=== PATIENT | male | born 2000 | race Two or more races ===

== ENCOUNTER 2021-07-16 16:44 | Emergency (ER) | payer OTHER, MEDICAID, SELFPAY ==
--- NOTE | ~2021-07-16 | XR_ITS ---
EXAMINATION: XR CHEST CLINICAL INFORMATION: Shortness of breath COMPARISON: None TECHNIQUE: Frontal view of the chest was obtained. FINDINGS: No significant abnormality is noted involving the heart, lungs, mediastinum, bony thorax or soft tissues. XR/XR chest 1V IMPRESSION: Unremarkable examination.
[2021-07-16 16:57] VITALS: BP 124/73; BP 136/82; PULSE 120; PULSE 122; RESP 18; O2SAT 100; O2SAT 98; BMI 26.8
[2021-07-16 17:03] LABS: Glucose, Whole Blood 439 mg/dL (60-115)
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
[2021-07-16] MEDS: 0.9 % Sodium Chloride 1,000 ML 999 ML IV ×3 (17:08→23:30)
[2021-07-16] MEDS: diazePAM 2 MG TABLET PO (17:10)
[2021-07-16 17:37] LABS: MANUAL DIFF FLAG NO
[2021-07-16 17:38] LABS: Basophils Absolute Auto 0.1 X10*3/uL (0.0-0.2); Basophils Percent Auto 0.5 % (0-2); Eosinophils Absolute Auto 0.1 X10*3/uL (0.0-0.4); Eosinophils Percent Auto 0.6 % (0-4); Hematocrit 43.8 % (42.0-52.0); Hemoglobin 14.1 g/dl (14.0-18.0); Imm Gran Abs Auto 0.12 X10*3/uL (0.00-0.03); Imm Gran Pct Auto 0.8 % (0.0-0.4); Lymphocytes Absolute Auto 1.7 X10*3/uL (1.2-4.9); Mean Corpuscular HGB Conc 32.2 g/dl (31.0-36.0); Mean Corpuscular Hemoglobin 26.3 pg (27.0-33.0); Mean Corpuscular Volume 81.6 fL (80.0-98.0); Mean Platelet Volume 11.7 fL (9.4-12.4); Monocytes Absolute Auto 1.2 X10*3/uL (0.1-1.2); Monocytes Percent Auto 7.8 % (2-11); Neutrophils Absolute Auto 11.9 x10*3/uL (2.0-8.3); Neutrophils Percent Auto 79.3 % (45-73); Platelet Count 258 X10*3/uL (160-400); Red Blood Count 5.37 X10*6/uL (4.60-5.80); Red Cell Distribution Width 11.9 % (11.0-16.0)
[2021-07-16 17:39] LABS: Appearance Urine CLEAR; Color Urine YELLOW; Glucose Urine UA >=1000 MG/DL (NEG); Leukocyte Esterase Urine NEG (NEG); Nitrite Urine NEG (NEG); PH 5.5 (5.0-8.0); Urine Blood NEG (NEG); Urine Ketones 15 MG/DL (NEG); Urine Protein NEG (NEG-TRACE)
[2021-07-16] MEDS: Insulin Lispro 100 UNIT/ML 3 ML VIAL SUBCUT (17:43)
[2021-07-16 17:50] LABS: RBC Urine 0 /HPF (0); Squamous Epithelial Cell Urine 1+ /LPF
[2021-07-16 17:51] LABS: Bacteria Urine TRACE /LPF
[2021-07-16 17:59] LABS: Acetone, serum QL Negative (Negative)
[2021-07-16 18:02] LABS: Amphetamine Screen Urine Not Detected (Not Detect); Barbiturates, Urine Not Detected (Not Detect); Benzodiazepines Screen Urine Not Detected (Not Detect); Cannabinoid Screen Urine Not Detected (Not Detect); Cocaine Screen Urine POSITIVE (Not Detect); Fentanyl, urine POSITIVE (Not Detect); Opiate Screen Urine POSITIVE (Not Detect); Phencyclidine Screen Urine Not Detected (Not Detect)
[2021-07-16 18:04] LABS: Alanine Aminotransferase 21 U/L (0-40); Alkaline Phosphatase 111 U/L (39-117); Anion Gap 15 (12-20); Aspartate Amino Transferase 27 U/L (5-37); Bilirubin Total 0.3 mg/dL (0.0-1.0); Blood Urea Nitrogen 15 mg/dL (9-16); Calcium 8.8 mg/dL (8.4-10.2); Carbon Dioxide 29 mmol/L (22-29); Chloride 96 mmol/L (96-108); Creatinine Clr Calc Pharmacy 70.4; Estimated Glomerular Filt Rate > 60; Glucose Random 468 mg/dL (60-115); Potassium 4.2 mmol/L (3.3-5.1); Sodium 136 mmol/L (135-145); Total Protein 6.8 g/dL (6.5-8.0)
[2021-07-16 18:05] LABS: COVID-19 Test Negative (Negative); IDNOW Serial# 16C4AD1C
[2021-07-16 19:00] LABS: Glucose, Whole Blood 286 mg/dL (60-115)
--- NOTE | 2021-07-16 19:00 | PC.NURSE ---
Pt has been resting quietly. No longer complains of leg cramps. Sleeping at times
[2021-07-16 20:13] VITALS: BP 113/56; PULSE 88; RESP 14; O2SAT 98
[2021-07-16 22:31] VITALS: BP 119/74; PULSE 89; TEMP 37.3; O2SAT 99
[2021-07-17 00:58] LABS: Anion Gap 10 (12-20); Blood Urea Nitrogen 10 mg/dL (9-16); Calcium 8.2 mg/dL (8.4-10.2); Carbon Dioxide 27 mmol/L (22-29); Chloride 105 mmol/L (96-108); Creatinine Clr Calc Pharmacy 119.1; Estimated Glomerular Filt Rate > 60; Glucose Random 132 mg/dL (60-115); Potassium 3.7 mmol/L (3.3-5.1); Sodium 138 mmol/L (135-145)
== END 2021-07-17 02:42 | disposition home or self-care (01) ==
PROVIDERS: Physician Assistant; Emergency Provider Emergency Medicine Emergency Medical Services; PCP Family Medicine
DX: F11.19 Opioid abuse with unspecified opioid-induced disorder (principal); F14.10 Cocaine abuse, uncomplicated; R79.89 Other specified abnormal findings of blood chemistry; R25.2 Cramp and spasm; M79.605 Pain in left leg; M79.604 Pain in right leg; E11.9 Type 2 diabetes mellitus without complications; Z20.822 Contact with and (suspected) exposure to COVID-19; Z79.899 Other long term (current) drug therapy; Z91.14 Patient's other noncompliance with medication regimen
CPT/HCPCS: 36415; 71045; 80048; 80053; 80307; 81001; 82009; 82550; 82947; 83735; 85025; 87635; 96360; 96361; 99284

== ENCOUNTER 2022-03-16 05:03 | Emergency (ER) | payer OTHER, MEDICAID, SELFPAY ==
[2022-03-16 05:13] VITALS: BP 130/77; BP 134/89; PULSE 107; PULSE 117; RESP 16; O2SAT 97; O2SAT 99; BMI 25.7
[2022-03-16 05:18] VITALS: BP 137/78; PULSE 107; RESP 22; TEMP 36.8; O2SAT 96
--- NOTE | 2022-03-16 05:38 | PC.NURSE ---
Addendum entered by Denise Yarbrough 03/16/22 05:47: Pt left without being seen by the provider. Original Note: this RN walk in the room and saw the patient removing IV and requesting to leave. Pt's mom wa sat bedside, pt seemed agitated, anxious, and he was pacing. Dr. Torres was notified, and the charge nurse.
[2022-03-16 06:25] LABS: Glucose, Whole Blood 97 mg/dL (60-115)
--- NOTE | 2022-03-16 07:19 | ECG_ITS ---
Test Reason : CHEST PAIN Blood Pressure : / mmHG Vent. Rate : 107 BPM Atrial Rate : 107 BPM P-R Int : 132 ms QRS Dur : 072 ms QT Int : 346 ms P-R-T Axes : 040 -05 003 degrees QTc Int : 461 ms Sinus tachycardia Minimal voltage criteria for LVH, may be normal variant ( R in aVL ) Nonspecific T wave abnormality Abnormal ECG No previous ECGs available Referred By: Adrian Walton Electronically Signed By:CHITRA CASTILLO MD
== END 2022-03-16 05:56 | disposition left against medical advice (07) ==
LOC: HO.ED 05:54
PROVIDERS: Emergency Provider Emergency Medicine
DX: R07.89 Other chest pain (principal); Z79.899 Other long term (current) drug therapy
CPT/HCPCS: 82947; 93005; 99283; 99285

== ENCOUNTER 2022-06-20 01:01 | Emergency (ER) | payer OTHER, MEDICAID, SELFPAY ==
[2022-06-20 01:09] VITALS: BP 160/110; PULSE 125; O2SAT 98
[2022-06-20 01:11] VITALS: BP 141/94; PULSE 117; RESP 20; TEMP 36.3; O2SAT 98; BMI 26.2
--- NOTE | 2022-06-20 03:21 | ED_ITS ---
HPI - Anxiety General Chief Complaint: Anxiety Stated Complaint: PANIC ATTACK Time Seen by Provider: 06/20/22 02:42 History of Present Illness HPI narrative: Patient is a 22-year-old male presented today with having history of using cocaine. Then feeling very anxious. Came to the ED for help. Patient denies any suicidal homicidal ideation. He is diabetic. He takes metformin. Patient is also on methadone for previous heroin use. Denies heroin abuse today. Denies any coughing congestion upper respiratory symptoms. Related Data Allergies Allergy/AdvReac Type Severity Reaction Status Date / Time No Known Allergies Allergy Verified 07/16/21 16:57 [No Known Allergies*] Review of Systems Review of Systems: No chest pain or diaphoresis no fever no chills Yes all other systems are reviewed and are negative [facility] Past Medical History Attestation statement: The following information was validated with the patient. Medical History Diabetes Social History Social History Alcohol intake: current Alcohol intake frequency: a few times a week Patient Tobacco Use Status: Never used Tobacco Substance Use Type: Crack/Cocaine Advance Directives: No Physical Exam Vital Signs: Vital Signs: Last Vital Signs Temp 97.4 F 06/20/22 01:11 Pulse 117 H 06/20/22 01:11 Resp 20 06/20/22 01:11 BP 141/94 H 06/20/22 01:11 Pulse Ox 98 06/20/22 01:11 O2 Del Method 06/20/22 01:11 BMI result Body Mass Index 26.2 Appearance: Alert. Oriented X3. No acute distress. Eyes: Pupils equal, round and reactive to light. ENT: Pharynx normal. Neck: Normal inspection. Neck supple. No lymph nodes noted. No crepitus CVS: Normal heart rate and rhythm. Pulses normal. Normal S1 and S2 Respiratory: No respiratory distress. Breath sounds normal. No Wheezing. No rales Abdomen: Soft and nontender. No rigidity. No distention. good BS x4 Skin: Skin warm and dry. Normal skin color. Normal skin turgor. Extremities: No lower extremity edema. Neurovascular intact to all extremities. No Lacerations. No Rash Neuro: Oriented X 3. No motor deficit. No sensory deficit. Moving all extermities. No slurred speech Medical Decision Making Differential Diagnosis Patient's symptoms likely related to cocaine abuse. Told to stop using cocaine. Told to follow up on an outpatient basis. Will check patient's sugar prior to discharge. He is in stable condition. No distress. Admission/Observation Hypoglycemia, cocaine abuse, anxiety. Patient has no risk factors for pulmonary emboli. No arrhythmias in the past. Chronic Conditions Cocaine abuse Social Determinants Patient?s care significantly limited by Social Determinants of Health including: Alcoholism and drug addiction in family Discharge Plan Discharge Clinical Impression: Acute anxiety Patient Disposition: Home, Self-Care Instructions: Anxiety (ED), Cocaine Abuse (ED) Referrals: Grisel Monroe MD [Primary Care Provider] - (Please go to detox. Please stop using cocaine.) Print Language: Malay
[2022-06-20 03:35] VITALS: BP 120/52; PULSE 77; RESP 18; TEMP 36.5; O2SAT 99
[2022-06-20 03:36] LABS: Glucose, Whole Blood 99 mg/dL (60-115)
== END 2022-06-20 03:43 | disposition home or self-care (01) ==
PROVIDERS: Emergency Provider Emergency Medicine Emergency Medical Services; PCP Family Medicine
DX: F41.9 Anxiety disorder, unspecified (principal); F14.10 Cocaine abuse, uncomplicated; F11.20 Opioid dependence, uncomplicated; E11.9 Type 2 diabetes mellitus without complications; Z79.84 Long term (current) use of oral hypoglycemic drugs
CPT/HCPCS: 82947; 99282; 99283

== ENCOUNTER 2022-12-24 06:57 | Inpatient (IN) | payer OTHER, SELFPAY ==
--- NOTE | ~2022-12-24 | XR_ITS ---
EXAMINATION: PORTABLE CHEST 1 VIEW CLINICAL INFORMATION: right sided chest pain. COMPARISON: 12/24/2022. TECHNIQUE: Portable frontal view of the chest was obtained. FINDINGS: The lungs are hypoexpanded. No focal infiltrate, effusion, edema, or pneumothorax. Cardiac and mediastinal silhouettes are within normal limits for technique. No acute bony abnormality seen. XR/XR chest 1V IMPRESSION: No evidence of acute disease.
--- NOTE | ~2022-12-24 | XR_ITS ---
EXAMINATION: XR CHEST CLINICAL INFORMATION: Elevated white blood cell count COMPARISON: Previous chest x-ray July 2021 TECHNIQUE: Frontal view of the chest was obtained. FINDINGS: No significant abnormality is noted involving the heart, lungs, mediastinum, bony thorax or soft tissues. XR/XR chest 1V IMPRESSION: Unremarkable examination.
[2022-12-24 07:26] VITALS: BP 155/89; BP 160/104; PULSE 127; PULSE 133; RESP 20; TEMP 37.1; O2SAT 98; O2SAT 99; BMI 32.9
--- NOTE | 2022-12-24 07:50 | ED_ITS ---
HPI - Psych General Chief Complaint: Psychiatric Symptoms Stated Complaint: CRISIS,PARANOIA/DELUSIONS Time Seen by Provider: 12/24/22 07:49 Source: patient, EMS, RN notes reviewed and old records reviewed Mode of arrival: EMS History of Present Illness HPI Narrative: 22-year-old male with past medical history of diabetes presenting to the ED via EMS after going to the police station and requesting to come to the hospital due to visual hallucinations of seeing people around him, paranoia, and feeling unsafe. Patient reports he feels scared. States hallucinations were telling him they were going to hurt him. Reports occasional ETOH use, denies other illicit substances. Denies SI/HI, abdominal pain, nausea/vomiting, injury/trauma or fall Related Data Home Medications Medication Instructions Recorded Confirmed cholecalciferol (vitamin D3) 25 25 mcg PO DAILY 12/24/22 12/24/22 mcg (1,000 unit) tablet dulaglutide 0.75 mg/0.5 mL 0.75 mg subcut MO@0900 12/24/22 12/24/22 subcutaneous pen injector (Trulicity) metformin 500 mg tablet,extended 500 mg PO BID 12/24/22 12/24/22 release 24 hr methadone 10 mg/mL oral concentrate 115 mg PO DAILY 12/24/22 Allergies Allergy/AdvReac Type Severity Reaction Status Date / Time No Known Allergies Allergy Verified 12/24/22 07:45 [No Known Allergies*] Review of Systems Review of Systems: Constitutional: No Fever, No Chills, No Fatigue, No Malaise ENT/Mouth: No Ear Pain, No Swallowing Difficulty Eyes: No Eye Pain, No Swelling, No Redness, No Vision Changes Cardiovascular: No Chest Pain, No SOB Respiratory: No Cough, No Dyspnea Gastrointestinal: No Nausea, No Vomiting, No Abdominal pain Musculoskeletal: No joint pain, No Myalgias, No Joint Swelling Skin: No Skin Lesions, No rash Neuro: No Weakness, No Dizziness, No Headache Psych: + Anxiety/Panic, No Depression, No SI/HI, +AH/VH, No Social Issues, +paranoia Yes all other systems are reviewed and are negative Constitutional: Constitutional: Reports as per HPI [facility] Past Medical History Attestation statement: The following information was validated with the patient. Source: old records reviewed Medical History Diabetes Social History Social History Alcohol intake: current Alcohol intake frequency: does not drink Patient Tobacco Use Status: Never used Tobacco Smoked in Last 30 Days: No Substance Use Type: Crack/Cocaine Advance Directives: No Advance Directives Information Provided: Yes Healthcare Proxy: No Guardian: No Physical Exam Vital Signs: Vital Signs: Last Vital Signs Temp 96.3 F L 12/24/22 11:38 Pulse 89 12/24/22 11:38 Resp 18 12/24/22 11:38 BP 112/58 L 12/24/22 11:38 Pulse Ox 98 12/24/22 11:38 O2 Del Method Room Air 12/24/22 11:38 BMI result Body Mass Index 32.9 Const: General: cooperative and no acute distress Orientation/consciousness: patient oriented x3 Limitations: no limitations HEENT: Head: Yes normal to inspection and Yes atraumatic Ears: hearing grossly normal bilaterally General nose exam: Normal external nose present Face and sinus: Yes normal facial exam Throat: Yes posterior oropharynx normal and Yes uvula midline Eyes: General: appearance normal, both eyes and all related structures EOM: EOMs intact bilaterally Neck: Neck: Yes normal visual inspection and Yes no meningeal signs Resp: Effort & Inspection: normal respiratory effort and no respiratory distress Auscultation: clear to auscultation bilaterally, no crackles and no wheezes Cardio: Rate: regular rate Heart sounds: S1 normal heart sound present and S2 normal heart sound present GI: Inspection: Yes normal to inspection Palpation (GI): Soft to palpation, nontender, no guarding and not rigid Skin: Rashes: no rashes Wounds: no wounds Neuro: General: patient oriented x3, tone normal and no meningeal signs Cranial nerves: Yes CN's II-XII intact bilaterally Gait exam (Neuro): Normal gait present Extrem: General: Yes normal to inspection Psych: Affect: Anxious affect present Attitude: Guarded attititude/behavior present and Avoids eye contact (attititude/behavior) Thought content: suicidality, no homicidality, delusions, Hallucination(s) present visual and Phobia(s) present Course Course Course Narrative: -1133--leukocytosis of 18.6 > obtain UA and CXR to rule infection, low suspicion for sepsis. No evidence of infection at this time, likely reactive from stress. Potassium mildly elevated to 5.5 > p.o. lokelma -1258-- XR chest 1V IMPRESSION: Unremarkable examination. -urine tox positive for fentanyl and cocaine -UA with trace leuks, moderate amount of WBC > will give p.o. Ceftin. Low suspicion for severe sepsis. -patient medically cleared for CARE team evaluation. Physician observation initiated at 15:00. -1500--ED care transferred to RANDY Quintana pending CARE eval 1624 - Patient still awaiting CARE evaluation at this time. Medications Administered Discontinued Medications Generic Name Dose Route Start Last Admin Trade Name Freq PRN Reason Stop Dose Admin Sodium Zirconium Cyclosilicate 5 gm 12/24/22 11:35 12/24/22 12:31 Sodium Zirconium Cyclosilicate 5 Gm Powd.Pack PO 12/24/22 11:36 5 gm ONCE ONE Administration Medical Decision Making Medical Decision Making MDM Narrative: 22-year-old male with past medical history of diabetes presenting to the ED via EMS after going to the police station and requesting to come to the hospital due to visual hallucinations of seeing people around him, paranoia, and feeling unsafe. On exam tachycardic, anxious, guarded, paranoid, no evidence of trauma. Denies SI/HI. Concern for paranoid delusions vs psychosis vs substance abuse. Rule out organic causes Plan: EKG, Labs, UA, tox screen, CARE team consult Low suspicion for severe sepsis Please refer to course for remaining clinical decision making, interpretation of labs/imaging results, and discussions with consultants and/or family members. Differential Diagnosis Differential Diagnoses: The differential diagnosis associated with the presentation includes As above Admission/Observation Consideration of admission/observation: Escalation of care including admission/observation considered Consult Healthcare Provider Management of the patient was discussed with: Behavioral Health Provider Lab Data [facility] Lab Attestation statement: I reviewed the patient's lab results. 12/24/22 08:31 12/24/22 08:31 Labs: Lab Results 12/24/22 12/24/22 12/24/22 Range/Units 08:31 08:31 08:31 WBC 18.6 H (4.8-10.8) X10*3/uL RBC 5.39 (4.60-5.80) X10*6/uL Hgb 13.8 L (14.0-18.0) g/dl Hct 41.7 L (42.0-52.0) % MCV 77.4 L (80.0-98.0) fL MCH 25.6 L (27.0-33.0) pg MCHC 33.1 (31.0-36.0) g/dl RDW 12.8 (11.0-16.0) % Plt Count 300 (160-400) X10*3/uL MPV 9.9 (9.4-12.4) fL Immature Gran % (Auto) 0.6 H (0.0-0.4) % Neut % (Auto) 76.9 H (45-73) % Lymph % (Auto) 15.0 L (20-40) % [place] % (Auto) 7.2 (2-11) % Eos % (Auto) 0.0 (0-4) % Baso % (Auto) 0.3 (0-2) % Lymph # (Auto) 2.8 (1.2-4.9) X10*3/uL [place] # (Auto) 1.4 H (0.1-1.2) X10*3/uL Eos # (Auto) 0.0 (0.0-0.4) X10*3/uL Baso # (Auto) 0.1 (0.0-0.2) X10*3/uL Abs Immat Gran (auto) 0.12 H (0.00-0.03) X10*3/uL Absolute Neuts (auto) 14.3 H (2.0-8.3) x10*3/uL Absolute Nucleated RBC 0.000 (0.0-0.012) X10*3/uL Nucleated RBC % (auto) 0.0 (0.0-0.2) /100WBC Sodium 139 (135-145) mmol/L Potassium 5.5 H D (3.3-5.1) mmol/L Chloride 104 (96-108) mmol/L Carbon Dioxide 25 (22-29) mmol/L Anion Gap 16 (12-20) BUN 12 (9-16) mg/dL Creatinine 0.91 (0.5-1.4) mg/dL Estim Creat Clear Calc 115.8 Estimated GFR > 60 Random Glucose 95 (60-115) mg/dL Calcium 10.1 D (8.4-10.2) mg/dL Total Bilirubin 0.2 (0.0-1.0) mg/dL Direct Bilirubin < 0.2 (0.0-0.5) mg/dL AST 32 (5-37) U/L ALT 40 (0-40) U/L Alkaline Phosphatase 111 (39-117) U/L Total Protein 8.5 H (6.5-8.0) g/dL Albumin 4.9 (3.5-5.0) g/dL Urine Color Urine Appearance Urine pH (5.0-9.0) Ur Specific [place] (1.005-1.025) Urine Protein (Neg-Trace) mg/dL Urine Glucose (UA) (Negative) mg/dL Urine Ketones (Negative) mg/dL Urine Blood (Negative) Urine Nitrite (Negative) Ur Leukocyte Esterase (Negative) Urine RBC (0-2) /HPF Urine WBC (0-5) /HPF Ur Squamous Epith Cells (0-2) /HPF Urine Bacteria (None Seen) Hyaline Casts (0-2) /LPF Salicylates < 5.0 L (15-30) mg/dL Urine Opiates Screen (Not Detect) Urine Fentanyl Screen (Not Detect) Acetaminophen < 17 (<30) mcg/mL Ur Barbiturates Screen (Not Detect) Ur Phencyclidine Scrn (Not Detect) Ur Amphetamines Screen (Not Detect) U Benzodiazepines Scrn (Not Detect) Urine Cocaine Screen (Not Detect) U Marijuana (THC) Screen (Not Detect) Ethyl Alcohol < 10 mg/dL COVID-19 ([facility]) (Negative) COVID-19 Clin Com 12/24/22 12/24/22 12/24/22 Range/Units 11:58 11:58 15:56 WBC (4.8-10.8) X10*3/uL RBC (4.60-5.80) X10*6/uL Hgb (14.0-18.0) g/dl Hct (42.0-52.0) % MCV (80.0-98.0) fL MCH (27.0-33.0) pg MCHC (31.0-36.0) g/dl RDW (11.0-16.0) % Plt Count (160-400) X10*3/uL MPV (9.4-12.4) fL Immature Gran % (Auto) (0.0-0.4) % Neut % (Auto) (45-73) % Lymph % (Auto) (20-40) % [place] % (Auto) (2-11) % Eos % (Auto) (0-4) % Baso % (Auto) (0-2) % Lymph # (Auto) (1.2-4.9) X10*3/uL [place] # (Auto) (0.1-1.2) X10*3/uL Eos # (Auto) (0.0-0.4) X10*3/uL Baso # (Auto) (0.0-0.2) X10*3/uL Abs Immat Gran (auto) (0.00-0.03) X10*3/uL Absolute Neuts (auto) (2.0-8.3) x10*3/uL Absolute Nucleated RBC (0.0-0.012) X10*3/uL Nucleated RBC % (auto) (0.0-0.2) /100WBC Sodium (135-145) mmol/L Potassium (3.3-5.1) mmol/L Chloride (96-108) mmol/L Carbon Dioxide (22-29) mmol/L Anion Gap (12-20) BUN (9-16) mg/dL Creatinine (0.5-1.4) mg/dL Estim Creat Clear Calc Estimated GFR Random Glucose (60-115) mg/dL Calcium (8.4-10.2) mg/dL Total Bilirubin (0.0-1.0) mg/dL Direct Bilirubin (0.0-0.5) mg/dL AST (5-37) U/L ALT (0-40) U/L Alkaline Phosphatase (39-117) U/L Total Protein (6.5-8.0) g/dL Albumin (3.5-5.0) g/dL Urine Color Yellow Urine Appearance Clear Urine pH 5.5 (5.0-9.0) Ur Specific [place] 1.015 (1.005-1.025) Urine Protein Negative (Neg-Trace) mg/dL Urine Glucose (UA) Negative (Negative) mg/dL Urine Ketones Negative (Negative) mg/dL Urine Blood Negative (Negative) Urine Nitrite Negative (Negative) Ur Leukocyte Esterase Trace H (Negative) Urine RBC 0-2 (0-2) /HPF Urine WBC 6-10 H (0-5) /HPF Ur Squamous Epith Cells 0-2 (0-2) /HPF Urine Bacteria None Seen (None Seen) Hyaline Casts 0-2 (0-2) /LPF Salicylates (15-30) mg/dL Urine Opiates Screen Not Detected (Not Detect) Urine Fentanyl Screen POSITIVE H (Not Detect) Acetaminophen (<30) mcg/mL Ur Barbiturates Screen Not Detected (Not Detect) Ur Phencyclidine Scrn Not Detected (Not Detect) Ur Amphetamines Screen Not Detected (Not Detect) U Benzodiazepines Scrn Not Detected (Not Detect) Urine Cocaine Screen POSITIVE H (Not Detect) U Marijuana (THC) Screen Not Detected (Not Detect) Ethyl Alcohol mg/dL COVID-19 ([facility]) Negative (Negative) COVID-19 Clin Com See Note Independent Interpretation I performed an independent interpretation of an: EKG (EKG normal sinus rhythm at a rate of 93. ME interval 140. No STEMI. Questionable change in QRS axis when compared to prior) and Plain X-Ray Radiology Impression Discussion of test interpretation with radiology: I have reviewed the radiologist's reading. Radiologist Impression: XR chest 1V IMPRESSION: Unremarkable examination. Independent Historian Clinical information obtained from an independent historian. History obtained from or confirmed by: EMS External Record Review External record reviewed: Inpatient record, Office record, Outpatient record, Prior outpatient labs, Prior outpatient radiology, Primary care record and Outside ED record Tests considered The following testing was considered but not selected: As above Chronic Conditions Patient?s care impacted by: Diabetes Social Determinants Patient?s care significantly limited by Social Determinants of Health including: Inadequate housing, Problems related to primary support group and Other Social Determinant of Health Discharge Plan Discharge Clinical Impression: Paranoid delusion, Acute UTI Patient Disposition: Still a Patient Prescriptions: No Action metformin 500 mg tablet extended release 24 hr 500 mg PO BID cholecalciferol (vitamin D3) 25 mcg (1,000 unit) tablet 25 mcg PO DAILY Trulicity 0.75 mg/0.5 mL pen injector 0.75 mg subcut MO@0900 methadone 10 mg/mL Concentrate 115 mg PO DAILY Interventions: [place]-Suicide Risk Severity Scale Last Done: 12/24/22 07:44
--- NOTE | 2022-12-24 07:52 | ECG_ITS ---
Test Reason : SLOW QT WAVES Blood Pressure : / mmHG Vent. Rate : 093 BPM Atrial Rate : 093 BPM P-R Int : 140 ms QRS Dur : 076 ms QT Int : 366 ms P-R-T Axes : 000 051 062 degrees QTc Int : 455 ms Normal sinus rhythm Nonspecific T wave abnormality Abnormal ECG When compared with ECG of 16-MAR-2022 05:21, Questionable change in QRS axis Referred By: Bridgette Martinez Electronically Signed By:Javier Eaton
--- NOTE | 2022-12-24 08:21 | PC.NURSE ---
pt a+o x3, vss at baseline, denies pain. pt reported that he woke up feeling like someone was watching him so he went to the police station and asked to be brought to the hospital. he denies visual/auditory hallucinations, denies SI/HI. I only feel like someone is watching me and it makes me nervous . pt calm, cooperative, sitting quietly on his bed at this time. will continue to observe.
[2022-12-24 08:40] LABS: MANUAL DIFF FLAG NO
[2022-12-24 08:42] LABS: Basophils Absolute Auto 0.1 X10*3/uL (0.0-0.2); Basophils Percent Auto 0.3 % (0-2); Hematocrit 41.7 % (42.0-52.0); Hemoglobin 13.8 g/dl (14.0-18.0); Imm Gran Abs Auto 0.12 X10*3/uL (0.00-0.03); Imm Gran Pct Auto 0.6 % (0.0-0.4); Lymphocytes Absolute Auto 2.8 X10*3/uL (1.2-4.9); Mean Corpuscular HGB Conc 33.1 g/dl (31.0-36.0); Mean Corpuscular Hemoglobin 25.6 pg (27.0-33.0); Mean Corpuscular Volume 77.4 fL (80.0-98.0); Mean Platelet Volume 9.9 fL (9.4-12.4); Monocytes Absolute Auto 1.4 X10*3/uL (0.1-1.2); Monocytes Percent Auto 7.2 % (2-11); Neutrophils Absolute Auto 14.3 x10*3/uL (2.0-8.3); Neutrophils Percent Auto 76.9 % (45-73); Platelet Count 300 X10*3/uL (160-400); Red Blood Count 5.39 X10*6/uL (4.60-5.80); Red Cell Distribution Width 12.8 % (11.0-16.0); White Blood Count 18.6 X10*3/uL (4.8-10.8)
[2022-12-24 09:21] LABS: Acetaminophen LAB < 17 mcg/mL (<30); Alanine Aminotransferase 40 U/L (0-40); Albumin Level 4.9 g/dL (3.5-5.0); Alkaline Phosphatase 111 U/L (39-117); Anion Gap 16 (12-20); Aspartate Amino Transferase 32 U/L (5-37); Bilirubin Direct < 0.2 mg/dL (0.0-0.5); Bilirubin Total 0.2 mg/dL (0.0-1.0); Blood Urea Nitrogen 12 mg/dL (9-16); Calcium 10.1 mg/dL (8.4-10.2); Carbon Dioxide 25 mmol/L (22-29); Chloride 104 mmol/L (96-108); Creatinine Clr Calc Pharmacy 115.8; Estimated Glomerular Filt Rate > 60; Ethanol < 10 mg/dL; Glucose Random 95 mg/dL (60-115); Potassium 5.5 mmol/L (3.3-5.1); Salicylate < 5.0 mg/dL (15-30); Sodium 139 mmol/L (135-145); Total Protein 8.5 g/dL (6.5-8.0)
--- NOTE | 2022-12-24 10:06 | MHC.EDTECH ---
Pt unable to void at this time. Pt is aware we need a urine specimen as soon as he can. SG
[2022-12-24 11:38] VITALS: BP 112/58; PULSE 89; RESP 18; TEMP 35.7; O2SAT 98
[2022-12-24 12:07] LABS: Appearance Urine Clear; Color Urine Yellow; Glucose Urine UA Negative (Negative); Leukocyte Esterase Urine Trace (Negative); Nitrite Urine Negative (Negative); PH 5.5 (5.0-9.0); Specific Gravity - Urine 1.015 (1.005-1.025); UMIC TRIGGER UACC YES; Urine Blood Negative (Negative); Urine Ketones Negative (Negative); Urine Protein Negative (Neg-Trace)
[2022-12-24 12:09] LABS: Bacteria Urine None Seen (None Seen); Hyaline Casts Urine 0-2 /LPF (0-2); RBC Urine 0-2 /HPF (0-2); Squamous Epithelial Cell Urine 0-2 /HPF (0-2); UACC Culture Trigger YES
[2022-12-24 12:18] LABS: Amphetamine Screen Urine Not Detected (Not Detect); Barbiturates, Urine Not Detected (Not Detect); Benzodiazepines Screen Urine Not Detected (Not Detect); Cannabinoid Screen Urine Not Detected (Not Detect); Cocaine Screen Urine POSITIVE (Not Detect); Fentanyl, urine POSITIVE (Not Detect); Opiate Screen Urine Not Detected (Not Detect); Phencyclidine Screen Urine Not Detected (Not Detect)
[2022-12-24] MEDS: Sodium Zirconium Cyclosilicate 5 GM POWD.PACK PO (12:31)
--- NOTE | 2022-12-24 14:43 | MHC.CARE ---
patient is voluntary for inpatient LOC. Placement pending
--- NOTE | 2022-12-24 15:00 | PC.NURSE ---
pt seen by Care Team, plan is inpatient bed search. pt aware and agrees with plan.
--- NOTE | 2022-12-24 15:37 | PHA.MEDREC ---
Pharmacy Consult ? Medication Reconciliation Pharmacy has completed the medication reconciliation. Spoke to patient to confirm meds. Utilized exercise instruct services. Patient reports taking methadone 115mg daily, but could not name specific place other than that its the [facility] . Patient also reports taking metformin 500mg ER BID, but claim history shows last fill date on 03/16/22.
[2022-12-24 16:18] LABS: COVID-19 Test Negative (Negative); IDNOW Serial# 08D9AD1C
[2022-12-24 17:03] VITALS: BP 113/61; PULSE 80; RESP 18; TEMP 36.4; O2SAT 100
--- NOTE | 2022-12-24 19:59 | PC.NURSE ---
Pt ambulated with a steady gait to bathroom. Returned to room. Resting quietly. Plan of care ongoing.
--- NOTE | 2022-12-24 20:10 | PC.NURSE ---
Pt lying across the bed sideways. Per pt feels better on his back when he lays that way. Pt alert and oriented, calm and cooperative. Plan of care ongoing.
[2022-12-24 22:30] VITALS: BMI 30.5
[2022-12-24 22:35] VITALS: BP 133/75; PULSE 92; RESP 18; TEMP 36.4; O2SAT 98
[2022-12-24] MEDS: cloNIDine HCL 0.1 MG TABLET PO (23:20)
[2022-12-24] MEDS: hydrOXYzine HCL 25 MG TABLET PO (23:20)
[2022-12-24] MEDS: traZODone HCL 50 MG TABLET PO (23:21)
--- NOTE | 2022-12-25 01:40 | PC.ADMIT ---
Cassandra Phillips is a 22yo Togolese speaking male, admitted at 2230 on a CV to M3 unit from [facility] for treatment of SI, paranoia and AVH. He reported to the police that he felt afraid that his auditory hallucination were telling him that people were going to hurt him. He endorses AVH and SI with no plan for the past 3 months but denies homicidal ideation. He states that I always hear voices telling me to kill myself any time I am nervous . Pt said he takes herione, cocaine and drink alcohol, urine tox is positive for cocaine. Admission process was carried out with the help of an sed middle school teacher, Pt is alert and orientated X4, calm and cooperative, mood is flat and affect is anxious. He is non-compliance with diabetes medication and states that he takes Methadone, unconfirmed dosages. Treatment plan and safety tools were initiated.
[2022-12-25 07:41] LABS: MANUAL DIFF FLAG NO
[2022-12-25 07:44] LABS: Basophils Absolute Auto 0.1 X10*3/uL (0.0-0.2); Basophils Percent Auto 0.6 % (0-2); Eosinophils Absolute Auto 0.1 X10*3/uL (0.0-0.4); Eosinophils Percent Auto 0.7 % (0-4); Hematocrit 41.2 % (42.0-52.0); Hemoglobin 13.1 g/dl (14.0-18.0); Imm Gran Abs Auto 0.06 X10*3/uL (0.00-0.03); Imm Gran Pct Auto 0.7 % (0.0-0.4); Lymphocytes Absolute Auto 3.2 X10*3/uL (1.2-4.9); Lymphocytes Percent Auto 37.4 % (20-40); Mean Corpuscular HGB Conc 31.8 g/dl (31.0-36.0); Mean Corpuscular Hemoglobin 25.3 pg (27.0-33.0); Mean Corpuscular Volume 79.5 fL (80.0-98.0); Monocytes Absolute Auto 0.7 X10*3/uL (0.1-1.2); Monocytes Percent Auto 8.7 % (2-11); Neutrophils Absolute Auto 4.4 x10*3/uL (2.0-8.3); Neutrophils Percent Auto 51.9 % (45-73); Platelet Count 265 X10*3/uL (160-400); Red Blood Count 5.18 X10*6/uL (4.60-5.80); White Blood Count 8.5 X10*3/uL (4.8-10.8)
--- NOTE | 2022-12-25 07:53 | PC.NURSE ---
Spoke with Daria XAVIER at [facility], pt last received Methadone 115mg 12/23/22 at 1156.
[2022-12-25 08:00] VITALS: BP 107/62; PULSE 79; TEMP 36.6; O2SAT 100
--- NOTE | 2022-12-25 08:01 | HE.PHANOTE ---
RE: methadone [facility] last dose 12/23/22 for 115mg
[2022-12-25 08:07] LABS: Alanine Aminotransferase 41 U/L (0-40); Albumin Level 4.2 g/dL (3.5-5.0); Alkaline Phosphatase 96 U/L (39-117); Anion Gap 13 (12-20); Aspartate Amino Transferase 61 U/L (5-37); Bilirubin Total 0.3 mg/dL (0.0-1.0); Blood Urea Nitrogen 13 mg/dL (9-16); Calcium 9.6 mg/dL (8.4-10.2); Carbon Dioxide 29 mmol/L (22-29); Chloride 103 mmol/L (96-108); Cholesterol 98 mg/dL; Estimated Glomerular Filt Rate > 60; Glucose Fasting 136 mg/dL (60-99); HDL Cholesterol 50 mg/dL; LDL Cholesterol Calculated 29 mg/dl; Magnesium 2.2 mg/dL (1.6-2.6); Potassium 4.5 mmol/L (3.3-5.1); Sodium 140 mmol/L (135-145); Total Protein 7.3 g/dL (6.5-8.0); Triglycerides 99 mg/dL
[2022-12-25] MEDS: Cholecalciferol (Vitamin D3) 25 MCG TABLET PO (08:22)
[2022-12-25] MEDS: metFORMIN HCl ER 500 MG TAB.ER.24H PO ×2 (08:22→22:09)
[2022-12-25] MEDS: methADONE HCl 20 MG/2 ML ORAL.CONC 115 MG PO (08:22)
[2022-12-25 08:29] LABS: Glucose, Whole Blood 145 mg/dL (60-115)
--- NOTE | 2022-12-25 09:50 | HO.PSYCHPN ---
Subjective Subjective Reason For Visit: Hallucinations Diagnostics Vital Signs (24Hr): Vital Signs - 24 hr 12/24/22 11:38 12/24/22 17:03 12/24/22 22:35 Temperature 96.3 F L 97.5 F 97.6 F Pulse Rate 89 80 92 Respiratory Rate 18 18 18 Blood Pressure 112/58 L 113/61 133/75 Pulse Oximetry 98 100 98 Oxygen Delivery Method Room Air Room Air Room Air 12/25/22 08:00 Temperature 97.9 F Pulse Rate 79 Respiratory Rate Blood Pressure 107/62 Pulse Oximetry 100 Oxygen Delivery Method Room Air BMI result Body Mass Index 30.5 Labs 12/25/22 07:37 12/25/22 07:37 Labs: Laboratory Results - last 48 hr 12/24/22 12/24/22 12/24/22 08:31 08:31 08:31 WBC 18.6 H RBC 5.39 Hgb 13.8 L Hct 41.7 L MCV 77.4 L MCH 25.6 L MCHC 33.1 RDW 12.8 Plt Count 300 MPV 9.9 Immature Gran % (Auto) 0.6 H Neut % (Auto) 76.9 H Lymph % (Auto) 15.0 L [place] % (Auto) 7.2 Eos % (Auto) 0.0 Baso % (Auto) 0.3 Lymph # (Auto) 2.8 [place] # (Auto) 1.4 H Eos # (Auto) 0.0 Baso # (Auto) 0.1 Abs Immat Gran (auto) 0.12 H Absolute Neuts (auto) 14.3 H Absolute Nucleated RBC 0.000 Nucleated RBC % (auto) 0.0 Sodium 139 Potassium 5.5 H D Chloride 104 Carbon Dioxide 25 Anion Gap 16 BUN 12 Creatinine 0.91 Estim Creat Clear Calc 115.8 Estimated GFR > 60 POC Glucose Random Glucose 95 Fasting Glucose Calcium 10.1 D Magnesium Total Bilirubin 0.2 Direct Bilirubin < 0.2 AST 32 ALT 40 Alkaline Phosphatase 111 Total Protein 8.5 H Albumin 4.9 Triglycerides Cholesterol LDL Cholesterol, Calc HDL Cholesterol Urine Color Urine Appearance Urine pH Ur Specific [place] Urine Protein Urine Glucose (UA) Urine Ketones Urine Blood Urine Nitrite Ur Leukocyte Esterase Urine RBC Urine WBC Ur Squamous Epith Cells Urine Bacteria Hyaline Casts Salicylates < 5.0 L Urine Opiates Screen Urine Fentanyl Screen Acetaminophen < 17 Ur Barbiturates Screen Ur Phencyclidine Scrn Ur Amphetamines Screen U Benzodiazepines Scrn Urine Cocaine Screen U Marijuana (THC) Screen Ethyl Alcohol < 10 COVID-19 ([facility]) COVID-19 [employer] Com 12/24/22 12/24/22 12/24/22 11:58 11:58 15:56 WBC RBC Hgb Hct MCV MCH MCHC RDW Plt Count MPV Immature Gran % (Auto) Neut % (Auto) Lymph % (Auto) [place] % (Auto) Eos % (Auto) Baso % (Auto) Lymph # (Auto) [place] # (Auto) Eos # (Auto) Baso # (Auto) Abs Immat Gran (auto) Absolute Neuts (auto) Absolute Nucleated RBC Nucleated RBC % (auto) Sodium Potassium Chloride Carbon Dioxide Anion Gap BUN Creatinine Estim Creat Clear Calc Estimated GFR POC Glucose Random Glucose Fasting Glucose Calcium Magnesium Total Bilirubin Direct Bilirubin AST ALT Alkaline Phosphatase Total Protein Albumin Triglycerides Cholesterol LDL Cholesterol, Calc HDL Cholesterol Urine Color Yellow Urine Appearance Clear Urine pH 5.5 Ur Specific [place] 1.015 Urine Protein Negative Urine Glucose (UA) Negative Urine Ketones Negative Urine Blood Negative Urine Nitrite Negative Ur Leukocyte Esterase Trace H Urine RBC 0-2 Urine WBC 6-10 H Ur Squamous Epith Cells 0-2 Urine Bacteria None Seen Hyaline Casts 0-2 Salicylates Urine Opiates Screen Not Detected Urine Fentanyl Screen POSITIVE H Acetaminophen Ur Barbiturates Screen Not Detected Ur Phencyclidine Scrn Not Detected Ur Amphetamines Screen Not Detected U Benzodiazepines Scrn Not Detected Urine Cocaine Screen POSITIVE H U Marijuana (THC) Screen Not Detected Ethyl Alcohol COVID-19 ([facility]) Negative COVID-19 Clin Com See Note 12/25/22 12/25/22 12/25/22 07:37 07:37 08:21 WBC 8.5 RBC 5.18 Hgb 13.1 L Hct 41.2 L MCV 79.5 L MCH 25.3 L MCHC 31.8 RDW 13.0 Plt Count 265 MPV 10.0 Immature Gran % (Auto) 0.7 H Neut % (Auto) 51.9 Lymph % (Auto) 37.4 [place] % (Auto) 8.7 Eos % (Auto) 0.7 Baso % (Auto) 0.6 Lymph # (Auto) 3.2 [place] # (Auto) 0.7 Eos # (Auto) 0.1 Baso # (Auto) 0.1 Abs Immat Gran (auto) 0.06 H Absolute Neuts (auto) 4.4 Absolute Nucleated RBC 0.000 Nucleated RBC % (auto) 0.0 Sodium 140 Potassium 4.5 Chloride 103 Carbon Dioxide 29 Anion Gap 13 BUN 13 Creatinine 0.86 Estim Creat Clear Calc 118.0 Estimated GFR > 60 POC Glucose 145 H Random Glucose Fasting Glucose 136 H Calcium 9.6 Magnesium 2.2 Total Bilirubin 0.3 Direct Bilirubin AST 61 H ALT 41 H Alkaline Phosphatase 96 Total Protein 7.3 Albumin 4.2 Triglycerides 99 Cholesterol 98 LDL Cholesterol, Calc 29 HDL Cholesterol 50 Urine Color Urine Appearance Urine pH Ur Specific [place] Urine Protein Urine Glucose (UA) Urine Ketones Urine Blood Urine Nitrite Ur Leukocyte Esterase Urine RBC Urine WBC Ur Squamous Epith Cells Urine Bacteria Hyaline Casts Salicylates Urine Opiates Screen Urine Fentanyl Screen Acetaminophen Ur Barbiturates Screen Ur Phencyclidine Scrn Ur Amphetamines Screen U Benzodiazepines Scrn Urine Cocaine Screen U Marijuana (THC) Screen Ethyl Alcohol COVID-19 ([facility]) COVID-19 Clin Com Imaging Radiology Impressions: ITS Impressions Chest X-Ray 12/24/22 12:10 IMPRESSION: Unremarkable examination. Medications Medications Current Medications Acetaminophen (Acetaminophen 325 Mg Tablet) 650 mg PO Q6H PRN PRN Reason: Headache/Pain Mild Scale (1-3) Al Hydroxide/Mg Hydroxide (Magnesium Hydrox/Alum Hydrox 30 Ml Oral.Susp) 30 ml PO Q6H PRN PRN Reason: Heartburn/Nausea Cefuroxime Axetil (Cefuroxime Axetil 250 Mg Tablet) 250 mg PO Q12H [facility] Last Admin: 12/25/22 06:19 Dose: Not Given Clonidine HCl (Clonidine Hcl 0.1 Mg Tablet) 0.1 mg PO TID PRN; Protocol PRN Reason: anxiety/restlessness Last Admin: 12/24/22 23:20 Dose: 0.1 mg Hydroxyzine HCl (Hydroxyzine Hcl 25 Mg Tablet) 25 mg PO Q6H PRN PRN Reason: Anxiety Last Admin: 12/24/22 23:20 Dose: 25 mg Ibuprofen (Ibuprofen 400 Mg Tablet) 400 mg PO Q6H PRN PRN Reason: Pain, Moderate(Pain Scale 4-6) Magnesium Hydroxide (Milk Of Magnesia 30 Ml Oral.Susp) 30 ml PO DAILY PRN PRN Reason: Constipation Metformin HCl (Metformin Hcl Er 500 Mg Tab.Er.24h) 500 mg PO BID [facility] Last Admin: 12/25/22 08:22 Dose: 500 mg Methadone HCl (Methadone Hcl 20 Mg/2 Ml Oral.Conc) 115 mg PO DAILY [facility] Last Admin: 12/25/22 08:22 Dose: 115 mg Nicotine Polacrilex (Nicotine Polacrilex 2 Mg Gum) 2 mg BUCCAL Q2H PRN PRN Reason: Nicotine Cravings Non-Formulary Medication (Dulaglutide [Trulicity]) 0.75 mg SUBCUT MO@0900 [facility] Olanzapine (Olanzapine 5 Mg Tablet) 5 mg PO Q4H PRN PRN Reason: Hallucinations Ondansetron HCl (Ondansetron Odt 4 Mg Tab.Rapdis) 4 mg TRANSLINGU Q6H PRN PRN Reason: Nausea and Vomiting Trazodone HCl (Trazodone Hcl 50 Mg Tablet) 50 mg PO BEDTIME MRX1 PRN PRN Reason: Insomnia Last Admin: 12/24/22 23:21 Dose: 50 mg Vitamin D (Cholecalciferol (Vitamin D3) 25 Mcg Tablet) 25 mcg PO DAILY [facility] Last Admin: 12/25/22 08:22 Dose: 25 mcg Allergies Allergies Allergy/AdvReac Type Severity Reaction Status Date / Time No Known Allergies Allergy Verified 12/24/22 07:45 [No Known Allergies*] Assessment & Plan Time Spent With Patient Time: Total time managing care of this patient today ____ minutes.
--- NOTE | 2022-12-25 10:39 | P.HPPS_ITS ---
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 The patient was referred from the police department to our emergency room on a [address] since he disclosed psychotic symptoms. According to the crisis assessment, the patient walking into the police department complaining that he was not feeling safe that he was all anxious and scared and he has auditory hallucinations commanding to hurt himself. Also he reports sporadic suicidal ideation and feeling scared all the time. He was assessed by crisis and transferred to this facility for psychiatric stabilization. On interview, the patient reported that he started feeling more anxious and scared for the last 3 months. He admitted having auditory hallucinations c ommanding him to hurt himself or hurt others. Also he reported the voices speaks some owned of cells and a comment about his actions. On interview, the patient also admitted sporadic visual hallucinations and he was hyper alert and scared special he has a known at night. He does not have most of the symptoms when he was interacting working. He cannot identified stressor or that precipitated these symptoms. He admitted that he had been using drugs mostly opioids and cocaine and he is on a mental problem. Last use of heroin as per his report was several weeks ago and cocaine as week. He is taking methadone 150 mg a day. At this moment, the patient is able to contract for safety and he was psycho educated into his condition. Past Psychiatric History: No prior psychiatric admissions not follow by outpatient providers. For psychotic break. Medical Evaluation Reviewed: Yes [facility] Medical History Diabetes Family History: Denies Social History: The patient was born and raised in the [facility] and reportedly, he was raised by family, he attended up to the 8th grade. He is mostly Congolese speaking. 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 He is single with no children. Substance History: He admitted use of heroin and cocaine, he is in a methadone program receiving 150 mg every day Trauma History: Denies Diagnostics Vital Signs (24Hr): Vital Signs - 24 hr 12/24/22 11:38 12/24/22 17:03 12/24/22 22:35 Temperature 96.3 F L 97.5 F 97.6 F Pulse Rate 89 80 92 Respiratory Rate 18 18 18 Blood Pressure 112/58 L 113/61 133/75 Pulse Oximetry 98 100 98 Oxygen Delivery Method Room Air Room Air Room Air 12/25/22 08:00 Temperature 97.9 F Pulse Rate 79 Respiratory Rate Blood Pressure 107/62 Pulse Oximetry 100 Oxygen Delivery Method Room Air BMI result Body Mass Index 30.5 Labs 12/25/22 07:37 12/25/22 07:37 Labs: Laboratory Results - last 48 hr 12/24/22 12/24/22 12/24/22 08:31 08:31 08:31 WBC 18.6 H RBC 5.39 Hgb 13.8 L Hct 41.7 L MCV 77.4 L MCH 25.6 L MCHC 33.1 RDW 12.8 Plt Count 300 MPV 9.9 Immature Gran % (Auto) 0.6 H Neut % (Auto) 76.9 H Lymph % (Auto) 15.0 L [place] % (Auto) 7.2 Eos % (Auto) 0.0 Baso % (Auto) 0.3 Lymph # (Auto) 2.8 [place] # (Auto) 1.4 H Eos # (Auto) 0.0 Baso # (Auto) 0.1 Abs Immat Gran (auto) 0.12 H Absolute Neuts (auto) 14.3 H Absolute Nucleated RBC 0.000 Nucleated RBC % (auto) 0.0 Sodium 139 Potassium 5.5 H D Chloride 104 Carbon Dioxide 25 Anion Gap 16 BUN 12 Creatinine 0.91 Estim Creat Clear Calc 115.8 Estimated GFR > 60 POC Glucose Random Glucose 95 Fasting Glucose Calcium 10.1 D Magnesium Total Bilirubin 0.2 Direct Bilirubin < 0.2 AST 32 ALT 40 Alkaline Phosphatase 111 Total Protein 8.5 H Albumin 4.9 Triglycerides Cholesterol LDL Cholesterol, Calc HDL Cholesterol Urine Color Urine Appearance Urine pH Ur Specific [place] Urine Protein Urine Glucose (UA) Urine Ketones Urine Blood Urine Nitrite Ur Leukocyte Esterase Urine RBC Urine WBC Ur Squamous Epith Cells Urine Bacteria Hyaline Casts Salicylates < 5.0 L Urine Opiates Screen Urine Fentanyl Screen Acetaminophen < 17 Ur Barbiturates Screen Ur Phencyclidine Scrn Ur Amphetamines Screen U Benzodiazepines Scrn Urine Cocaine Screen U Marijuana (THC) Screen Ethyl Alcohol < 10 COVID-19 ([facility]) COVID-19 [employer] 12/24/22 12/24/22 12/24/22 11:58 11:58 15:56 WBC RBC Hgb Hct MCV MCH MCHC RDW Plt Count MPV Immature Gran % (Auto) Neut % (Auto) Lymph % (Auto) [place] % (Auto) Eos % (Auto) Baso % (Auto) Lymph # (Auto) [place] # (Auto) Eos # (Auto) Baso # (Auto) Abs Immat Gran (auto) Absolute Neuts (auto) Absolute Nucleated RBC Nucleated RBC % (auto) Sodium Potassium Chloride Carbon Dioxide Anion Gap BUN Creatinine Estim Creat Clear Calc Estimated GFR POC Glucose Random Glucose Fasting Glucose Calcium Magnesium Total Bilirubin Direct Bilirubin AST ALT Alkaline Phosphatase Total Protein Albumin Triglycerides Cholesterol LDL Cholesterol, Calc HDL Cholesterol Urine Color Yellow Urine Appearance Clear Urine pH 5.5 Ur Specific [place] 1.015 Urine Protein Negative Urine Glucose (UA) Negative Urine Ketones Negative Urine Blood Negative Urine Nitrite Negative Ur Leukocyte Esterase Trace H Urine RBC 0-2 Urine WBC 6-10 H Ur Squamous Epith Cells 0-2 Urine Bacteria None Seen Hyaline Casts 0-2 Salicylates Urine Opiates Screen Not Detected Urine Fentanyl Screen POSITIVE H Acetaminophen Ur Barbiturates Screen Not Detected Ur Phencyclidine Scrn Not Detected Ur Amphetamines Screen Not Detected U Benzodiazepines Scrn Not Detected Urine Cocaine Screen POSITIVE H U Marijuana (THC) Screen Not Detected Ethyl Alcohol COVID-19 ([facility]) Negative COVID-19 [employer] See Note 12/25/22 12/25/22 12/25/22 07:37 07:37 08:21 WBC 8.5 RBC 5.18 Hgb 13.1 L Hct 41.2 L MCV 79.5 L MCH 25.3 L MCHC 31.8 RDW 13.0 Plt Count 265 MPV 10.0 Immature Gran % (Auto) 0.7 H Neut % (Auto) 51.9 Lymph % (Auto) 37.4 [place] % (Auto) 8.7 Eos % (Auto) 0.7 Baso % (Auto) 0.6 Lymph # (Auto) 3.2 [place] # (Auto) 0.7 Eos # (Auto) 0.1 Baso # (Auto) 0.1 Abs Immat Gran (auto) 0.06 H Absolute Neuts (auto) 4.4 Absolute Nucleated RBC 0.000 Nucleated RBC % (auto) 0.0 Sodium 140 Potassium 4.5 Chloride 103 Carbon Dioxide 29 Anion Gap 13 BUN 13 Creatinine 0.86 Estim Creat Clear Calc 118.0 Estimated GFR > 60 POC Glucose 145 H Random Glucose Fasting Glucose 136 H Calcium 9.6 Magnesium 2.2 Total Bilirubin 0.3 Direct Bilirubin AST 61 H ALT 41 H Alkaline Phosphatase 96 Total Protein 7.3 Albumin 4.2 Triglycerides 99 Cholesterol 98 LDL Cholesterol, Calc 29 HDL Cholesterol 50 Urine Color Urine Appearance Urine pH Ur Specific [place] Urine Protein Urine Glucose (UA) Urine Ketones Urine Blood Urine Nitrite Ur Leukocyte Esterase Urine RBC Urine WBC Ur Squamous Epith Cells Urine Bacteria Hyaline Casts Salicylates Urine Opiates Screen Urine Fentanyl Screen Acetaminophen Ur Barbiturates Screen Ur Phencyclidine Scrn Ur Amphetamines Screen U Benzodiazepines Scrn Urine Cocaine Screen U Marijuana (THC) Screen Ethyl Alcohol COVID-19 ([facility]) COVID-19 Clin Com Imaging Radiology Impressions: ITS Impressions Chest X-Ray 12/24/22 12:10 IMPRESSION: Unremarkable examination. Meds/Allergies Meds Home Medications Medication Instructions Recorded Confirmed Type cholecalciferol (vitamin D3) 25 25 mcg PO DAILY 12/24/22 12/24/22 History mcg (1,000 unit) tablet dulaglutide 0.75 mg/0.5 mL 0.75 mg subcut MO@0900 12/24/22 12/24/22 History subcutaneous pen injector (Trulicity) metformin 500 mg tablet,extended 500 mg PO BID 12/24/22 12/24/22 History release 24 hr methadone 10 mg/mL oral concentrate 115 mg PO DAILY 12/24/22 12/25/22 History Allergies Allergies Allergy/AdvReac Type Severity Reaction Status Date / Time No Known Allergies Allergy Verified 12/24/22 07:45 [No Known Allergies*] Mental Status Exam Mental Status Exam Patient Appearance: Appropriate (on hospital gowns) Patient Orientation: Person, Place and Situation Level of Consciousness: Awake and Lethargic Patient Behavior: Appropriate, Guarded and Passive Mood Description: Withdrawn Affect Description: Constricted Ability to Follow Directions: Good Speech Pattern: Clear Hallucinations: Auditory and Visual Delusions: Paranoid Ideation Thought Process: Distracted and Slowed Thinking Thought Content: positive for [place] and positive for Circumstantial Judgement: Fair Assessment & Plan Assessment & Plan (1) Psychotic disorder: Status: Acute Code(s): F29 - Unspecified psychosis not due to a substance or known physiological condition Plan The patient is a young adult male with no prior psychiatric history of decides dependence on opioids and cocaine home self-referred to the police department stating that he has auditory and visual hallucinations, and to hurt himself. On admission the patient also admitted the voices talks about themselves and comments about his behavior. Apparently he psychotic symptoms had been worse in the last 3 months without a clear stressor. He does not have family history and he stated that he had been still using drugs. Plan 1. I accepted conditional voluntary. 2. 15 minute checks since the patient was able to contract for safety in the facility. 3. We discussed at length risks, benefits, side-effects and alternatives and since the patient is diabetic he agreed to start Haldol 5 mg p.o. q.h.s. and 2 mg p.o. q.4 hours p.r.n. hallucinations. 4. Regular medical workout. 5. Reassessment with results. Patient educated on: diagnosis, therapeutic strategies and medical condition Reason for continued inpatient stay Substantial Risk for: inability to function, rapid decompensation and med/psych decompensation Statement Statement: I have reviewed the history and physical and performed a pertinent examination on my patient. No changes have occurred unless specified. If the History and Physical was not performed prior to admission, the Hospitalist's service will be consulted for completing the admission physical. Time Spent With Patient Time: Total time managing care of this patient today __45__ minutes.
[2022-12-25 21:45] VITALS: BP 124/64; PULSE 74; RESP 18; TEMP 36.4; O2SAT 99
[2022-12-25 22:05] LABS: Glucose, Whole Blood 134 mg/dL (60-115)
[2022-12-25] MEDS: HaloperidoL 5 MG TABLET PO (22:09)
[2022-12-25] MEDS: traZODone HCL 50 MG TABLET PO (23:25)
[2022-12-26 08:00] VITALS: BP 126/59; PULSE 74; RESP 18; TEMP 36.6; O2SAT 98
[2022-12-26 08:14] LABS: Glucose, Whole Blood 111 mg/dL (60-115)
[2022-12-26] MEDS: methADONE HCl 20 MG/2 ML ORAL.CONC 115 MG PO (09:45)
[2022-12-26] MEDS: Cholecalciferol (Vitamin D3) 25 MCG TABLET PO (09:46)
[2022-12-26] MEDS: metFORMIN HCl ER 500 MG TAB.ER.24H PO ×2 (09:46→22:09)
--- NOTE | 2022-12-26 15:10 | HO.PSYCHPN ---
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 discusses daily heroin use for the past 1.5 years, says he only uses cocaine once monthly (utox POS for fentanyl and cocaine). states AH for past 3 months. denies CAH. states multiple AH and they say, i'm going to kill you. contradictory information offered re MRE of AH. at first he says 2 nights ago, then later says haldol was helpful last night in decreasing the AH. also at one point says he needs help with mood lability, then later denies experiencing mood lability. the only other Sx he requests help with is depression. ageres to continue haldol tonight and wait and watch his mood; MD notes cocaine use and need for detox. Mental Status Exam Mental Status Exam Patient Appearance: Appropriate (on hospital gowns) Patient Orientation: Person, Place and Situation Level of Consciousness: Awake Patient Behavior: Appropriate, Guarded and Passive Mood Description: Withdrawn Affect Description: Constricted Ability to Follow Directions: Good Speech Pattern: Clear Hallucinations: None Delusions: Not Present Thought Process: Distracted and Slowed Thinking Thought Content: positive for [place] and positive for Circumstantial Judgement: Fair Diagnostics Vital Signs (24Hr): Vital Signs - 24 hr 12/25/22 21:45 12/26/22 08:00 Temperature 97.6 F 97.9 F Pulse Rate 74 74 Respiratory Rate 18 18 Blood Pressure 124/64 126/59 L Pulse Oximetry 99 98 Oxygen Delivery Method Room Air Room Air BMI result Body Mass Index 30.5 Labs 12/25/22 07:37 12/25/22 07:37 Labs: Laboratory Results - last 48 hr 12/24/22 12/25/22 12/25/22 15:56 07:37 07:37 WBC 8.5 RBC 5.18 Hgb 13.1 L Hct 41.2 L MCV 79.5 L MCH 25.3 L MCHC 31.8 RDW 13.0 Plt Count 265 MPV 10.0 Immature Gran % (Auto) 0.7 H Neut % (Auto) 51.9 Lymph % (Auto) 37.4 [place] % (Auto) 8.7 Eos % (Auto) 0.7 Baso % (Auto) 0.6 Lymph # (Auto) 3.2 [place] # (Auto) 0.7 Eos # (Auto) 0.1 Baso # (Auto) 0.1 Abs Immat Gran (auto) 0.06 H Absolute Neuts (auto) 4.4 Absolute Nucleated RBC 0.000 Nucleated RBC % (auto) 0.0 Sodium 140 Potassium 4.5 Chloride 103 Carbon Dioxide 29 Anion Gap 13 BUN 13 Creatinine 0.86 Estim Creat Clear Calc 118.0 Estimated GFR > 60 POC Glucose Fasting Glucose 136 H Calcium 9.6 Magnesium 2.2 Total Bilirubin 0.3 AST 61 H ALT 41 H Alkaline Phosphatase 96 Total Protein 7.3 Albumin 4.2 Triglycerides 99 Cholesterol 98 LDL Cholesterol, Calc 29 HDL Cholesterol 50 COVID-19 ([facility]) Negative COVID-19 Clin Com See Note 12/25/22 12/25/22 12/26/22 08:21 21:59 08:09 WBC RBC Hgb Hct MCV MCH MCHC RDW Plt Count MPV Immature Gran % (Auto) Neut % (Auto) Lymph % (Auto) [place] % (Auto) Eos % (Auto) Baso % (Auto) Lymph # (Auto) [place] # (Auto) Eos # (Auto) Baso # (Auto) Abs Immat Gran (auto) Absolute Neuts (auto) Absolute Nucleated RBC Nucleated RBC % (auto) Sodium Potassium Chloride Carbon Dioxide Anion Gap BUN Creatinine Estim Creat Clear Calc Estimated GFR POC Glucose 145 H 134 H 111 Fasting Glucose Calcium Magnesium Total Bilirubin AST ALT Alkaline Phosphatase Total Protein Albumin Triglycerides Cholesterol LDL Cholesterol, Calc HDL Cholesterol COVID-19 ([facility]) COVID-19 Clin Com Imaging Radiology Impressions: ITS Impressions Chest X-Ray 12/24/22 12:10 IMPRESSION: Unremarkable examination. Medications Medications Current Medications Acetaminophen (Acetaminophen 325 Mg Tablet) 650 mg PO Q6H PRN PRN Reason: Headache/Pain Mild Scale (1-3) Al Hydroxide/Mg Hydroxide (Magnesium Hydrox/Alum Hydrox 30 Ml Oral.Susp) 30 ml PO Q6H PRN PRN Reason: Heartburn/Nausea Clonidine HCl (Clonidine Hcl 0.1 Mg Tablet) 0.1 mg PO TID PRN; Protocol PRN Reason: anxiety/restlessness Last Admin: 12/24/22 23:20 Dose: 0.1 mg Haloperidol (Haloperidol 5 Mg Tablet) 5 mg PO BEDTIME VERÓNICA Last Admin: 12/25/22 22:09 Dose: 5 mg Hydroxyzine HCl (Hydroxyzine Hcl 25 Mg Tablet) 25 mg PO Q6H PRN PRN Reason: Anxiety Last Admin: 12/24/22 23:20 Dose: 25 mg Ibuprofen (Ibuprofen 400 Mg Tablet) 400 mg PO Q6H PRN PRN Reason: Pain, Moderate(Pain Scale 4-6) Magnesium Hydroxide (Milk Of Magnesia 30 Ml Oral.Susp) 30 ml PO DAILY PRN PRN Reason: Constipation Metformin HCl (Metformin Hcl Er 500 Mg Tab.Er.24h) 500 mg PO BID [facility] Last Admin: 12/26/22 09:46 Dose: 500 mg Methadone HCl (Methadone Hcl 20 Mg/2 Ml Oral.Conc) 115 mg PO DAILY [facility]1983 Last Admin: 12/26/22 09:45 Dose: 115 mg Nicotine Polacrilex (Nicotine Polacrilex 2 Mg Gum) 2 mg BUCCAL Q2H PRN PRN Reason: Nicotine Cravings Non-Formulary Medication (Dulaglutide [Trulicity]) 0.75 mg SUBCUT MO@0900 [facility] Olanzapine (Olanzapine 5 Mg Tablet) 5 mg PO Q4H PRN PRN Reason: Hallucinations Ondansetron HCl (Ondansetron Odt 4 Mg Tab.Rapdis) 4 mg TRANSLINGU Q6H PRN PRN Reason: Nausea and Vomiting Trazodone HCl (Trazodone Hcl 50 Mg Tablet) 50 mg PO BEDTIME MRX1 PRN PRN Reason: Insomnia Last Admin: 12/25/22 23:25 Dose: 50 mg Vitamin D (Cholecalciferol (Vitamin D3) 25 Mcg Tablet) 25 mcg PO DAILY [facility] Last Admin: 12/26/22 09:46 Dose: 25 mcg Allergies Allergies Allergy/AdvReac Type Severity Reaction Status Date / Time No Known Allergies Allergy Verified 12/24/22 07:45 [No Known Allergies*] Assessment & Plan Assessment & Plan (1) Psychotic disorder: Status: Acute Code(s): F29 - Unspecified psychosis not due to a substance or known physiological condition Plan The patient is a young adult male with no prior psychiatric history of decides dependence on opioids and cocaine home self-referred to the police department stating that he has auditory and visual hallucinations, and to hurt himself. On admission the patient also admitted the voices talks about themselves and comments about his behavior. Apparently he psychotic symptoms had been worse in the last 3 months without a clear stressor. He does not have family history and he stated that he had been still using drugs. Plan 1. I accepted conditional voluntary. 2. 15 minute checks since the patient was able to contract for safety in the facility. 3. We discussed at length risks, benefits, side-effects and alternatives and since the patient is diabetic he agreed to start Haldol 5 mg p.o. q.h.s. and 2 mg p.o. q.4 hours p.r.n. hallucinations. 4. Regular medical workout. 5. Reassessment with results. 12/26: continue current mgmt. denies AVH for past two days, then also says haldol helpful last NOC to reduce AH. c/o depression only. will allow cocaine detox and monitor mood daily. Reason for continued inpatient stay Substantial Risk for: inability to function and rapid decompensation Time Spent With Patient Time: Total time managing care of this patient today __35__ minutes.
[2022-12-26 18:00] VITALS: BP 163/91; PULSE 120; RESP 18; TEMP 37; O2SAT 98
[2022-12-26 18:13] LABS: Glucose, Whole Blood 97 mg/dL (60-115)
--- NOTE | 2022-12-26 18:16 | ECG_ITS ---
Test Reason : CP Blood Pressure : / mmHG Vent. Rate : 098 BPM Atrial Rate : 098 BPM P-R Int : 124 ms QRS Dur : 076 ms QT Int : 382 ms P-R-T Axes : 043 -12 012 degrees QTc Int : 487 ms Normal sinus rhythm Minimal voltage criteria for LVH, may be normal variant ( R in aVL ) Prolonged QT Abnormal ECG When compared with ECG of 24-DEC-2022 08:26, Questionable change in QRS axis Referred By: Hayes Brown Electronically Signed By:CHARANJIT RUBY
[2022-12-26] MEDS: LORazepam 2 MG/ML VIAL IM (18:23)
[2022-12-26] MEDS: diphenhydrAMINE HCL 50 MG/ML VIAL IM (18:23)
--- NOTE | 2022-12-26 18:40 | PM.EVENT ---
Event Note Date of Service: 12/26/22 Event Note: Rapid response called to adult psychiatry M3 for patient who became diaphoretic with severe right-sided flank pain. On arrival to the unit patient noted to haev involuntary movements of the neck and trunk writhing and placed himself on the floor. He was notably diaphoretic and aggitated. He was moved to treatment room where EKG was obtained showing NSR, rate 96, no st/t wave abnormality. Pt was started on 5mg haldol last night. Strongly suspect dystonic reaction to psychaitric medication. Nursing staff contacted Dr. Brown recommending 2mg IV ativan and 50mg IV benadryl which were administered with improvement in dystonic movements, anxiety, and diaphoresis. He is still complaining of right posterior rib cage pain though does not appear as uncomfortable. This is likely secondary to involuntary muscle movements. He is also reporting urinary retention today, but no other urinary complaints. Will also check BMP, CBC, BNP, troponin, urinalysis, and chest x-ray. Recommend in-person evaluation by Psychiatry. Time Spent With Patient Time: Total time managing care of this patient today ____ minutes.
[2022-12-26 19:11] LABS: MANUAL DIFF FLAG NO
[2022-12-26 19:13] LABS: Basophils Absolute Auto 0.1 X10*3/uL (0.0-0.2); Basophils Percent Auto 0.5 % (0-2); Eosinophils Percent Auto 0.3 % (0-4); Hematocrit 40.1 % (42.0-52.0); Hemoglobin 12.7 g/dl (14.0-18.0); Imm Gran Pct Auto 0.9 % (0.0-0.4); Lymphocytes Absolute Auto 2.5 X10*3/uL (1.2-4.9); Lymphocytes Percent Auto 22.6 % (20-40); Mean Corpuscular HGB Conc 31.7 g/dl (31.0-36.0); Mean Corpuscular Hemoglobin 25.6 pg (27.0-33.0); Mean Corpuscular Volume 80.7 fL (80.0-98.0); Mean Platelet Volume 10.4 fL (9.4-12.4); Monocytes Absolute Auto 0.8 X10*3/uL (0.1-1.2); Monocytes Percent Auto 6.9 % (2-11); Neutrophils Absolute Auto 7.7 x10*3/uL (2.0-8.3); Neutrophils Percent Auto 68.8 % (45-73); Platelet Count 250 X10*3/uL (160-400); Red Blood Count 4.97 X10*6/uL (4.60-5.80); Red Cell Distribution Width 12.7 % (11.0-16.0); White Blood Count 11.1 X10*3/uL (4.8-10.8)
[2022-12-26 19:23] VITALS: BP 122/76; PULSE 83; RESP 16; TEMP 36.7; O2SAT 98
[2022-12-26 19:30] LABS: Alanine Aminotransferase 48 U/L (0-40); Albumin Level 4.2 g/dL (3.5-5.0); Alkaline Phosphatase 96 U/L (39-117); Anion Gap 14 (12-20); Aspartate Amino Transferase 53 U/L (5-37); Bilirubin Total 0.2 mg/dL (0.0-1.0); Blood Urea Nitrogen 10 mg/dL (9-16); Calcium 9.6 mg/dL (8.4-10.2); Carbon Dioxide 28 mmol/L (22-29); Chloride 103 mmol/L (96-108); Creatinine Clr Calc Pharmacy 110.3; Estimated Glomerular Filt Rate > 60; Glucose Random 123 mg/dL (60-115); Potassium 4.3 mmol/L (3.3-5.1); Sodium 141 mmol/L (135-145); Total Protein 7.4 g/dL (6.5-8.0)
[2022-12-26 19:35] LABS: B Type Natriuretic Peptide < 10 pg/mL (<100)
[2022-12-26 19:37] LABS: Troponin-I High Sensitivity 2.8 ng/L (<3.5-35.0)
--- NOTE | 2022-12-26 21:02 | PC.NURSE ---
Cassandra came out of room stated My spine is moving, I can't stand straight, patient was moving side ways, chair was grabbed, patient sat down, moving to the side started yelling Help I can't control it, vital signs obtained, Dr. Brown notified, patient appeared diaphoretic, pale, BISCUIT [employer]ER called, Dr. Brown ordered 2mg of Ativan IM and 50mg of Benadryl IM given to patient. EKG, chest x-ray, bladder scan and POC done, U/A pending collection. Upon reassessment patient appeared calm and pleasant, he reported feeling Better, patient is currently on a one to one.
[2022-12-26 22:05] VITALS: BP 117/70; PULSE 76; RESP 16; TEMP 36.6; O2SAT 100
[2022-12-27 03:19] LABS: Appearance Urine Clear; Color Urine Yellow; Glucose Urine UA Negative (Negative); Leukocyte Esterase Urine Small (1+) (Negative); Nitrite Urine Negative (Negative); Specific Gravity - Urine 1.025 (1.005-1.025); UMIC TRIGGER UACC YES; Urine Blood Negative (Negative); Urine Ketones Negative (Negative); Urine Protein Negative (Neg-Trace)
[2022-12-27 03:27] LABS: Bacteria Urine None Seen (None Seen); Hyaline Casts Urine 0-2 /LPF (0-2); RBC Urine 0-2 /HPF (0-2); Squamous Epithelial Cell Urine 0-2 /HPF (0-2); UACC Culture Trigger YES; WBC Urine 21-50 /HPF (0-5)
[2022-12-27 08:37] LABS: Glucose, Whole Blood 118 mg/dL (60-115)
[2022-12-27] MEDS: metFORMIN HCl ER 500 MG TAB.ER.24H PO ×2 (08:54→21:09)
[2022-12-27] MEDS: Cholecalciferol (Vitamin D3) 25 MCG TABLET PO (08:54)
[2022-12-27] MEDS: methADONE HCl 20 MG/2 ML ORAL.CONC 115 MG PO (08:54)
[2022-12-27] MEDS: Benztropine Mesylate 1 MG TABLET PO ×2 (13:14→21:09)
--- NOTE | 2022-12-27 15:52 | P.PNPSI_ITS ---
Subjective Subjective Date of Service: 12/27/22 Reason For Visit: Hallucinations Interim History: calm, cooperative. slight limp which he states started last evening at same time as dystonic rxn. informed he will be Rxed cogentin for now to help completely resolve Sx. denies psychotic Sx or safety concerns. vaguely interested in [facility] but does not appear willing/able to attend groups here. denies anxiety. per staff, lots of napping. taking meds. darren 5 anx 4. dystonic rxn eves. ativan and benadryl IM helpful. feeling better this morning. Mental Status Exam Mental Status Exam Narrative: slight, wearing hospital attire. disheveled, poor hygiene, malodorous. cooperative. no PMA/PMR. poor eye contact. speech decr in amount, nml loudness, flattened tone, nml latency. thoughts linear. affect generally constricted. mood so-so and anxiety calm. denies SI/SIBI/AH. Diagnostics Vital Signs (24Hr): Vital Signs - 24 hr 12/26/22 19:23 12/26/22 18:00 12/26/22 22:05 Temperature 98.0 F 98.6 F 97.8 F Pulse Rate 83 120 H 76 Respiratory Rate 16 18 16 Blood Pressure 122/76 163/91 H 117/70 Pulse Oximetry 98 98 100 Oxygen Delivery Method Room Air Room Air Room Air BMI result Body Mass Index 30.5 Labs 12/26/22 18:54 12/26/22 18:54 Labs: Laboratory Results - last 48 hr 12/25/22 12/26/22 12/26/22 21:59 08:09 18:09 WBC RBC Hgb Hct MCV MCH MCHC RDW Plt Count MPV Immature Gran % (Auto) Neut % (Auto) Lymph % (Auto) [place] % (Auto) Eos % (Auto) Baso % (Auto) Lymph # (Auto) [place] # (Auto) Eos # (Auto) Baso # (Auto) Abs Immat Gran (auto) Absolute Neuts (auto) Absolute Nucleated RBC Nucleated RBC % (auto) Sodium Potassium Chloride Carbon Dioxide Anion Gap BUN Creatinine Estim Creat Clear Calc Estimated GFR POC Glucose 134 H 111 97 Random Glucose Calcium Total Bilirubin AST ALT Alkaline Phosphatase Troponin I High Sens B-Natriuretic Peptide Total Protein Albumin Urine Color Urine Appearance Urine pH Ur Specific [place] Urine Protein Urine Glucose (UA) Urine Ketones Urine Blood Urine Nitrite Ur Leukocyte Esterase Urine RBC Urine WBC Ur Squamous Epith Cells Urine Bacteria Hyaline Casts 12/26/22 12/26/22 12/26/22 18:54 18:54 18:54 WBC 11.1 H RBC 4.97 Hgb 12.7 L Hct 40.1 L MCV 80.7 MCH 25.6 L MCHC 31.7 RDW 12.7 Plt Count 250 MPV 10.4 Immature Gran % (Auto) 0.9 H Neut % (Auto) 68.8 Lymph % (Auto) 22.6 [place] % (Auto) 6.9 Eos % (Auto) 0.3 Baso % (Auto) 0.5 Lymph # (Auto) 2.5 [place] # (Auto) 0.8 Eos # (Auto) 0.0 Baso # (Auto) 0.1 Abs Immat Gran (auto) 0.10 H Absolute Neuts (auto) 7.7 Absolute Nucleated RBC 0.000 Nucleated RBC % (auto) 0.0 Sodium 141 Potassium 4.3 Chloride 103 Carbon Dioxide 28 Anion Gap 14 BUN 10 Creatinine 0.92 Estim Creat Clear Calc 110.3 Estimated GFR > 60 POC Glucose Random Glucose 123 H Calcium 9.6 Total Bilirubin 0.2 AST 53 H ALT 48 H Alkaline Phosphatase 96 Troponin I High Sens 2.8 B-Natriuretic Peptide Total Protein 7.4 Albumin 4.2 Urine Color Urine Appearance Urine pH Ur Specific [place] Urine Protein Urine Glucose (UA) Urine Ketones Urine Blood Urine Nitrite Ur Leukocyte Esterase Urine RBC Urine WBC Ur Squamous Epith Cells Urine Bacteria Hyaline Casts 12/26/22 12/27/22 12/27/22 18:54 02:56 08:32 WBC RBC Hgb Hct MCV MCH MCHC RDW Plt Count MPV Immature Gran % (Auto) Neut % (Auto) Lymph % (Auto) [place] % (Auto) Eos % (Auto) Baso % (Auto) Lymph # (Auto) [place] # (Auto) Eos # (Auto) Baso # (Auto) Abs Immat Gran (auto) Absolute Neuts (auto) Absolute Nucleated RBC Nucleated RBC % (auto) Sodium Potassium Chloride Carbon Dioxide Anion Gap BUN Creatinine Estim Creat Clear Calc Estimated GFR POC Glucose 118 H Random Glucose Calcium Total Bilirubin AST ALT Alkaline Phosphatase Troponin I High Sens B-Natriuretic Peptide < 10 Total Protein Albumin Urine Color Yellow Urine Appearance Clear Urine pH 7.0 Ur Specific [place] 1.025 Urine Protein Negative Urine Glucose (UA) Negative Urine Ketones Negative Urine Blood Negative Urine Nitrite Negative Ur Leukocyte Esterase Small (1+) H Urine RBC 0-2 Urine WBC 21-50 H Ur Squamous Epith Cells 0-2 Urine Bacteria None Seen Hyaline Casts 0-2 Imaging Radiology Impressions: ITS Impressions Chest X-Ray 12/24/22 12:10 IMPRESSION: Unremarkable examination. Chest X-Ray 12/26/22 19:01 IMPRESSION: No evidence of acute disease. Medications Medications Current Medications Acetaminophen (Acetaminophen 325 Mg Tablet) 650 mg PO Q6H PRN PRN Reason: Headache/Pain Mild Scale (1-3) Al Hydroxide/Mg Hydroxide (Magnesium Hydrox/Alum Hydrox 30 Ml Oral.Susp) 30 ml PO Q6H PRN PRN Reason: Heartburn/Nausea Benztropine Mesylate (Benztropine Mesylate 1 Mg Tablet) 1 mg PO BID [facility] Last Admin: 12/27/22 13:14 Dose: 1 mg Clonidine HCl (Clonidine Hcl 0.1 Mg Tablet) 0.1 mg PO TID PRN; Protocol PRN Reason: anxiety/restlessness Last Admin: 12/24/22 23:20 Dose: 0.1 mg Hydroxyzine HCl (Hydroxyzine Hcl 25 Mg Tablet) 25 mg PO Q6H PRN PRN Reason: Anxiety Last Admin: 12/24/22 23:20 Dose: 25 mg Ibuprofen (Ibuprofen 400 Mg Tablet) 400 mg PO Q6H PRN PRN Reason: Pain, Moderate(Pain Scale 4-6) Magnesium Hydroxide (Milk Of Magnesia 30 Ml Oral.Susp) 30 ml PO DAILY PRN PRN Reason: Constipation Metformin HCl (Metformin Hcl Er 500 Mg Tab.Er.24h) 500 mg PO BID [facility] Last Admin: 12/27/22 08:54 Dose: 500 mg Methadone HCl (Methadone Hcl 20 Mg/2 Ml Oral.Conc) 115 mg PO DAILY [facility] Last Admin: 12/27/22 08:54 Dose: 115 mg Nicotine Polacrilex (Nicotine Polacrilex 2 Mg Gum) 2 mg BUCCAL Q2H PRN PRN Reason: Nicotine Cravings Non-Formulary Medication (Dulaglutide [Trulicity]) 0.75 mg SUBCUT MO@0900 [facility] Olanzapine (Olanzapine 5 Mg Tablet) 5 mg PO Q4H PRN PRN Reason: Hallucinations Ondansetron HCl (Ondansetron Odt 4 Mg Tab.Rapdis) 4 mg TRANSLINGU Q6H PRN PRN Reason: Nausea and Vomiting Trazodone HCl (Trazodone Hcl 50 Mg Tablet) 50 mg PO BEDTIME MRX1 PRN PRN Reason: Insomnia Last Admin: 12/25/22 23:25 Dose: 50 mg Vitamin D (Cholecalciferol (Vitamin D3) 25 Mcg Tablet) 25 mcg PO DAILY [facility] Last Admin: 12/27/22 08:54 Dose: 25 mcg Allergies Allergies Allergy/AdvReac Type Severity Reaction Status Date / Time No Known Allergies Allergy Verified 12/24/22 07:45 [No Known Allergies*] Assessment & Plan Assessment & Plan (1) Psychotic disorder: Status: Acute Code(s): F29 - Unspecified psychosis not due to a substance or known physiological condition Plan The patient is a young adult male with no prior psychiatric history of decides dependence on opioids and cocaine home self-referred to the police d epartment stating that he has auditory and visual hallucinations, and to hurt himself. On admission the patient also admitted the voices talks about themselves and comments about his behavior. Apparently he psychotic symptoms had been worse in the last 3 months without a clear stressor. He does not have family history and he stated that he had been still using drugs. Plan 1. I accepted conditional voluntary. 2. 15 minute checks since the patient was able to contract for safety in the [facility]. 3. We discussed at length risks, benefits, side-effects and alternatives and since the patient is diabetic he agreed to start Haldol 5 mg p.o. q.h.s. and 2 mg p.o. q.4 hours p.r.n. hallucinations. 4. Regular medical workout. 5. Reassessment with results. 12/26: continue current mgmt. denies AVH for past two days, then also says haldol helpful last NOC to reduce AH. c/o depression only. will allow cocaine detox and monitor mood daily. 12/27: dystonic rxn last night, halodl DCed. ativan 2 and benwadryl 50 IM helpful. appears to have lingering dystonia today, will give a couple doses of cogentin to resolve completely. denies psychotic or mood/anxiety Sx generally today. thus far presentation supports substance-induced psychosis. Reason for continued inpatient stay Substantial Risk for: inability to function and rapid decompensation Time Spent With Patient Time: Total time managing care of this patient today __35__ minutes.
[2022-12-27 21:10] VITALS: BP 140/77; PULSE 99; RESP 18; TEMP 36.6; O2SAT 99
[2022-12-27] MEDS: Acetaminophen 325 MG TABLET 650 MG PO (21:10)
[2022-12-28 07:57] LABS: Glucose, Whole Blood 83 mg/dL (60-115)
[2022-12-28] MEDS: Cholecalciferol (Vitamin D3) 25 MCG TABLET PO (08:19)
[2022-12-28] MEDS: Benztropine Mesylate 1 MG TABLET PO ×2 (08:19→20:59)
[2022-12-28] MEDS: methADONE HCl 20 MG/2 ML ORAL.CONC 115 MG PO (08:19)
[2022-12-28] MEDS: metFORMIN HCl ER 500 MG TAB.ER.24H PO ×2 (08:19→20:59)
[2022-12-28 12:24] VITALS: BP 126/71; PULSE 86; RESP 20; TEMP 36.7; O2SAT 98
--- NOTE | 2022-12-28 14:48 | P.DS_ITS ---
DS: Providers Provider Date of Service: 12/28/22 Date of admission: 12/24/22 21:40 Primary care physician: [facility] DS: Diagnosis Discharge Diagnosis (1) Psychotic disorder: Status: Acute DS: Medications Discharge Medications Home Medications: Home Medications Medication Instructions Recorded Confirmed cholecalciferol (vitamin D3) 25 25 mcg PO DAILY 12/24/22 12/24/22 mcg (1,000 unit) tablet dulaglutide 0.75 mg/0.5 mL 0.75 mg subcut MO@0900 12/24/22 12/24/22 subcutaneous pen injector (Trulicity) metformin 500 mg tablet,extended 500 mg PO BID 12/24/22 12/24/22 release 24 hr methadone 10 mg/mL oral concentrate 115 mg PO DAILY 12/24/22 12/25/22 Mental Status Exam Mental Status Exam Narrative: slight, wearing hospital attire. disheveled, poor hygiene. cooperative. general PMR. poor eye contact. speech decr in amount, nml loudness, flattened tone, incr latency. thoughts linear. affect generally constricted, some bizarre smiling. mood tired. denies SI/SIBI/AVH. Data Data Completed and Pending Completed studies during hospitalization [Text1]: 12/24/22 12/24/22 12/24/22 08:31 08:31 08:31 WBC 18.6 H RBC 5.39 Hgb 13.8 L Hct 41.7 L MCV 77.4 L MCH 25.6 L MCHC 33.1 RDW 12.8 Plt Count 300 MPV 9.9 Immature Gran % (Auto) 0.6 H Neut % (Auto) 76.9 H Lymph % (Auto) 15.0 L Hughes % (Auto) 7.2 Eos % (Auto) 0.0 Baso % (Auto) 0.3 Lymph # (Auto) 2.8 Hughes # (Auto) 1.4 H Eos # (Auto) 0.0 Baso # (Auto) 0.1 Abs Immat Gran (auto) 0.12 H Absolute Neuts (auto) 14.3 H Absolute Nucleated RBC 0.000 Nucleated RBC % (auto) 0.0 Sodium 139 Potassium 5.5 H D Chloride 104 Carbon Dioxide 25 Anion Gap 16 BUN 12 Creatinine 0.91 Estim Creat Clear Calc 115.8 Estimated GFR > 60 POC Glucose Random Glucose 95 Fasting Glucose Calcium 10.1 D Magnesium Total Bilirubin 0.2 Direct Bilirubin < 0.2 AST 32 ALT 40 Alkaline Phosphatase 111 Troponin I High Sens B-Natriuretic Peptide Total Protein 8.5 H Albumin 4.9 Triglycerides Cholesterol LDL Cholesterol, Calc HDL Cholesterol Urine Color Urine Appearance Urine pH Ur Specific [place] Urine Protein Urine Glucose (UA) Urine Ketones Urine Blood Urine Nitrite Ur Leukocyte Esterase Urine RBC Urine WBC Ur Squamous Epith Cells Urine Bacteria Hyaline Casts Salicylates < 5.0 L Urine Opiates Screen Urine Fentanyl Screen Acetaminophen < 17 Ur Barbiturates Screen Ur Phencyclidine Scrn Ur Amphetamines Screen U Benzodiazepines Scrn Urine Cocaine Screen U Marijuana (THC) Screen Ethyl Alcohol < 10 COVID-19 ([facility]) COVID-19 Clin Com 12/24/22 12/24/22 12/24/22 11:58 11:58 15:56 WBC RBC Hgb Hct MCV MCH MCHC RDW Plt Count MPV Immature Gran % (Auto) Neut % (Auto) Lymph % (Auto) Hughes % (Auto) Eos % (Auto) Baso % (Auto) Lymph # (Auto) Hughes # (Auto) Eos # (Auto) Baso # (Auto) Abs Immat Gran (auto) Absolute Neuts (auto) Absolute Nucleated RBC Nucleated RBC % (auto) Sodium Potassium Chloride Carbon Dioxide Anion Gap BUN Creatinine Estim Creat Clear Calc Estimated GFR POC Glucose Random Glucose Fasting Glucose Calcium Magnesium Total Bilirubin Direct Bilirubin AST ALT Alkaline Phosphatase Troponin I High Sens B-Natriuretic Peptide Total Protein Albumin Triglycerides Cholesterol LDL Cholesterol, Calc HDL Cholesterol Urine Color Yellow Urine Appearance Clear Urine pH 5.5 Ur Specific [place]red[place] 1.015 Urine Protein Negative Urine Glucose (UA) Negative Urine Ketones Negative Urine Blood Negative Urine Nitrite Negative Ur Leukocyte Esterase Trace H Urine RBC 0-2 Urine WBC 6-10 H Ur Squamous Epith Cells 0-2 Urine Bacteria None Seen Hyaline Casts 0-2 Salicylates Urine Opiates Screen Not Detected Urine Fentanyl Screen POSITIVE H Acetaminophen Ur Barbiturates Screen Not Detected Ur Phencyclidine Scrn Not Detected Ur Amphetamines Screen Not Detected U Benzodiazepines Scrn Not Detected Urine Cocaine Screen POSITIVE H U Marijuana (THC) Screen Not Detected Ethyl Alcohol COVID-19 ([facility]) Negative COVID-19 Clin Com See Note 12/25/22 12/25/22 12/25/22 07:37 07:37 08:21 WBC 8.5 RBC 5.18 Hgb 13.1 L Hct 41.2 L MCV 79.5 L MCH 25.3 L MCHC 31.8 RDW 13.0 Plt Count 265 MPV 10.0 Immature Gran % (Auto) 0.7 H Neut % (Auto) 51.9 Lymph % (Auto) 37.4 Hughes % (Auto) 8.7 Eos % (Auto) 0.7 Baso % (Auto) 0.6 Lymph # (Auto) 3.2 Hughes # (Auto) 0.7 Eos # (Auto) 0.1 Baso # (Auto) 0.1 Abs Immat Gran (auto) 0.06 H Absolute Neuts (auto) 4.4 Absolute Nucleated RBC 0.000 Nucleated RBC % (auto) 0.0 Sodium 140 Potassium 4.5 Chloride 103 Carbon Dioxide 29 Anion Gap 13 BUN 13 Creatinine 0.86 Estim Creat Clear Calc 118.0 Estimated GFR > 60 POC Glucose 145 H Random Glucose Fasting Glucose 136 H Calcium 9.6 Magnesium 2.2 Total Bilirubin 0.3 Direct Bilirubin AST 61 H ALT 41 H Alkaline Phosphatase 96 Troponin I High Sens B-Natriuretic Peptide Total Protein 7.3 Albumin 4.2 Triglycerides 99 Cholesterol 98 LDL Cholesterol, Calc 29 HDL Cholesterol 50 Urine Color Urine Appearance Urine pH Ur Specific [place] Urine Protein Urine Glucose (UA) Urine Ketones Urine Blood Urine Nitrite Ur Leukocyte Esterase Urine RBC Urine WBC Ur Squamous Epith Cells Urine Bacteria Hyaline Casts Salicylates Urine Opiates Screen Urine Fentanyl Screen Acetaminophen Ur Barbiturates Screen Ur Phencyclidine Scrn Ur Amphetamines Screen U Benzodiazepines Scrn Urine Cocaine Screen U Marijuana (THC) Screen Ethyl Alcohol COVID-19 ([facility]) COVID-19 Clin Com 12/25/22 12/26/22 12/26/22 21:59 08:09 18:09 WBC RBC Hgb Hct MCV MCH MCHC RDW Plt Count MPV Immature Gran % (Auto) Neut % (Auto) Lymph % (Auto) Hughes % (Auto) Eos % (Auto) Baso % (Auto) Lymph # (Auto) Hughes # (Auto) Eos # (Auto) Baso # (Auto) Abs Immat Gran (auto) Absolute Neuts (auto) Absolute Nucleated RBC Nucleated RBC % (auto) Sodium Potassium Chloride Carbon Dioxide Anion Gap BUN Creatinine Estim Creat Clear Calc Estimated GFR POC Glucose 134 H 111 97 Random Glucose Fasting Glucose Calcium Magnesium Total Bilirubin Direct Bilirubin AST ALT Alkaline Phosphatase Troponin I High Sens B-Natriuretic Peptide Total Protein Albumin Triglycerides Cholesterol LDL Cholesterol, Calc HDL Cholesterol Urine Color Urine Appearance Urine pH Ur Specific [place] Urine Protein Urine Glucose (UA) Urine Ketones Urine Blood Urine Nitrite Ur Leukocyte Esterase Urine RBC Urine WBC Ur Squamous Epith Cells Urine Bacteria Hyaline Casts Salicylates Urine Opiates Screen Urine Fentanyl Screen Acetaminophen Ur Barbiturates Screen Ur Phencyclidine Scrn Ur Amphetamines Screen U Benzodiazepines Scrn Urine Cocaine Screen U Marijuana (THC) Screen Ethyl Alcohol COVID-19 ([facility]) COVID-19 Clin Com 12/26/22 12/26/22 12/26/22 18:54 18:54 18:54 WBC 11.1 H RBC 4.97 Hgb 12.7 L Hct 40.1 L MCV 80.7 MCH 25.6 L MCHC 31.7 RDW 12.7 Plt Count 250 MPV 10.4 Immature Gran % (Auto) 0.9 H Neut % (Auto) 68.8 Lymph % (Auto) 22.6 Hughes % (Auto) 6.9 Eos % (Auto) 0.3 Baso % (Auto) 0.5 Lymph # (Auto) 2.5 Hughes # (Auto) 0.8 Eos # (Auto) 0.0 Baso # (Auto) 0.1 Abs Immat Gran (auto) 0.10 H Absolute Neuts (auto) 7.7 Absolute Nucleated RBC 0.000 Nucleated RBC % (auto) 0.0 Sodium 141 Potassium 4.3 Chloride 103 Carbon Dioxide 28 Anion Gap 14 BUN 10 Creatinine 0.92 Estim Creat Clear Calc 110.3 Estimated GFR > 60 POC Glucose Random Glucose 123 H Fasting Glucose Calcium 9.6 Magnesium Total Bilirubin 0.2 Direct Bilirubin AST 53 H ALT 48 H Alkaline Phosphatase 96 Troponin I High Sens 2.8 B-Natriuretic Peptide Total Protein 7.4 Albumin 4.2 Triglycerides Cholesterol LDL Cholesterol, Calc HDL Cholesterol Urine Color Urine Appearance Urine pH Ur Specific [place] Urine Protein Urine Glucose (UA) Urine Ketones Urine Blood Urine Nitrite Ur Leukocyte Esterase Urine RBC Urine WBC Ur Squamous Epith Cells Urine Bacteria Hyaline Casts Salicylates Urine Opiates Screen Urine Fentanyl Screen Acetaminophen Ur Barbiturates Screen Ur Phencyclidine Scrn Ur Amphetamines Screen U Benzodiazepines Scrn Urine Cocaine Screen U Marijuana (THC) Screen Ethyl Alcohol COVID-19 ([facility]) COVID-19 Clin Com 12/26/22 12/27/22 12/27/22 18:54 02:56 08:32 WBC RBC Hgb Hct MCV MCH MCHC RDW Plt Count MPV Immature Gran % (Auto) Neut % (Auto) Lymph % (Auto) Hughes % (Auto) Eos % (Auto) Baso % (Auto) Lymph # (Auto) Hughes # (Auto) Eos # (Auto) Baso # (Auto) Abs Immat Gran (auto) Absolute Neuts (auto) Absolute Nucleated RBC Nucleated RBC % (auto) Sodium Potassium Chloride Carbon Dioxide Anion Gap BUN Creatinine Estim Creat Clear Calc Estimated GFR POC Glucose 118 H Random Glucose Fasting Glucose Calcium Magnesium Total Bilirubin Direct Bilirubin AST ALT Alkaline Phosphatase Troponin I High Sens B-Natriuretic Peptide < 10 Total Protein Albumin Triglycerides Cholesterol LDL Cholesterol, Calc HDL Cholesterol Urine Color Yellow Urine Appearance Clear Urine pH 7.0 Ur Specific [place] 1.025 Urine Protein Negative Urine Glucose (UA) Negative Urine Ketones Negative Urine Blood Negative Urine Nitrite Negative Ur Leukocyte Esterase Small (1+) H Urine RBC 0-2 Urine WBC 21-50 H Ur Squamous Epith Cells 0-2 Urine Bacteria None Seen Hyaline Casts 0-2 Salicylates Urine Opiates Screen Urine Fentanyl Screen Acetaminophen Ur Barbiturates Screen Ur Phencyclidine Scrn Ur Amphetamines Screen U Benzodiazepines Scrn Urine Cocaine Screen U Marijuana (THC) Screen Ethyl Alcohol COVID-19 ([facility]) COVID-19 Clin Com 12/28/22 07:54 WBC RBC Hgb Hct MCV MCH MCHC RDW Plt Count MPV Immature Gran % (Auto) Neut % (Auto) Lymph % (Auto) Hughes % (Auto) Eos % (Auto) Baso % (Auto) Lymph # (Auto) Hughes # (Auto) Eos # (Auto) Baso # (Auto) Abs Immat Gran (auto) Absolute Neuts (auto) Absolute Nucleated RBC Nucleated RBC % (auto) Sodium Potassium Chloride Carbon Dioxide Anion Gap BUN Creatinine Estim Creat Clear Calc Estimated GFR POC Glucose 83 Random Glucose Fasting Glucose Calcium Magnesium Total Bilirubin Direct Bilirubin AST ALT Alkaline Phosphatase Troponin I High Sens B-Natriuretic Peptide Total Protein Albumin Triglycerides Cholesterol LDL Cholesterol, Calc HDL Cholesterol Urine Color Urine Appearance Urine pH Ur Specific [place] Urine Protein Urine Glucose (UA) Urine Ketones Urine Blood Urine Nitrite Ur Leukocyte Esterase Urine RBC Urine WBC Ur Squamous Epith Cells Urine Bacteria Hyaline Casts Salicylates Urine Opiates Screen Urine Fentanyl Screen Acetaminophen Ur Barbiturates Screen Ur Phencyclidine Scrn Ur Amphetamines Screen U Benzodiazepines Scrn Urine Cocaine Screen U Marijuana (THC) Screen Ethyl Alcohol COVID-19 ([facility]) COVID-19 Clin Com 12/27/22 Unknown Urine clean catch - Clean Catch Midstream Urine Culture - Final No growth. 12/24/22 Unknown Urine clean catch - Urine silveira top Urine Culture - Final No growth. Imaging Diagnostic Imaging Impressions Chest X-Ray 12/24/22 12:10 IMPRESSION: Unremarkable examination. Chest X-Ray 12/26/22 19:01 IMPRESSION: No evidence of acute disease. 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 The patient was referred from the police department to our emergency room on a [address] since he disclosed psychotic symptoms.? According to the crisis assessment, the patient walking into the police department complaining that he was not feeling safe that he was all anxious and scared and he has auditory hallucinations commanding to hurt himself.? Also he reports sporadic suicidal ideation and feeling scared all the time.? He was assessed by crisis and transferred to this facility for psychiatric stabilization.? On interview, the patient reported that he started feeling more anxious and scared for the last 3 months.? He admitted having auditory hallucinations commanding him to hurt himself or hurt others.? Also he reported the voices speaks some owned of cells and a comment about his actions.? On interview, the patient also admitted sporadic visual hallucinations and he was hyper alert and scared special he has a known at night.? He does not have most of the symptoms when he was interacting working.? He cannot identified stressor or that precipitated these symptoms. He admitted that he had been using drugs mostly opioids and cocaine and he is on a mental problem.? Last use of heroin as per his report was several weeks ago and cocaine as week.? He is taking methadone 150 mg a day.? At this moment, the patient is able to contract for safety and he was psycho educated into his condition. Past Psychiatric History: No prior psychiatric admissions not follow by outpatient providers.? For psychotic break. Medical Evaluation Reviewed: Yes PMFSH Medical History? Diabetes Family History: Denies Social History: The patient was born and raised in the [facility] and reportedly, he was raised by family, he attended up to the 8th grade.? He is mostly Trinidadian speaking.? 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 He is single with no children. 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 discusses daily heroin use for the past 1.5 years, says he only uses cocaine once monthly (utox POS for fentanyl and cocaine).? states AH for past 3 months.? denies CAH.? states multiple AH and they say, i'm going to kill you. ? contradictory information offered re MRE of AH.? at first he says 2 nights ago, then later says haldol was helpful last night in decreasing the AH.? also at one point says he needs help with mood lability, then later denies experiencing mood lability.? the only other Sx he requests help with is depression.? ageres to continue haldol tonight and wait and watch his mood; notes cocaine use and need for detox. 12/27: calm, cooperative.? slight limp which he states started last evening at same time as dystonic rxn.? informed he will be Rxed cogentin for now to help completely resolve Sx.? denies psychotic Sx or safety concerns.? vaguely interested in CSS but does not appear willing/able to attend groups here.? denies anxiety.? per staff, lots of napping.? taking meds.? darren 5 anx 4.? dystonic rxn eves.? ativan and benadryl IM helpful.? feeling better this morning. Precis: The patient is a young adult male with no prior psychiatric history of decides dependence on opioids and cocaine home self-referred to the police department stating that he has auditory and visual hallucinations, and to hurt himself.? On admission the patient also admitted the voices talks about themselves and comments about his behavior.? Apparently he psychotic symptoms had been worse in the last 3 months without a clear stressor.? He does not have family history and he stated that he had been still using drugs.? Plan 12/25: We discussed at length risks, benefits, side-effects and alternatives and since the patient is diabetic he agreed to start Haldol 5 mg p.o. q.h.s. and 2 mg p.o. q.4 hours p.r.n. hallucinations. 12/26:? continue current mgmt.? denies AVH for past two days, then also says haldol helpful last NOC to reduce AH.? c/o depression only.? will allow cocaine detox and monitor mood daily. 12/27:? dystonic rxn last night, haldol DCed.? ativan 2 and benadryl 50 IM helpful.? appears to have lingering dystonia today, will give a couple doses of cogentin to resolve completely.? denies psychotic or mood/anxiety Sx generally today.? thus far presentation supports substance-induced psychosis. 12/28: stable, without symptoms or safety concerns. planning for discharge tomorrow. no antipsychotic needed presently. 12/29: stable, no issues, discharged as planned. Time Spent with Patient Time attestation: Total time managing care of this patient today ____ minutes. Time spent: Greater than 30 minutes Discharge Plan Discharge Anticipated Discharge Date/Time: 12/29/22 11:00 Patient Disposition: Home, Self-Care Discharge Diagnosis: Substance Induced Psychotic Disorder Referrals: [facility] [Primary Care Provider] - 1 Week Discharge Medications: Continued metformin 500 mg tablet extended release 24 hr 500 mg PO BID cholecalciferol (vitamin D3) 25 mcg (1,000 unit) tablet 25 mcg PO DAILY Trulicity 0.75 mg/0.5 mL pen injector 0.75 mg subcut MO@0900 methadone 10 mg/mL Concentrate 115 mg PO DAILY Discharge Orders: Discharge Order (Routine); Ordered 12/29/22 Ordered By: Hayes Brown Diet: Diabetic diet Activity on Discharge: As tolerated Stand Alone Forms: Patient Portal Discharge page, Community Support Print Language: Arabic Care Plan Goals: remain safe, sober, and stable in the outpatient treatment setting Health Concerns: Diabetes Mellitus Plan of Treatment: take medications as prescribed, attend appointments as scheduled Assessment: not at imminent risk of harm to self or others Discharge Date/Time: 12/29/22 11:15
[2022-12-28 20:20] VITALS: BP 121/69; PULSE 74; RESP 16; TEMP 36.6; O2SAT 98
[2022-12-29 08:00] VITALS: BP 116/67; PULSE 78; RESP 18; TEMP 36.6; O2SAT 97
[2022-12-29 08:34] LABS: Glucose, Whole Blood 138 mg/dL (60-115)
[2022-12-29] MEDS: Benztropine Mesylate 1 MG TABLET PO (08:51)
[2022-12-29] MEDS: metFORMIN HCl ER 500 MG TAB.ER.24H PO (08:51)
[2022-12-29] MEDS: Cholecalciferol (Vitamin D3) 25 MCG TABLET PO (08:51)
[2022-12-29] MEDS: methADONE HCl 20 MG/2 ML ORAL.CONC 115 MG PO (08:52)
--- NOTE | 2022-12-29 11:17 | PC.NURSE ---
1115 Pt is ready and aware of discharge home to grandmothers. He denies SI/HI/AH/VH at this time. Instructions of medications and to make appt with [facility] reviewed with assist of manager welding. Belongings returned to patient. Last dose letter for Methadone given sealed and taped.
== END 2022-12-29 11:15 | disposition home or self-care (01) | DRG 773 ==
LOC: HO.ED 08:22 → HO.PADLT16 22:28
PROVIDERS: Physician Assistant; Admitting Provider Psychiatry & Neurology Psychiatry; Emergency Provider Emergency Medicine Emergency Medical Services; Visit Provider Psychiatry & Neurology Psychiatry
DX: F19.950 Other psychoactive substance use, unspecified with psychoactive substance-induced psychotic disorder with delusions (principal); F11.20 Opioid dependence, uncomplicated; R45.851 Suicidal ideations; E11.9 Type 2 diabetes mellitus without complications; Z20.822 Contact with and (suspected) exposure to COVID-19; Z79.84 Long term (current) use of oral hypoglycemic drugs; Z79.85 Long-term (current) use of injectable non-insulin antidiabetic drugs; Z79.899 Other long term (current) drug therapy
CPT/HCPCS: 36415; 71045; 80048; 80053; 80061; 80076; 80143; 80179; 80307; 81001; 82947; 83735; 83880; 84484; 85025; 87086; 87635; 93005; 99285; J1200; J2060; S9485

== ENCOUNTER → 2022-12-24 07:52 | Outpatient (BNV) | payer MEDICAID, SELFPAY | PROVIDERS: Admitting Provider Psychiatry & Neurology Psychiatry; Emergency Provider Emergency Medicine Emergency Medical Services; Visit Provider Internal Medicine Cardiovascular Disease | DX: R94.31 Abnormal electrocardiogram [ECG] [EKG] (principal) | CPT/HCPCS: 93010 ==

== ENCOUNTER → 2022-12-24 21:40 | Outpatient (BNV) | payer OTHER, SELFPAY | PROVIDERS: Admitting Provider Psychiatry & Neurology Psychiatry; Emergency Provider Emergency Medicine Emergency Medical Services; Visit Provider Psychiatry & Neurology Psychiatry | DX: F29 Unspecified psychosis not due to a substance or known physiological condition (principal); F19.90 Other psychoactive substance use, unspecified, uncomplicated | CPT/HCPCS: 99231; 99232 ==

== ENCOUNTER 2023-01-11 12:11 | Outpatient (REF) | payer MEDICAID, SELFPAY ==
[2023-01-11 13:35] LABS: MANUAL DIFF FLAG NO
[2023-01-11 13:47] LABS: Basophils Absolute Auto 0.1 X10*3/uL (0.0-0.2); Basophils Percent Auto 0.4 % (0-2); Eosinophils Absolute Auto 0.1 X10*3/uL (0.0-0.4); Eosinophils Percent Auto 0.6 % (0-4); Hematocrit 41.7 % (42.0-52.0); Hemoglobin 13.3 g/dl (14.0-18.0); Imm Gran Abs Auto 0.07 X10*3/uL (0.00-0.03); Imm Gran Pct Auto 0.6 % (0.0-0.4); Lymphocytes Absolute Auto 2.5 X10*3/uL (1.2-4.9); Lymphocytes Percent Auto 22.4 % (20-40); Mean Corpuscular HGB Conc 31.9 g/dl (31.0-36.0); Mean Corpuscular Hemoglobin 25.3 pg (27.0-33.0); Mean Corpuscular Volume 79.4 fL (80.0-98.0); Monocytes Absolute Auto 1.1 X10*3/uL (0.1-1.2); Monocytes Percent Auto 9.9 % (2-11); Neutrophils Absolute Auto 7.4 x10*3/uL (2.0-8.3); Neutrophils Percent Auto 66.1 % (45-73); Platelet Count 276 X10*3/uL (160-400); Red Blood Count 5.25 X10*6/uL (4.60-5.80); Red Cell Distribution Width 12.9 % (11.0-16.0); White Blood Count 11.1 X10*3/uL (4.8-10.8)
[2023-01-11 14:28] LABS: Cholesterol 121 mg/dL (<200); HDL Cholesterol 47 mg/dL (>40); LDL Cholesterol Calculated 42 mg/dL (<100); Triglycerides 161 mg/dL (<150)
[2023-01-11 14:41] LABS: Alanine Aminotransferase 57 U/L (0-40); Albumin Level 4.3 g/dL (3.5-5.0); Alkaline Phosphatase 105 U/L (39-117); Anion Gap 16 (12-20); Aspartate Amino Transferase 27 U/L (5-37); Bilirubin Total 0.4 mg/dL (0.0-1.0); Blood Urea Nitrogen 11 mg/dL (9-16); Calcium 9.4 mg/dL (8.4-10.2); Carbon Dioxide 27 mmol/L (22-29); Chloride 102 mmol/L (96-108); Estimated Glomerular Filt Rate > 60; Glucose Random 113 mg/dL (60-115); Potassium 3.9 mmol/L (3.3-5.1); Sodium 141 mmol/L (135-145); Total Protein 7.7 g/dL (6.5-8.0)
[2023-01-11 14:59] LABS: TSH reflex Free T4 2.84 uIU/mL (0.32-4.0)
[2023-01-11 20:48] LABS: Reflex LDLD? No
[2023-01-12 08:06] LABS: ~HepC Num1 0.09 S/CO (0.00-0.79); ~Hepatitis C Antibody Nonreactive (Nonreactive)
[2023-01-12 08:08] LABS: HBS Num1 > 1000.00 mIU/mL (0-7.99); HBc Num1 0.23 S/CO (0.00-0.79); HIV AB/AG Nonreactive (Nonreactive); HIV Num 1 0.07 S/CO (0.00-0.99); Hepatitis B Core Antibody Nonreactive (Nonreactive); Hepatitis B Surface Antigen Negative (Negative); ~Hepatitis B Surface Antibody REACTIVE (Nonreactive)
[2023-01-13 08:26] LABS: Syphilis Screen Nonreactive (Nonreactive)
== END 2023-01-11 12:12 | disposition home or self-care (01) ==
LOC: HO.HHCL 12:11
PROVIDERS: Visit Provider Family Medicine
DX: D72.89 Other specified disorders of white blood cells (principal); E11.65 Type 2 diabetes mellitus with hyperglycemia; Z11.3 Encounter for screening for infections with a predominantly sexual mode of transmission
CPT/HCPCS: 36415; 80053; 80061; 84443; 85025; 86704; 86706; 86780; 86803; 87340; 87389

== ENCOUNTER 2023-01-12 12:16 | Outpatient (REF) | payer OTHER, SELFPAY ==
[2023-01-12 14:19] LABS: Creatinine Urine 191.11 mg/dL; Microalbumin Urine < 5.0 mg/L
[2023-01-12 15:13] LABS: CT PCR NOT DETECTED (Not Detect.); NG PCR NOT DETECTED (Not Detect.)
== END 2023-01-12 12:17 | disposition home or self-care (01) ==
LOC: HO.HHCLNP 12:16
PROVIDERS: Visit Provider Family Medicine
DX: Z11.3 Encounter for screening for infections with a predominantly sexual mode of transmission (principal); E11.65 Type 2 diabetes mellitus with hyperglycemia
CPT/HCPCS: 0353U; 82043; 82570

== ENCOUNTER 2023-06-23 18:18 | Emergency (ER) | payer MEDICAID, SELFPAY ==
[2023-06-23 18:18] VITALS: BP 133/95; PULSE 71; RESP 20; TEMP 37.1; O2SAT 98; BMI 29.0
--- NOTE | 2023-06-23 18:20 | ED.GENADULT ---
HPI - General Adult General Chief complaint: Nausea/Vomiting/Diarrhea Stated complaint: vomiting Time Seen by Provider: 06/23/23 19:27 Source: patient and family Mode of arrival: ambulatory History of Present Illness HPI narrative: 23-year-old male who presents after having had dinner with his mother and a non alcoholic cocktail and then thereafter developed several episodes of nausea and vomiting and endorsed to nursing that he snorted marijuana . Related Data Previous Rx's Medication Instructions Recorded metformin 500 mg tablet 500 mg PO BIDWMEAL 30 days #60 tabs 06/24/23 ondansetron 4 mg disintegrating 8 mg (2 x 4 mg) PO Q8H PRN nausea 06/24/23 tablet and vomiting 5 days #10 tabs Allergies Allergy/AdvReac Type Severity Reaction Status Date / Time No Known Allergies Allergy Verified 06/23/23 18:20 Review of Systems Review of Systems: Pertinent positives and negatives as stated in HPI [facility] Past Medical History Source: nursing notes reviewed Social History Social History Smoked in Last 30 Days: No Use of substances other than those prescribed or required for medical reasons: No Substance Use Type: Marijuana Substance Use Frequency: Chronic Longstanding Advance Directives: No Advance Directives Information Provided: No Physical Exam ED Vital Signs: Vital Signs - 24 hr 06/23/23 18:18 06/23/23 23:31 Temperature 98.7 F 98.6 F Pulse Rate 71 77 Respiratory Rate 20 14 Blood Pressure 133/95 H 123/62 Pulse Oximetry 98 94 Oxygen Delivery Method Room Air Room Air BMI result Body Mass Index 29.0 VITAL SIGNS: Reviewed. GENERAL: Well developed, well nourished, in no acute distress. HEAD: Normocephalic/atraumatic EYES: PERRLA, EOMI EARS: Ext canals without abnormality, TMs non-bulging and non-erythematous NOSE: Nares patent bilateral OROPHARYNX: no oral lesions noted, posterior pharynx clear and non-erythematous without noted tonsillar enlargement/erythema/exudates NECK: Supple, no adenopathy LUNGS: Normal breath sounds. No adventitious sounds or accessory muscle use. SpO2<94> CARDIOVASCULAR: Regular rate and rhythm without noted murmurs ABDOMEN: Soft, non-tender, non-distended with bowel sounds. MUSCULOSKELETAL: No tenderness, deformities, or effusions noted on gross inspection. EXTREMITIES: No cyanosis, clubbing or edema. SKIN: Inspection of the skin reveals no rashes NEUROLOGIC: Alert and oriented x 4. Strength and sensation to light touch were grossly intact x 4. Course Course Course Narrative: This is an RME: Additional HPI, ROS, PE not included below will be deferred to primary provider. Patient is a 23-year-old male who presents emergency department for evaluation. Reports at 14:00 was eating a sandwich from a restaurant [place] [facility] [place] well as non alcoholic [place]. Soon thereafter he developed diffuse abdominal pain, nausea, multiple episodes of yellow emesis, chills. Reports calling EMS but they never came, thus he waited for family to bring him to the emergency department. Reports history of diabetes, apparently had Trulicity and metformin discontinued 2 months ago as blood sugars were improving. ABD without TTP, no rigidity, no guarding. Medications Administered Discontinued Medications Generic Name Dose Route Start Last Admin Trade Name Freq PRN Reason Stop Dose Admin Ondansetron HCl 4 mg 06/23/23 22:50 06/23/23 22:53 Ondansetron Hcl 4 Mg/2 Ml Vial IVPUSH 06/23/23 22:51 4 mg ONCE ONE Administration Medical Decision Making Medical Decision Making MDM Narrative: 23-year-old male with history and clinical presentation, DDX: Food poisoning, gastroenteritis, patient reports a remote history diabetes but states that his primary care doctor took him off of the diabetic medication 3 months ago. Patient provided IV fluids and Zofran. I reviewed all investigations and hematologic indices which demonstrate a non infectious leukocytosis this felt to be reactive in nature secondary to patient's nausea and vomiting. Chemistry indices negative for MOHAN or electrolyte derangements. Liver enzymes likely consistent with UDS. Beta hydroxybutyrate 0.65 and there is no evidence of significant metabolic acidosis. Repeat glucose shows improvement and patient will be discharged on metformin instructed to follow-up with his primary care doctor. Patient states that he is feeling better and tolerating oral intake. Differential Diagnosis Differential Diagnoses: The differential diagnosis associated with the presentation includes Please see the discussion above Admission/Observation Consideration of admission/observation: Escalation of care including admission/observation considered Please see the discussion above Lab Data [facility] Lab Attestation statement: I reviewed the patient's lab results. Please see the discussion above 06/23/23 19:15 06/23/23 19:15 Labs: Lab Results 06/23/23 06/23/23 06/23/23 Range/Units 18:30 19:15 20:06 WBC 13.9 H (4.8-10.8) X10*3/uL RBC 6.02 H (4.60-5.80) X10*6/uL Hgb 14.8 (14.0-18.0) g/dl Hct 45.8 (42.0-52.0) % MCV 76.1 L (80.0-98.0) fL MCH 24.6 L (27.0-33.0) pg MCHC 32.3 (31.0-36.0) g/dl RDW 12.4 (11.0-16.0) % Plt Count 289 (160-400) X10*3/uL MPV 11.8 (9.4-12.4) fL Immature Gran % (Auto) 0.7 H (0.0-0.4) % Neut % (Auto) 81.6 H (45-73) % Lymph % (Auto) 12.4 L (20-40) % [place] % (Auto) 4.8 (2-11) % Eos % (Auto) 0.0 (0-4) % Baso % (Auto) 0.5 (0-2) % Lymph # (Auto) 1.7 (1.2-4.9) X10*3/uL [place] # (Auto) 0.7 (0.1-1.2) X10*3/uL Eos # (Auto) 0.0 (0.0-0.4) X10*3/uL Baso # (Auto) 0.1 (0.0-0.2) X10*3/uL Abs Immat Gran (auto) 0.10 H (0.00-0.03) X10*3/uL Absolute Neuts (auto) 11.3 H (2.0-8.3) x10*3/uL Absolute Nucleated RBC 0.000 (0.0-0.012) X10*3/uL Nucleated RBC % (auto) 0.0 (0.0-0.2) /100WBC Sodium 138 (135-145) mmol/L Potassium 4.7 (3.3-5.1) mmol/L Chloride 99 (96-108) mmol/L Carbon Dioxide 29 (22-29) mmol/L Anion Gap 15 (12-20) BUN 8 L (9-16) mg/dL Creatinine 0.84 (0.5-1.4) mg/dL Estim Creat Clear Calc 134.8 Estimated GFR > 60 POC Glucose 344 H (60-115) mg/dL Random Glucose 344 H (60-115) mg/dL Calcium 9.8 (8.4-10.2) mg/dL Total Bilirubin 0.2 (0.0-1.0) mg/dL AST 23 (5-37) U/L ALT 41 H (0-40) U/L Alkaline Phosphatase 196 H (39-117) U/L Total Protein 8.8 H (6.5-8.0) g/dL Albumin 4.5 (3.5-5.0) g/dL Lipase 14 (8-78) U/L Beta-Hydroxybutyrate 0.65 H (0.02-0.27) mmol/L Urine Color Yellow Urine Appearance Clear Urine pH 7.0 (5.0-9.0) Ur Specific [place] >= 1.030 H (1.005-1.025) Urine Protein Negative (Neg-Trace) mg/dL Urine Glucose (UA) >=1000 H (Negative) mg/dL Urine Ketones 40 (Negative) mg/dL Urine Blood Negative (Negative) Urine Nitrite Negative (Negative) Ur Leukocyte Esterase Negative (Negative) Urine RBC 0-2 (0-2) /HPF Urine WBC 0-5 (0-5) /HPF Ur Squamous Epith Cells 0-2 (0-2) /HPF Urine Bacteria None Seen (None Seen) Hyaline Casts 0-2 (0-2) /LPF Urine Opiates Screen Not Detected (Not Detect) Urine Fentanyl Screen POSITIVE H (Not Detect) Ur Barbiturates Screen Not Detected (Not Detect) Ur Phencyclidine Scrn Not Detected (Not Detect) Ur Amphetamines Screen Not Detected (Not Detect) U Benzodiazepines Scrn Not Detected (Not Detect) Urine Cocaine Screen POSITIVE H (Not Detect) U Marijuana (THC) Screen Not Detected (Not Detect) COVID-19 ([facility]) (Negative) COVID-19 Clin Com Influenza Type A ([facility]) (Negative) Influenza Type B ([facility]) (Negative) Influenza A & B Note 06/23/23 06/23/23 Range/Units 20:44 21:28 WBC (4.8-10.8) X10*3/uL RBC (4.60-5.80) X10*6/uL Hgb (14.0-18.0) g/dl Hct (42.0-52.0) % MCV (80.0-98.0) fL MCH (27.0-33.0) pg MCHC (31.0-36.0) g/dl RDW (11.0-16.0) % Plt Count (160-400) X10*3/uL MPV (9.4-12.4) fL Immature Gran % (Auto) (0.0-0.4) % Neut % (Auto) (45-73) % Lymph % (Auto) (20-40) % [place] % (Auto) (2-11) % Eos % (Auto) (0-4) % Baso % (Auto) (0-2) % Lymph # (Auto) (1.2-4.9) X10*3/uL [place] # (Auto) (0.1-1.2) X10*3/uL Eos # (Auto) (0.0-0.4) X10*3/uL Baso # (Auto) (0.0-0.2) X10*3/uL Abs Immat Gran (auto) (0.00-0.03) X10*3/uL Absolute Neuts (auto) (2.0-8.3) x10*3/uL Absolute Nucleated RBC (0.0-0.012) X10*3/uL Nucleated RBC % (auto) (0.0-0.2) /100WBC Sodium (135-145) mmol/L Potassium (3.3-5.1) mmol/L Chloride (96-108) mmol/L Carbon Dioxide (22-29) mmol/L Anion Gap (12-20) BUN (9-16) mg/dL Creatinine (0.5-1.4) mg/dL Estim Creat Clear Calc Estimated GFR POC Glucose 267 H (60-115) mg/dL Random Glucose (60-115) mg/dL Calcium (8.4-10.2) mg/dL Total Bilirubin (0.0-1.0) mg/dL AST (5-37) U/L ALT (0-40) U/L Alkaline Phosphatase (39-117) U/L Total Protein (6.5-8.0) g/dL Albumin (3.5-5.0) g/dL Lipase (8-78) U/L Beta-Hydroxybutyrate (0.02-0.27) mmol/L Urine Color Urine Appearance Urine pH (5.0-9.0) Ur Specific [place] (1.005-1.025) Urine Protein (Neg-Trace) mg/dL Urine Glucose (UA) (Negative) mg/dL Urine Ketones (Negative) mg/dL Urine Blood (Negative) Urine Nitrite (Negative) Ur Leukocyte Esterase (Negative) Urine RBC (0-2) /HPF Urine WBC (0-5) /HPF Ur Squamous Epith Cells (0-2) /HPF Urine Bacteria (None Seen) Hyaline Casts (0-2) /LPF Urine Opiates Screen (Not Detect) Urine Fentanyl Screen (Not Detect) Ur Barbiturates Screen (Not Detect) Ur Phencyclidine Scrn (Not Detect) Ur Amphetamines Screen (Not Detect) U Benzodiazepines Scrn (Not Detect) Urine Cocaine Screen (Not Detect) U Marijuana (THC) Screen (Not Detect) COVID-19 ([facility]) Negative (Negative) COVID-19 Clin Com See Note Influenza Type A ([facility]) Negative (Negative) Influenza Type B ([facility]) Negative (Negative) Influenza A & B Note See Note Critical Care Time Critical Care Time Critical Care Time: Yes Total Critical Care Time: 30 Attestation: I personally attest to this time spent taking care of the patient. Discharge Plan Discharge Clinical Impression: Gastroenteritis Patient Disposition: Home, Self-Care Instructions: Gastroenteritis (ED) Additional Instructions: 1. Contin?e bebiendo vernon agua. Le he enviado qing receta para un medicamento para controlar las n?useas a noel farmacia. 2. Ivan un seguimiento con noel m?dico de atenci?n primaria llamando al consultorio el lunes. 3. Estoy enviando qing receta de metformina a noel farmacia, finesse niveles de glucosa contin?an altos. Regrese a la ele de emergencias si los s?ntomas empeoran. 1. Continue to drink plenty of water, I have sent a prescription for nausea control medication to your pharmacy. 2. Please follow-up with your primary care doctor by calling the office on Monday. 3. I am sending a prescription for metformin to your pharmacy, your glucose levels continue to run high. Return to the ER for any worsening symptoms. Prescriptions: New metformin 500 mg tablet 500 mg PO BIDWMEAL 30 Days Qty: 60 0RF ondansetron 4 mg tablet,disintegrating 8 mg PO Q8H PRN (Reason: nausea and vomiting) 5 Days Qty: 10 0RF Referrals: [facility] [Primary Care Provider] - Print Language: Greek
[2023-06-23 18:35] LABS: Glucose, Whole Blood 344 mg/dL (60-115)
[2023-06-23 19:26] LABS: MANUAL DIFF FLAG NO
[2023-06-23 19:27] LABS: Basophils Absolute Auto 0.1 X10*3/uL (0.0-0.2); Basophils Percent Auto 0.5 % (0-2); Hematocrit 45.8 % (42.0-52.0); Hemoglobin 14.8 g/dl (14.0-18.0); Imm Gran Pct Auto 0.7 % (0.0-0.4); Lymphocytes Absolute Auto 1.7 X10*3/uL (1.2-4.9); Lymphocytes Percent Auto 12.4 % (20-40); Mean Corpuscular HGB Conc 32.3 g/dl (31.0-36.0); Mean Corpuscular Hemoglobin 24.6 pg (27.0-33.0); Mean Corpuscular Volume 76.1 fL (80.0-98.0); Mean Platelet Volume 11.8 fL (9.4-12.4); Monocytes Absolute Auto 0.7 X10*3/uL (0.1-1.2); Monocytes Percent Auto 4.8 % (2-11); Neutrophils Absolute Auto 11.3 x10*3/uL (2.0-8.3); Neutrophils Percent Auto 81.6 % (45-73); Platelet Count 289 X10*3/uL (160-400); Red Blood Count 6.02 X10*6/uL (4.60-5.80); Red Cell Distribution Width 12.4 % (11.0-16.0); White Blood Count 13.9 X10*3/uL (4.8-10.8)
[2023-06-23 19:40] LABS: Alanine Aminotransferase 41 U/L (0-40); Albumin Level 4.5 g/dL (3.5-5.0); Alkaline Phosphatase 196 U/L (39-117); Anion Gap 15 (12-20); Aspartate Amino Transferase 23 U/L (5-37); Bilirubin Total 0.2 mg/dL (0.0-1.0); Blood Urea Nitrogen 8 mg/dL (9-16); Calcium 9.8 mg/dL (8.4-10.2); Carbon Dioxide 29 mmol/L (22-29); Chloride 99 mmol/L (96-108); Creatinine Clr Calc Pharmacy 134.8; Estimated Glomerular Filt Rate > 60; Glucose Random 344 mg/dL (60-115); Lipase 14 U/L (8-78); Potassium 4.7 mmol/L (3.3-5.1); Sodium 138 mmol/L (135-145); Total Protein 8.8 g/dL (6.5-8.0)
[2023-06-23 20:12] LABS: Beta-Hydroxybutyrate 0.65 mmol/L (0.02-0.27)
[2023-06-23 20:19] LABS: Appearance Urine Clear; Color Urine Yellow; Glucose Urine UA >=1000 mg/dL (Negative); Leukocyte Esterase Urine Negative (Negative); Nitrite Urine Negative (Negative); Specific Gravity - Urine >= 1.030 (1.005-1.025); UMIC TRIGGER UACC YES; Urine Blood Negative (Negative); Urine Ketones 40 mg/dL (Negative); Urine Protein Negative (Neg-Trace)
[2023-06-23 20:21] LABS: Bacteria Urine None Seen (None Seen); Hyaline Casts Urine 0-2 /LPF (0-2); RBC Urine 0-2 /HPF (0-2); Squamous Epithelial Cell Urine 0-2 /HPF (0-2); WBC Urine 0-5 /HPF (0-5)
[2023-06-23 21:06] LABS: Amphetamine Screen Urine Not Detected (Not Detect); Barbiturates, Urine Not Detected (Not Detect); Benzodiazepines Screen Urine Not Detected (Not Detect); Cannabinoid Screen Urine Not Detected (Not Detect); Cocaine Screen Urine POSITIVE (Not Detect); Fentanyl, urine POSITIVE (Not Detect); Opiate Screen Urine Not Detected (Not Detect); Phencyclidine Screen Urine Not Detected (Not Detect)
[2023-06-23 21:16] LABS: COVID-19 Test Negative (Negative); IDNOW Serial# 08D9AD1C; IDNOW Serial# 152EDE1D; Influenza A Negative (Negative); Influenza B2 Negative (Negative)
[2023-06-23 21:33] LABS: Glucose, Whole Blood 267 mg/dL (60-115)
[2023-06-23] MEDS: ondansetron HCL 4 MG/2 ML VIAL IVPUSH (22:53)
[2023-06-23 23:31] VITALS: BP 123/62; PULSE 77; RESP 14; TEMP 37; O2SAT 94
--- NOTE | 2023-06-24 00:26 | PC.NURSE ---
Pt PO challenged and able to hold down liquid. Pt reports only saliva came up. Plan of care ongoing.
[2023-06-24 06:48] LABS: Estimated Average Glucose 349 mg/dL; Hemoglobin A1c % 13.8 % (<6.0)
== END 2023-06-24 01:36 | disposition home or self-care (01) ==
PROVIDERS: Nurse Practitioner Family; Emergency Provider Student in an Organized Health Care Education/Training Program
DX: K52.9 Noninfective gastroenteritis and colitis, unspecified (principal); R11.2 Nausea with vomiting, unspecified; Z11.52 Encounter for screening for COVID-19; E11.9 Type 2 diabetes mellitus without complications
CPT/HCPCS: 36415; 80053; 80307; 81001; 82010; 82947; 83036; 83690; 85025; 87502; 87635; 96374; 99284; J2405

== ENCOUNTER 2023-08-16 03:20 | Emergency (ER) | payer OTHER, SELFPAY ==
[2023-08-16] VITALS (7 sets, daily range): BP systolic 98–115; BP diastolic 53–68; PULSE 75–105; RESP 9–18; TEMP 36.7–37; O2SAT 96–98; BMI 26.6
--- NOTE | 2023-08-16 | ECG_ITS ---
Test Reason : QTC Blood Pressure : / mmHG Vent. Rate : 065 BPM Atrial Rate : 065 BPM P-R Int : 138 ms QRS Dur : 092 ms QT Int : 464 ms P-R-T Axes : 044 -06 -46 degrees QTc Int : 482 ms Normal sinus rhythm T wave abnormality, consider inferior ischemia Prolonged QT Abnormal ECG When compared with ECG of 26-DEC-2022 18:16, Vent. rate has decreased BY 33 BPM T wave inversion now evident in Inferior leads Referred By: Gricel Enriquez Electronically Signed By:DALTON TATE MD
[2023-08-16 04:33] LABS: Basophils Absolute Auto 0.1 X10*3/uL (0.0-0.2); Basophils Percent Auto 0.7 % (0-2); Eosinophils Percent Auto 0.3 % (0-4); Imm Gran Pct Auto 1.3 % (0.0-0.4); Lymphocytes Absolute Auto 1.8 X10*3/uL (1.2-4.9); Lymphocytes Percent Auto 11.9 % (20-40); MANUAL DIFF FLAG NO; Mean Corpuscular HGB Conc 32.6 g/dl (31.0-36.0); Mean Corpuscular Volume 76.6 fL (80.0-98.0); Mean Platelet Volume 10.9 fL (9.4-12.4); Monocytes Absolute Auto 0.7 X10*3/uL (0.1-1.2); Monocytes Percent Auto 4.5 % (2-11); Neutrophils Absolute Auto 12.4 x10*3/uL (2.0-8.3); Neutrophils Percent Auto 81.3 % (45-73); Platelet Count 342 X10*3/uL (160-400); Red Blood Count 5.61 X10*6/uL (4.60-5.80); Red Cell Distribution Width 13.1 % (11.0-16.0); White Blood Count 15.3 X10*3/uL (4.8-10.8)
[2023-08-16 04:34] LABS: Appearance Urine Clear; Color Urine Yellow; Glucose Urine UA >=1000 mg/dL (Negative); Leukocyte Esterase Urine Negative (Negative); Nitrite Urine Negative (Negative); PH 5.5 (5.0-9.0); Specific Gravity - Urine >= 1.030 (1.005-1.025); UMIC TRIGGER UACC YES; Urine Blood Negative (Negative); Urine Ketones 15 mg/dL (Negative); Urine Protein Negative (Neg-Trace)
[2023-08-16 04:36] LABS: Bacteria Urine None Seen (None Seen); Hyaline Casts Urine 0-2 /LPF (0-2); RBC Urine 0-2 /HPF (0-2); Squamous Epithelial Cell Urine 0-2 /HPF (0-2); WBC Urine 0-5 /HPF (0-5)
[2023-08-16 04:41] LABS: Amphetamine Screen Urine Not Detected (Not Detect); Barbiturates, Urine Not Detected (Not Detect); Benzodiazepines Screen Urine Not Detected (Not Detect); Cannabinoid Screen Urine Not Detected (Not Detect); Cocaine Screen Urine POSITIVE (Not Detect); Fentanyl, urine POSITIVE (Not Detect); Opiate Screen Urine POSITIVE (Not Detect); Phencyclidine Screen Urine Not Detected (Not Detect)
--- NOTE | 2023-08-16 04:52 | PC.NURSE ---
PT biba from PD. EMS reports that PT went to PD to file police reporting regarding people he lives with being suspicious. In addition, en route to PD station pt believes he was being followed by someone. PT denies drug use today. 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 Pt reports to t/w that when he wanted to leave the house his grandmother and aunt were restraining him to prevent him from leaving, but eventually he was able to leave. When he left he felt that he was being followed. He went to the PD and sat for an hour and he believes he saw two people observing him during that time so he told an officer. He states the officer did not believe him and therefore he became upset that they looked at him like he was crazy . PD called for ems for crisis. Pt endorsing AH Denies SI/HI. When changing over and attempting to securing belonging with security, pt grabbed something from his pocket and ran quickly towards bathroom while shoving and ingesting an unknown matter in his mouth. Pt denied putting anything in his mouth several of times, though visualized by security and engineering technical specialist. Pt later reported to t/w that was a piece of paper with important numbers. Pt changed in to green gown, oriented to unit, Labs drawn, urine obtained, vitals signs stable with the exception of hr- 105bpm. Pt resting quietly in room at this time. notified charge nurse of ingestion of unknown matter. Plan is for pt to be monitored in main ED. Awaiting room number
[2023-08-16 04:55] LABS: Alanine Aminotransferase 44 U/L (0-40); Albumin Level 4.3 g/dL (3.5-5.0); Alkaline Phosphatase 158 U/L (39-117); Anion Gap 16 (12-20); Aspartate Amino Transferase 26 U/L (5-37); Bilirubin Total 0.4 mg/dL (0.0-1.0); Blood Urea Nitrogen 13 mg/dL (9-16); Calcium 9.4 mg/dL (8.4-10.2); Carbon Dioxide 26 mmol/L (22-29); Chloride 98 mmol/L (96-108); Estimated Glomerular Filt Rate > 60; Ethanol < 10 mg/dL; Glucose Random 608 mg/dL (60-115); Potassium 4.4 mmol/L (3.3-5.1); Sodium 136 mmol/L (135-145); Total Protein 8.2 g/dL (6.5-8.0)
[2023-08-16 05:06] LABS: Glucose, Whole Blood 510 mg/dL (60-115)
--- NOTE | 2023-08-16 05:16 | PC.NURSE ---
PT moved to main ED17 to for critical POC and ingestion of unknown matter.
--- NOTE | 2023-08-16 05:17 | ED_ITS ---
HPI - General Adult General Chief complaint: Behavioral Concerns Stated complaint: CRISIS Time Seen by Provider: 08/16/23 05:07 Source: patient and EMS Mode of arrival: EMS Limitations: other History of Present Illness HPI narrative: Patient comes to emergency room by ambulance. According to EMS, the patient reported that he was trying to leave his grandmother's house to buy something to eat, patient states that he saw 2 people sending outside of the house in pitting him from exiting the house. Eventually, patient states he was able to leave the house and noted that people were following him. Patient called the police. Patient was brought to the emergency room by EMS. When patient arrived to the emergency room, security reported that when he was getting changed over, the patient ate something that was on a paper. According to the patient, he ingested a piece of paper with ?important numbers? patient denies SI or HI On arrival, it was noted that patient's glucose is above 600. Patient states that has been out of his medications for several months because he was doing so well without metformin or Trulicity that his PCP discontinue it. Patient states that a few months later patient noted that his glucose was up, his PCP restarted metformin 500 mg b.i.d.. Patient states that this medication gives him GI upset and has not been taking it at all. Related Data Home Medications Medication Instructions Recorded Confirmed cholecalciferol (vitamin D3) 25 25 mcg PO DAILY 12/24/22 08/16/23 mcg (1,000 unit) tablet dulaglutide 0.75 mg/0.5 mL 0.75 mg subcut MO@0900 12/24/22 08/16/23 subcutaneous pen injector (Trulicity) methadone 10 mg/mL oral concentrate 80 mg PO DAILY 12/24/22 08/16/23 albuterol sulfate 90 mcg/actuation 2 puff inhalation Q6H PRN wheezing 08/16/23 08/16/23 aerosol inhaler (Ventolin HFA) metformin 500 mg tablet 500 mg PO BID 08/16/23 08/16/23 ondansetron HCl 4 mg tablet 4 mg PO Q4-6H PRN nausea/vomiting 08/16/23 08/16/23 Allergies Allergy/AdvReac Type Severity Reaction Status Date / Time haloperidol [From Haldol] AdvReac Mild dystonia Verified 12/27/22 15:52 Review of Systems 2 Review of Systems: Constitutional : No Weight loss, No Fever, No Chills, No Night Sweats, No Fatigue, No Malaise ENT/Mouth : No Hearing loss, No Ear Pain, No Nasal Congestion, No Sinus Pain, No Hoarseness, No sore throat, No Rhinorrhea, No Swallowing Difficulty Eyes: No Eye Pain, No Swelling, No Redness, No Foreign Body, No Discharge, No Vision Changes Cardiovascular : No Chest Pain, No SOB, No Dyspnea on Exertion, No Orthopnea, No Edema, No Palpitations Respiratory : No Cough, No Sputum, No Wheezing, No Smoke Exposure, No Dyspnea Gastrointestinal : No Nausea, No Vomiting, No Diarrhea, No Constipation, No abdominal Pain, No Hematochezia, No Melena Genitourinary : no irregular bleeding, No Dysuria, No Urinary Frequency, No Hematuria, No Urinary Incontinence, No Urgency, No Flank Pain, No Urinary Flow Changes, No Hesitancy Musculoskeletal : No joint pain, No Myalgias, No Joint Swelling Skin : No Skin Lesions, No rash Neuro : No Weakness, No Numbness, No Paresthesias, No Loss of Consciousness, No Dizziness, No Headache Psych : No Anxiety/Panic, No Depression, No SI/HI/, patient reporting that people are following him Heme/Lymph: No Bruising, No Bleeding,No Lymphadenopathy Endocrine : No Polyuria, No Polydipsia, No Temperature Intolerance [facility] Past Medical History Medical History (Updated 08/16/23 @ 14:27 by Adrian Walton MD) Paranoia Diabetes Social History Social History Household Members: Family Housing: Apartment Do you presently have visiting nurse or other home services: No Alcohol intake: current Alcohol intake frequency: does not drink Patient Tobacco Use Status: Never used Tobacco Smoked in Last 30 Days: No e-Cigarette/Vaping Use: Never Used Second Hand Smoke Exposure: No Use of substances other than those prescribed or required for medical reasons: Yes Substance Use Type: Heroin Advance Directives: No Advance Directives Information Provided: No service: No Sexual orientation: Don't Know Physical Exam ED Vital Signs: Vital Signs - 24 hr 08/16/23 03:46 08/16/23 04:13 08/16/23 04:16 Temperature 98.6 F 98.6 F Pulse Rate 105 H 105 H Pulse Rate [Automated] 105 H Respiratory Rate 17 17 Blood Pressure 112/68 112/68 Pulse Oximetry 96 96 Oxygen Delivery Method Room Air Room Air 08/16/23 05:32 08/16/23 05:59 08/16/23 14:21 Temperature 98.3 F 98.1 F Pulse Rate 75 77 77 Pulse Rate [Automated] Respiratory Rate 9 L 14 18 Blood Pressure 115/65 98/53 L 115/65 Pulse Oximetry 97 97 98 Oxygen Delivery Method Room Air Room Air Room Air BMI result Body Mass Index 26.6 Const Other: Appearance: Alert. Oriented X3. No acute distress. Eyes: Pupils equal, round and reactive to light. ENT: Pharynx normal. Neck: Normal inspection. Neck supple. No lymph nodes noted. No crepitus CVS: Normal heart rate and rhythm. Pulses normal. Normal S1 and S2 Respiratory: No respiratory distress. Breath sounds normal. No Wheezing. No rales Abdomen: Soft and nontender. No rigidity. No distention. Skin: Skin warm and dry. Normal skin color. Normal skin turgor. Extremities: No lower extremity edema. No Lacerations. No Rash Neuro: Oriented X 3. No motor deficit. No sensory deficit. Moving all extremities. No slurred speech. CN 2 through 12 grossly intact Psych: calm, cooperative, normal affect Course Reevaluation(s) Reevaluation #1: seen by crisis and cleared by psych, not a harm to self Time: 14:26 Medications Administered Generic Name Dose Route Start Last Admin Trade Name Gabino PRN Reason Stop Dose Admin Metformin HCl 500 mg 08/16/23 09:00 08/16/23 10:10 Metformin Hcl 500 Mg Tablet PO 500 mg BID VERÓNICA Administration Methadone HCl 80 mg 08/16/23 09:00 08/16/23 13:55 Methadone Hcl 20 Mg/2 Ml Oral.Conc PO 80 mg DAILY VERÓNICA Administration Vitamin D 25 mcg 08/16/23 09:00 08/16/23 10:10 Cholecalciferol (Vitamin D3) 25 Mcg Tablet PO 25 mcg DAILY VERÓNICA Administration Discontinued Medications Generic Name Dose Route Start Last Admin Trade Name Freq PRN Reason Stop Dose Admin Albuterol Sulfate 2 puff 08/16/23 07:42 08/16/23 07:50 Albuterol Sulfate 90 Mcg 8 Gm Inhaler INHALE 08/16/23 07:43 2 puff ONCE ONE Administration Sodium Chloride 2,000 mls @ 999 mls/hr 08/16/23 05:09 08/16/23 07:41 Ns IVCONT 08/16/23 07:09 Infused .Q2H1M ONE Infusion Insulin Human Lispro 10 unit 08/16/23 13:20 08/16/23 13:54 Insulin Lispro 100 Unit/Ml 3 Ml Vial SUBCUT 08/16/23 13:21 10 unit ONCE ONE Administration Insulin Human Regular 10 unit 08/16/23 05:09 08/16/23 05:26 Insulin Regular, Human 100 Unit/Ml 3 Ml Vial IVPUSH 08/16/23 05:10 10 unit ONCE ONE Administration Metformin HCl 1,000 mg 08/16/23 07:42 08/16/23 07:50 Metformin Hcl 1,000 Mg Tablet PO 08/16/23 07:43 1,000 mg ONCE ONE Administration Medical Decision Making Medical Decision Making MDM Narrative: -my interpretation of labs: White blood cell count 15.3, patient has history of chronic leukocytosis. Rest of hematology at baseline. Sodium, anion gap, within normal limits. Creatinine a bit bumped 1.41, glucose 508, LFTs slightly elevated -patient is receiving IV fluids 2 L, 10 units of IV insulin. -once medically cleared, patient can be seen by the care team. -patient is not SI or HI, section 12 is not indicated Differential Diagnosis Differential Diagnoses: The differential diagnosis associated with the presentation includes (Diabetic ketoacidosis, hyperglycemia, medication noncompliance) Admission/Observation Consideration of admission/observation: Escalation of care including admission/observation considered (Patient waiting to become medically cleared to be seen by the care team and determine disposition) Lab Data 08/16/23 04:24 08/16/23 04:24 Labs: Lab Results 08/16/23 08/16/23 08/16/23 Range/Units 04: 05:02 06:15 WBC 15.3 H (4.8-10.8) X10*3/uL RBC 5.61 (4.60-5.80) X10*6/uL Hgb 14.0 (14.0-18.0) g/dl Hct 43.0 (42.0-52.0) % MCV 76.6 L (80.0-98.0) fL MCH 25.0 L (27.0-33.0) pg MCHC 32.6 (31.0-36.0) g/dl RDW 13.1 (11.0-16.0) % Plt Count 342 (160-400) X10*3/uL MPV 10.9 (9.4-12.4) fL Immature Gran % (Auto) 1.3 H (0.0-0.4) % Neut % (Auto) 81.3 H (45-73) % Lymph % (Auto) 11.9 L (20-40) % Andrew % (Auto) 4.5 (2-11) % Eos % (Auto) 0.3 (0-4) % Baso % (Auto) 0.7 (0-2) % Lymph # (Auto) 1.8 (1.2-4.9) X10*3/uL Andrew # (Auto) 0.7 (0.1-1.2) X10*3/uL Eos # (Auto) 0.0 (0.0-0.4) X10*3/uL Baso # (Auto) 0.1 (0.0-0.2) X10*3/uL Abs Immat Gran (auto) 0.20 H (0.00-0.03) X10*3/uL Absolute Neuts (auto) 12.4 H (2.0-8.3) x10*3/uL Absolute Nucleated RBC 0.000 (0.0-0.012) X10*3/uL Nucleated RBC % (auto) 0.0 (0.0-0.2) /100WBC Sodium 136 (135-145) mmol/L Potassium 4.4 (3.3-5.1) mmol/L Chloride 98 (96-108) mmol/L Carbon Dioxide 26 (22-29) mmol/L Anion Gap 16 (12-20) BUN 13 (9-16) mg/dL Creatinine 1.41 H (0.5-1.4) mg/dL Estim Creat Clear Calc 67.0 Estimated GFR > 60 POC Glucose 510 H* 430 H* (60-115) mg/dL Random Glucose 608 H* (60-115) mg/dL Calcium 9.4 (8.4-10.2) mg/dL Total Bilirubin 0.4 (0.0-1.0) mg/dL AST 26 (5-37) U/L ALT 44 H (0-40) U/L Alkaline Phosphatase 158 H (39-117) U/L Total Protein 8.2 H (6.5-8.0) g/dL Albumin 4.3 (3.5-5.0) g/dL Beta-Hydroxybutyrate 0.63 H (0.02-0.27) mmol/L Urine Color Yellow Urine Appearance Clear Urine pH 5.5 (5.0-9.0) Ur Specific [place] >= 1.030 H (1.005-1.025) Urine Protein Negative (Neg-Trace) mg/dL Urine Glucose (UA) >=1000 H (Negative) mg/dL Urine Ketones 15 (Negative) mg/dL Urine Blood Negative (Negative) Urine Nitrite Negative (Negative) Ur Leukocyte Esterase Negative (Negative) Urine RBC 0-2 (0-2) /HPF Urine WBC 0-5 (0-5) /HPF Ur Squamous Epith Cells 0-2 (0-2) /HPF Urine Bacteria None Seen (None Seen) Hyaline Casts 0-2 (0-2) /LPF Urine Opiates Screen POSITIVE H (Not Detect) Urine Fentanyl Screen POSITIVE H (Not Detect) Ur Barbiturates Screen Not Detected (Not Detect) Ur Phencyclidine Scrn Not Detected (Not Detect) Ur Amphetamines Screen Not Detected (Not Detect) U Benzodiazepines Scrn Not Detected (Not Detect) Urine Cocaine Screen POSITIVE H (Not Detect) U Marijuana (THC) Screen Not Detected (Not Detect) Ethyl Alcohol < 10 mg/dL 08/16/23 08/16/23 Range/Units 07:24 13:06 WBC (4.8-10.8) X10*3/uL RBC (4.60-5.80) X10*6/uL Hgb (14.0-18.0) g/dl Hct (42.0-52.0) % MCV (80.0-98.0) fL MCH (27.0-33.0) pg MCHC (31.0-36.0) g/dl RDW (11.0-16.0) % Plt Count (160-400) X10*3/uL MPV (9.4-12.4) fL Immature Gran % (Auto) (0.0-0.4) % Neut % (Auto) (45-73) % Lymph % (Auto) (20-40) % Andrew % (Auto) (2-11) % Eos % (Auto) (0-4) % Baso % (Auto) (0-2) % Lymph # (Auto) (1.2-4.9) X10*3/uL Andrew # (Auto) (0.1-1.2) X10*3/uL Eos # (Auto) (0.0-0.4) X10*3/uL Baso # (Auto) (0.0-0.2) X10*3/uL Abs Immat Gran (auto) (0.00-0.03) X10*3/uL Absolute Neuts (auto) (2.0-8.3) x10*3/uL Absolute Nucleated RBC (0.0-0.012) X10*3/uL Nucleated RBC % (auto) (0.0-0.2) /100WBC Sodium (135-145) mmol/L Potassium (3.3-5.1) mmol/L Chloride (96-108) mmol/L Carbon Dioxide (22-29) mmol/L Anion Gap (12-20) BUN (9-16) mg/dL Creatinine (0.5-1.4) mg/dL Estim Creat Clear Calc Estimated GFR POC Glucose 265 H 358 H* (60-115) mg/dL Random Glucose (60-115) mg/dL Calcium (8.4-10.2) mg/dL Total Bilirubin (0.0-1.0) mg/dL AST (5-37) U/L ALT (0-40) U/L Alkaline Phosphatase (39-117) U/L Total Protein (6.5-8.0) g/dL Albumin (3.5-5.0) g/dL Beta-Hydroxybutyrate (0.02-0.27) mmol/L Urine Color Urine Appearance Urine pH (5.0-9.0) Ur Specific [place] (1.005-1.025) Urine Protein (Neg-Trace) mg/dL Urine Glucose (UA) (Negative) mg/dL Urine Ketones (Negative) mg/dL Urine Blood (Negative) Urine Nitrite (Negative) Ur Leukocyte Esterase (Negative) Urine RBC (0-2) /HPF Urine WBC (0-5) /HPF Ur Squamous Epith Cells (0-2) /HPF Urine Bacteria (None Seen) Hyaline Casts (0-2) /LPF Urine Opiates Screen (Not Detect) Urine Fentanyl Screen (Not Detect) Ur Barbiturates Screen (Not Detect) Ur Phencyclidine Scrn (Not Detect) Ur Amphetamines Screen (Not Detect) U Benzodiazepines Scrn (Not Detect) Urine Cocaine Screen (Not Detect) U Marijuana (THC) Screen (Not Detect) Ethyl Alcohol mg/dL Discharge Plan Discharge Clinical Impression: Paranoia, Bipolar disorder Patient Disposition: Home, Self-Care Prescriptions: No Action cholecalciferol (vitamin D3) 25 mcg (1,000 unit) tablet 25 mcg PO DAILY Trulicity 0.75 mg/0.5 mL pen injector 0.75 mg subcut MO@0900 methadone 10 mg/mL Concentrate 80 mg PO DAILY Rx Instructions: Dose verified by Tonia XAVIER from [facility]. metformin 500 mg tablet 500 mg PO BID ondansetron HCl 4 mg tablet 4 mg PO Q4-6H PRN (Reason: nausea/vomiting) albuterol sulfate [Ventolin HFA] 90 mcg/actuation HFA aerosol inhaler 2 puff INHALATION Q6H PRN (Reason: wheezing) Referrals: Physician,Unknown J [Primary Care Provider] - 3 days
[2023-08-16] MEDS: 0.9 % Sodium Chloride 2,000 ML 999 ML IVCONT (05:19)
[2023-08-16] MEDS: Insulin Regular, Human 100 UNIT/ML 3 ML VIAL 10 UNIT IVPUSH (05:26)
[2023-08-16 05:34] LABS: Beta-Hydroxybutyrate 0.63 mmol/L (0.02-0.27)
[2023-08-16 06:19] LABS: Glucose, Whole Blood 430 mg/dL (60-115)
[2023-08-16 07:28] LABS: Glucose, Whole Blood 265 mg/dL (60-115)
[2023-08-16] MEDS: metFORMIN HCl 1,000 MG TABLET 1000 MG PO (07:50)
[2023-08-16] MEDS: Albuterol Sulfate 90 MCG 8 GM INHALER 2 PUFF INHALE (07:50)
--- NOTE | 2023-08-16 08:29 | HE.PHANOTE ---
METHADONE Verification DUC Randall at [facility] confirmed on 08/16/23 patient is on 80mg. Last dose given 08/15/23 at 0945.
[2023-08-16] MEDS: metFORMIN HCl 500 MG TABLET PO (10:10)
[2023-08-16] MEDS: Cholecalciferol (Vitamin D3) 25 MCG TABLET PO (10:10)
--- NOTE | 2023-08-16 11:29 | PC.NURSE ---
pt slept much of the morning and was falling asleep sitting up. methadone held for now. pt does not report withdrawal symptoms
--- NOTE | 2023-08-16 12:45 | P.CNPS_ITS ---
History of Present Illness Date of Service: 08/16/2023 Chief Complaint: CRISIS Discussed with referring provider: Yes Sources of Information: patient interviewed, chart reviewed and crisis/core team assessment reviewed HPI Narrative: Mr. Booker is a 23 year-old with hx of psychosis, cocaine and opioid use. He self presented to [facility] ED reporting increase paranoid delusions thinking people were following him. He denies SI/HI. His utox was positive for cocaine, opioids. Pt was assessed by care team yesterday. Today, pt reports he feels calmer and would like to leave. Psych consult requested to assess safety and dispo. Pt reports that he was feeling worried about his safety and that he thought people were following him. He does have some insight that cocaine worsens these delusions. He reports fair sleep. He denies visual or auditory hallucinations. He adamantly denies suicidal ideation or homicidal ideation. He reports he has come voluntarily to the hospital because interventions here in the hospital have helped with delusions on the past. He reports he wants to go back home. In terms of medical medications- he had elevated BS and was restarted on metformin. He reports he will continue taking medical medications and will follow up with his PCP. Past Psychiatric History: Inpt: M3 12/2023 REPLACED BY [facility] Medical History (Updated 08/16/23 @ 16:26 by Gricel Enriquez) Paranoia Diabetes Family History: Denies Social History: The patient was born and raised in the [facility] and reportedly, he was raised by family, he attended up to the 8th grade. He is mostly [place]ian speaking. 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 He is single with no children. Trauma History: Denies Diagnostics Vital Signs (24Hr): Vital Signs - 24 hr 08/16/23 03:46 08/16/23 04:13 08/16/23 04:16 Temperature 98.6 F 98.6 F Pulse Rate 105 H 105 H Pulse Rate [Automated] 105 H Respiratory Rate 17 17 Blood Pressure 112/68 112/68 Pulse Oximetry 96 96 Oxygen Delivery Method Room Air Room Air 08/16/23 05:32 08/16/23 05:59 Temperature 98.3 F Pulse Rate 75 77 Pulse Rate [Automated] Respiratory Rate 9 L 14 Blood Pressure 115/65 98/53 L Pulse Oximetry 97 97 Oxygen Delivery Method Room Air Room Air BMI result Body Mass Index 26.6 Labs 08/16/23 04:24 08/16/23 04:24 Labs: Laboratory Results - last 48 hr 08/16/23 08/16/23 08/16/23 04:24 05:02 06:15 WBC 15.3 H RBC 5.61 Hgb 14.0 Hct 43.0 MCV 76.6 L MCH 25.0 L MCHC 32.6 RDW 13.1 Plt Count 342 MPV 10.9 Immature Gran % (Auto) 1.3 H Neut % (Auto) 81.3 H Lymph % (Auto) 11.9 L [place] % (Auto) 4.5 Eos % (Auto) 0.3 Baso % (Auto) 0.7 Lymph # (Auto) 1.8 [place] # (Auto) 0.7 Eos # (Auto) 0.0 Baso # (Auto) 0.1 Abs Immat Gran (auto) 0.20 H Absolute Neuts (auto) 12.4 H Absolute Nucleated RBC 0.000 Nucleated RBC % (auto) 0.0 Sodium 136 Potassium 4.4 Chloride 98 Carbon Dioxide 26 Anion Gap 16 BUN 13 Creatinine 1.41 H Estim Creat Clear Calc 67.0 Estimated GFR > 60 POC Glucose 510 H* 430 H* Random Glucose 608 H* Calcium 9.4 Total Bilirubin 0.4 AST 26 ALT 44 H Alkaline Phosphatase 158 H Total Protein 8.2 H Albumin 4.3 Beta-Hydroxybutyrate 0.63 H Urine Color Yellow Urine Appearance Clear Urine pH 5.5 Ur Specific [place] >= 1.030 H Urine Protein Negative Urine Glucose (UA) >=1000 H Urine Ketones 15 Urine Blood Negative Urine Nitrite Negative Ur Leukocyte Esterase Negative Urine RBC 0-2 Urine WBC 0-5 Ur Squamous Epith Cells 0-2 Urine Bacteria None Seen Hyaline Casts 0-2 Urine Opiates Screen POSITIVE H Urine Fentanyl Screen POSITIVE H Ur Barbiturates Screen Not Detected Ur Phencyclidine Scrn Not Detected Ur Amphetamines Screen Not Detected U Benzodiazepines Scrn Not Detected Urine Cocaine Screen POSITIVE H U Marijuana (THC) Screen Not Detected Ethyl Alcohol < 10 08/16/23 07:24 WBC RBC Hgb Hct MCV MCH MCHC RDW Plt Count MPV Immature Gran % (Auto) Neut % (Auto) Lymph % (Auto) [place] % (Auto) Eos % (Auto) Baso % (Auto) Lymph # (Auto) [place] # (Auto) Eos # (Auto) Baso # (Auto) Abs Immat Gran (auto) Absolute Neuts (auto) Absolute Nucleated RBC Nucleated RBC % (auto) Sodium Potassium Chloride Carbon Dioxide Anion Gap BUN Creatinine Estim Creat Clear Calc Estimated GFR POC Glucose 265 H Random Glucose Calcium Total Bilirubin AST ALT Alkaline Phosphatase Total Protein Albumin Beta-Hydroxybutyrate Urine Color Urine Appearance Urine pH Ur Specific [place] Urine Protein Urine Glucose (UA) Urine Ketones Urine Blood Urine Nitrite Ur Leukocyte Esterase Urine RBC Urine WBC Ur Squamous Epith Cells Urine Bacteria Hyaline Casts Urine Opiates Screen Urine Fentanyl Screen Ur Barbiturates Screen Ur Phencyclidine Scrn Ur Amphetamines Screen U Benzodiazepines Scrn Urine Cocaine Screen U Marijuana (THC) Screen Ethyl Alcohol Mental Status Exam Mental Status Exam Narrative: Appearance: wearing hospital gown, fair hygiene, in NAD Behavior: calmer, cooperative Psychomotor: no agitation or retardation noted Speech: clear, normal rate/rhythm/volume, spontaneous TP: linear TC: no overt delusional content- some residual paranoia but some awareness that it may not be the case Mood: better, calmer Affect: congruent SI: denies HI: denies VH/AH: denies Delusions: less paranoid delusions Insight/judgment: fair x 2. memory/cog: alert, oriented x 3. grossly intact to conversational testing. Medications Medications Current Medications Albuterol Sulfate (Albuterol Sulfate 90 Mcg 8 Gm Inhaler) 2 puff INHALE Q6H PRN PRN Reason: wheezing Metformin HCl (Metformin Hcl 500 Mg Tablet) 500 mg PO BID [facility] Last Admin: 08/16/23 10:10 Dose: 500 mg Methadone HCl (Methadone Hcl 20 Mg/2 Ml Oral.Conc) 80 mg PO DAILY [facility] Non-Formulary Medication (Dulaglutide [Trulicity]) 0.75 mg SUBCUT MO@0900 [facility] Ondansetron HCl (Ondansetron Odt 4 Mg Tab.Rapdis) 4 mg TRANSLINGU Q4H PRN PRN Reason: nausea/vomiting Vitamin D (Cholecalciferol (Vitamin D3) 25 Mcg Tablet) 25 mcg PO DAILY [facility] Last Admin: 08/16/23 10:10 Dose: 25 mcg Allergies Allergies Allergy/AdvReac Type Severity Reaction Status Date / Time haloperidol [From Haldol] AdvReac Mild dystonia Verified 12/27/22 15:52 Assessment & Plan Assessment & Plan (1) Psychotic disorder: Status: Acute Code(s): F29 - Unspecified psychosis not due to a substance or known physiological condition (2) Cocaine use disorder: Status: Acute Code(s): F14.10 - Cocaine abuse, uncomplicated Plan Mr. Booker is a 23 year-old male who self presented reporting paranoid ideations. He has been here in the past with similar presentation. His utox was positive for cocaine and opioids. He had last admission on back in 12/2022 when he was started on haldol. However, he had dystonic reaction and this medication was stopped and he appeared to be better, therefore, he was discharged with no antipsychotic. He appears calmer today. He reports less paranoid delusions and No SI/HI. No signs of aggression towards self or others. His thought process seems linear and coherent for the most part. He was offered voluntary admission to psych unit but he declines. AT this moment, given that severity of symptoms are less than yesterday when he first presented , no imminent safety concerns in terms of SI/HI or gravely disable to need inpt level of care for stabilization and safety. PLAN 1. d/c back to community and follow up with PCP. Give narcan at times of discharge. Total time managing care of this patient today ____ minutes.
[2023-08-16 13:10] LABS: Glucose, Whole Blood 358 mg/dL (60-115)
[2023-08-16] MEDS: Insulin Lispro 100 UNIT/ML 3 ML VIAL 10 UNIT SUBCUT (13:54)
[2023-08-16] MEDS: methADONE HCl 20 MG/2 ML ORAL.CONC 80 MG PO (13:55)
== END 2023-08-16 15:06 | disposition home or self-care (01) ==
PROVIDERS: Emergency Provider Emergency Medicine
DX: F22 Delusional disorders (principal); F31.9 Bipolar disorder, unspecified; E11.65 Type 2 diabetes mellitus with hyperglycemia; Z91.148 Patient's other noncompliance with medication regimen for other reason
CPT/HCPCS: 36415; 80053; 80307; 81001; 82010; 82947; 85025; 93005; 96361; 96374; 99285; S9485

== ENCOUNTER → 2023-08-16 04:13 | Outpatient (BNV) | payer OTHER, SELFPAY | PROVIDERS: Emergency Provider Emergency Medicine; Visit Provider Social Worker | DX: F29 Unspecified psychosis not due to a substance or known physiological condition (principal); F14.10 Cocaine abuse, uncomplicated | CPT/HCPCS: 99285 ==

== ENCOUNTER → 2023-08-16 12:30 | Outpatient (BNV) | payer MEDICAID, SELFPAY | PROVIDERS: Emergency Provider Emergency Medicine; Visit Provider Internal Medicine Cardiovascular Disease | DX: R94.31 Abnormal electrocardiogram [ECG] [EKG] (principal) | CPT/HCPCS: 93010 ==

== ENCOUNTER 2023-10-14 04:00 | Emergency (ER) | payer MEDICAID, SELFPAY ==
--- NOTE | 2023-10-14 | ECG_ITS ---
Test Reason : COCAINE Blood Pressure : / mmHG Vent. Rate : 112 BPM Atrial Rate : 112 BPM P-R Int : 122 ms QRS Dur : 070 ms QT Int : 312 ms P-R-T Axes : 070 014 033 degrees QTc Int : 425 ms Sinus tachycardia Otherwise normal ECG When compared with ECG of 16-AUG-2023 12:30, Vent. rate has increased BY 47 BPM T wave inversion no longer evident in Inferior leads Referred By: Generic ED Physician Electronically Signed By:MIKE STARKEY
--- NOTE | ~2023-10-14 | XR_ITS ---
EXAMINATION: XR WRIST, LEFT CLINICAL INFORMATION: Acute pain, injury COMPARISON: None available. TECHNIQUE: PA, lateral, and oblique views of the left wrist. FINDINGS: Osseous alignment is anatomic. No acute fracture is seen. No significant focal soft tissue abnormality identified. XR/XR wrist LT min 3V IMPRESSION: No acute findings identified.
[2023-10-14 04:11] VITALS: BP 153/87; PULSE 143; RESP 18; TEMP 36.8; O2SAT 99; BMI 25.1
[2023-10-14] MEDS: 0.9 % Sodium Chloride 1,000 ML 999 ML IV ×3 (04:31→05:56)
[2023-10-14 04:35] LABS: MANUAL DIFF FLAG NO
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
[2023-10-14 04:37] LABS: Basophils Absolute Auto 0.1 X10*3/uL (0.0-0.2); Basophils Percent Auto 0.3 % (0-2); Hematocrit 44.3 % (42.0-52.0); Hemoglobin 14.1 g/dl (14.0-18.0); Imm Gran Abs Auto 0.16 X10*3/uL (0.00-0.03); Imm Gran Pct Auto 0.9 % (0.0-0.4); Lymphocytes Absolute Auto 1.3 X10*3/uL (1.2-4.9); Lymphocytes Percent Auto 7.3 % (20-40); Mean Corpuscular HGB Conc 31.8 g/dl (31.0-36.0); Mean Corpuscular Hemoglobin 24.6 pg (27.0-33.0); Mean Corpuscular Volume 77.3 fL (80.0-98.0); Mean Platelet Volume 11.3 fL (9.4-12.4); Monocytes Absolute Auto 0.6 X10*3/uL (0.1-1.2); Monocytes Percent Auto 3.4 % (2-11); Neutrophils Absolute Auto 15.2 x10*3/uL (2.0-8.3); Neutrophils Percent Auto 88.1 % (45-73); Platelet Count 291 X10*3/uL (160-400); Red Blood Count 5.73 X10*6/uL (4.60-5.80); Red Cell Distribution Width 13.3 % (11.0-16.0); White Blood Count 17.3 X10*3/uL (4.8-10.8)
[2023-10-14 04:45] VITALS: PULSE 117; RESP 18
[2023-10-14 04:56] LABS: Alanine Aminotransferase 33 U/L (0-40); Albumin Level 4.8 g/dL (3.5-5.0); Alkaline Phosphatase 146 U/L (39-117); Anion Gap 24 (12-20); Aspartate Amino Transferase 23 U/L (5-37); Bilirubin Total 0.2 mg/dL (0.0-1.0); Blood Urea Nitrogen 12 mg/dL (9-16); Carbon Dioxide 18 mmol/L (22-29); Chloride 101 mmol/L (96-108); Creatinine Clr Calc Pharmacy 83.6; Estimated Glomerular Filt Rate > 60; Glucose Random 467 mg/dL (60-115); Potassium 4.6 mmol/L (3.3-5.1); Sodium 138 mmol/L (135-145); Total Protein 8.3 g/dL (6.5-8.0)
[2023-10-14] MEDS: Insulin Regular, Human 100 UNIT/ML 10 ML VIAL IVPUSH ×2 (05:17→05:44)
[2023-10-14 05:24] LABS: Beta-Hydroxybutyrate 1.03 mmol/L (0.02-0.27)
[2023-10-14] MEDS: Acetaminophen 325 MG TABLET 975 MG PO (05:28)
[2023-10-14 05:30] LABS: VBG Base Excess -2.3 mmol/L; VBG HCO3 22 mmol/L (22-26); VBG pCO2 37 mmHg; VBG pH 7.38 (7.32-7.43); VBG pO2 40 mmHg
[2023-10-14 05:31] LABS: Venous Blood Gas Refer to POC result
[2023-10-14 06:02] VITALS: BP 114/67; PULSE 95; RESP 17; TEMP 37; O2SAT 100
[2023-10-14 06:02] LABS: Glucose, Whole Blood 457 mg/dL (60-115)
[2023-10-14 06:45] LABS: Glucose, Whole Blood 228 mg/dL (60-115)
--- NOTE | 2023-10-14 06:46 | ED.EXTPRO ---
HPI - Extremity Problem General Chief complaint: Extremity Injury, Upper Stated complaint: left wrist/hand broken? Time Seen by Provider: 10/14/23 04:56 History of Present Illness HPI Narrative: Patient is a 23-year-old male with a history of diabetes. Baseline patient is on metformin and Trulicity. Patient has used cocaine and heroin last night. Subsequently fell hit his left wrist. Patient then came to the ED. denies any abdominal pain. Positive generalized malaise. No fever no chills. No coughing or congestion or upper respiratory symptoms. No chest pain. No diarrhea. Patient has been noncompliant with his medication have not taken his metformin or Trulicity in the last 3 weeks. Patient denies any fever chills. Related Data Home Medications ?Medication ?Instructions ?Recorded ?Confirmed cholecalciferol (vitamin D3) 25 25 mcg PO DAILY 12/24/22 08/16/23 mcg (1,000 unit) tablet dulaglutide 0.75 mg/0.5 mL 0.75 mg subcut MO@0900 12/24/22 08/16/23 subcutaneous pen injector (Trulicity) methadone 10 mg/mL oral concentrate 80 mg PO DAILY 12/24/22 08/16/23 albuterol sulfate 90 mcg/actuation 2 puff inhalation Q6H PRN wheezing 08/16/23 08/16/23 aerosol inhaler (Ventolin HFA) metformin 500 mg tablet 500 mg PO BID 08/16/23 08/16/23 ondansetron HCl 4 mg tablet 4 mg PO Q4-6H PRN nausea/vomiting 08/16/23 08/16/23 Allergies Allergy/AdvReac Type Severity Reaction Status Date / Time haloperidol [From Haldol] AdvReac Mild dystonia Verified 10/14/23 04:21 Review of Systems Review of Systems: No fever no chills positive pain to the wrist Yes all other systems are reviewed and are negative PMFSH Past Medical History Attestation statement: The following information was validated with the patient. Medical History Paranoia Diabetes Social History Social History Household Members: Family Housing: Apartment Do you presently have visiting nurse or other home services: No Alcohol intake: current Alcohol intake frequency: does not drink Patient Tobacco Use Status: Never used Tobacco Smoked in Last 30 Days: No e-Cigarette/Vaping Use: Never Used Second Hand Smoke Exposure: No Use of substances other than those prescribed or required for medical reasons: Yes Substance Use Type: Crack/Cocaine and Heroin Substance Use Frequency: Chronic Longstanding Last Used Substance: Just Prior to Admission Advance Directives: No Advance Directives Information Provided: Yes service: No Sexual orientation: Don't Know Physical Exam Vital Signs: Vital Signs: Last Vital Signs Temp 98.6 F 10/14/23 06:02 Pulse 95 10/14/23 06:02 Resp 17 10/14/23 06:02 BP 114/67 10/14/23 06:02 Pulse Ox 100 10/14/23 06:02 O2 Del Method Room Air 10/14/23 06:02 BMI result Body Mass Index 25.1 Appearance: Alert. Oriented X3. No acute distress. Eyes: Pupils equal, round and reactive to light. ENT: Pharynx normal. Neck: Normal inspection. Neck supple. No lymph nodes noted. No crepitus CVS: Normal heart rate and rhythm. Pulses normal. Normal S1 and S2 Respiratory: No respiratory distress. Breath sounds normal. No Wheezing. No rales Abdomen: Soft and nontender. No rigidity. No distention. good BS x4 Skin: Skin warm and dry. Normal skin color. Normal skin turgor. Extremities: No lower extremity edema. Neurovascular intact to all extremities. No Lacerations. No Rash. There is good range of motion at the left wrist. There is minimal pain on palpation of the anatomical snuffbox on the left. Distally neurovascularly intact. Neuro: Oriented X 3. No motor deficit. No sensory deficit. Moving all extermities. No slurred speech Medications Administered Discontinued Medications Generic Name Dose Route Start Last Admin Trade Name Freq PRN Reason Stop Dose Admin Acetaminophen 975 mg 10/14/23 05:25 10/14/23 05:28 Acetaminophen 325 Mg Tablet PO 10/14/23 05:26 975 mg ONCE ONE Administration Sodium Chloride 1,000 mls @ 999 mls/hr 10/14/23 04:30 10/14/23 05:36 Ns IV 10/14/23 05:30 Infused .Q1H1M VERÓNICA Infusion Sodium Chloride 1,000 mls @ 999 mls/hr 10/14/23 05:00 10/14/23 06:19 Ns IV 10/14/23 06:00 Infused .Q1H1M VERÓNICA Infusion Sodium Chloride 1,000 mls @ 999 mls/hr 10/14/23 05:45 10/14/23 05:56 Ns IV 10/14/23 06:45 999 mls/hr .Q1H1M VERÓNICA Administration Insulin Human Regular 5 unit 10/14/23 04:58 10/14/23 05:17 Insulin Regular, Human 100 Unit/Ml 10 Ml Vial IVPUSH 10/14/23 04:59 5 unit ONCE ONE Administration Insulin Human Regular 5 unit 10/14/23 05:36 10/14/23 05:44 Insulin Regular, Human 100 Unit/Ml 10 Ml Vial IVPUSH 10/14/23 05:37 5 unit ONCE ONE Administration Medical Decision Making Medical Decision Making [facility] Narrative: My interpretation of patient's x-ray of the wrist showed no acute fracture. Nevertheless given patient has pain to the anatomical snuffbox area. A cock-up splint was placed. Patient will require follow-up with orthopedics for repeat x-ray. Patient is had a heart rate of 120 at triage. My interpretation of patient's EKG showed a sinus rhythm heart rate is proximally 110 MD QRS QTC normal there has no acute ST segment elevation. Patient's electrolytes were checked. It turns out his sugar is approximately 500 with an anion gap of 24. Patient given a bolus of insulin. IV fluid for hydration. Sugar is back down to 228 on the last check. Will recheck patient's electrolytes. Will continue to monitor sugar carefully. Currently in no distress. Patient's case being signed out at the change of shift. Electrolytes to be repeated again. Differential Diagnosis Differential Diagnoses: The differential diagnosis associated with the presentation includes Diabetic ketoacidosis, hyperglycemia, cocaine heroin abuse, wrist fracture Admission/Observation Consideration of admission/observation: Escalation of care including admission/observation considered Lab Data [facility] Lab Attestation statement: I reviewed the patient's lab results. 10/14/23 04:30 10/14/23 04:30 Labs: Lab Results 10/14/23 10/14/23 10/14/23 Range/Units 04:30 05:22 05:59 WBC 17.3 H (4.8-10.8) X10*3/uL RBC 5.73 (4.60-5.80) X10*6/uL Hgb 14.1 (14.0-18.0) g/dl Hct 44.3 (42.0-52.0) % MCV 77.3 L (80.0-98.0) fL MCH 24.6 L (27.0-33.0) pg MCHC 31.8 (31.0-36.0) g/dl RDW 13.3 (11.0-16.0) % Plt Count 291 (160-400) X10*3/uL MPV 11.3 (9.4-12.4) fL Immature Gran % (Auto) 0.9 H (0.0-0.4) % Neut % (Auto) 88.1 H (45-73) % Lymph % (Auto) 7.3 L (20-40) % [place] % (Auto) 3.4 (2-11) % Eos % (Auto) 0.0 (0-4) % Baso % (Auto) 0.3 (0-2) % Lymph # (Auto) 1.3 (1.2-4.9) X10*3/uL [place] # (Auto) 0.6 (0.1-1.2) X10*3/uL Eos # (Auto) 0.0 (0.0-0.4) X10*3/uL Baso # (Auto) 0.1 (0.0-0.2) X10*3/uL Abs Immat Gran (auto) 0.16 H (0.00-0.03) X10*3/uL Absolute Neuts (auto) 15.2 H (2.0-8.3) x10*3/uL Absolute Nucleated RBC 0.000 (0.0-0.012) X10*3/uL Nucleated RBC % (auto) 0.0 (0.0-0.2) /100WBC VBG pH 7.38 (7.32-7.43) VBG pCO2 37 mmHg VBG pO2 40 mmHg VBG HCO3 22 (22-26) mmol/L VBG O2 Saturation 68.0 % VBG Base Excess -2.3 mmol/L Sodium 138 (135-145) mmol/L Potassium 4.6 (3.3-5.1) mmol/L Chloride 101 (96-108) mmol/L Carbon Dioxide 18 L (22-29) mmol/L Anion Gap 24 H (12-20) BUN 12 (9-16) mg/dL Creatinine 1.13 (0.5-1.4) mg/dL Estim Creat Clear Calc 83.6 Estimated GFR > 60 POC Glucose 457 H* (60-115) mg/dL Random Glucose 467 H* (60-115) mg/dL Calcium 10.0 D (8.4-10.2) mg/dL Total Bilirubin 0.2 (0.0-1.0) mg/dL AST 23 (5-37) U/L ALT 33 (0-40) U/L Alkaline Phosphatase 146 H (39-117) U/L Total Protein 8.3 H (6.5-8.0) g/dL Albumin 4.8 (3.5-5.0) g/dL Beta-Hydroxybutyrate 1.03 H (0.02-0.27) mmol/L 10/14/23 Range/Units 06:41 WBC (4.8-10.8) X10*3/uL RBC (4.60-5.80) X10*6/uL Hgb (14.0-18.0) g/dl Hct (42.0-52.0) % MCV (80.0-98.0) fL MCH (27.0-33.0) pg MCHC (31.0-36.0) g/dl RDW (11.0-16.0) % Plt Count (160-400) X10*3/uL MPV (9.4-12.4) fL Immature Gran % (Auto) (0.0-0.4) % Neut % (Auto) (45-73) % Lymph % (Auto) (20-40) % [place] % (Auto) (2-11) % Eos % (Auto) (0-4) % Baso % (Auto) (0-2) % Lymph # (Auto) (1.2-4.9) X10*3/uL [place] # (Auto) (0.1-1.2) X10*3/uL Eos # (Auto) (0.0-0.4) X10*3/uL Baso # (Auto) (0.0-0.2) X10*3/uL Abs Immat Gran (auto) (0.00-0.03) X10*3/uL Absolute Neuts (auto) (2.0-8.3) x10*3/uL Absolute Nucleated RBC (0.0-0.012) X10*3/uL Nucleated RBC % (auto) (0.0-0.2) /100WBC VBG pH (7.32-7.43) VBG pCO2 mmHg VBG pO2 mmHg VBG HCO3 (22-26) mmol/L VBG O2 Saturation % VBG Base Excess mmol/L Sodium (135-145) mmol/L Potassium (3.3-5.1) mmol/L Chloride (96-108) mmol/L Carbon Dioxide (22-29) mmol/L Anion Gap (12-20) BUN (9-16) mg/dL Creatinine (0.5-1.4) mg/dL Estim Creat Clear Calc Estimated GFR POC Glucose 228 H (60-115) mg/dL Random Glucose (60-115) mg/dL Calcium (8.4-10.2) mg/dL Total Bilirubin (0.0-1.0) mg/dL AST (5-37) U/L ALT (0-40) U/L Alkaline Phosphatase (39-117) U/L Total Protein (6.5-8.0) g/dL Albumin (3.5-5.0) g/dL Beta-Hydroxybutyrate (0.02-0.27) mmol/L Critical Care Time Critical Care Time Critical Care Time: Yes Total Critical Care Time: 40 Attestation: I have personally provided 40 minutes of critical care time exclusive of time spent on separately billable procedures. ?Time includes review of lab data, radiology results, discussion with consultants, and monitoring for potential decompensation. ?Interventions were performed as documented above Discharge Plan Discharge Clinical Impression: Sprain and strain of wrist Patient Disposition: Still a Patient Instructions: Wrist Injury (ED) Additional Instructions: Even though the x-ray of your wrist was negative. A small fracture can still exists. Please follow-up with orthopedics. Please use the splint provided. Please take of medication for diabetes. Your sugar was extremely high today. Prescriptions: No Action cholecalciferol (vitamin D3) 25 mcg (1,000 unit) tablet 25 mcg PO DAILY Trulicity 0.75 mg/0.5 mL pen injector 0.75 mg subcut MO@0900 methadone 10 mg/mL Concentrate 80 mg PO DAILY Rx Instructions: Dose verified by Tonia XAVIER from [facility]. metformin 500 mg tablet 500 mg PO BID ondansetron HCl 4 mg tablet 4 mg PO Q4-6H PRN (Reason: nausea/vomiting) albuterol sulfate [Ventolin HFA] 90 mcg/actuation HFA aerosol inhaler 2 puff INHALATION Q6H PRN (Reason: wheezing) Referrals: John Duggan MD [Physician] - 10/18/23 [place],[facility] [place] [Primary Care Provider] - Print Language: Tanzanian
[2023-10-14 07:52] LABS: Glucose, Whole Blood 206 mg/dL (60-115)
[2023-10-14 08:06] LABS: VBG Base Excess -0.5 mmol/L; VBG HCO3 25 mmol/L (22-26); VBG pCO2 45 mmHg; VBG pH 7.35 (7.32-7.43); VBG pO2 42 mmHg
[2023-10-14 08:07] LABS: Venous Blood Gas Refer to POC result
[2023-10-14 08:48] LABS: Anion Gap 15 (12-20); Beta-Hydroxybutyrate 0.27 mmol/L (0.02-0.27); Blood Urea Nitrogen 9 mg/dL (9-16); Calcium 8.6 mg/dL (8.4-10.2); Carbon Dioxide 23 mmol/L (22-29); Chloride 109 mmol/L (96-108); Creatinine Clr Calc Pharmacy 121.2; Estimated Glomerular Filt Rate > 60; Glucose Random 215 mg/dL (60-115); Potassium 3.9 mmol/L (3.3-5.1); Sodium 143 mmol/L (135-145)
[2023-10-14 09:26] VITALS: BP 128/82; PULSE 96; RESP 20; TEMP 37.1; O2SAT 99
--- NOTE | 2023-10-14 11:20 | PC.NURSE ---
splint changed to correct one, from a right splint on left arm to a left splint on left arm
== END 2023-10-14 09:27 | disposition home or self-care (01) ==
PROVIDERS: Emergency Provider Emergency Medicine Emergency Medical Services
DX: S63.502A Unspecified sprain of left wrist, initial encounter (principal); S66.912A Strain of unspecified muscle, fascia and tendon at wrist and hand level, left hand, initial encounter; Y35.893A Legal intervention involving other specified means, suspect injured, initial encounter; E11.65 Type 2 diabetes mellitus with hyperglycemia; R53.81 Other malaise; R00.0 Tachycardia, unspecified; Z91.148 Patient's other noncompliance with medication regimen for other reason; F14.10 Cocaine abuse, uncomplicated; F22 Delusional disorders; F29 Unspecified psychosis not due to a substance or known physiological condition; Z79.84 Long term (current) use of oral hypoglycemic drugs; Z79.85 Long-term (current) use of injectable non-insulin antidiabetic drugs; Y93.9 Activity, unspecified; Y92.9 Unspecified place or not applicable; Y99.9 Unspecified external cause status
CPT/HCPCS: 36415; 73110; 80048; 80053; 82010; 82803; 82947; 85025; 93005; 99285

== ENCOUNTER → 2023-10-14 04:35 | Outpatient (BNV) | payer MEDICAID, SELFPAY | PROVIDERS: Emergency Provider Emergency Medicine Emergency Medical Services; Visit Provider Internal Medicine | DX: R00.0 Tachycardia, unspecified (principal) | CPT/HCPCS: 93010 ==

== ENCOUNTER 2024-01-05 17:11 | Observation (INO) | payer MEDICAID, SELFPAY ==
--- NOTE | ~2024-01-05 | XR_ITS ---
EXAMINATION: XR CHEST CLINICAL INFORMATION: Diffuse wheezes, shortness of breath COMPARISON: 12/26/2022 TECHNIQUE: 2 views of the chest were obtained. FINDINGS: No significant abnormality is noted involving the heart, lungs, mediastinum, bony thorax or soft tissues. XR/XR chest 2V IMPRESSION: No acute cardiopulmonary process. Electronically signed by: Freddy De Los Santos MD 01/05/2024 08:35 PM EDT RP
[2024-01-05 17:29] VITALS: BP 146/81; PULSE 114; RESP 22; TEMP 37.1; O2SAT 92; BMI 24.3
--- NOTE | 2024-01-05 17:32 | ED_ITS ---
HPI - General Adult General Chief complaint: Dyspnea Stated complaint: Astma, diff breathing Time Seen by Provider: 01/05/24 18:45 Source: patient and family Mode of arrival: ambulatory Limitations: no limitations History of Present Illness ED Provider: Dr. Arline Thompson HPI narrative: patient comes to the emergency room complaining of an asthma exacerbation for 3-4 days, using his inhaler without any relief. Patient denies any known sick contacts. Patient complaining of feeling his chest being tight with breathing but no chest pain. Related Data Home Medications ?Medication ?Instructions ?Recorded ?Confirmed cholecalciferol (vitamin D3) 25 25 mcg PO DAILY 12/24/22 08/16/23 mcg (1,000 unit) tablet dulaglutide 0.75 mg/0.5 mL 0.75 mg subcut MO@0900 12/24/22 08/16/23 subcutaneous pen injector (Trulicity) methadone 10 mg/mL oral concentrate 80 mg PO DAILY 12/24/22 08/16/23 albuterol sulfate 90 mcg/actuation 2 puff inhalation Q6H PRN wheezing 08/16/23 08/16/23 aerosol inhaler (Ventolin HFA) metformin 500 mg tablet 500 mg PO BID 08/16/23 08/16/23 ondansetron HCl 4 mg tablet 4 mg PO Q4-6H PRN nausea/vomiting 08/16/23 08/16/23 Previous Rx's ?Medication ?Instructions ?Recorded albuterol sulfate 2.5 mg/3 mL 2.5 mg (3 mL) inhalation Q4-6H PRN 01/05/24 (0.083 %) solution for nebulization shortness of breath or wheezing #90 mL albuterol sulfate 90 mcg/actuation 2 puff inhalation Q6H PRN 01/05/24 aerosol inhaler shortness of breath or wheezing #8.5 grams empagliflozin 10 mg tablet 10 mg PO QAM #30 tabs 01/05/24 (Jardiance) insulin glargine 100 unit/mL (3 10 unit (0.1 mL) subcut QPM #15 mL 01/05/24 mL) subcutaneous pen (Lantus Solostar U-100 Insulin) insulin lispro 100 unit/mL 1 sliding scale dose subcut 01/05/24 subcutaneous pen (Humalog KwikPen USEASDIRECTD #15 mL (U-100) Insulin) nebulizers #1 ea 01/05/24 Allergies Allergy/AdvReac Type Severity Reaction Status Date / Time haloperidol [From Haldol] AdvReac Mild dystonia Verified 01/05/24 17:39 Review of Systems 2 Review of Systems: Constitutional : No Weight loss, No Fever, No Chills, No Night Sweats, No Fatigue, No Malaise ENT/Mouth : No Hearing loss, No Ear Pain, No Nasal Congestion, No Sinus Pain, No Hoarseness, No sore throat, No Rhinorrhea, No Swallowing Difficulty Eyes: No Eye Pain, No Swelling, No Redness, No Foreign Body, No Discharge, No Vision Changes Cardiovascular : No Chest Pain, No SOB, No Dyspnea on Exertion, No Orthopnea, No Edema, No Palpitations Respiratory : Denies cough, no runny nose, complaining of wheezing and chest tightness with no pain Gastrointestinal : No Nausea, No Vomiting, No Diarrhea, No Constipation, No abdominal Pain, No Hematochezia, No Melena Genitourinary : no irregular bleeding, No Dysuria, No Urinary Frequency, No Hematuria, No Urinary Incontinence, No Urgency, No Flank Pain, No Urinary Flow Changes, No Hesitancy Musculoskeletal : No joint pain, No Myalgias, No Joint Swelling Skin : No Skin Lesions, No rash Neuro : No Weakness, No Numbness, No Paresthesias, No Loss of Consciousness, No Dizziness, No Headache Psych : No Anxiety/Panic, No Depression, No SI/HI/AH/VH, No Social Issues, Heme/Lymph: No Bruising, No Bleeding,No Lymphadenopathy Endocrine : No Polyuria, No Polydipsia, No Temperature Intolerance [facility] Past Medical History Medical History Cocaine use disorder Asthma Paranoia Diabetes Social History Social History Household Members: Family Housing: Apartment Do you presently have visiting nurse or other home services: No Alcohol intake: current Alcohol intake frequency: does not drink Patient Tobacco Use Status: Never used Tobacco Smoked in Last 30 Days: No e-Cigarette/Vaping Use: Never Used Second Hand Smoke Exposure: No Use of substances other than those prescribed or required for medical reasons: Yes Substance Use Type: Heroin Substance Use Frequency: Chronic Longstanding Substance Use Frequency Other:: 4 Last Used Substance: Days (ago) Advance Directives: No Advance Directives Information Provided: No Do you have a plan to hurt others: No Plan Nutrition Risks: Diabetes new onset/Uncontrolled service: No Sexual orientation: Don't Know Physical Exam ED Vital Signs: Vital Signs - 24 hr 01/05/24 17:29 01/05/24 18:02 01/05/24 22:00 Temperature 98.8 F 98.8 F Pulse Rate 114 H 114 H 120 H Respiratory Rate 22 H 22 H 16 Blood Pressure 146/81 H 105/70 Pulse Oximetry 92 95 Oxygen Delivery Method Room Air Room Air 01/05/24 23:58 Temperature Pulse Rate 99 Respiratory Rate 13 Blood Pressure 105/70 Pulse Oximetry 97 Oxygen Delivery Method Room Air BMI result Body Mass Index 24.3 Const Other: Appearance: Alert. Oriented X3. No acute distress. well-appearing Eyes: Pupils equal, round and reactive to light. ENT: Pharynx normal. Neck: Normal inspection. Neck supple. No lymph nodes noted. No crepitus CVS: Normal heart rate and rhythm. Pulses normal. Normal S1 and S2 Respiratory: No respiratory distress. bilateral wheezing, oxygen saturation 95% on room air Abdomen: Soft and nontender. No rigidity. No distention. Skin: Skin warm and dry. Normal skin color. Normal skin turgor. Extremities: No lower extremity edema. No Lacerations. No Rash Neuro: Oriented X 3. No motor deficit. No sensory deficit. Moving all extremities. No slurred speech. CN 2 through 12 grossly intact Psych: calm, cooperative, normal affect Course Course Course Narrative: This is a Rapid Medical Examination (RME) performed by Kendy Gale PA-C in triage. Full HPI, ROS, assessment and treatment plan per primary provider in the Main ED. 23 yo male hx of asthma here for eval of chest tightness/ SOB x4d. +myalgias, fevers. using inhaler at home without relief. No known sick contacts. PE: pt slightly tripoding. audible wheezes, No increased effort of breathing. On auscultation, there are diffuse inspiratory and expiratory rhonchi and wheezes. Plan: labs, ekg, cxr, viral serology, ed bronch protocol Medications Administered Discontinued Medications Generic Name Dose Route Start Last Admin Trade Name Freq PRN Reason Stop Dose Admin Albuterol Sulfate 8 puff 01/05/24 17:47 01/05/24 18:02 Albuterol Sulfate 90 Mcg 8 Gm Inhaler INHALE 01/05/24 17:48 8 puff ONCE ONE Administration Magnesium Sulfate 2 gm in 50 mls @ 25 mls/hr 01/05/24 18:56 01/05/24 22:13 Magnesium Sulfate/H2o IV 01/05/24 20:55 Infused ONCE ONE Infusion Sodium Chloride 1,000 mls @ 999 mls/hr 01/05/24 20:02 01/05/24 22:13 Ns IVCONT 01/05/24 21:02 Infused .Q1H1M ONE Infusion Sodium Chloride 1,000 mls @ 999 mls/hr 01/05/24 22:16 01/06/24 00:00 Ns IVCONT 01/05/24 23:16 Infused .Q1H1M ONE Infusion Sodium Chloride 1,000 mls @ 999 mls/hr 01/06/24 02:46 01/06/24 04:04 Ns IV 01/06/24 03:46 Infused .Q1H1M ONE Infusion Insulin Glargine 10 unit 01/05/24 22:55 01/05/24 23:03 Insulin Glargine,Hum.Rec.Anlog 100 Unit/Ml 10 Ml Vial SUBCUT 01/05/24 22:56 10 unit ONCE ONE Administration Insulin Human Lispro 8 unit 01/05/24 22:58 01/05/24 23:03 Insulin Lispro 100 Unit/Ml 3 Ml Vial SUBCUT 01/05/24 22:59 8 unit ONCE ONE Administration Insulin Human Lispro 10 unit 01/06/24 01:55 01/06/24 02:12 Insulin Lispro 100 Unit/Ml 3 Ml Vial SUBCUT 01/06/24 01:56 10 unit ONCE ONE Administration Insulin Human Lispro 10 unit 01/06/24 02:46 01/06/24 03:03 Insulin Lispro 100 Unit/Ml 3 Ml Vial SUBCUT 01/06/24 02:47 10 unit ONCE ONE Administration Insulin Human Regular 10 unit 01/05/24 20:02 01/05/24 20:07 Insulin Regular, Human 100 Unit/Ml 10 Ml Vial IVPUSH 01/05/24 20:03 10 unit ONCE ONE Administration Insulin Human Regular 10 unit 01/06/24 00:17 01/06/24 00:24 Insulin Regular, Human 100 Unit/Ml 10 Ml Vial IVPUSH 01/06/24 00:18 10 unit ONCE ONE Administration Methylprednisolone Sodium Succinate 125 mg 01/05/24 18:37 01/05/24 18:51 Methylprednisolone Sod Succ 125 Mg/2 Ml Vial IVPUSH 01/05/24 18:38 125 mg ONCE ONE Administration Medical Decision Making Medical Decision Making [facility] Narrative: my interpretation of labs: Patient has chronic leukocytosis, 14.2, at baseline. Patient's chemistry within normal limits except the glucose which is 373. - Patient being treated with IV fluids, regular insulin 10 units. - Patient receiving albuterol, magnesium and Solu-Medrol. - Patient's glucose 326, slow improvement of glucose secondary to steroid use, patient receiving an additional L of normal saline and 5 more units of insulin. - Vitals remained stable, oxygen saturation 95% on room air - sign-out given to my colleague Dr. Vo Patient is noncompliant not taking his Trulicity and metformin because of GI upset for almost last 2 months. Will start patient on Jardiance 10 mg daily and Lantus 10 units every night advised to see his PCP next 2 weeks which she has scheduled advised to check blood sugar before meals every day and take insulin according to sliding scale if blood sugars elevated Patient has continued to have hyperglycemia during stay in the ER received multiple doses of insulin also patient received prednisone for asthma still wheezing will admit patient for noncompliance with diabetic hyperglycemia and asthma Differential Diagnosis Differential Diagnoses: The differential diagnosis associated with the presentation includes Admission/Observation Consideration of admission/observation: Escalation of care including admission/observation considered ( given the patient's initial presentation, observation was considered) Consult Healthcare Provider Management of the patient was discussed with: Hospitalist Lab Data [facility] Lab Attestation statement: I reviewed the patient's lab results. 01/06/24 04:24 01/06/24 04:24 Labs: Lab Results 01/05/24 01/05/24 01/05/24 Range/Units 18:36 19:05 22:10 WBC 14.2 H (4.8-10.8) X10*3/uL RBC 5.49 (4.60-5.80) X10*6/uL Hgb 13.8 L (14.0-18.0) g/dl Hct 43.4 (42.0-52.0) % MCV 79.1 L (80.0-98.0) fL MCH 25.1 L (27.0-33.0) pg MCHC 31.8 (31.0-36.0) g/dl RDW 13.0 (11.0-16.0) % Plt Count 281 (160-400) X10*3/uL MPV 11.2 (9.4-12.4) fL Immature Gran % (Auto) 0.6 H (0.0-0.4) % Neut % (Auto) 66.2 (45-73) % Lymph % (Auto) 15.7 L (20-40) % [place] % (Auto) 9.1 (2-11) % Eos % (Auto) 7.7 H (0-4) % Baso % (Auto) 0.7 (0-2) % Lymph # (Auto) 2.2 (1.2-4.9) X10*3/uL [place] # (Auto) 1.3 H (0.1-1.2) X10*3/uL Eos # (Auto) 1.1 H (0.0-0.4) X10*3/uL Baso # (Auto) 0.1 (0.0-0.2) X10*3/uL Abs Immat Gran (auto) 0.08 H (0.00-0.03) X10*3/uL Absolute Neuts (auto) 9.4 H (2.0-8.3) x10*3/uL Absolute Nucleated RBC 0.000 (0.0-0.012) X10*3/uL Nucleated RBC % (auto) 0.0 (0.0-0.2) /100WBC Sodium 140 (135-145) mmol/L Potassium 4.1 (3.3-5.1) mmol/L Chloride 102 (96-108) mmol/L Carbon Dioxide 26 (22-29) mmol/L Anion Gap 16 (12-20) BUN 4 L (9-16) mg/dL Creatinine 0.99 (0.5-1.4) mg/dL Estim Creat Clear Calc 95.5 Estimated GFR > 60 POC Glucose 393 H* 326 H (60-115) mg/dL Random Glucose 373 H* (60-115) mg/dL Calcium 9.5 D (8.4-10.2) mg/dL Magnesium 1.8 (1.6-2.6) mg/dL Total Bilirubin 0.4 (0.0-1.0) mg/dL AST 17 (5-37) U/L ALT 25 (0-40) U/L Alkaline Phosphatase 136 H (39-117) U/L Troponin I High Sens < 2.7 (<3.5-35.0) ng/L Total Protein 7.8 (6.5-8.0) g/dL Albumin 4.4 (3.5-5.0) g/dL Influenza Type A (PCR) NEGATIVE (Negative) Influenza Type B (PCR) NEGATIVE (Negative) RSV RNA Qual (PCR) NEGATIVE (Negative) SARS-CoV-2 RNA (RT-PCR) NEGATIVE (Negative) 01/06/24 01/06/24 01/06/24 Range/Units 00:12 01:43 02:42 WBC (4.8-10.8) X10*3/uL RBC (4.60-5.80) X10*6/uL Hgb (14.0-18.0) g/dl Hct (42.0-52.0) % MCV (80.0-98.0) fL MCH (27.0-33.0) pg MCHC (31.0-36.0) g/dl RDW (11.0-16.0) % Plt Count (160-400) X10*3/uL MPV (9.4-12.4) fL Immature Gran % (Auto) (0.0-0.4) % Neut % (Auto) (45-73) % Lymph % (Auto) (20-40) % [place] % (Auto) (2-11) % Eos % (Auto) (0-4) % Baso % (Auto) (0-2) % Lymph # (Auto) (1.2-4.9) X10*3/uL [place] # (Auto) (0.1-1.2) X10*3/uL Eos # (Auto) (0.0-0.4) X10*3/uL Baso # (Auto) (0.0-0.2) X10*3/uL Abs Immat Gran (auto) (0.00-0.03) X10*3/uL Absolute Neuts (auto) (2.0-8.3) x10*3/uL Absolute Nucleated RBC (0.0-0.012) X10*3/uL Nucleated RBC % (auto) (0.0-0.2) /100WBC Sodium (135-145) mmol/L Potassium (3.3-5.1) mmol/L Chloride (96-108) mmol/L Carbon Dioxide (22-29) mmol/L Anion Gap (12-20) BUN (9-16) mg/dL Creatinine (0.5-1.4) mg/dL Estim Creat Clear Calc Estimated GFR POC Glucose 493 H* 366 H* 390 H* (60-115) mg/dL Random Glucose (60-115) mg/dL Calcium (8.4-10.2) mg/dL Magnesium (1.6-2.6) mg/dL Total Bilirubin (0.0-1.0) mg/dL AST (5-37) U/L ALT (0-40) U/L Alkaline Phosphatase (39-117) U/L Troponin I High Sens (<3.5-35.0) ng/L Total Protein (6.5-8.0) g/dL Albumin (3.5-5.0) g/dL Influenza Type A (PCR) (Negative) Influenza Type B (PCR) (Negative) RSV RNA Qual (PCR) (Negative) SARS-CoV-2 RNA (RT-PCR) (Negative) Critical Care Time Critical Care Time Critical Care Time: Yes Total Critical Care Time: 60 Attestation: I have personally provided critical care time. Time includes review of lab data, radiology results, discussion with consultants, and monitoring for potential decompensation. Intervention performed as documented. Discharge Plan Discharge Clinical Impression: Asthma with exacerbation, Hyperglycemia Patient Disposition: Admitted As Inpatient
--- NOTE | 2024-01-05 17:37 | ECG_ITS ---
Test Reason : dyspena Blood Pressure : / mmHG Vent. Rate : 137 BPM Atrial Rate : 137 BPM P-R Int : 114 ms QRS Dur : 072 ms QT Int : 286 ms P-R-T Axes : 069 004 -65 degrees QTc Int : 431 ms Sinus tachycardia Cannot rule out Anterior infarct , age undetermined T wave abnormality, consider inferolateral ischemia Abnormal ECG When compared with ECG of 14-OCT-2023 04:35, T wave inversion now evident in Inferior leads T wave inversion now evident in Lateral leads Referred By: Valeria Gale Electronically Signed By:CHARANJIT RUBY
[2024-01-05 18:02] VITALS: PULSE 114; RESP 22; O2SAT 98
[2024-01-05] MEDS: Albuterol Sulfate 90 MCG 8 GM INHALER 8 PUFF INHALE (18:02)
--- NOTE | 2024-01-05 18:40 | MHC.EDTECH ---
Patient ekg taken and was read by Provider ,blood drawn and rsv/covid swab collected all sent to lab .
[2024-01-05 18:43] LABS: Basophils Absolute Auto 0.1 X10*3/uL (0.0-0.2); Basophils Percent Auto 0.7 % (0-2); Eosinophils Absolute Auto 1.1 X10*3/uL (0.0-0.4); Eosinophils Percent Auto 7.7 % (0-4); Hematocrit 43.4 % (42.0-52.0); Hemoglobin 13.8 g/dl (14.0-18.0); Imm Gran Abs Auto 0.08 X10*3/uL (0.00-0.03); Imm Gran Pct Auto 0.6 % (0.0-0.4); Lymphocytes Absolute Auto 2.2 X10*3/uL (1.2-4.9); Lymphocytes Percent Auto 15.7 % (20-40); MANUAL DIFF FLAG NO; Mean Corpuscular HGB Conc 31.8 g/dl (31.0-36.0); Mean Corpuscular Hemoglobin 25.1 pg (27.0-33.0); Mean Corpuscular Volume 79.1 fL (80.0-98.0); Mean Platelet Volume 11.2 fL (9.4-12.4); Monocytes Absolute Auto 1.3 X10*3/uL (0.1-1.2); Monocytes Percent Auto 9.1 % (2-11); Neutrophils Absolute Auto 9.4 x10*3/uL (2.0-8.3); Neutrophils Percent Auto 66.2 % (45-73); Platelet Count 281 X10*3/uL (160-400); Red Blood Count 5.49 X10*6/uL (4.60-5.80); White Blood Count 14.2 X10*3/uL (4.8-10.8)
[2024-01-05] MEDS: methylPREDNISolone Sod Succ 125 MG/2 ML VIAL IVPUSH (18:51)
[2024-01-05 19:02] LABS: Alanine Aminotransferase 25 U/L (0-40); Albumin Level 4.4 g/dL (3.5-5.0); Alkaline Phosphatase 136 U/L (39-117); Anion Gap 16 (12-20); Aspartate Amino Transferase 17 U/L (5-37); Bilirubin Total 0.4 mg/dL (0.0-1.0); Blood Urea Nitrogen 4 mg/dL (9-16); Calcium 9.5 mg/dL (8.4-10.2); Carbon Dioxide 26 mmol/L (22-29); Chloride 102 mmol/L (96-108); Creatinine Clr Calc Pharmacy 95.5; Estimated Glomerular Filt Rate > 60; Glucose Random 373 mg/dL (60-115); Magnesium 1.8 mg/dL (1.6-2.6); Potassium 4.1 mmol/L (3.3-5.1); Sodium 140 mmol/L (135-145); Total Protein 7.8 g/dL (6.5-8.0)
[2024-01-05 19:07] LABS: Troponin-I High Sensitivity < 2.7 ng/L (<3.5-35.0)
[2024-01-05 19:09] LABS: Glucose, Whole Blood 393 mg/dL (60-115)
[2024-01-05] MEDS: Magnesium Sulfate/H2O 2 GM/50 ML PIGGYBACK IV (19:19)
[2024-01-05 19:22] LABS: Influenza A PCR NEGATIVE (Negative); Influenza B PCR NEGATIVE (Negative); Resp Syncy Virus RNA Qual PCR NEGATIVE (Negative); SARS COV2 PCR INHOUSE NEGATIVE (Negative)
[2024-01-05] MEDS: Insulin Regular, Human 100 UNIT/ML 10 ML VIAL 10 UNIT IVPUSH (20:07)
[2024-01-05] MEDS: 0.9 % Sodium Chloride 1,000 ML 999 ML IVCONT ×2 (20:08→22:59)
[2024-01-05 22:00] VITALS: BP 105/70; PULSE 120; RESP 16; TEMP 37.1; O2SAT 95
[2024-01-05 22:18] LABS: Glucose, Whole Blood 326 mg/dL (60-115)
[2024-01-05] MEDS: Insulin Glargine,Hum.rec.anlog 100 UNIT/ML 10 ML VIAL 10 UNIT SUBCUT (23:03)
[2024-01-05] MEDS: Insulin Lispro 100 UNIT/ML 3 ML VIAL 8 UNIT SUBCUT (23:03)
[2024-01-05 23:58] VITALS: BP 105/70; PULSE 99; RESP 13; O2SAT 97
[2024-01-06] VITALS (7 sets, daily range): BP systolic 100–120; BP diastolic 53–66; PULSE 82–111; RESP 12–18; TEMP 36.6–36.8; O2SAT 94–98
--- NOTE | 2024-01-06 | ECG_ITS ---
Test Reason : ABNORMAL EKG Blood Pressure : / mmHG Vent. Rate : 114 BPM Atrial Rate : 114 BPM P-R Int : 122 ms QRS Dur : 082 ms QT Int : 340 ms P-R-T Axes : 067 011 -74 degrees QTc Int : 468 ms Sinus tachycardia T wave abnormality, consider inferior ischemia T wave abnormality, consider anterolateral ischemia Abnormal ECG When compared with ECG of 05-JAN-2024 18:22, No significant change was found Referred By: Gibran Garsia Electronically Signed By:CHARANJIT RUBY
[2024-01-06 00:19] LABS: Glucose, Whole Blood 493 mg/dL (60-115)
[2024-01-06] MEDS: Insulin Regular, Human 100 UNIT/ML 10 ML VIAL 10 UNIT IVPUSH (00:24)
[2024-01-06 01:48] LABS: Glucose, Whole Blood 366 mg/dL (60-115)
[2024-01-06] MEDS: Insulin Lispro 100 UNIT/ML 3 ML VIAL 10 UNIT SUBCUT ×2 (02:12→03:03)
[2024-01-06 02:47] LABS: Glucose, Whole Blood 390 mg/dL (60-115)
[2024-01-06] MEDS: 0.9 % Sodium Chloride 1,000 ML 999 ML IV (03:03)
--- NOTE | 2024-01-06 03:04 | P.HPHOSP_ITS ---
History of Present Illness Date of Service: 01/06/24 Chief Complaint: Dyspnea This is a 23-year-old male with pertinent history of mood disorder, [id number] diabetes mellitus, asthma not on home oxygen, opioid use disorder on methadone who presents to the emergency department for evaluation of dyspnea. Patient states his symptoms started 3 days prior to presentation. He has been having dyspnea which is worse with exertion. Also has been having nonproductive cough and wheezing. Patient tried his home inhaler without any relief. No sick contacts. No fever but admits chills. No palpitations, chest discomfort, abdominal pain, changes in urinary or bowel habits. Patient states he does not take metformin Trulicity for diabetes due to side effects. In the emergency department, patient with continued wheezing despite multiple DuoNeb treatments. Was given IV magnesium and IV Solu-Medrol in the ER. Review of Systems 2 Constitutional: Constitutional: Reports fatigue Cardiovascular: Cardiovascular: Reports dyspnea on exertion Respiratory: Respiratory: Reports cough, Reports dyspnea on exertion and Reports wheezing Gastrointestinal: Gastrointestinal: Reports no additional gastrointestinal complaints Genitourinary: Genitourinary: Reports no additional male genitourinary complaints Endocrine: Endocrine: Reports fatigue Allergic/Immunologic: Allergic/Immunologic: Reports wheezing [facility] Medical History Cocaine use disorder Asthma Paranoia Diabetes Pertinent family history: No family history of early CAD Social History Household Members: Family Housing: Apartment Do you presently have visiting nurse or other home services: No Alcohol intake: current Alcohol intake frequency: does not drink Patient Tobacco Use Status: Never used Tobacco Smoked in Last 30 Days: No e-Cigarette/Vaping Use: Never Used Second Hand Smoke Exposure: No Use of substances other than those prescribed or required for medical reasons: Yes Substance Use Type: Heroin Substance Use Frequency: Chronic Longstanding Substance Use Frequency Other:: 4 Last Used Substance: Days (ago) Advance Directives: No Advance Directives Information Provided: No Do you have a plan to hurt others: No Plan service: No Sexual orientation: Don't Know Meds Allergies Allergy/AdvReac Type Severity Reaction Status Date / Time haloperidol [From Haldol] AdvReac Mild dystonia Verified 01/05/24 17:39 Active Medications: Current Medications Sodium Chloride (Ns) 1,000 mls @ 999 mls/hr IV .Q1H1M ONE Stop: 01/06/24 03:46 Last Admin: 01/06/24 03:03 Dose: 999 mls/hr Home Medications ?Medication ?Instructions ?Recorded ?Confirmed ?Last Taken ?Type cholecalciferol (vitamin D3) 25 25 mcg PO DAILY 12/24/22 08/16/23 12/22/22 History mcg (1,000 unit) tablet dulaglutide 0.75 mg/0.5 mL 0.75 mg subcut MO@0900 12/24/22 08/16/23 12/19/22 History subcutaneous pen injector (Trulicity) methadone 10 mg/mL oral concentrate 80 mg PO DAILY 12/24/22 08/16/23 08/15/23 09:45 History albuterol sulfate 90 mcg/actuation 2 puff inhalation Q6H PRN wheezing 08/16/23 08/16/23 Unknown History aerosol inhaler (Ventolin HFA) metformin 500 mg tablet 500 mg PO BID 08/16/23 08/16/23 Unknown History ondansetron HCl 4 mg tablet 4 mg PO Q4-6H PRN nausea/vomiting 08/16/23 08/16/23 Unknown History Physical Exam 2 Vital Signs and Narrative: Vital Signs: Last Vital Signs Temp 98.8 F 01/05/24 22:00 Pulse 99 01/05/24 23:58 Resp 13 01/05/24 23:58 BP 105/70 01/05/24 23:58 Pulse Ox 97 01/05/24 23:58 O2 Del Method Room Air 01/05/24 23:58 BMI result Body Mass Index 24.3 Middle-aged male lying in bed in no distress Neck supple, no JVD Regular rate and rhythm, S1-S2 heard Bilateral wheezing appreciated Abdomen soft nontender, no guarding, no rigidity Patient is awake, alert and oriented to self, place, time and person ; no focal motor deficit Psych: Normal mood No pedal edema Results Labs 01/05/24 18:36 01/05/24 18:36 Labs: Laboratory Results - last 24 hr 01/05/24 01/05/24 01/05/24 18:36 19:05 22:10 MCV 79.1 L MCH 25.1 L MCHC 31.8 RDW 13.0 Plt Count 281 MPV 11.2 Immature Gran % (Auto) 0.6 H Neut % (Auto) 66.2 Lymph % (Auto) 15.7 L [place] % (Auto) 9.1 Eos % (Auto) 7.7 H Baso % (Auto) 0.7 Lymph # (Auto) 2.2 [place] # (Auto) 1.3 H Eos # (Auto) 1.1 H Baso # (Auto) 0.1 Abs Immat Gran (auto) 0.08 H Absolute Neuts (auto) 9.4 H Absolute Nucleated RBC 0.000 Nucleated RBC % (auto) 0.0 Anion Gap 16 Estim Creat Clear Calc 95.5 Estimated GFR > 60 POC Glucose 393 H* 326 H Random Glucose 373 H* Calcium 9.5 D Magnesium 1.8 Total Bilirubin 0.4 AST 17 ALT 25 Alkaline Phosphatase 136 H Troponin I High Sens < 2.7 Total Protein 7.8 Albumin 4.4 Influenza Type A (PCR) NEGATIVE Influenza Type B (PCR) NEGATIVE RSV RNA Qual (PCR) NEGATIVE SARS-CoV-2 RNA (RT-PCR) NEGATIVE 01/06/24 01/06/24 01/06/24 00:12 01:43 02:42 MCV MCH MCHC RDW Plt Count MPV Immature Gran % (Auto) Neut % (Auto) Lymph % (Auto) [place] % (Auto) Eos % (Auto) Baso % (Auto) Lymph # (Auto) [place] # (Auto) Eos # (Auto) Baso # (Auto) Abs Immat Gran (auto) Absolute Neuts (auto) Absolute Nucleated RBC Nucleated RBC % (auto) Anion Gap Estim Creat Clear Calc Estimated GFR POC Glucose 493 H* 366 H* 390 H* Random Glucose Calcium Magnesium Total Bilirubin AST ALT Alkaline Phosphatase Troponin I High Sens Total Protein Albumin Influenza Type A (PCR) Influenza Type B (PCR) RSV RNA Qual (PCR) SARS-CoV-2 RNA (RT-PCR) Imaging Radiologist's Impressions: Impressions Chest X-Ray 01/05/24 17:35 IMPRESSION: No acute cardiopulmonary process. Electronically signed by: Freddy De Los Santos MD 01/05/2024 08:35 PM EDT Assessment and Plan (1) Asthma with exacerbation: Status: Acute Plan This is a 23-year-old male with pertinent history of mood disorder, [id number]-aigylnqsz diabetes mellitus, asthma not on home oxygen, opioid use disorder on methadone who presents to the emergency department for evaluation of dyspnea. #. Acute exacerbation of asthma: Will admit patient with scheduled and p.r.n. DuoNebs. Initiating systemic steroids. Continue home inhaler #. Jvm-yqmddyl-aqgexmkbu diabetes mellitus with hyperglycemia: Noncompliant with p.o. home antihyperglycemics. Initiating basal plus insulin regimen. Obtaining A1c #. Reactive leukocytosis. No sepsis #. Opioid use disorder: On methadone Med rec pending DVT prophylaxis: Lovenox Full code Quality Stroke Does the patient have a stroke diagnosis?: No VTE Prior VTE?: No VTE Risk Level:: Medical - moderate - high VTE Device Contraindication: Treatment Not Indicated VTE Drug Contraindication: N/A - Med Ordered
[2024-01-06 05:11] LABS: MANUAL DIFF FLAG NO
[2024-01-06 05:18] LABS: Basophils Absolute Auto 0.1 X10*3/uL (0.0-0.2); Basophils Percent Auto 0.5 % (0-2); Eosinophils Percent Auto 0.1 % (0-4); Hematocrit 38.8 % (42.0-52.0); Hemoglobin 12.4 g/dl (14.0-18.0); Imm Gran Abs Auto 0.06 X10*3/uL (0.00-0.03); Imm Gran Pct Auto 0.6 % (0.0-0.4); Lymphocytes Absolute Auto 0.9 X10*3/uL (1.2-4.9); Lymphocytes Percent Auto 9.4 % (20-40); Mean Corpuscular Hemoglobin 25.1 pg (27.0-33.0); Mean Corpuscular Volume 78.4 fL (80.0-98.0); Mean Platelet Volume 11.7 fL (9.4-12.4); Monocytes Absolute Auto 0.1 X10*3/uL (0.1-1.2); Monocytes Percent Auto 1.2 % (2-11); Neutrophils Absolute Auto 8.4 x10*3/uL (2.0-8.3); Neutrophils Percent Auto 88.2 % (45-73); Platelet Count 279 X10*3/uL (160-400); Red Blood Count 4.95 X10*6/uL (4.60-5.80); Red Cell Distribution Width 13.1 % (11.0-16.0); White Blood Count 9.6 X10*3/uL (4.8-10.8)
[2024-01-06 05:39] LABS: Anion Gap 14 (12-20); Blood Urea Nitrogen 5 mg/dL (9-16); Carbon Dioxide 21 mmol/L (22-29); Chloride 108 mmol/L (96-108); Creatinine Clr Calc Pharmacy 121.2; Estimated Glomerular Filt Rate > 60; Glucose Random 294 mg/dL (60-115); Potassium 4.1 mmol/L (3.3-5.1); Sodium 139 mmol/L (135-145)
--- NOTE | 2024-01-06 07:00 | CA_ITS ---
Transthoracic Echocardiogram Patient (Last, First, Middle): Cassandra Bradley M Gender: Male Date of : 2000 Age: 23 Procedure Date: 01/06/2024 Procedure Type: Transthoracic Echocardiogram Location: ER Height: 162.56 cm Weight: 63.96 kg BSA: 1.69 m2 Heart Rate: 94 bpm BP: 120 / 66 mmHg Interactive Project Manager: EDWARD Referring MD: Gibran Garsia MD Symptoms: Chest pain Study Quality: Adequate ECG Rhythm: Sinus Conclusions: - Normal study. Findings Left Ventricle Normal left ventricular cavity size. There is normal left ventricular wall thickness. The left ventricular systolic function is hyperdynamic. The visually estimated ejection fraction is >70%. There is no evidence of regional wall motion abnormalities. Diastolic function is normal for age. Right Ventricle Normal right ventricular cavity size and systolic function. Atria Both atria are normal in size. Aortic Valve Normal aortic valve structure and function. There is no aortic valve stenosis. There is no aortic valve regurgitation. Mitral Valve Normal mitral valve structure and function. There is no mitral valve regurgitation. There is no mitral valve stenosis. Pulmonic Valve The pulmonic valve is normal. There is no pulmonic valve regurgitation. Tricuspid Valve Normal tricuspid valve structure and function. There is trace tricuspid valve regurgitation. Normal right atrial pressure. There is no evidence of pulmonary hypertension. Great Vessels All visible segments of the aorta are normal in size. The visualized portions of the pulmonary artery and branches are normal. Venous The inferior vena cava is normal in size and collapses greater than 50% with inspiration. Pericardium/Pleural There is no evidence of pericardial effusion. Prior Study Comparison No prior study available for comparison. Measurements 2D Linear Measurements IVSd: 1.04 0.6-0.9/0.6-1.0 cm LVIDd: 4.21 3.9-5.3/4.2-5.9 cm LVIDd Index: 2.49 2.4-3.2/2.2-3.1 cm/m2 LVIDs: 2.08 2.0-3.6 cm LVPWd: 0.88 0.7-1.1 cm LA Diam: 3.00 2.7-3.8/3.0-4.0 cm LAIDs Index: 1.78 1.5-2.3 cm/m2 LV Mass: 161.84 67-162/88-224 g LV Mass Index: 95.76 43-95/49-115 g/m2 LVOT Diam: 2.00 3.0+(-)1.3 cm 2D Systolic Function EF 4C: 76.50 >55% EF 2C: 71.90 >55% EF BiP: 73.70 >55% Mitral Valve MV Pk E: 0.98 MV PK A: 0.66 MV Decel Time: 128.00 E/A: 1.50 E'Lateral: 14.30 E'Medial: 11.90 E/E' Med: 8.20 E/E' Lat: 6.80 PHT: 38.00 MVA PHT: 5.79 Decel [place]: 7.64 Aortic Valve AoV Pk Dajuan: 1.86 AoV Mn Dajuan: 1.13 AoV VTI: 0.32 AoV Pk Grad: 14.00 Aov Mn Grad: 6.00 ROLY Cont.VTI: 2.39 LVOT LVOT Pk Dajuan: 1.35 LVOT Mn Dajuan: 0.92 LVOT VTI: 0.24 LVOT Pk Grad: 7.00 LVOT Mn Grad: 4.00 LVOT Diam: 2.00 LVOT Area: 3.14 Diastolic Function MV Pk E: 0.98 MV Pk A: 0.66 E/A: 1.50 E'Medial: 11.90 E/E' Med: 8.20 E' Laterial: 14.30 E/E' Lat: 6.80 Right Ventricle TAPSE (mm): 27.70 TVS' Dajuan: 11.20 Tricuspid Valve TR Pk Dajuan: 1.95 TR Pk Grad: 15.00 RA Press: 3.00 RVSP: 18.00 Great Vessels Aorta Sinus of Valsalva: 3.00 2.0-3.5 cm Ao Asc: 2.70 2.1-3.4 cm Pulmonary Valve PV Pk Dajuan: 1.09 Peak PV Grad: 5.00 Updated in Other Vendor System with Status of Final Javier Eaton MD electronically signed on 01/06/2024 5:19:04 PM with status of Final
[2024-01-06 07:19] LABS: Glucose, Whole Blood 249 mg/dL (60-115)
[2024-01-06] MEDS: Insulin Lispro 100 UNIT/ML 3 ML VIAL SUBCUT ×4 (07:29→21:02)
[2024-01-06] MEDS: Albuterol/Iprat 2.5/0.5MG 3 ML AMPUL.NEB INHALE ×4 (07:37→19:27)
[2024-01-06 07:47] LABS: Estimated Average Glucose 341 mg/dL; Hemoglobin A1c % 13.5 % (<6.0)
--- NOTE | 2024-01-06 09:12 | PHA.MEDREC ---
Pharmacy Consult ? Medication Reconciliation Pharmacy has completed the medication reconciliation. Utilized [employer]atial [employer] services. Per patient, only takes albuterol inhaler, zofran PRN, and loratadine PRN at home with methadone 80 mg daily at clinic.
[2024-01-06] MEDS: predniSONE 20 MG TABLET 40 MG PO (09:18)
[2024-01-06] MEDS: Insulin Glargine,Hum.rec.anlog 100 UNIT/ML 10 ML VIAL 12 UNIT SUBCUT (09:19)
[2024-01-06] MEDS: Enoxaparin Sodium 40 MG/0.4 ML SYRINGE SUBCUT (09:20)
[2024-01-06] MEDS: 0.9 % Sodium Chloride Flush 3 ML SYRINGE IVFLUSH ×2 (09:21→18:13)
[2024-01-06 09:37] LABS: Troponin-I High Sensitivity < 2.7 ng/L (<3.5-35.0)
[2024-01-06] MEDS: Aspirin Enteric Coated 81 MG TABLET.DR 162 MG PO (09:39)
[2024-01-06 09:48] LABS: Cholesterol 92 mg/dL (<200); HDL Cholesterol 50 mg/dL (>40); LDL Cholesterol Calculated 35 mg/dL (<100); Triglycerides 37 mg/dL (<150)
--- NOTE | 2024-01-06 11:51 | P.CONCA_ITS ---
History of Present Illness History of Present Illness Date of Service: 01/06/24 Requesting physician: Gibran Garsia Chief complaint: asthma, ECG changes Narrative: [age] year gentleman who we have been asked to see for ECG changes. He is here because of asthma exacerbation. He said he was not feeling well for 4 days with some fevers and chills. Still wheezing on examination. Saying that he is feeling much better now. Denying any other symptoms currently. ECG is showing precordial T-wave inversions. He has no chest discomfort currently. He is saying his breathing is improved. He snorts heroin he said he was using cocaine many months ago but did not use it recently. [facility] Past Medical History Medical History Cocaine use disorder Asthma Paranoia Diabetes Social History Social History Household Members: Family Housing: Apartment Do you presently have visiting nurse or other home services: No Alcohol intake: current Alcohol intake frequency: does not drink Patient Tobacco Use Status: Never used Tobacco Smoked in Last 30 Days: No e-Cigarette/Vaping Use: Never Used Second Hand Smoke Exposure: No Use of substances other than those prescribed or required for medical reasons: Yes Substance Use Type: Heroin Substance Use Frequency: Chronic Longstanding Substance Use Frequency Other:: 4 Last Used Substance: Days (ago) Advance Directives: No Advance Directives Information Provided: No Do you have a plan to hurt others: No Plan Nutrition Risks: Diabetes new onset/Uncontrolled service: No Sexual orientation: Don't Know Meds Allergies Allergy/AdvReac Type Severity Reaction Status Date / Time haloperidol [From Haldol] AdvReac Mild dystonia Verified 01/05/24 17:39 Active Medications: Current Medications Acetaminophen (Acetaminophen 325 Mg Tablet) 650 mg PO Q6H PRN PRN Reason: Pain, Mild (Pain Scale 1-3), fever or headache Albuterol/Ipratropium (Albuterol/Iprat 2.5/0.5mg 3 Ml Ampul.Neb) 3 ml INHALE RQ4H WHILE AWAKE VERÓNICA Last Admin: 01/06/24 11:25 Dose: 3 ml Albuterol/Ipratropium (Albuterol/Iprat 2.5/0.5mg 3 Ml Ampul.Neb) 3 ml INHALE Q4H PRN PRN Reason: Wheezing Calcium Carbonate (Calcium Carbonate 750 Mg Tab.Chew) 750 mg PO Q4H PRN PRN Reason: Heartburn Enoxaparin Sodium (Enoxaparin Sodium 40 Mg/0.4 Ml Syringe) 40 mg SUBCUT Q24H [facility] Last Admin: 01/06/24 09:20 Dose: 40 mg Glucose (Glucose Gel 15 Gm Gel..Gram.) 15 gm PO Q15M PRN; Protocol PRN Reason: per Hypoglycemia Standing Ord. Dextrose (D10) 250 mls @ 750 mls/hr IV Q15M PRN; Protocol PRN Reason: per Hypoglycemia Standing Ord. Insulin Glargine (Insulin Glargine,Hum.Rec.Anlog 100 Unit/Ml 10 Ml Vial) 12 unit SUBCUT DAILY [facility] Last Admin: 01/06/24 09:19 Dose: 12 unit Insulin Human Lispro (Insulin Lispro 100 Unit/Ml 3 Ml Vial) 0 unit SUBCUT QIDACHS [facility]; Protocol Last Admin: 01/06/24 07:29 Dose: 4 unit Magnesium Hydroxide (Milk Of Magnesia 30 Ml Oral.Susp) 30 ml PO DAILY PRN PRN Reason: Constipation Melatonin (Melatonin 3 Mg Tablet) 6 mg PO BEDTIME PRN PRN Reason: Insomnia Ondansetron HCl (Ondansetron Hcl 4 Mg/2 Ml Vial) 4 mg IVPUSH Q8H PRN PRN Reason: Nausea and Vomiting Prednisone (Prednisone 20 Mg Tablet) 40 mg PO DAILY [facility] Last Admin: 01/06/24 09:18 Dose: 40 mg Sodium Chloride (0.9 % Sodium Chloride Flush 3 Ml Syringe) 3 ml IVFLUSH QSHIFT [facility] Last Admin: 01/06/24 09:21 Dose: 3 ml Home Medications ?Medication ?Instructions ?Recorded ?Confirmed ?Last Taken ?Type methadone 10 mg/mL oral concentrate 80 mg PO DAILY 12/24/22 08/16/23 08/15/23 09:45 History ondansetron HCl 4 mg tablet 4 mg PO Q6H PRN nausea/vomiting 08/16/23 01/06/24 Unknown History loratadine 10 mg tablet 10 mg PO DAILY PRN Allergic 01/06/24 01/06/24 Unknown History Symptoms Physical Exam 2 Vital Signs: Vital Signs: Last Vital Signs Temp 98.2 F 01/06/24 09:50 Pulse 82 01/06/24 11:25 Resp 15 01/06/24 11:25 BP 120/66 01/06/24 09:50 Pulse Ox 98 01/06/24 09:50 O2 Del Method Room Air 01/06/24 09:50 BMI result Body Mass Index 24.3 GENERAL APPEARANCE: in no acute distress, pleasant. NECK: no carotid bruit, no jugular venous distention. SKIN: no suspicious lesions, warm and dry. HEART: no murmurs, regular rate and rhythm. LUNGS: Bilateral expiratory wheezes. ABDOMEN: soft, nontender. EXTREMITIES: no edema. PERIPHERAL PULSES: equal. NEUROLOGIC: No gross deficits, AAO X 3 Objective Labs and Meds 01/06/24 04:24 01/06/24 04:24 Lab results: Laboratory Results - last 24 hr 01/05/24 01/05/24 01/05/24 18:36 19:05 22:10 WBC 14.2 H RBC 5.49 Hgb 13.8 L Hct 43.4 MCV 79.1 L MCH 25.1 L MCHC 31.8 RDW 13.0 Plt Count 281 MPV 11.2 Immature Gran % (Auto) 0.6 H Neut % (Auto) 66.2 Lymph % (Auto) 15.7 L [place] % (Auto) 9.1 Eos % (Auto) 7.7 H Baso % (Auto) 0.7 Lymph # (Auto) 2.2 [place] # (Auto) 1.3 H Eos # (Auto) 1.1 H Baso # (Auto) 0.1 Abs Immat Gran (auto) 0.08 H Absolute Neuts (auto) 9.4 H Absolute Nucleated RBC 0.000 Nucleated RBC % (auto) 0.0 Sodium 140 Potassium 4.1 Chloride 102 Carbon Dioxide 26 Anion Gap 16 BUN 4 L Creatinine 0.99 Estim Creat Clear Calc 95.5 Estimated GFR > 60 POC Glucose 393 H* 326 H Random Glucose 373 H* Estimat Average Glucose Hemoglobin A1c % Calcium 9.5 D Magnesium 1.8 Total Bilirubin 0.4 AST 17 ALT 25 Alkaline Phosphatase 136 H Troponin I High Sens < 2.7 Total Protein 7.8 Albumin 4.4 Triglycerides Cholesterol LDL Cholesterol, Calc HDL Cholesterol Influenza Type A (PCR) NEGATIVE Influenza Type B (PCR) NEGATIVE RSV RNA Qual (PCR) NEGATIVE SARS-CoV-2 RNA (RT-PCR) NEGATIVE 01/06/24 01/06/24 01/06/24 00:12 01:43 02:42 WBC RBC Hgb Hct MCV MCH MCHC RDW Plt Count MPV Immature Gran % (Auto) Neut % (Auto) Lymph % (Auto) [place] % (Auto) Eos % (Auto) Baso % (Auto) Lymph # (Auto) [place] # (Auto) Eos # (Auto) Baso # (Auto) Abs Immat Gran (auto) Absolute Neuts (auto) Absolute Nucleated RBC Nucleated RBC % (auto) Sodium Potassium Chloride Carbon Dioxide Anion Gap BUN Creatinine Estim Creat Clear Calc Estimated GFR POC Glucose 493 H* 366 H* 390 H* Random Glucose Estimat Average Glucose Hemoglobin A1c % Calcium Magnesium Total Bilirubin AST ALT Alkaline Phosphatase Troponin I High Sens Total Protein Albumin Triglycerides Cholesterol LDL Cholesterol, Calc HDL Cholesterol Influenza Type A (PCR) Influenza Type B (PCR) RSV RNA Qual (PCR) SARS-CoV-2 RNA (RT-PCR) 01/06/24 01/06/24 01/06/24 04:24 07:14 08:37 WBC 9.6 RBC 4.95 Hgb 12.4 L Hct 38.8 L MCV 78.4 L MCH 25.1 L MCHC 32.0 RDW 13.1 Plt Count 279 MPV 11.7 Immature Gran % (Auto) 0.6 H Neut % (Auto) 88.2 H Lymph % (Auto) 9.4 L [place] % (Auto) 1.2 L Eos % (Auto) 0.1 Baso % (Auto) 0.5 Lymph # (Auto) 0.9 L [place] # (Auto) 0.1 Eos # (Auto) 0.0 Baso # (Auto) 0.1 Abs Immat Gran (auto) 0.06 H Absolute Neuts (auto) 8.4 H Absolute Nucleated RBC 0.000 Nucleated RBC % (auto) 0.0 Sodium 139 Potassium 4.1 Chloride 108 Carbon Dioxide 21 L Anion Gap 14 BUN 5 L Creatinine 0.78 Estim Creat Clear Calc 121.2 Estimated GFR > 60 POC Glucose 249 H Random Glucose 294 H Estimat Average Glucose 341 Hemoglobin A1c % 13.5 H Calcium 9.0 Magnesium Total Bilirubin AST ALT Alkaline Phosphatase Troponin I High Sens < 2.7 Total Protein Albumin Triglycerides 37 Cholesterol 92 LDL Cholesterol, Calc 35 HDL Cholesterol 50 Influenza Type A (PCR) Influenza Type B (PCR) RSV RNA Qual (PCR) SARS-CoV-2 RNA (RT-PCR) Imaging Radiologist's impression: Impressions Chest X-Ray 01/05/24 17:35 IMPRESSION: No acute cardiopulmonary process. Electronically signed by: Freddy De Los Santos MD 01/05/2024 08:35 PM EDT RP Assessment and Plan (1) Asthma with exacerbation: Status: Acute (2) Acute electrocardiogram changes: Status: Acute Plan [age] year gentleman presenting with asthma exacerbation. He has been using heroin. Previous history of cocaine use. No recent use that he is endorsing. Drug screen. ECG has T-wave changes from V4 to V6. He has no active symptoms. Recommend echo to assess wall motion. No biomarker rise currently. No indication for heparin. He is comfortable and is denying any symptoms. Thank you for allowing me to participate in the care of your patient. Please feel free to contact me if you have any questions. Procedures Date of Service Date of Service: 01/06/24
[2024-01-06 12:18] LABS: Glucose, Whole Blood 291 mg/dL (60-115)
--- NOTE | 2024-01-06 13:21 | PC.NURSE ---
Reached out to [facility] clinic on [facility] to verify pt Methadone dose. Left a message, waiting for call back.
[2024-01-06 13:29] LABS: Amphetamine Screen Urine Not Detected (Not Detect); Barbiturates, Urine Not Detected (Not Detect); Benzodiazepines Screen Urine Not Detected (Not Detect); Buprenorphine Scr Not Detected (Not Detect); Cannabinoid Screen Urine Not Detected (Not Detect); Cocaine Screen Urine POSITIVE (Not Detect); Fentanyl, urine POSITIVE (Not Detect); Methadone Screen, Urine Not Detected (Not Detect); Opiate Screen Urine POSITIVE (Not Detect); Oxycodone Screen Urine Not Detected (Not Detect); Phencyclidine Screen Urine Not Detected (Not Detect)
--- NOTE | 2024-01-06 14:29 | PM.EVENT ---
Event Note Date of Service: 01/06/24 Event Note: This patient is seen and examined admitted for asthma excerebation(mild intermittent),heroine use Lab imaging ekg reviewed : trops neg ,has ekg change ,says has intially chest pain which improved. h/h stable Hba1c 13.4 Physical exam and assessment and plan coordinated in h&Pnote, Agree with the plan in addition: chest pain/ekg chnages ,hx of dm uncontrolled, heroine use trops neg added asa ,avoid bb due to caocaine positive ldl 35 ,hdl 50 added asa ,moniter on tele cardiology eval dm with hyperglycemia : hb a1c 13.5 on lantus/sliding scale coverage cocaine use : addiction consult. dvt prophylax: lovenox. Time Spent With Patient Time: Total time managing care of this patient today ____ minutes.
--- NOTE | 2024-01-06 15:30 | PM.EVENT ---
Event Note Date of Service: 01/06/24 Event Note: Addiction consult placed for patient with OUD Patient reported to ED RN that he has not had methadone in approx 2 weeks Reported last heroin use 4 days ago. RN reports no withdrawal sx reported or observed Plan: -methadone 10mg q3H PRN withdrawal -COWS q6 -will evaluate in AM to determine ongoing plan Time Spent With Patient Time: Total time managing care of this patient today ____ minutes.
--- NOTE | 2024-01-06 18:00 | PC.NURSE ---
Tech obtained pt POC, result 448. This RN reached out to MD Garsia about POCC <350, no new orders at this time.
[2024-01-06 18:02] LABS: Glucose, Whole Blood 448 mg/dL (60-115)
[2024-01-06] MEDS: Insulin Glargine,Hum.rec.anlog 100 UNIT/ML 10 ML VIAL SUBCUT (18:22)
[2024-01-06 20:38] LABS: Glucose, Whole Blood 364 mg/dL (60-115)
[2024-01-06 21:30] LABS: Glucose, Whole Blood 322 mg/dL (60-115)
[2024-01-07] MEDS: 0.9 % Sodium Chloride Flush 3 ML SYRINGE IVFLUSH (01:36)
[2024-01-07 07:12] VITALS: PULSE 98; RESP 16; O2SAT 97
[2024-01-07] MEDS: Albuterol/Iprat 2.5/0.5MG 3 ML AMPUL.NEB INHALE (07:12)
[2024-01-07 07:14] VITALS: BP 106/69; PULSE 76; RESP 18; TEMP 36.1; O2SAT 98
[2024-01-07 07:22] LABS: Glucose, Whole Blood 142 mg/dL (60-115)
--- NOTE | 2024-01-07 10:00 | P.DS_ITS ---
DS: Providers Provider Date of Service: 01/07/24 Date of admission: 01/06/24 03:02 Date of discharge: 01/07/24 Primary care physician: [facility] Admitting clinician: Tiffanie Herzog Attending physician on admission: Tiffanie Herzog Consults: 01/06/24 09:28 Consult to Cardiology Routine Consulting Provider: [facility] Reason for consultation: Chest pain, ekg lateral t wave inversions Has provider been notified: No 01/06/24 09:34 Addiction Medicine Routine Consulting Provider: Addiction Covering Reason for consultation: Heroine use DS: Diagnosis Discharge Diagnosis (1) Asthma with exacerbation: Status: Acute (2) Acute electrocardiogram changes: Status: Acute DS: Summary Hospital Course Hospital Course: HPI: 23-year-old male with pertinent history of mood disorder, rja-ebwkmqr-ieyemtcja diabetes mellitus, asthma not on home oxygen, opioid use disorder on methadone who presents to the emergency department for evaluation of dyspnea. Patient states his symptoms started 3 days prior to presentation. He has been having dyspnea which is worse with exertion. Also has been having nonproductive cough and wheezing. Patient tried his home inhaler without any relief. No sick contacts. No fever but admits chills. No palpitations, chest discomfort, abdominal pain, changes in urinary or bowel habits. Patient states he does not take metformin Trulicity for diabetes due to side effects. In the emergency department, patient with continued wheezing despite multiple DuoNeb treatments. Was given IV magnesium and IV Solu-Medrol in the ER. Hospital course: 23 y/o f with pertinent history of mood disorder, ufw-lyfkvrm-slmunrghv diabetes mellitus, asthma not on home oxygen, opioid use disorder on methadone who presents to the emergency department for evaluation of dyspnea-found to have Acute exacerbation asthma ( mild intermittent of asthma): started scheduled and p.r.n. DuoNebs. Initiating systemic steroids. Continue home inhaler. Wan-ovfqiyp-twncxeajj diabetes mellitus with hyperglycemia: Noncompliant with p.o. home antihyperglycemics. Initiated basal plus insulin regimen. hyperglycemia improving. hba1c 13.5 -adjusted sm regimen ( please see plan). Reactive leukocytosis-resolved, No sepsis. abnormal ekg ( t wave chnages from v4-v6)-cardiac enzymes and echo seems fine ,seen by cardiology: no intervention currently, in addition strongly advised for avoid heroine or cocaine use . follow up pcp ,consider outpatient cardiology follow up if new symptoms . plan: Drink plenty of fluids Continue to use nebulizing treatment every 4-6 hours for asthma Start taking Lantus insulin 12 units subQ every night Jardiance 10 mg daily Follow with diabetic specialist Check blood sugar before meals and take Humalog according to sliding scale as provided. Time Attestation Total time managing care of this patient today: 40 mintues. Discharge Coordination Time (in mins): 40 min Quality: Safe Use of Opioids Does Pt have an Active Cancer Diagnosis on the Problem List?: No Quality: Stroke Does the patient have a stroke diagnosis?: No Physical Exam Vital Signs: Vital Signs: Last Vital Signs Temp 97.0 F 01/07/24 07:14 Pulse 76 01/07/24 07:14 Resp 18 01/07/24 07:14 BP 106/69 01/07/24 07:14 Pulse Ox 98 01/07/24 07:14 O2 Del Method Room Air 01/07/24 07:14 BMI result Body Mass Index 24.3 Appearance: Alert.? Oriented X3.? . cvs: rrr, [id number] , no murmur res: clear to auscultation ,no rhonchii or wheezing abd: no rebound or guarding ,nt, bs present. ext pulses present , no cyanosis. neuro: axo3 , nonfocal. DS: Data Data Completed and Pending Labs on day of discharge: Laboratory Results - last 24 hr 01/06/24 01/06/24 01/06/24 12:04 12:10 17:58 POC Glucose 291 H 448 H* Urine Opiates Screen POSITIVE H Ur Buprenorphine Scrn Not Detected Ur Oxycodone Screen Not Detected Urine Methadone Screen Not Detected Urine Fentanyl Screen POSITIVE H Ur Barbiturates Screen Not Detected Ur Phencyclidine Scrn Not Detected Ur Amphetamines Screen Not Detected U Benzodiazepines Scrn Not Detected Urine Cocaine Screen POSITIVE H U Marijuana (THC) Screen Not Detected 01/06/24 01/06/24 01/07/24 20:33 21:26 07:16 POC Glucose 364 H* 322 H 142 H Urine Opiates Screen Ur Buprenorphine Scrn Ur Oxycodone Screen Urine Methadone Screen Urine Fentanyl Screen Ur Barbiturates Screen Ur Phencyclidine Scrn Ur Amphetamines Screen U Benzodiazepines Scrn Urine Cocaine Screen U Marijuana (THC) Screen Imaging Chest x-ray: Radiologist's impression: ITS Impressions Chest X-Ray 01/05/24 17:35 IMPRESSION: No acute cardiopulmonary process. Electronically signed by: Freddy De Los Santos MD 01/05/2024 08:35 PM EDT RP Discharge Plan Discharge Anticipated Discharge Date/Time: 01/07/24 09:47 Patient Disposition: Home, Self-Care Discharge Diagnosis: asthma excerebation , dm Referrals: [place] [Primary Care Provider] - 1 Week Discharge Medications: New Jardiance 10 mg tablet 10 mg PO QAM Qty: 30 2RF (DME) nebulizers Misc See Rx Instructions .Route Qty: 1 0RF Rx Instructions: As directed albuterol sulfate 2.5 mg /3 mL (0.083 %) solution for nebulization 2.5 mg inhalation Q4-6H PRN (Reason: shortness of breath or wheezing) Qty: 90 0RF albuterol sulfate 90 mcg/actuation HFA aerosol inhaler 2 puff inhalation Q6H PRN (Reason: shortness of breath or wheezing) Qty: 8.5 0RF insulin lispro [Humalog KwikPen Insulin] 100 unit/mL insulin pen 1 sliding scale dose subcut USEASDIRECTD Qty: 15 0RF Rx Instructions: BG <111 0 units, 111-150 - 0 units, 151-200 2 units, 201-250 4 units, 251-300 6 units, 301-350 8 units, >350 10 units prednisone 20 mg Tablet 20 mg PO DAILY Qty: 3 0RF insulin glargine [Lantus U-100 Insulin] 100 unit/mL Solution 12 unit subcut DAILY Qty: 15 0RF Continued methadone 10 mg/mL Concentrate 80 mg PO DAILY Rx Instructions: Dose verified by Tonia XAVIER from [facility]. ondansetron HCl 4 mg tablet 4 mg PO Q6H PRN (Reason: nausea/vomiting) loratadine 10 mg tablet 10 mg PO DAILY PRN (Reason: Allergic Symptoms) Discharge Orders: Discharge Order (Routine); Ordered 01/07/24 Ordered By: Gibran Garsia Diet: Advance to usual diet Activity on Discharge: As tolerated Stand Alone Forms: Patient Portal Discharge page Print Language: Belarusian Activity Restrictions/Additional Instructions: Drink plenty of fluids Continue to use nebulizing treatment every 4-6 hours for asthma Start taking Lantus insulin 12 units subQ every night Jardiance 10 mg daily Follow with diabetic specialist Check blood sugar before meals and take Humalog according to sliding scale as provided BG <111 0 units, 111-150 - 0 units, 151-200 2 units, 201-250 4 units, 251-300 6 units, 301-350 8 units, >350 10 units Care Plan Goals: continue dm meds as above. abnormal ekg -cardiac enzymes and echo seems fine ,seen by cardiology: no intervention currently, in addition strongly advised for avoid heroine or cocaine use . follow up pcp ,consider outpatient cardiology follow up if new symptoms . Health Concerns: as above. Plan of Treatment: as above. Assessment: as above. Patient Instructions: Asthma (ED), Diabetic Hyperglycemia (ED)
[2024-01-07] MEDS: Insulin Glargine,Hum.rec.anlog 100 UNIT/ML 10 ML VIAL 12 UNIT SUBCUT (10:26)
[2024-01-07] MEDS: predniSONE 20 MG TABLET PO (10:27)
--- NOTE | 2024-01-07 15:03 | MHC.CM.PN ---
PT FULLY INDEPENDENT, DC HOME TODAY WITH NO SERVICES PT ARRANGED HIS OWN TRANSPORT NO CM INTERVENTION REQUIRED
== END 2024-01-07 10:45 | disposition home or self-care (01) ==
LOC: HO.ED 01-06 02:46 → HO.EDOVER 01-06 03:09 → HO.IMC 01-07 05:32
PROVIDERS: Emergency Medicine; Physician Assistant Medical; Admitting Provider Student in an Organized Health Care Education/Training Program; Emergency Provider Internal Medicine; Visit Provider Internal Medicine
DX: J45.21 Mild intermittent asthma with (acute) exacerbation (principal); E11.65 Type 2 diabetes mellitus with hyperglycemia; R94.31 Abnormal electrocardiogram [ECG] [EKG]; R07.89 Other chest pain; R06.02 Shortness of breath; F14.90 Cocaine use, unspecified, uncomplicated; M79.10 Myalgia, unspecified site; R00.0 Tachycardia, unspecified; F11.90 Opioid use, unspecified, uncomplicated; D72.829 Elevated white blood cell count, unspecified; F39 Unspecified mood [affective] disorder; Z79.899 Other long term (current) drug therapy; Z03.818 Encounter for observation for suspected exposure to other biological agents ruled out
CPT/HCPCS: 0241U; 36415; 71046; 80048; 80053; 80061; 80307; 82947; 83036; 83735; 84484; 85025; 93005; 93306; 94640; 94664; 96361; 96365; 96366; 96375; 99222; 99285; J1650; J2919; J3475; Q9957

== ENCOUNTER → 2024-01-06 03:02 | Outpatient (BNV) | payer MEDICAID, SELFPAY | PROVIDERS: Admitting Provider Student in an Organized Health Care Education/Training Program; Emergency Provider Internal Medicine; Visit Provider Internal Medicine Cardiovascular Disease | DX: J45.901 Unspecified asthma with (acute) exacerbation (principal); R94.31 Abnormal electrocardiogram [ECG] [EKG]; R07.9 Chest pain, unspecified | CPT/HCPCS: 93306; 99223 ==

== ENCOUNTER → 2024-01-06 03:02 | Outpatient (BNV) | payer MEDICAID, SELFPAY | PROVIDERS: Admitting Provider Student in an Organized Health Care Education/Training Program; Emergency Provider Internal Medicine; Visit Provider Student in an Organized Health Care Education/Training Program | DX: J45.901 Unspecified asthma with (acute) exacerbation (principal) | CPT/HCPCS: 99222; 99239; 99499 ==

== ENCOUNTER 2024-01-18 17:15 | Inpatient (IN) | payer MEDICAID, SELFPAY ==
--- NOTE | ~2024-01-18 | XR_ITS ---
EXAMINATION: XR CHEST CLINICAL INFORMATION: Wheezing COMPARISON: None available. TECHNIQUE: 2 views of the chest were obtained. FINDINGS: No significant abnormality is noted involving the heart, lungs, mediastinum, bony thorax or soft tissues. XR/XR chest 2V IMPRESSION: Unremarkable examination. Electronically signed by: Horace Voss MD 01/18/2024 06:08 PM EDT RP
--- NOTE | ~2024-01-18 | XR_ITS ---
EXAMINATION: XR CHEST CLINICAL INFORMATION: Shortness of breath COMPARISON: 01/18/2024 TECHNIQUE: Frontal view of the chest was obtained. FINDINGS: The lungs are clear with no focal consolidation. No evidence of pneumothorax, pulmonary edema, or pleural effusions. The cardiomediastinal silhouette is unremarkable. No acute osseous findings. XR/XR chest 1V IMPRESSION: No acute cardiopulmonary findings. Electronically signed by: Kraig Roca MD 01/19/2024 04:02 AM EDT
[2024-01-18 17:45] VITALS: BP 164/89; PULSE 110; RESP 18; TEMP 36.6; O2SAT 93; BMI 28.8
--- NOTE | 2024-01-18 17:46 | ED_ITS ---
HPI - Asthma General Chief Complaint: Asthma Stated Complaint: asthma,sob Time Seen by Provider: 01/18/24 22:42 Source: patient Mode of arrival: ambulatory Limitations: no limitations History of Present Illness ED Provider: Dr. Arline Thompson HPI Narrative: Patient comes to the emergency room complaining of an asthma exacerbation. Patient states that he has been using his mom's nebulization machine because his insurance has not approved his yet. Patient complaining of wheezing for several days. Patient denies fever chills, no known exposure to sick people Related Data Home Medications ?Medication ?Instructions ?Recorded ?Confirmed methadone 10 mg/mL oral concentrate 80 mg PO DAILY 12/24/22 08/16/23 ondansetron HCl 4 mg tablet 4 mg PO Q6H PRN nausea/vomiting 08/16/23 01/06/24 loratadine 10 mg tablet 10 mg PO DAILY PRN Allergic 01/06/24 01/06/24 Symptoms Previous Rx's ?Medication ?Instructions ?Recorded albuterol sulfate 2.5 mg/3 mL 2.5 mg (3 mL) inhalation Q4-6H PRN 01/05/24 (0.083 %) solution for nebulization shortness of breath or wheezing #90 mL albuterol sulfate 90 mcg/actuation 2 puff inhalation Q6H PRN 01/05/24 aerosol inhaler shortness of breath or wheezing #8.5 grams empagliflozin 10 mg tablet 10 mg PO QAM #30 tabs 01/05/24 (Jardiance) insulin lispro 100 unit/mL 1 sliding scale dose subcut 01/05/24 subcutaneous pen (Humalog KwikPen USEASDIRECTD #15 mL (U-100) Insulin) nebulizers #1 ea 01/05/24 insulin glargine 100 unit/mL 12 unit (0.12 mL) subcut DAILY #15 01/07/24 subcutaneous solution (Lantus mL U-100 Insulin) prednisone 20 mg tablet 20 mg PO DAILY #3 tabs 01/07/24 Allergies Allergy/AdvReac Type Severity Reaction Status Date / Time haloperidol [From Haldol] AdvReac Mild dystonia Verified 01/18/24 17:47 Review of Systems 2 Review of Systems: Constitutional : No Weight loss, No Fever, No Chills, No Night Sweats, No Fatigue, No Malaise ENT/Mouth : No Hearing loss, No Ear Pain, No Nasal Congestion, No Sinus Pain, No Hoarseness, No sore throat, No Rhinorrhea, No Swallowing Difficulty Eyes: No Eye Pain, No Swelling, No Redness, No Foreign Body, No Discharge, No Vision Changes Cardiovascular : No Chest Pain, No SOB, No Dyspnea on Exertion, No Orthopnea, No Edema, No Palpitations Respiratory : No Cough, No Sputum, bilateral wheezing, No Smoke Exposure, No Dyspnea Gastrointestinal : No Nausea, No Vomiting, No Diarrhea, No Constipation, No abdominal Pain, No Hematochezia, No Melena Genitourinary : no irregular bleeding, No Dysuria, No Urinary Frequency, No Hematuria, No Urinary Incontinence, No Urgency, No Flank Pain, No Urinary Flow Changes, No Hesitancy Musculoskeletal : No joint pain, No Myalgias, No Joint Swelling Skin : No Skin Lesions, No rash Neuro : No Weakness, No Numbness, No Paresthesias, No Loss of Consciousness, No Dizziness, No Headache Psych : No Anxiety/Panic, No Depression, No SI/HI/AH/VH, No Social Issues, Heme/Lymph: No Bruising, No Bleeding,No Lymphadenopathy Endocrine : No Polyuria, No Polydipsia, No Temperature Intolerance PMFSH Past Medical History Medical History Cocaine use disorder Asthma Paranoia Diabetes Social History Social History Household Members: Family Housing: Apartment Do you presently have visiting nurse or other home services: No Alcohol intake: current Alcohol intake frequency: does not drink Patient Tobacco Use Status: Never used Tobacco e-Cigarette/Vaping Use: Never Used Second Hand Smoke Exposure: No Substance Use Type: Heroin Advance Directives: No Advance Directives Information Provided: No Do you have a plan to hurt others: No Plan service: No Sexual orientation: Don't Know Physical Exam 2 Vital Signs: Vital Signs: Last Vital Signs Temp 98.4 F 01/18/24 22:23 Pulse 104 H 01/19/24 01:46 Resp 18 01/19/24 01:46 BP 112/77 01/19/24 01:46 Pulse Ox 93 01/19/24 01:46 O2 Del Method Room Air 01/19/24 01:46 BMI result Body Mass Index 28.8 Const: Other: Appearance: Alert. Oriented X3. No acute distress. Eyes: Pupils equal, round and reactive to light. ENT: Pharynx normal. Neck: Normal inspection. Neck supple. No lymph nodes noted. No crepitus CVS: Normal heart rate and rhythm. Pulses normal. Normal S1 and S2 Respiratory: No respiratory distress. Bilateral wheezing Abdomen: Soft and nontender. No rigidity. No distention. Skin: Skin warm and dry. Normal skin color. Normal skin turgor. Extremities: No lower extremity edema. No Lacerations. No Rash Neuro: Oriented X 3. No motor deficit. No sensory deficit. Moving all extremities. No slurred speech. CN 2 through 12 grossly intact Psych: calm, cooperative, normal affect Course Course Course Narrative: This is a Rapid Medical Examination (RME) performed by Mery Richey PA-C in triage. Full HPI, ROS, assessment and treatment plan per primary provider in the Main ED. 23 yo female with history of DM recently started on insulin, asthma with recent admission on 01/05 presents to the ER for evaluation of sob, wheezing and worsening asthma for the last 2 days. he was discharged on 01/06 with nebulizer solution but no machine. he was discharged to be started on insulin but no needles. he took the prednisone he was prescribed. HR 110-120s in triage, SpO2 94%. diffusely wheezy and rhonchorous in triage. speaking in complete sentences. Plan: cxr, covid, ed bronch protocol, POC Medications Administered Discontinued Medications Generic Name Dose Route Start Last Admin Trade Name Freq PRN Reason Stop Dose Admin Albuterol Sulfate 2.5 mg 01/18/24 20:17 01/18/24 20:19 Albuterol Sulfate (0.083%) 2.5 Mg/3 Ml Vial.Neb INHALE 01/18/24 20:18 2.5 mg ONCE ONE Administration Albuterol Sulfate 5 mg 01/18/24 23:01 01/18/24 23:14 Albuterol Sulfate (0.083%) 2.5 Mg/3 Ml Vial.Neb INHALE 01/18/24 23:02 5 mg ONCE ONE Administration Albuterol/Ipratropium 3 ml 01/18/24 20:17 01/18/24 20:18 Albuterol/Iprat 2.5/0.5mg 3 Ml Ampul.Neb INHALE 01/18/24 20:18 3 ml ONCE ONE Administration Albuterol/Ipratropium 3 ml 01/18/24 23:01 01/18/24 23:14 Albuterol/Iprat 2.5/0.5mg 3 Ml Ampul.Neb INHALE 01/18/24 23:02 3 ml ONCE ONE Administration Magnesium Sulfate 2 gm in 50 mls @ 25 mls/hr 01/18/24 22:51 01/19/24 01:30 Magnesium Sulfate/H2o IV 01/19/24 00:50 Infused ONCE ONE Infusion Methylprednisolone Sodium Succinate 125 mg 01/18/24 22:51 01/18/24 23:20 Methylprednisolone Sod Succ 125 Mg/2 Ml Vial IVPUSH 01/18/24 22:52 125 mg ONCE ONE Administration Medical Decision Making Medical Decision Making [facility] Narrative: My interpretation of chest x-ray, no obvious abnormality -my interpretation of labs: At baseline hematology, chemistry shows a glucose of 350. Patient receiving IV fluids and 10 units of insulin, anion gap closed. Serology negative for COVID -after multiple nebulization treatments, patient continues being wheezy -patient will be admitted to the hospital, I discussed the patient with Dr. Henning Differential Diagnosis Differential Diagnoses: The differential diagnosis associated with the presentation includes (Asthma exacerbation, hyperglycemia, COVID, viral URI) Admission/Observation Consideration of admission/observation: Escalation of care including admission/observation considered Consult Healthcare Provider Management of the patient was discussed with: Hospitalist Lab Data [facility] Lab Attestation statement: I reviewed the patient's lab results. 01/19/24 02:07 01/19/24 02:07 Labs: Lab Results 01/18/24 01/19/24 Range/Units 18:18 02:07 WBC 14.1 H (4.8-10.8) X10*3/uL RBC 5.50 (4.60-5.80) X10*6/uL Hgb 13.9 L (14.0-18.0) g/dl Hct 43.6 (42.0-52.0) % MCV 79.3 L (80.0-98.0) fL MCH 25.3 L (27.0-33.0) pg MCHC 31.9 (31.0-36.0) g/dl RDW 13.2 (11.0-16.0) % Plt Count 247 (160-400) X10*3/uL MPV 10.9 (9.4-12.4) fL Immature Gran % (Auto) 0.6 H (0.0-0.4) % Neut % (Auto) 86.7 H (45-73) % Lymph % (Auto) 7.4 L (20-40) % Toombs % (Auto) 2.0 (2-11) % Eos % (Auto) 2.6 (0-4) % Baso % (Auto) 0.7 (0-2) % Lymph # (Auto) 1.0 L (1.2-4.9) X10*3/uL [place]ombs # (Auto) 0.3 (0.1-1.2) X10*3/uL Eos # (Auto) 0.4 (0.0-0.4) X10*3/uL Baso # (Auto) 0.1 (0.0-0.2) X10*3/uL Abs Immat Gran (auto) 0.08 H (0.00-0.03) X10*3/uL Absolute Neuts (auto) 12.3 H (2.0-8.3) x10*3/uL Absolute Nucleated RBC 0.000 (0.0-0.012) X10*3/uL Nucleated RBC % (auto) 0.0 (0.0-0.2) /100WBC Sodium 140 (135-145) mmol/L Potassium 4.1 (3.3-5.1) mmol/L Chloride 105 (96-108) mmol/L Carbon Dioxide 25 (22-29) mmol/L Anion Gap 14 (12-20) BUN 6 L (9-16) mg/dL Creatinine 0.89 (0.5-1.4) mg/dL Estim Creat Clear Calc 118.4 Estimated GFR > 60 Random Glucose 350 H* (60-115) mg/dL Calcium 9.4 (8.4-10.2) mg/dL COVID-19 ([facility]) Negative (Negative) COVID-19 Clin Com See Note Critical Care Time Critical Care Time Critical Care Time: Yes Total Critical Care Time: 60 Attestation: I have personally provided critical care time. Time includes review of lab data, radiology results, discussion with consultants, and monitoring for potential decompensation. Intervention performed as documented. Discharge Plan Discharge Clinical Impression: Asthma exacerbation, Hyperglycemia Patient Disposition: Admitted As Inpatient Prescriptions: No Action methadone 10 mg/mL Concentrate 80 mg PO DAILY Rx Instructions: Dose verified by Tonia XAVIER from [facility]. ondansetron HCl 4 mg tablet 4 mg PO Q6H PRN (Reason: nausea/vomiting) Jardiance 10 mg tablet 10 mg PO QAM Qty: 30 2RF (DME) nebulizers Misc See Rx Instructions .Route Qty: 1 0RF Rx Instructions: As directed albuterol sulfate 2.5 mg /3 mL (0.083 %) solution for nebulization 2.5 mg inhalation Q4-6H PRN (Reason: shortness of breath or wheezing) Qty: 90 0RF albuterol sulfate 90 mcg/actuation HFA aerosol inhaler 2 puff inhalation Q6H PRN (Reason: shortness of breath or wheezing) Qty: 8.5 0RF insulin lispro [Humalog KwikPen Insulin] 100 unit/mL insulin pen 1 sliding scale dose subcut USEASDIRECTD Qty: 15 0RF Rx Instructions: BG <111 0 units, 111-150 - 0 units, 151-200 2 units, 201-250 4 units, 251-300 6 units, 301-350 8 units, >350 10 units loratadine 10 mg tablet 10 mg PO DAILY PRN (Reason: Allergic Symptoms) prednisone 20 mg Tablet 20 mg PO DAILY Qty: 3 0RF insulin glargine [Lantus U-100 Insulin] 100 unit/mL Solution 12 unit subcut DAILY Qty: 15 0RF Print Language: Czech
[2024-01-18 18:41] LABS: COVID-19 Test Negative (Negative); IDNOW Serial# 58CA691E
[2024-01-18] MEDS: Albuterol/Iprat 2.5/0.5MG 3 ML AMPUL.NEB INHALE ×2 (20:18→23:14)
[2024-01-18 20:19] VITALS: PULSE 89; RESP 20; O2SAT 96
[2024-01-18] MEDS: Albuterol Sulfate (0.083%) 2.5 MG/3 ML VIAL.NEB INHALE (20:19)
[2024-01-18 22:23] VITALS: BP 127/68; PULSE 99; RESP 16; TEMP 36.9; O2SAT 93
--- NOTE | 2024-01-18 23:00 | PC.NURSE ---
Pt A&Ox3, Pt reports increase SOB, wheezing since Monday, Pt reports he is unable to get his tx machine or needles for insulin since being D/C from here about a week ago. Pt was recently admitted here for same. SpO2 93% on RA, RR 20, lung sounds wheezy thought. Respiratory gave breathing tx. Pt reports dyspnea with exertion and productive cough. Mother at bedside.
[2024-01-18] MEDS: Albuterol Sulfate (0.083%) 2.5 MG/3 ML VIAL.NEB 5 MG INHALE (23:14)
[2024-01-18] MEDS: methylPREDNISolone Sod Succ 125 MG/2 ML VIAL IVPUSH (23:20)
[2024-01-18] MEDS: Magnesium Sulfate/H2O 2 GM/50 ML PIGGYBACK IV (23:21)
[2024-01-19] VITALS (11 sets, daily range): BP systolic 112–146; BP diastolic 56–83; PULSE 88–114; RESP 14–20; TEMP 36.7–37.4; O2SAT 92–998
[2024-01-19 02:12] LABS: Basophils Absolute Auto 0.1 X10*3/uL (0.0-0.2); Basophils Percent Auto 0.7 % (0-2); Eosinophils Absolute Auto 0.4 X10*3/uL (0.0-0.4); Eosinophils Percent Auto 2.6 % (0-4); Hematocrit 43.6 % (42.0-52.0); Hemoglobin 13.9 g/dl (14.0-18.0); Imm Gran Abs Auto 0.08 X10*3/uL (0.00-0.03); Imm Gran Pct Auto 0.6 % (0.0-0.4); Lymphocytes Percent Auto 7.4 % (20-40); MANUAL DIFF FLAG NO; Mean Corpuscular HGB Conc 31.9 g/dl (31.0-36.0); Mean Corpuscular Hemoglobin 25.3 pg (27.0-33.0); Mean Corpuscular Volume 79.3 fL (80.0-98.0); Mean Platelet Volume 10.9 fL (9.4-12.4); Monocytes Absolute Auto 0.3 X10*3/uL (0.1-1.2); Neutrophils Absolute Auto 12.3 x10*3/uL (2.0-8.3); Neutrophils Percent Auto 86.7 % (45-73); Platelet Count 247 X10*3/uL (160-400); Red Cell Distribution Width 13.2 % (11.0-16.0); White Blood Count 14.1 X10*3/uL (4.8-10.8)
[2024-01-19 02:32] LABS: Anion Gap 14 (12-20); Blood Urea Nitrogen 6 mg/dL (9-16); Calcium 9.4 mg/dL (8.4-10.2); Carbon Dioxide 25 mmol/L (22-29); Chloride 105 mmol/L (96-108); Creatinine Clr Calc Pharmacy 118.4; Estimated Glomerular Filt Rate > 60; Glucose Random 350 mg/dL (60-115); Potassium 4.1 mmol/L (3.3-5.1); Sodium 140 mmol/L (135-145)
--- NOTE | 2024-01-19 02:45 | PC.NURSE ---
Pt ambulated to the BR with steady gait. Pt in room eating snacks from vending machine that mother at bedside brought in.
[2024-01-19 02:48] LABS: Beta-Hydroxybutyrate 0.08 mmol/L (0.02-0.27)
[2024-01-19] MEDS: 0.9 % Sodium Chloride 1,000 ML 999 ML IVCONT (02:55)
[2024-01-19] MEDS: Insulin Regular, Human 100 UNIT/ML 10 ML VIAL 10 UNIT IVPUSH (02:55)
--- NOTE | 2024-01-19 03:03 | PM.IMHP ---
History of Present Illness Date of Service: 01/19/24 Chief Complaint: sob 23M PMH DM2, moderate persistent asthma, polysubstance dependence, psychotic disorder with paranoia, poor compliance presented with sob. patient recently admitted 01/06/24-01/07/24 for asthma, discharged feeling better on prednisone and albuterol nebules and inhaler. patient was using his mothers nebulizer. started to have worsening sob 2 days prior to presentation, wheezy, worse on exertion, so came to ED. in ED given nebs and steroids, but persistently wheezy. also noted to have hyperglycemia of 350 and keturia without Anion gap or ketones in blood. Review of Systems Review of Systems: Yes all other systems are reviewed and are negative [facility] Medical History Cocaine use disorder Asthma Paranoia Diabetes Social History Household Members: Family Housing: Apartment Do you presently have visiting nurse or other home services: No Alcohol intake: current Alcohol intake frequency: does not drink Patient Tobacco Use Status: Never used Tobacco e-Cigarette/Vaping Use: Never Used Second Hand Smoke Exposure: No Substance Use Type: Heroin Advance Directives: No Advance Directives Information Provided: No Do you have a plan to hurt others: No Plan service: No Sexual orientation: Don't Know Meds Allergies Allergy/AdvReac Type Severity Reaction Status Date / Time haloperidol [From Haldol] AdvReac Mild dystonia Verified 01/18/24 17:47 Active Medications: Current Medications Albuterol/Ipratropium (Albuterol/Iprat 2.5/0.5mg 3 Ml Ampul.Neb) 3 ml INHALE RQ4H WHILE AWAKE COUNT INCLUDES THE [facility] Glucose (Glucose Gel 15 Gm Gel..Gram.) 15 gm PO Q15M PRN; Protocol PRN Reason: per Hypoglycemia Standing Ord. Sodium Chloride (Ns) 1,000 mls @ 999 mls/hr IVCONT .Q1H1M ONE Stop: 01/19/24 03:31 Last Admin: 01/19/24 02:55 Dose: 999 mls/hr Insulin Glargine (Insulin Glargine,Hum.Rec.Anlog 100 Unit/Ml 10 Ml Vial) 15 unit SUBCUT BID COUNT INCLUDES THE [facility] Methylprednisolone Sodium Succinate (Methylprednisolone Sod Succ 40 Mg/Ml Vial) 40 mg IVPUSH Q12H COUNT INCLUDES THE [facility] Home Medications ?Medication ?Instructions ?Recorded ?Confirmed ?Last Taken ?Type methadone 10 mg/mL oral concentrate 80 mg PO DAILY 12/24/22 08/16/23 08/15/23 09:45 History ondansetron HCl 4 mg tablet 4 mg PO Q6H PRN nausea/vomiting 08/16/23 01/06/24 Unknown History loratadine 10 mg tablet 10 mg PO DAILY PRN Allergic 01/06/24 01/06/24 Unknown History Symptoms Physical Exam Vital Signs and Narrative: Vital Signs: Last Vital Signs Temp 98.4 F 01/18/24 22:23 Pulse 104 H 01/19/24 01:46 Resp 18 01/19/24 01:46 BP 112/77 01/19/24 01:46 Pulse Ox 93 01/19/24 01:46 O2 Del Method Room Air 01/19/24 01:46 BMI result Body Mass Index 28.8 General: AO X 3, no acute distress Resp: wheezing bilateral, no accessory muscles used CVS: S1,S2,RRR GI: soft, non tender, non distended Neuro: motor grossly intact, alert Psych: appropriate affect, appropriate insight but poor understanding of condition/treatment Results Labs 01/19/24 02:07 01/19/24 02:07 Labs: Laboratory Results - last 24 hr 01/18/24 01/19/24 18:18 02:07 MCV 79.3 L MCH 25.3 L MCHC 31.9 RDW 13.2 Plt Count 247 MPV 10.9 Immature Gran % (Auto) 0.6 H Neut % (Auto) 86.7 H Lymph % (Auto) 7.4 L Starr % (Auto) 2.0 Eos % (Auto) 2.6 Baso % (Auto) 0.7 Lymph # (Auto) 1.0 L Starr # (Auto) 0.3 Eos # (Auto) 0.4 Baso # (Auto) 0.1 Abs Immat Gran (auto) 0.08 H Absolute Neuts (auto) 12.3 H Absolute Nucleated RBC 0.000 Nucleated RBC % (auto) 0.0 Anion Gap 14 Estim Creat Clear Calc 118.4 Estimated GFR > 60 Random Glucose 350 H* Calcium 9.4 Beta-Hydroxybutyrate 0.08 COVID-19 ([facility]) Negative COVID-19 Clin Com See Note Imaging Radiologist's Impressions: Impressions Chest X-Ray 01/18/24 18:04 IMPRESSION: Unremarkable examination. Electronically signed by: Horace Voss MD 01/18/2024 06:08 PM EDT RP Assessment and Plan (1) Asthma exacerbation: Status: Acute Plan 3M PMH DM2, moderate persistent asthma, polysubstance dependence, psychotic disorder with paranoia, poor compliance presented with sob moderate persistent asthma with acute decompensation steroids, nebs DM2 with hyperglycemia due to poor compliance basal bolus insulin with correction polysubstance dependence methadone 10mg q3prn until dose confirmed addiction team eval history of psychotic disorder does not appear acutely psychotic, not on meds low risk dvt - early ambulation full code patient with significant astham symptoms and difficult to control sugars, especially given iv steroids, will likely require atleast 2 midngihts to improved both shortness of breaht and control sugars. Quality Stroke Does the patient have a stroke diagnosis?: No VTE Prior VTE?: No VTE Risk Level:: Medical - low VTE Device Contraindication: Treatment Not Indicated VTE Drug Contraindication: Treatment Not Indicated
[2024-01-19] MEDS: Insulin Glargine,Hum.rec.anlog 100 UNIT/ML 10 ML VIAL 15 UNIT SUBCUT ×2 (03:47→21:21)
[2024-01-19 04:49] LABS: Glucose, Whole Blood 450 mg/dL (60-115)
[2024-01-19] MEDS: Insulin Regular, Human 100 UNIT/ML 10 ML VIAL 15 UNIT IVPUSH (05:53)
--- NOTE | 2024-01-19 05:58 | PC.NURSE ---
Pt repeat POC 450, provider Juvencio made aware, new order given per MAR.
[2024-01-19 07:52] LABS: Glucose, Whole Blood 426 mg/dL (60-115)
[2024-01-19] MEDS: Albuterol/Iprat 2.5/0.5MG 3 ML AMPUL.NEB INHALE ×4 (08:03→20:16)
[2024-01-19] MEDS: Insulin Lispro 100 UNIT/ML 3 ML VIAL SUBCUT ×8 (08:37→21:22)
[2024-01-19] MEDS: 0.9 % Sodium Chloride Flush 3 ML SYRINGE IVFLUSH ×3 (08:38→21:22)
[2024-01-19 10:17] LABS: Glucose, Whole Blood 467 mg/dL (60-115)
[2024-01-19] MEDS: Empagliflozin 10 MG TABLET PO (10:40)
--- NOTE | 2024-01-19 11:01 | PC.NURSE ---
spoke with pt using interpreter and translator. pt has no complaints this morning. lungs wheezing on expiration throughout. 18G LAC patent. pt RR even, unlabored, NAD
--- NOTE | 2024-01-19 11:32 | PHA.MEDREC ---
Pharmacy Consult ? Medication Reconciliation Pharmacy has completed the medication reconciliation. Spoke with patient with help of exerciser. Patient states he is not taking his Lantus Solostar insulin; he states he got prescribed that when he got discharged 01/05 but states no one showed him how or when to use that. He confirmed he is taking Humalog 100 unit/mL and he is injecting it 10 units before meals TID and he last took that yesterday. He also states he has not taken Methadone 80mg in about a month due to him running out and not having the initiative to get it refilled. He states he took his medications yesterday.
--- NOTE | 2024-01-19 12:27 | MHC.EDTECH ---
This pct attempted obtain a poc and patient refused. RN Aware
--- NOTE | 2024-01-19 12:38 | PC.NURSE ---
patient is refusing to have his POC done at this time. wood fence installer explained the proper way to obtain a POC and he wanted it done a different way which was incorrect. Dr Garsia was informed and he said to wait 1 hour and retry
[2024-01-19 14:16] LABS: Glucose, Whole Blood 372 mg/dL (60-115)
--- NOTE | 2024-01-19 14:48 | HO.ADDICTCON ---
History of Present Illness Date of Service: 01/19/2024 Chief Complaint: asthma Reason for Consult: OUD Sources of Information: patient interviewed and chart reviewed HPI Narrative: Patient is a 23 year old Estonian speaking male medically admitted with asthma exacerbation. Consult requested as patient has known (recent) history of opioid use disorder. Patient seen in room 20 of main ED. Awake, alert, pleasant and engaged in interview. Reporting he uses btwn 1-2 bundles of heroin/fentanyl IN daily. Last use yesterday prior to presenting to ED. Reports he has been using for over a year. No history of IVDU. Occasional cocaine use. No alcohol use--although he reports he used to drink heavily, but stopped once he began using opiates. Currently not engaged in treatment for OUD. Previously engaged in treatment via [facility] [address]. He reports his dose changed several times due missing several days of dosing, ultimately felt stable on 80mg of methadone. Unclear when he last received dose. 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 In terms of withdrawal sx, he reports chills and body aches. He appears overall comfortable, no diaphoresis, restlessness noted. Past Psychiatric History: Inpt: M3 12/2023 Review of Systems Constitutional: Reports as per HPI Diagnostics Vital Signs (24Hr): Vital Signs - 24 hr 01/18/24 17:45 01/18/24 20:19 01/18/24 22:23 Temperature 98 F 98.4 F Pulse Rate 110 H 89 99 Respiratory Rate 18 20 16 Blood Pressure 164/89 H 127/68 Pulse Oximetry 93 93 Oxygen Delivery Method Room Air Room Air 01/19/24 01:46 01/19/24 04:01 01/19/24 07:46 Temperature 98.2 F 99.4 F Pulse Rate 104 H 113 H 106 H Respiratory Rate 18 20 14 Blood Pressure 112/77 133/82 118/63 Pulse Oximetry 93 92 92 Oxygen Delivery Method Room Air Room Air Room Air 01/19/24 08:03 01/19/24 08:36 01/19/24 11:42 Temperature Pulse Rate 106 H 103 H 103 H Respiratory Rate 14 20 20 Blood Pressure 118/56 L Pulse Oximetry 92 Oxygen Delivery Method Room Air BMI result Body Mass Index 28.8 Labs 01/19/24 02:07 01/19/24 02:07 Labs: Laboratory Results - last 48 hr 01/18/24 01/19/24 01/19/24 18:18 02:07 04:45 WBC 14.1 H RBC 5.50 Hgb 13.9 L Hct 43.6 MCV 79.3 L MCH 25.3 L MCHC 31.9 RDW 13.2 Plt Count 247 MPV 10.9 Immature Gran % (Auto) 0.6 H Neut % (Auto) 86.7 H Lymph % (Auto) 7.4 L Letcher % (Auto) 2.0 Eos % (Auto) 2.6 Baso % (Auto) 0.7 Lymph # (Auto) 1.0 L Letcher # (Auto) 0.3 Eos # (Auto) 0.4 Baso # (Auto) 0.1 Abs Immat Gran (auto) 0.08 H Absolute Neuts (auto) 12.3 H Absolute Nucleated RBC 0.000 Nucleated RBC % (auto) 0.0 Sodium 140 Potassium 4.1 Chloride 105 Carbon Dioxide 25 Anion Gap 14 BUN 6 L Creatinine 0.89 Estim Creat Clear Calc 118.4 Estimated GFR > 60 POC Glucose 450 H* Random Glucose 350 H* Calcium 9.4 Beta-Hydroxybutyrate 0.08 COVID-19 ([facility]) Negative COVID-19 Clin Com See Note 01/19/24 01/19/24 01/19/24 07:45 10:13 14:11 WBC RBC Hgb Hct MCV MCH MCHC RDW Plt Count MPV Immature Gran % (Auto) Neut % (Auto) Lymph % (Auto) Letcher % (Auto) Eos % (Auto) Baso % (Auto) Lymph # (Auto) Letcher # (Auto) Eos # (Auto) Baso # (Auto) Abs Immat Gran (auto) Absolute Neuts (auto) Absolute Nucleated RBC Nucleated RBC % (auto) Sodium Potassium Chloride Carbon Dioxide Anion Gap BUN Creatinine Estim Creat Clear Calc Estimated GFR POC Glucose 426 H* 467 H* 372 H* Random Glucose Calcium Beta-Hydroxybutyrate COVID-19 ([facility]) COVID-19 Clin Com Imaging Radiology Impressions: ITS Impressions Chest X-Ray 01/18/24 18:04 IMPRESSION: Unremarkable examination. Electronically signed by: Horace Voss MD 01/18/2024 06:08 PM EDT Chest X-Ray 01/19/24 02:00 IMPRESSION: No acute cardiopulmonary findings. Electronically signed by: Kraig Roca MD 01/19/2024 04:02 AM EDT Mental Status Exam Mental Status Exam Patient Appearance: Appropriate Level of Consciousness: Awake and Appropriate Mood Description: Anxious Affect Description: Blunted Medications Medications Current Medications Acetaminophen (Acetaminophen 325 Mg Tablet) 650 mg PO Q6H PRN PRN Reason: Pain, Mild (Pain Scale 1-3), fever or headache Albuterol/Ipratropium (Albuterol/Iprat 2.5/0.5mg 3 Ml Ampul.Neb) 3 ml INHALE RQ4H WHILE AWAKE [facility] Last Admin: 01/19/24 11:42 Dose: 3 ml Calcium Carbonate (Calcium Carbonate 750 Mg Tab.Chew) 750 mg PO Q4H PRN PRN Reason: Heartburn Empagliflozin (Empagliflozin 10 Mg Tablet) 10 mg PO DAILY [facility] Last Admin: 01/19/24 10:40 Dose: 10 mg Glucose (Glucose Gel 15 Gm Gel..Gram.) 15 gm PO Q15M PRN; Protocol PRN Reason: per Hypoglycemia Standing Ord. Dextrose (D10) 250 mls @ 750 mls/hr IV Q15M PRN; Protocol PRN Reason: per Hypoglycemia Standing Ord. Insulin Glargine (Insulin Glargine,Hum.Rec.Anlog 100 Unit/Ml 10 Ml Vial) 15 unit SUBCUT BID [facility] Last Admin: 01/19/24 03:47 Dose: 15 unit Insulin Human Lispro (Insulin Lispro 100 Unit/Ml 3 Ml Vial) 0 unit SUBCUT QIDACHS [facility]; Protocol Last Admin: 01/19/24 08:37 Dose: 10 unit Insulin Human Lispro (Insulin Lispro 100 Unit/Ml 3 Ml Vial) 5 unit SUBCUT TID@[id number],[id number],1645 [facility] Last Admin: 01/19/24 12:30 Dose: 5 unit Magnesium Hydroxide (Milk Of Magnesia 30 Ml Oral.Susp) 30 ml PO DAILY PRN PRN Reason: Constipation Melatonin (Melatonin 3 Mg Tablet) 6 mg PO BEDTIME PRN PRN Reason: Insomnia Methadone HCl (Methadone Hcl 20 Mg/2 Ml Oral.Conc) 30 mg PO ONCE ONE Stop: 01/19/24 14:43 Methylprednisolone Sodium Succinate (Methylprednisolone Sod Succ 40 Mg/Ml Vial) 40 mg IVPUSH Q12H VERÓNICA Sodium Chloride (0.9 % Sodium Chloride Flush 3 Ml Syringe) 3 ml IVFLUSH QSHIFT VERÓNICA Last Admin: 01/19/24 08:38 Dose: 3 ml Allergies Allergies Allergy/AdvReac Type Severity Reaction Status Date / Time haloperidol [From Haldol] AdvReac Mild dystonia Verified 01/18/24 17:47 Assessment & Plan Assessment & Plan (1) Opioid use disorder: Status: Acute Code(s): F11.90 - Opioid use, unspecified, uncomplicated Assessment and Plan: methadone 30mg X1 methadone 40mg in AM clonidine 0.1mg BID PRN patient to follow up with [facility] [address] OTP Total time managing care of this patient today __35__ minutes. PMFSH Past Medical History Medical History Cocaine use disorder Asthma Paranoia Diabetes Social History Social History Household Members: Family Housing: Apartment Do you presently have visiting nurse or other home services: No Alcohol intake: never Patient Tobacco Use Status: Never used Tobacco Smoked in Last 30 Days: No e-Cigarette/Vaping Use: Never Used Second Hand Smoke Exposure: No Use of substances other than those prescribed or required for medical reasons: No Substance Use Type: Heroin Advance Directives: No Advance Directives Information Provided: No Do you have a plan to hurt others: No Plan Nutrition Risks: No Nutritional Risk service: No Sexual orientation: Don't Know
[2024-01-19] MEDS: methADONE HCl 20 MG/2 ML ORAL.CONC 30 MG PO (16:08)
--- NOTE | 2024-01-19 16:25 | MHC.EDTECH ---
Patient refused to have vitals taken rn Yolette aware .
[2024-01-19 17:26] LABS: Glucose, Whole Blood 310 mg/dL (60-115)
--- NOTE | 2024-01-19 17:37 | PC.NURSE ---
Pt brought to overflow 5 from Main ED. Assumed care of pt at this time. A&Ox3 skin pwd respirations even unlabored. Ambulatory to bathroom steady gait- ambulatory sat 94% RA. Tolerating ambulation without difficulty. POC 310, scheduled insulin and sliding scale coverage administered. VSS. Provided with dinner tray 100% consumed. Awaiting bed assignment for admission, aware of plan of care.
--- NOTE | 2024-01-19 18:17 | PM.EVENT ---
Event Note Date of Service: 01/19/24 Event Note: Patient seen and examined by hospitalist service this morning, seen and examined again Patient shortness of breath somewhat improving but still has significant wheezing Physical exam unchanged from H&P Plan as per H andp. Continue nebs, steroids, monitor fingersticks because of diabetes with hyperglycemia-fingersticks are adjusted Time Spent With Patient Time: Total time managing care of this patient today ____ minutes.
--- NOTE | 2024-01-19 19:03 | PC.NURSE ---
Report received from Chyna CAMPBELL, assume care of pt at this time
[2024-01-19 19:59] LABS: Glucose, Whole Blood 217 mg/dL (60-115)
[2024-01-19] MEDS: methylPREDNISolone Sod Succ 40 MG/ML VIAL IVPUSH (21:22)
[2024-01-19 23:08] LABS: Amphetamine Screen Urine Not Detected (Not Detect); Barbiturates, Urine Not Detected (Not Detect); Benzodiazepines Screen Urine Not Detected (Not Detect); Buprenorphine Scr Not Detected (Not Detect); Cannabinoid Screen Urine Not Detected (Not Detect); Cocaine Screen Urine Not Detected (Not Detect); Fentanyl, urine POSITIVE (Not Detect); Methadone Screen, Urine Positive (Not Detect); Opiate Screen Urine POSITIVE (Not Detect); Oxycodone Screen Urine Not Detected (Not Detect); Phencyclidine Screen Urine Not Detected (Not Detect)
[2024-01-20 03:42] VITALS: BP 140/72; PULSE 96; RESP 14; TEMP 36.4; O2SAT 96
[2024-01-20 04:27] VITALS: PULSE 107; RESP 14; O2SAT 92
[2024-01-20] MEDS: Albuterol/Iprat 2.5/0.5MG 3 ML AMPUL.NEB INHALE ×2 (04:27→07:28)
[2024-01-20 06:51] LABS: Anion Gap 16 (12-20); Blood Urea Nitrogen 15 mg/dL (9-16); Calcium 9.7 mg/dL (8.4-10.2); Carbon Dioxide 27 mmol/L (22-29); Chloride 99 mmol/L (96-108); Creatinine Clr Calc Pharmacy 108.6; Estimated Glomerular Filt Rate > 60; Potassium 4.3 mmol/L (3.3-5.1); Sodium 138 mmol/L (135-145)
[2024-01-20 06:53] LABS: Hematocrit 43.2 % (42.0-52.0); Hemoglobin 13.5 g/dl (14.0-18.0); Mean Corpuscular HGB Conc 31.3 g/dl (31.0-36.0); Mean Corpuscular Volume 79.9 fL (80.0-98.0); Mean Platelet Volume 12.3 fL (9.4-12.4); Platelet Count 264 X10*3/uL (160-400); Red Blood Count 5.41 X10*6/uL (4.60-5.80); Red Cell Distribution Width 13.3 % (11.0-16.0); White Blood Count 18.1 X10*3/uL (4.8-10.8)
[2024-01-20 07:12] VITALS: BP 141/84; PULSE 90; RESP 16; TEMP 36.3; O2SAT 96
[2024-01-20 07:13] LABS: Glucose Fasting 445 mg/dL (60-99)
[2024-01-20 07:21] LABS: Glucose, Whole Blood 342 mg/dL (60-115)
[2024-01-20 07:29] VITALS: PULSE 79; RESP 18; O2SAT 98
[2024-01-20] MEDS: predniSONE 20 MG TABLET PO (07:49)
[2024-01-20] MEDS: Empagliflozin 10 MG TABLET PO (07:49)
[2024-01-20] MEDS: Insulin Lispro 100 UNIT/ML 3 ML VIAL SUBCUT ×2 (07:51→07:52)
[2024-01-20] MEDS: methADONE HCl 20 MG/2 ML ORAL.CONC 40 MG PO (07:52)
[2024-01-20] MEDS: Insulin Glargine,Hum.rec.anlog 100 UNIT/ML 10 ML VIAL 15 UNIT SUBCUT (07:52)
[2024-01-20] MEDS: 0.9 % Sodium Chloride Flush 3 ML SYRINGE IVFLUSH (07:52)
--- NOTE | 2024-01-20 10:19 | PM.DS ---
DS: Providers Provider Date of Service: 01/20/24 Date of admission: 01/19/24 03:10 Date of discharge: 01/20/24 Primary care physician: Grisel Monroe MD Admitting clinician: Jameson Henning Attending physician on admission: Jameson Henning Consults: 01/19/24 02:59 Addiction Medicine Routine Consulting Provider: Addiction Covering Reason for consultation: polysubstance Attending physician on discharge: Gibran Garsia Discharging clinician: Gibran Garsia DS: Diagnosis Discharge Diagnosis (1) Opioid use disorder: Status: Acute DS: Summary Hospital Course Hospital Course: 23M PMH DM2, moderate persistent asthma, polysubstance dependence, psychotic disorder with paranoia, poor compliance presented with sob. patient recently admitted 01/06/24-01/07/24 for asthma, discharged feeling better on prednisone and albuterol nebules and inhaler. patient was using his mothers nebulizer. started to have worsening sob 2 days prior to presentation, wheezy, worse on exertion, so came to ED. in ED given nebs and steroids, but persistently wheezy. also noted to have hyperglycemia of 350 and keturia without Anion gap or ketones in blood. Hospital course: Patient was admitted for moderate persistent asthma exacerbation started IV steroids, nebs-subsequently patient's shortness of breath seems to be improved significantly, will be going home with p.o. steroids low dose since has significant hyperglycemia with high dose steroids. dm with hyperglycemia -continue current home insulin regimen ,moniter fs ,if needed might need to adjust insulin dosing outpatient. Substance use: Patient was strongly advised to abstain from substance use. Addiction Team started the patient on methadone , follow up with addiction outpatient. Above was discussed with the patient detail length he understand in agreement with the above plan, time spent 40 minute. Time Attestation Total time managing care of this patient today: 40 mintues. Discharge Coordination Time (in mins): 40 min Quality: Safe Use of Opioids Does Pt have an Active Cancer Diagnosis on the Problem List?: No Quality: Stroke Does the patient have a stroke diagnosis?: No Physical Exam Vital Signs: Vital Signs: Last Vital Signs Temp 97.4 F 01/20/24 07:12 Pulse 79 01/20/24 07:29 Resp 18 01/20/24 07:29 BP 141/84 H 01/20/24 07:12 Pulse Ox 96 01/20/24 07:12 O2 Del Method Room Air 01/20/24 03:42 BMI result Body Mass Index 28.8 Appearance: Alert.? Oriented X3.? cvs: rrr, [id number] , no murmur res: clear to auscultation ,no rhonchii or wheezing abd: no rebound or guarding ,nt, bs present. ext pulses present , no cyanosis . neuro: axo3 , nonfocal. Renal DS: Data Data Completed and Pending Labs on day of discharge: Laboratory Results - last 24 hr 01/19/24 01/19/24 01/19/24 14:11 17:22 19:56 WBC RBC Hgb Hct MCV MCH MCHC RDW Plt Count MPV Absolute Nucleated RBC Nucleated RBC % (auto) Sodium Potassium Chloride Carbon Dioxide Anion Gap BUN Creatinine Estim Creat Clear Calc Estimated GFR POC Glucose 372 H* 310 H 217 H Fasting Glucose Calcium Magnesium Urine Opiates Screen Ur Buprenorphine Scrn Ur Oxycodone Screen Urine Methadone Screen Urine Fentanyl Screen Ur Barbiturates Screen Ur Phencyclidine Scrn Ur Amphetamines Screen U Benzodiazepines Scrn Urine Cocaine Screen U Marijuana (THC) Screen 01/19/24 01/20/24 01/20/24 22:38 05:42 07:15 WBC 18.1 H RBC 5.41 Hgb 13.5 L Hct 43.2 MCV 79.9 L MCH 25.0 L MCHC 31.3 RDW 13.3 Plt Count 264 MPV 12.3 Absolute Nucleated RBC 0.000 Nucleated RBC % (auto) 0.0 Sodium 138 Potassium 4.3 Chloride 99 Carbon Dioxide 27 Anion Gap 16 BUN 15 Creatinine 0.97 Estim Creat Clear Calc 108.6 Estimated GFR > 60 POC Glucose 342 H Fasting Glucose 445 H* Calcium 9.7 Magnesium 2.0 Urine Opiates Screen POSITIVE H Ur Buprenorphine Scrn Not Detected Ur Oxycodone Screen Not Detected Urine Methadone Screen Positive H Urine Fentanyl Screen POSITIVE H Ur Barbiturates Screen Not Detected Ur Phencyclidine Scrn Not Detected Ur Amphetamines Screen Not Detected U Benzodiazepines Scrn Not Detected Urine Cocaine Screen Not Detected U Marijuana (THC) Screen Not Detected Imaging Chest x-ray: Radiologist's impression: ITS Impressions Chest X-Ray 01/18/24 18:04 IMPRESSION: Unremarkable examination. Electronically signed by: Horace Voss MD 01/18/2024 06:08 PM EDT RP Chest X-Ray 01/19/24 02:00 IMPRESSION: No acute cardiopulmonary findings. Electronically signed by: Kraig Roca MD 01/19/2024 04:02 AM EDT RP Discharge Plan Discharge Anticipated Discharge Date/Time: 01/20/24 10:12 Patient Disposition: Home, Self-Care Discharge Diagnosis: Asthma exacerbation Referrals: Grisel Monroe MD [Primary Care Provider] - 1 Week Discharge Medications: New methadone [Methadose] 10 mg/mL Concentrate 40 mg PO DAILY Qty: 1 0RF Rx Instructions: Partial Fill upon patient request. prednisone 20 mg tablet 20 mg PO DAILY Qty: 4 0RF Continued ondansetron HCl 4 mg tablet 4 mg PO Q6H PRN (Reason: nausea/vomiting) insulin lispro [Humalog KwikPen Insulin] 100 unit/mL insulin pen 10 unit subcut TIDAC Rx Instructions: BG <111 0 units, 111-150 - 0 units, 151-200 2 units, 201-250 4 units, 251-300 6 units, 301-350 8 units, >350 10 units Jardiance 10 mg tablet 10 mg PO QAM Qty: 30 2RF (DME) nebulizers Misc See Rx Instructions .Route Qty: 1 0RF Rx Instructions: As directed albuterol sulfate 2.5 mg /3 mL (0.083 %) solution for nebulization 2.5 mg inhalation Q4-6H PRN (Reason: shortness of breath or wheezing) Qty: 90 0RF albuterol sulfate 90 mcg/actuation HFA aerosol inhaler 2 puff inhalation Q6H PRN (Reason: shortness of breath or wheezing) Qty: 8.5 0RF loratadine 10 mg tablet 10 mg PO DAILY PRN (Reason: Allergic Symptoms) Discharge Orders: Discharge Order (Routine); Ordered 01/20/24 Ordered By: Gibran Garsia Diet: Advance to usual diet Activity on Discharge: As tolerated Stand Alone Forms: Patient Portal Discharge page Print Language: Uzbek Care Plan Goals: Patient was admitted for moderate persistent asthma exacerbation started IV steroids, nebs-subsequently patient's shortness of breath seems to be improved significantly, will be going home with p.o. steroids low dose since has significant hyperglycemia with high dose steroids. dm with hyperglycemia -continue current home insulin regimen ,moniter fs ,if needed might need to adjust insulin dosing outpatient. Substance use: Patient was strongly advised to abstain from substance use. Addiction Team started the patient on methadone , follow up with addiction outpatient. Above was discussed with the patient detail length he understand in agreement with the above plan, time spent 40 minute. Health Concerns: As above. Plan of Treatment: As above. Assessment: As above. Discharge Date/Time: 01/20/24 11:02
--- NOTE | 2024-01-20 15:21 | MHC.CM.PN ---
PT DISCHARGED HOME WITH NO SERVICES PRIOR TO BEING SEEN BY CM PER EMR, PT IS INDEPENDENT WITH CARE PT ARRANGED HIS OWN TRANSPORTATION
== END 2024-01-20 11:02 | disposition home or self-care (01) | DRG 141 ==
LOC: HO.ED 01-19 02:37 → HO.EDOVER 01-19 03:13 → HO.S3 01-19 19:04
PROVIDERS: Nurse Practitioner Psychiatric/Mental Health; Physician Assistant; Admitting Provider Internal Medicine; Emergency Provider Emergency Medicine; PCP Family Medicine; Visit Provider Internal Medicine
DX: J45.41 Moderate persistent asthma with (acute) exacerbation (principal); E11.65 Type 2 diabetes mellitus with hyperglycemia; F19.20 Other psychoactive substance dependence, uncomplicated; F11.20 Opioid dependence, uncomplicated; Z20.822 Contact with and (suspected) exposure to COVID-19; Z79.4 Long term (current) use of insulin; Z79.899 Other long term (current) drug therapy
CPT/HCPCS: 36415; 71045; 71046; 80048; 80307; 82010; 82947; 83735; 85025; 85027; 87635; 94640; 99221; 99285; J2919; J3475

== ENCOUNTER → 2024-01-18 20:53 | Outpatient (BNV) | payer MEDICAID, SELFPAY | PROVIDERS: Emergency Provider Emergency Medicine; PCP Family Medicine; Visit Provider Internal Medicine | DX: E11.65 Type 2 diabetes mellitus with hyperglycemia (principal); J45.41 Moderate persistent asthma with (acute) exacerbation; Z91.199 Patient's noncompliance with other medical treatment and regimen due to unspecified reason | CPT/HCPCS: 99223; 99239 ==

== ENCOUNTER → 2024-01-19 03:10 | Outpatient (BNV) | payer MEDICAID, SELFPAY | PROVIDERS: Admitting Provider Internal Medicine; Emergency Provider Emergency Medicine; PCP Family Medicine; Visit Provider Nurse Practitioner Psychiatric/Mental Health | DX: F11.90 Opioid use, unspecified, uncomplicated (principal) | CPT/HCPCS: 99221 ==

== ENCOUNTER 2024-01-30 14:08 | Emergency (ER) | payer MEDICAID, SELFPAY ==
[2024-01-30 14:15] VITALS: BP 121/70; PULSE 94; O2SAT 99
[2024-01-30 14:26] VITALS: BP 140/96; PULSE 100; RESP 16; TEMP 36.9; O2SAT 98; BMI 24.0
--- NOTE | 2024-01-30 14:53 | ED.GENADULT ---
HPI - General Adult General Chief complaint: General Medical Stated complaint: TIRED/PULLED OFF ROAD,PD TOLD TO GET ER EVAL Time Seen by Provider: 01/30/24 14:43 Source: patient, EMS, RN notes reviewed and old records reviewed Mode of arrival: EMS Limitations: no limitations History of Present Illness ED Provider: Mery Richey PA-C HPI narrative: 23-year-old male with a history of opioid use disorder actively using heroin, asthma, diabetes on insulin who presents to the ER for evaluation after he was found sleeping in his car today. Patient reports he worked all night, was very tired when he was driving so he pulled over to take a nap. He states he fell asleep with the car running because he did not feel safe to drive. He pulled off the side of the road to do so. He states the police pulled behind him, and woke him up. They told him to come to the ER for evaluation. On arrival he has no complaints, he is awake, alert, oriented and does not want to be here. He admits to heroin use yesterday. He denies any alcohol or drug use today. MD complaint: Medical evaluation/clearance Associated symptoms: denies other symptoms Treatments prior to arrival: none Related Data Home Medications ?Medication ?Instructions ?Recorded ?Confirmed ondansetron HCl 4 mg tablet 4 mg PO Q6H PRN nausea/vomiting 08/16/23 01/19/24 loratadine 10 mg tablet 10 mg PO DAILY PRN Allergic 01/06/24 01/19/24 Symptoms insulin lispro 100 unit/mL 10 unit subcut TIDAC 01/19/24 01/19/24 subcutaneous pen (Humalog KwikPen (U-100) Insulin) Previous Rx's ?Medication ?Instructions ?Recorded metformin 500 mg tablet 500 mg PO BIDWMEAL 30 days #60 tabs 06/24/23 ondansetron 4 mg disintegrating 8 mg (2 x 4 mg) PO Q8H PRN nausea 06/24/23 tablet and vomiting 5 days #10 tabs albuterol sulfate 2.5 mg/3 mL 2.5 mg (3 mL) inhalation Q4-6H PRN 01/05/24 (0.083 %) solution for nebulization shortness of breath or wheezing #90 mL albuterol sulfate 90 mcg/actuation 2 puff inhalation Q6H PRN 01/05/24 aerosol inhaler shortness of breath or wheezing #8.5 grams empagliflozin 10 mg tablet 10 mg PO QAM #30 tabs 01/05/24 (Jardiance) nebulizers #1 ea 01/05/24 methadone 10 mg/mL oral 40 mg (4 mL) PO DAILY #1 mL 01/20/24 concentrate (Methadose) prednisone 20 mg tablet 20 mg PO DAILY #4 tabs 01/20/24 Allergies Allergy/AdvReac Type Severity Reaction Status Date / Time haloperidol [From Haldol] AdvReac Mild dystonia Verified 01/30/24 14:30 Review of Systems Review of Systems: Yes all other systems are reviewed and are negative [facility] Past Medical History Medical History Cocaine use disorder Asthma Paranoia Diabetes Social History Social History (System 01/30/24 @ 14:30 by Georgina Brown) Household Members: Friend(s) Housing: Apartment Do you presently have visiting nurse or other home services: No Alcohol intake: never Patient Tobacco Use Status: Never used Tobacco e-Cigarette/Vaping Use: Never Used Second Hand Smoke Exposure: No Substance Use Type: Heroin Advance Directives: No Advance Directives Information Provided: Yes service: No Sexual orientation: Don't Know Physical Exam ED Vital Signs: Vital Signs - 24 hr 01/30/24 14:26 01/30/24 15:03 Temperature 98.5 F 98.5 F Pulse Rate 100 100 Respiratory Rate 16 16 Blood Pressure 140/96 H 140/96 H Pulse Oximetry 98 98 Oxygen Delivery Method Room Air Room Air BMI result Body Mass Index 24.0 Appearance: Alert. Oriented X3. No acute distress. Head: normocephalic, atraumatic. Eyes: Pupils equal, round and reactive to light. Pupils are not pinpoint ENT: Pharynx normal. No tonsillar swelling or exudate. Neck: Normal inspection. Neck supple. CVS: Normal heart rate and rhythm. Pulses normal. Respiratory: No respiratory distress. Breath sounds with end-expiratory wheeze in the upper lobes bilaterally, speaking in complete sentences. Abdomen: Soft and nontender. +BS x4 Skin: Skin warm and dry. Normal skin color. Normal skin turgor. No rashes. Extremities: No lower extremity edema. No joint swelling. Neuro/psych: Oriented X 3. No motor deficit. No sensory deficit. CN II-XII intact. Normal speech and cognition. Steady gait. Medical Decision Making Medical Decision Making MDM Narrative: 23-year-old male, well known to the ER with history of opioid use disorder, diabetes on insulin, asthma who presents to the ER for evaluation after he was found sleeping in his car on the side of the road today. He admits to pulling over as he was feeling tired from working all night and did not feel like driving. He took a nap and was woken up by police. On arrival to the ER he is awake, alert, oriented. He is speaking complete sentences, does not appear to be under the influence of drugs or alcohol. He does not want to stay in the ER. He is not under arrest. He is stable for discharge. Will give information for comprehensive care clinic as patient states he wants to get started back on methadone. Declines need for detox. Stable for discharge home Differential Diagnosis Differential Diagnoses: The differential diagnosis associated with the presentation includes Opioid use disorder, acute intoxication, nap Independent Historian Clinical information obtained from an independent historian. 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 Prescription Management I considered prescription management with: Other (Methadone) Chronic Conditions Patient?s care impacted by: Other (Opioid use disorder) Social Determinants Patient?s care significantly limited by Social Determinants of Health including: Alcoholism and drug addiction in family Critical Care Time Critical Care Time Critical Care Time: No Discharge Plan Discharge Clinical Impression: Opioid use disorder Patient Disposition: Home, Self-Care Instructions: Opioid Use Disorder (ED) Additional Instructions: DO NOT USE DRUGS, THEY CAN KILL YOU Prescriptions: No Action metformin 500 mg tablet 500 mg PO BIDWMEAL 30 Days Qty: 60 0RF ondansetron 4 mg tablet,disintegrating 8 mg PO Q8H PRN (Reason: nausea and vomiting) 5 Days Qty: 10 0RF ondansetron HCl 4 mg tablet 4 mg PO Q6H PRN (Reason: nausea/vomiting) insulin lispro [Humalog KwikPen Insulin] 100 unit/mL insulin pen 10 unit subcut TIDAC Rx Instructions: BG <111 0 units, 111-150 - 0 units, 151-200 2 units, 201-250 4 units, 251-300 6 units, 301-350 8 units, >350 10 units methadone [Methadose] 10 mg/mL Concentrate 40 mg PO DAILY Qty: 1 0RF Rx Instructions: Partial Fill upon patient request. prednisone 20 mg tablet 20 mg PO DAILY Qty: 4 0RF Jardiance 10 mg tablet 10 mg PO QAM Qty: 30 2RF (DME) nebulizers Misc See Rx Instructions .Route Qty: 1 0RF Rx Instructions: As directed albuterol sulfate 2.5 mg /3 mL (0.083 %) solution for nebulization 2.5 mg inhalation Q4-6H PRN (Reason: shortness of breath or wheezing) Qty: 90 0RF albuterol sulfate 90 mcg/actuation HFA aerosol inhaler 2 puff inhalation Q6H PRN (Reason: shortness of breath or wheezing) Qty: 8.5 0RF loratadine 10 mg tablet 10 mg PO DAILY PRN (Reason: Allergic Symptoms) Referrals: [facility] [Provider Group] (opioid use disorder) Interventions: ED Discharge Assessment Last Done: 01/30/24 15:03 Discharge Date/Time: 01/30/24 15:10 Print Language: Setswana
[2024-01-30 15:03] VITALS: BP 140/96; PULSE 100; RESP 16; TEMP 36.9; O2SAT 98
== END 2024-01-30 15:10 | disposition home or self-care (01) ==
PROVIDERS: Emergency Provider Emergency Medicine; PCP Family Medicine
DX: F11.10 Opioid abuse, uncomplicated (principal); E11.9 Type 2 diabetes mellitus without complications; Z79.4 Long term (current) use of insulin; Z79.899 Other long term (current) drug therapy
CPT/HCPCS: 99282; 99283

== ENCOUNTER 2024-08-18 19:16 | Emergency (ER) | payer SELFPAY ==
--- NOTE | ~2024-08-18 | XR_ITS ---
CLINICAL HISTORY: cough 2 view chest x-ray Comparison: 01/19/2024 Findings: Lungs are clear without acute infiltrates. No pneumothorax. Heart size normal. No acute bony abnormalities. Impression: No acute processes This document has been electronically signed by: Kraig Bravo MD on 08/18/2024 20:18:31
[2024-08-18 19:36] VITALS: BP 126/71; PULSE 96; RESP 16; TEMP 36.2; O2SAT 98; BMI 23.6
--- NOTE | 2024-08-18 19:43 | ED_ITS ---
HPI - General Adult General Chief complaint: Upper Respiratory Symptoms Stated complaint: fatigue / sob / has asthma Time Seen by Provider: 08/18/24 20:17 Source: patient Limitations: language barrier History of Present Illness ED Provider: Lucy Hand PA-C HPI narrative: 24-year-old male with a history of asthma, opiate use disorder, polysubstance abuse, psychotic disorder, diabetes who presents with cough and cold symptoms x1 month. Associated dry cough that is repetitive with the wheezing. Patient states he had an inhaler, however he had an appointment with the his primary care, he missed the appointment, he never made another appointment. Denies sick contacts with same symptoms, no fevers. Related Data Home Medications ?Medication ?Instructions ?Recorded ?Confirmed ondansetron HCl 4 mg tablet 4 mg PO Q6H PRN nausea/vomiting 08/16/23 01/19/24 loratadine 10 mg tablet 10 mg PO DAILY PRN Allergic 01/06/24 01/19/24 Symptoms insulin lispro 100 unit/mL 10 unit subcut TIDAC 01/19/24 01/19/24 subcutaneous pen (Humalog KwikPen (U-100) Insulin) Previous Rx's ?Medication ?Instructions ?Recorded metformin 500 mg tablet 500 mg PO BIDWMEAL 30 days #60 tabs 06/24/23 ondansetron 4 mg disintegrating 8 mg (2 x 4 mg) PO Q8H PRN nausea 06/24/23 tablet and vomiting 5 days #10 tabs albuterol sulfate 2.5 mg/3 mL 2.5 mg (3 mL) inhalation Q4-6H PRN 01/05/24 (0.083 %) solution for nebulization shortness of breath or wheezing #90 mL albuterol sulfate 90 mcg/actuation 2 puff inhalation Q6H PRN 01/05/24 aerosol inhaler shortness of breath or wheezing #8.5 grams empagliflozin 10 mg tablet 10 mg PO QAM #30 tabs 01/05/24 (Jardiance) nebulizers #1 ea 01/05/24 methadone 10 mg/mL oral 40 mg (4 mL) PO DAILY #1 mL 01/20/24 concentrate (Methadose) prednisone 20 mg tablet 20 mg PO DAILY #4 tabs 01/20/24 albuterol sulfate 2.5 mg/3 mL 2.5 mg (3 mL) inhalation Q4-6H PRN 08/18/24 (0.083 %) solution for nebulization shortness of breath or wheezing #75 mL albuterol sulfate 90 mcg/actuation 2 puff inhalation Q4-6H PRN 08/18/24 aerosol inhaler shortness of breath or wheezing #8.5 grams prednisone 20 mg tablet 40 mg (2 x 20 mg) PO DAILY #8 tabs 08/18/24 Allergies Allergy/AdvReac Type Severity Reaction Status Date / Time haloperidol [From Haldol] AdvReac Mild dystonia Verified 08/18/24 19:41 Review of Systems 2 Review of Systems: Yes all other systems are reviewed and are negative Constitutional: Constitutional: Denies fatigue and Denies fever(s) Cardiovascular: Cardiovascular: Denies chest pain and Denies dyspnea Respiratory: Respiratory: Reports cough, Denies dyspnea and Reports wheezing Gastrointestinal: Gastrointestinal: Denies diarrhea, Denies nausea and Denies vomiting Endocrine: Endocrine: Denies fatigue Allergic/Immunologic: Allergic/Immunologic: Reports wheezing PMFSH Past Medical History Attestation statement: The following information was validated with the patient. Medical History Cocaine use disorder Asthma Paranoia Diabetes Social History Social History (System 01/30/24 @ 14:30 by Georgina Brown) Household Members: Friend(s) Housing: Apartment Do you presently have visiting nurse or other home services: No Alcohol intake: never Patient Tobacco Use Status: Never used Tobacco e-Cigarette/Vaping Use: Never Used Second Hand Smoke Exposure: No Substance Use Type: Heroin and Marijuana service: No Sexual orientation: Don't Know Physical Exam ED Vital Signs: Vital Signs - 24 hr 08/18/24 19:36 08/18/24 20:14 08/18/24 22:10 Temperature 97.2 F 99.1 F 98.5 F Pulse Rate 96 62 96 Respiratory Rate 16 16 16 Blood Pressure 126/71 111/86 110/65 Pulse Oximetry 98 98 94 Oxygen Delivery Method Room Air Room Air Room Air BMI result Body Mass Index 23.6 Const Other: Alert Orientation/consciousness: patient oriented x3 Resp Other: Nonlabored respirations, speaking in full sentences, active bronchospasm cough, and occasional faint expiratory wheeze posterior chowdhury Cardio Other: Normal peripheral perfusion Skin Other: Warm dry no rash Neuro General: patient oriented x3, no focal motor deficits and CN's II-XI intact bilaterally Psych Other: Somewhat hostile Course Course Course Narrative: RME performed by Lilian Husain PA-C. Patient is a 24 year old assigned male at presenting to the emergency department with a cough, fatigue, and feeling generally unwell. Detailed physical exam and review of systems are deferred to the milk receiver tank truck. Labs, imaging, and swabs ordered. Patient placed back in the waiting room pending room availability and results. Medications Administered Discontinued Medications Generic Name Dose Route Start Last Admin Trade Name Gabino PRN Reason Stop Dose Admin Albuterol Sulfate 4 puff 08/18/24 21:46 08/18/24 22:11 Albuterol Sulfate 90 Mcg 8 Gm Inhaler INHALE 08/18/24 21:47 4 puff ONCE ONE Administration Prednisone 40 mg 08/18/24 21:47 08/18/24 22:11 Prednisone 20 Mg Tablet PO 08/18/24 21:48 40 mg ONCE ONE Administration Medical Decision Making Medical Decision Making [facility] Narrative: 24-year-old male with a history of asthma, opiate use disorder, polysubstance abuse, psychotic disorder, diabetes who presents with cough and cold symptoms x1 month. Associated dry cough that is repetitive with the wheezing. Patient states he had an inhaler, however he had an appointment with the his primary care, he missed the appointment, he never made another appointment. Denies sick contacts with same symptoms, no fevers. Problem: Asthma, psychiatric illness, polysubstance abuse History: Per patient I have considered the following differential diagnoses: Viral syndrome, asthma exacerbation, bronchitis, pneumonia Plan: Screening labs including a viral panel and chest x-ray were ordered from triage everything is unremarkable. We will treat the patient for a mild asthma exacerbation I have independently reviewed the following tests: Labs: No leukocytosis, not anemic, no electrolyte abnormality viral panel negative Chest x-ray:Findings: Lungs are clear without acute infiltrates. No pneumothorax. Heart size normal. No acute bony abnormalities. Impression: No acute processes Lab Data 08/18/24 19:58 08/18/24 19:58 Labs: Lab Results 08/18/24 Range/Units 19:58 WBC 9.6 (4.8-10.8) X10*3/uL RBC 5.51 (4.60-5.80) X10*6/uL Hgb 13.9 L (14.0-18.0) g/dl Hct 41.8 L (42.0-52.0) % MCV 75.9 L (80.0-98.0) fL MCH 25.2 L (27.0-33.0) pg MCHC 33.3 (31.0-36.0) g/dl RDW 13.3 (11.0-16.0) % Plt Count 272 (160-400) X10*3/uL MPV 10.9 (9.4-12.4) fL Immature Gran % (Auto) 0.2 (0.0-0.4) % Neut % (Auto) 53.9 (45-73) % Lymph % (Auto) 25.7 (20-40) % [place] % (Auto) 8.6 (2-11) % Eos % (Auto) 10.8 H (0-4) % Baso % (Auto) 0.8 (0-2) % Lymph # (Auto) 2.5 (1.2-4.9) X10*3/uL [place] # (Auto) 0.8 (0.1-1.2) X10*3/uL Eos # (Auto) 1.0 H (0.0-0.4) X10*3/uL Baso # (Auto) 0.1 (0.0-0.2) X10*3/uL Abs Immat Gran (auto) 0.02 (0.00-0.03) X10*3/uL Absolute Neuts (auto) 5.2 (2.0-8.3) x10*3/uL Absolute Nucleated RBC 0.000 (0.0-0.012) X10*3/uL Nucleated RBC % (auto) 0.0 (0.0-0.2) /100WBC Sodium 144 (135-145) mmol/L Potassium 3.7 (3.3-5.1) mmol/L Chloride 110 H (96-108) mmol/L Carbon Dioxide 26 (22-29) mmol/L Anion Gap 12 (12-20) BUN 8 L (9-16) mg/dL Creatinine 0.81 (0.5-1.4) mg/dL Estim Creat Clear Calc 115.7 Estimated GFR > 60 Random Glucose 89 (60-115) mg/dL Calcium 8.9 D (8.4-10.2) mg/dL Magnesium 2.1 (1.6-2.6) mg/dL Total Bilirubin 0.2 (0.0-1.0) mg/dL AST 29 (5-37) U/L ALT 29 (0-40) U/L Alkaline Phosphatase 97 (39-117) U/L Total Protein 7.4 (6.5-8.0) g/dL Albumin 4.5 (3.5-5.0) g/dL Influenza Type A (PCR) NEGATIVE (Negative) Influenza Type B (PCR) NEGATIVE (Negative) RSV RNA Qual (PCR) NEGATIVE (Negative) SARS-CoV-2 RNA (RT-PCR) NEGATIVE (Negative) Discharge Plan Discharge Clinical Impression: Asthma exacerbation Patient Disposition: Home, Self-Care Instructions: Asthma (ED) Additional Instructions: All of your screening labs including a viral panel were normal. You were tested for influenza RSV and COVID. The chest x-ray is clear. You are being treated for an asthma exacerbation. See home care instructions. Use your home nebulier as needed or your inhaler as needed, take the steroid as directed. You do not require more steroid until tomorrow morning. Follow up with primary care as needed. Prescriptions: New prednisone 20 mg tablet 40 mg PO DAILY Qty: 8 0RF albuterol sulfate 90 mcg/actuation HFA aerosol inhaler 2 puff inhalation Q4-6H PRN (Reason: shortness of breath or wheezing) Qty: 8.5 0RF albuterol sulfate 2.5 mg /3 mL (0.083 %) solution for nebulization 2.5 mg inhalation Q4-6H PRN (Reason: shortness of breath or wheezing) Qty: 75 0RF No Action metformin 500 mg tablet 500 mg PO BIDWMEAL 30 Days Qty: 60 0RF ondansetron 4 mg tablet,disintegrating 8 mg PO Q8H PRN (Reason: nausea and vomiting) 5 Days Qty: 10 0RF ondansetron HCl 4 mg tablet 4 mg PO Q6H PRN (Reason: nausea/vomiting) insulin lispro [Humalog KwikPen Insulin] 100 unit/mL insulin pen 10 unit subcut TIDAC Rx Instructions: BG <111 0 units, 111-150 - 0 units, 151-200 2 units, 201-250 4 units, 251-300 6 units, 301-350 8 units, >350 10 units methadone [Methadose] 10 mg/mL Concentrate 40 mg PO DAILY Qty: 1 0RF Rx Instructions: Partial Fill upon patient request. prednisone 20 mg tablet 20 mg PO DAILY Qty: 4 0RF Jardiance 10 mg tablet 10 mg PO QAM Qty: 30 2RF (DME) nebulizers Misc See Rx Instructions .Route Qty: 1 0RF Rx Instructions: As directed albuterol sulfate 2.5 mg /3 mL (0.083 %) solution for nebulization 2.5 mg inhalation Q4-6H PRN (Reason: shortness of breath or wheezing) Qty: 90 0RF albuterol sulfate 90 mcg/actuation HFA aerosol inhaler 2 puff inhalation Q6H PRN (Reason: shortness of breath or wheezing) Qty: 8.5 0RF loratadine 10 mg tablet 10 mg PO DAILY PRN (Reason: Allergic Symptoms) Stand Alone Forms: Work/School Release Print Language: Haitian
[2024-08-18 20:03] LABS: MANUAL DIFF FLAG NO
[2024-08-18 20:05] LABS: Basophils Absolute Auto 0.1 X10*3/uL (0.0-0.2); Basophils Percent Auto 0.8 % (0-2); Eosinophils Percent Auto 10.8 % (0-4); Hematocrit 41.8 % (42.0-52.0); Hemoglobin 13.9 g/dl (14.0-18.0); Imm Gran Abs Auto 0.02 X10*3/uL (0.00-0.03); Imm Gran Pct Auto 0.2 % (0.0-0.4); Lymphocytes Absolute Auto 2.5 X10*3/uL (1.2-4.9); Lymphocytes Percent Auto 25.7 % (20-40); Mean Corpuscular HGB Conc 33.3 g/dl (31.0-36.0); Mean Corpuscular Hemoglobin 25.2 pg (27.0-33.0); Mean Corpuscular Volume 75.9 fL (80.0-98.0); Mean Platelet Volume 10.9 fL (9.4-12.4); Monocytes Absolute Auto 0.8 X10*3/uL (0.1-1.2); Monocytes Percent Auto 8.6 % (2-11); Neutrophils Absolute Auto 5.2 x10*3/uL (2.0-8.3); Neutrophils Percent Auto 53.9 % (45-73); Platelet Count 272 X10*3/uL (160-400); Red Blood Count 5.51 X10*6/uL (4.60-5.80); Red Cell Distribution Width 13.3 % (11.0-16.0); White Blood Count 9.6 X10*3/uL (4.8-10.8)
--- OUTSIDE RECORDS SUMMARY | 2024-08-18 20:10 | XMS_ITS | Clinical Summary ---
Author Organization [employer] Address [address] [place] [address] Care Team Providers Care Electronic Gaming Device Supervisor Name Role Phone Grisel Monroe MD Primary Care Provider [phone] Allergies No known active allergies Medications * This document contains information received from the source organization and may not represent a complete record from that organization. cholecalcifero l (Vitamin D-3) 25 MCG tablet Take 25 mcg by mouth in the morning. 3 Active naloxone (Narcan) 4 mg/0.1 mL nasal spray FOR SUSPECTED OPIOID OVERDOSE. SPRAY 0.1mL IN ONE NOSTRIL. REPEAT IN ALTERNATE NOSTRIL 2-3 MINUTES IF NEEDED. SEEK MEDICAL ATTENTION IMMEDIATELY EVEN IF PATIENT RESPONDS. 3 Active loratadine (Claritin) 10 MG tablet Take 1 tablet (10 mg) by mouth in the morning. 30 tablet 11 3 Active albuterol 108 (90 Base) MCG/ACT inhaler Inhale 2 puffs every 6 (six) hours if needed for wheezing. 18 g 11 3 Active fluticasone (Flonase) 50 MCG/ACT nasal spray INSTILL 1-2 SPRAYS IN EACH NOSTRIL ONCE DAILY IN THE MORNING 48 g 3 Active Alcohol Swabs (Alcohol Prep) 70 % pads USE DIRECTED 200 each 3 4 Active TRUEplus Lancets [facility] BLOOD SUGAR FOUR TIMES DAILY 100 each 11 4 Active Mometasone Furoate (Asmanex HFA) 100 MCG/ACT aerosol 1 puff twice daily 13 g 11 4 Active Continuous Glucose Quality Intern (FreeStyle Art 2 [place]) device Scan sensor every 8 hours 1 each 4 Active Continuous Glucose Sensor (FreeStyle Art 2 Sensor) [facility] [place] 1 sensor every 14 days 2 each 11 4 Active glucose blood (FreeStyle Precision Rayo Test) test strip Use to test blood sugar 3 times daily 100 each 12 4 025 Active Lantus SoloStar 100 UNIT/ML pen INJECT 10 UNITS SUBCUTANEOUSLY EVERY EVENING 4 Active insulin lispro (HumaLOG) 100 UNIT/ML injection PLEASE SEE ATTACHED FOR DETAILED DIRECTIONS 4 Active albuterol (2.5 MG/3ML) 0.083% nebulizer solution INHALE 1 AMPULE USING A NEBULIZER EVERY 4 HOURS NEEDED FOR WHEEZING OR SHORTNESS OF BREATH, DO NOT EXCEED FOUR TIMES DAILY 90 mL 1 5 Active Active Problems Problem Noted Date Diagnosed Date Episode of recurrent major depressive disorder 0 01/19/2023 Assessment & Plan (02/06/2023 3:51 PM EDT): Patient with symptoms of anhedonia, hopelessness, sleep disturbance, fatigued, poor appetite, feelings of guilt, difficulty concentrating, restlessness, urge to use opioids resulting in a failure to fulfill daily responsibilities, social and occupational activities reduced due to opioid use and unsuccessful efforts to cut down. Symptoms occur nearly everyday and have been present since 2020 and indicate a severe impact on social and occupational functioning. Symptoms presented in the context of relocation from [facility] to [place], language barrier and lack of social supports. Patient will benefit from receiving follow-up BE's, a referral for Painter Rough with [facility] and continuity of Methadone Program with [facility]. Provided mindfulness exercises during today's session. Patient has limited medical insurance, unable to set up OP individual therapy services outside [facility]. At this time Cassandra Mcneal meets criteria for Visit Diagnoses: Problem List Items Addressed This Visit Other Opioid use disorder, severe, on maintenance therapy (CMS/HCC) Episode of recurrent major depressive disorder (CMS/HCC) Patient ready to address current needs Yes Strengths include motivation to work on personal goals and go back to school PLAN: 1. Follow up with [facility] [place]: Not recommended for follow-up 2. Patient goal is to gradually stop using drugs and learn Indian as a second language 3. Behavioral Recommendations a. Continue Methadone program with [facility] b. Referral for Painter Rough with [facility] c. Incorporate mindfulness exercises into daily routine Allergic rhinitis 01/10/2023 Assessment & Plan (01/10/2023 10:30 AM EDT): -Will start Loratadine and Flonase Asthma 01/10/2023 Assessment & Plan (02/28/2024 3:33 PM EDT): - step up therapy - asthma exacerbation, due to or complicated with bronchitis, drug use - 2 hospitalizations in December and January. No history of intubation - start prednisone tapering schedule. Reviewed its effect on BP and BG. - start ICS, fluticasone - continue albuterol HFA and neb prn. Patient has a faster and better response to nebulizer treatment. Assessment & Plan (01/10/2023 10:30 AM EDT): -Start Albuterol, prn Opioid dependence 01/09/2023 Assessment & Plan (02/28/2024 3:30 PM EDT): >>ASSESSMENT AND PLAN FOR OPIOID USE DISORDER, SEVERE, ON MAINTENANCE THERAPY ([facility]) WRITTEN ON 01/20/2023 12:48 PM BY FLORENCIA ZAMARRIPA Patient with symptoms of anhedonia, hopelessness, sleep disturbance, fatigued, poor appetite, feelings of guilt, difficulty concentrating, restlessness, urge to use opioids resulting in a failure to fulfill daily responsibilities, social and occupational activities reduced due to opioid use and unsuccessful efforts to cut down. Symptoms occur nearly everyday and have been present since 2020 and indicate a severe impact on social and occupational functioning. Symptoms presented in the context of relocation from [facility] to [place], language barrier and lack of social supports. Patient will benefit from receiving follow-up BE's, a referral for Painter Rough with [facility] and continuity of Methadone Program with [facility]. Provided mindfulness exercises during today's session. Patient has limited medical insurance, unable to set up OP individual therapy services outside [facility]. At this time Cassandra Mcneal meets criteria for Visit Diagnoses: Problem List Items Addressed This Visit Other Cocaine use Opioid use disorder, severe, on maintenance therapy (CMS/HCC) Episode of recurrent major depressive disorder (CMS/HCC) Patient ready to address current needs Yes Strengths include motivation to work on personal goals and go back to school PLAN: Follow up with [facility] [place]: Recommended for follow-up: Follow-up BE scheduled in two weeks Patient goal is to learn Indian as a second language and stop using drugs. Behavioral Recommendations Continuity of Methadone Program with [facility] Referral for Painter Rough with [facility] Incorporate mindfulness exercises into daily routine Assessment & Plan (01/11/2023 4:49 AM EDT): -Continue with [facility] Methadone Program, currently at 115 mg daily -Discussed about harm reduction (fentanyl test strips, not use alone, not to share equipments, use sterile equipments) -Has narcan at home; advised to carry it with him Cocaine use 01/09/2023 Assessment & Plan (01/11/2023 4:47 AM EDT): -Pt is not ready to quit using cocaine. -Recommended to test his drug supply with Fentanyl test strips. Psychotic disorder 01/09/2023 Assessment & Plan (01/11/2023 4:49 AM EDT): Improved. -requested referral to [facility] for Counselor. Diabetes mellitus, type 2 06/15/2022 Assessment & Plan (02/28/2024 4:47 PM EDT): -A1C 12.3 % on 02/27/24 -Continue working on lifestyle modifications -Increase basal insulin to 12 units daily -Continue bolus insulin 10 units with meals -Restart GLP1RA -last lipid profile: Dec 2022 -last microalbumin test: Dec 2022, no microalbuminuria -last comprehensive foot exam: Dec 2022 -last diabetic eye exam: Referred to [facility] Eye care, but patient did not keep appt -Will update labs -Will check feet at next visit -Refer to hydrometallurgical engineer Assessment & Plan (05/01/2023 6:03 AM EST): -A1c 6.5% on 01/11/23 w/o medication, improved from 10% in 2020. -Will not restart meds at this time -Continue working on lifestyle modifications -Will update labs -Will check feet at next visit -Refer to hydrometallurgical engineer -Recommended dental care Assessment & Plan (01/11/2023 4:45 AM EDT): -A1c 6.5% today w/o medication, improved from 10% in 2020. -Will not restart meds at this time -Continue working on lifestyle modifications -Will update labs -Will check feet at next visit -Refer to hydrometallurgical engineer -Recommended dental care Overweight 01/02/2018 Encounters Date Type Department Care Team Description 07/08/2024 Telephone [facility] [address] [place] [phone] Grisel Monroe MD No Show 07/06/2024 Refill [facility] [address] [place] [phone] Grisel Monroe MD 07/03/[address] [address] Grisel Monroe MD Chart Prep 06/04/[address] [phone] Grisel Monroe MD Nurse Triage 05/22/[address] [address] Laurence Botello MA june recall from Last 3 Months Immunizations Name Administration Dates Next Due Hep B, adult 01/10/2023,02/05/2019 Influenza injectable quadriv alent IIV4 with preservative 01/29/2019,02/07/2018 Pneumococcal Conjugate PCV 20 01/10/2023 Pneumococcal Polysaccharide PPSV23 02/05/2019 Tdap 02/07/2018 Social History Tobacco Use Types Packs/Day Years Used Date Smoking Tobacco: Never Smokeless Tobacco: Never Tobacco Cessation:Counseling Given: Not Answered Alcohol Use Standard Drinks/Week Comments Yes 0 (1 standard drink = 0.6 oz pur e alcohol) Depression Answer Date Recorded Patient Health Questionnaire-9 Score 15 01/20/2023 Housing Stability Answer Date Recorded What is your housing situation today? I have galina box 08/07/[address] you li ve. Do you have problems with any of the following? None of the above 08/07/2023 Food Insecurity Answer Date Recorded Within the past 12 months, y ou worried that your food would run out before you got money to buy more: Never True 08/07/2023 Within the past 12 months,th e food you bought just didn't last and you didn't have enough money to get more: Never True Transportation Answer Date Recorded In the past 12 months, has l ack of transportation kept you from medical appts, meetings, work or from getting things needed for daily living? No 08/07/2023 Utilities Answer Date Recorded In the past 12 months, has t he electric, gas, oil or water company threatened to shut off services in your home? No 08/07/2023 Depression Answer Date Recorded Patient Health Questionnaire-2 Score 4 01/20/2023 Sex and Gender Information Value Date Recorded Sex Assigned at Male 03/14/2022 10:34 AM EDT Legal Sex Male 10:34 AM EDT Gender Identity Male 03/14/2022 10:34 AM EDT Sexual Orientation Choose not to disclose 2021 10:34 AM EDT Last Filed Vital Signs Vital Sign Reading Time Taken Comments Blood Pressure 118/68 05/16/2024 11:03 AM EST Pulse 92 05/16/2024 11:03 AM EST Temperature 37.4 ??C (99.3 ??F) 02/27/2024 11:46 AM E DT Respiratory Rate 18 02/27/2024 11:46 AM EDT Oxygen Saturation 95% 02/27/2024 11:46 AM EDT Inhaled Oxygen Concentration - - Weight 66.2 kg (146 lb) 02/27/2024 11:46 AM EDT Height 162.6 cm (5' 4 ) 02/27/2024 11:46 AM EDT Body Mass Index 25.06 02/27/2024 11:46 AM EDT Plan of Treatment Upcoming Encounters Date Type Department Care Team (Late st Contact Info) Description 08/20/2024 3:30 PM EDT Medication Management [facility] [address] [place] [address] Moises Anderson, PharmD [address] [place], [place] [phone] 09/24/2024 3:00 PM EDT Office Visit [facility] [address] [place] [address] Shilpa Roman, OD [address] [place] [address] Health Maintenance Due Date Last Done Comments Dental Oral Exam 1998 Dental Prophylaxis 1998 Dental X-Ray: Bitewings 1998 Dental X-Ray: Full Mouth 1998 Diabetes: Foot Exam 02/15/2008 Eye Exam 02/15/2008 Alcohol/Substance Use Screening 2010 Family Planning (PISQ) 2013 HPV Vaccines (1 - Male 3-dose series) 2013 Depression Monitoring (PHQ-9) 07/21/2023 01/20/2023, 01/20/2023 Lipid Panel 01/12/2024 01/11/2023, 05/22/2020 Diabetes: Urine Protein Screening 01/13/2024 01/12/2023, 05/22/2020 COVID-19 Vaccine ( season) 2024 08/11/2020, 07/14/2020 Influenza Vaccine (#1) 2024 01/29/2019, 2017 Depression Screening 01/21/2024 01/20/2023, 01/21/20 23 Diabetes: Hemoglobin A1C 05/29/202402/26/ 024, 06/23/2023, 01/10/2023, Additional history exists SDOH Screening 08/06/2024 08/07/2023 Tobacco Screening 03/02/2025 03/02/2024 DTaP/Tdap/Td Vaccines (2 - Td or Tdap) 02/08/2028 02/07/2018 Zoster Vaccines (1 of 2) 02/15/2048 RSV Patients and Patients Aged 60 years or older (1 - 1-dose 75+ series) 2073 Hepatitis B Vaccines Discontinued 01/10/2023, 02/06/20 19 Pneumococcal Vaccine: Pediatrics (0 to 5 Years) and At-Risk Patients (6 to 49) Years) Completed 01/10/2023, 02/05/2019 HIV Screening Completed 01/11/2023 Hepatitis C Screening Completed 01/11/2023 HIB Vaccines Aged Out No longer eligi ble based on patient's age to complete this topic Hepatitis A Vaccines Aged Out No long er eligible based on patient's age to complete this topic IPV Vaccines Aged Out No longer eligi ble based on patient's age to complete this topic Meningococcal Vaccine Aged Out No paola eulalio eligible based on patient's age to complete this topic RSV under 20 months Aged Out No longe r eligible based on patient's age to complete this topic Rotavirus Vaccines Aged Out No longer eligible based on patient's age to complete this topic Procedures Procedure Name Priority Date/Time Associated Diagnosis Comments POCT GLYCOSYLATED HEMOGLOBIN (HGB A1C) Routine 02/27/2024 11:52 AM EDT Type 2 diabetes mellitus with hyperglycemia, without long-term current use of insulin (CMS/HCC) ALBUMIN, RANDOM URINE W/CREATININE Routine 01/12/2023 11:29 AM EDT Type 2 diabetes mellitus with hyperglycemia, without long-term current use of insulin (CMS/HCC) HEPATITIS C ANTIBODY REFLEX Routine 01/11/2023 12:15 PM EDT HIV ANTIBODY/ANTIGEN ([place] [facility]) Routine 01/11/2023 12:15 PM EDT LIPID PANEL WITH REFLEX TO DIRECT LDL Routine 01/11/2023 12:15 PM EDT Type 2 diabetes mellitus with hyperglycemia, without long-term current use of insulin ([facility]/HCC) from Last 3 Months or Most Recently Relevant to Health Maintenance Results * (ABNORMAL) POCT glycosylated hemoglobin (Hgb A1c) (02/27/2024 11:52 AM EDT) Hemoglobin A1C 12.3(A) 4.0 - 6.0 % QC Media Lot # [id number] Lot# Expiration Date ,[id number] Blood Capillary blood specimen / Unknown 02/27/2024 11:52 AM EDT us Grisel Monroe MD POINT OF CARE TEST ENTER/EDIT OR DERABLES Final Result * Albumin, Random Urine W/Creatinine (01/12/2023 11:29 AM EDT) Creatinine, Urine 191.11 mg/dL [facility] Microalbumin Urine <5.0 mg/L [facility] Microalbum Creatinine Ratio Ur TNP <30 ug/mg cr [facility] Comment:Unable to calculate albumin/creatinine ratio due to lowmicroalbumin or creatinine result. Urine 01/12/2023 11:2 9 AM EDT 01/12/2023 1:14 PM EDT Grisel Monroe MD LAB URINE ORDERABLES Final Resul t Performing Organization Address [facility] de Phone Number [facility] [address] [place] [phone] * Hepatitis C Antibody Reflex (01/11/2023 12:15 PM EDT) Hepatitis C Antibody Nonreactive Nonreactive [facility] Comment:Antibodies to HCV no t detected; does not exclude early acuteHCV infection. 01/11/2023 12:1 5 PM EDT 01/11/2023 1:31 PM EDT Grisel Monroe MD LAB BLOOD ORDERABLES Final Resul t Performing Organization Address [facility] de Phone Number [facility] [address] [place] [phone] * HIV Ab/Ag ([place] [facility]) (01/11/2023 12:15 PM EDT) HIV AB/AG Nonreactive Nonreactive [facility] Comment:HIV-1 p24 Ag and/or HIV-1/HIV-2 Ab not detected.A test result that is nonreactive does not exclude thepossibility of exposure to or infection with HIV-1 and/orHIV-2. Nonreactive results in this assay for individualswith prior exposure to HIV-1 and/or HIV-2 may be due toantigen and antibody levels that are below the limit ofdetection of this assay.The [employer] HIV Ag/Ab Combo assay result andsupplemental assay results should be interpreted inconjunction with the patient's clinical presentation,history and other laboratory results. If the results areinconsistent with clinical evidence, additional testing issuggested to confirm the result. 01/11/2023 12:1 5 PM EDT 01/11/2023 1:31 PM EDT us Grisel Monroe MD LAB BLOOD ORDERABLES Final Resul t [facility] [address] [place] [phone] * (ABNORMAL) Lipid Panel with Reflex to Direct LDL (01/11/2023 12:15 PM EDT) Triglycerides 161(H) <150 mg/dL [facility] Comment:Desirable Triglyceri de: less than 150 mg/dLBorderline High Triglyceride 150-199 mg/dLHigh Triglyceride: 200-499 mg/dLVery High Triglyceride: greater than or equal to 5OO mg/dL Cholesterol 121 <200 mg/dL [facility] Comment:Desirable Cholestero l: less than 200 mg/dLBorderline High Cholesterol: 200-239 mg/dLHigh Cholesterol: greater than 239 mg/dL LDL Cholesterol Calculated 42 <100 mg/dL [facility] Comment:Desirable LDL: less than 100 mg/dLNear Optimal/Above Optimal LDL: 110- 129 mg/dLBorderline High LDL: 130-159 mg/dLHigh LDL: 160-189 mg/dLVery High LDL: greater than or equal to 190 mg/dL HDL Cholesterol 47 >40 mg/dL [facility] Comment:Desirable HDL: great er than 40 mg/dL Note: This HDL assay may give artificially low results in patients with liver disease. Blood 01/11/2023 12:1 5 PM EDT 01/11/2023 1:31 PM EDT us Grisel Monroe MD LAB BLOOD ORDERABLES Final Resul t [facility] [address] [place] [phone] from Last 3 Months or Most Recently Relevant to Health Maintenance Insurance HSN PARTIAL * Guarantor: Cassandra Bradley Account Type Relation to Patient Date of Phone Billing Address Dental Self [address] [place] [address] [facility] AD[facility] Care Teams Electronic Gaming Device Supervisor Relationship Specialty Start Date End Date Grisel Monroe MD [address] [place] [phone] PCP - General Family Medicine 01/02/18
--- OUTSIDE RECORDS SUMMARY | 2024-08-18 20:10 | XMS_ITS | Encounter Summary ---
Author Organization [facility] Address [address] [place] [address] Care Team Providers Care Office Bookkeeper Name Role Phone Grisel Monroe MD Primary Care Provider [phone] Reason for Visit * Reason Comments Med Refill Encounter Details Date Type Department Care Team (Late Contact Info) Description 05/24/2022 Refill [facility] [address] [place], [place] [phone] Grisel Monroe MD [address] [place] [address] Type 2 diabetes mellitus with hyperglycemia, unspecified whether jail insulin use ([facility]) (Primary Dx) Social History Tobacco Use Types Packs/Day Years Used Date Smoking Tobacco: Never Assessed Sex and Gender Information Value Date Recorded Sex Assigned at Male 03/14/2022 10:34 AM EDT Legal Sex Male 10:34 AM EDT Gender Identity Male 03/14/2022 10:34 AM EDT Sexual Orientation Choose not to disclose 2021 10:34 AM EDT documented as of this encounter Plan of Treatment Upcoming Encounters Date Type Department Care Team (Late Contact Info) Description 08/20/2024 3:30 PM EDT Medication Management [facility] [address] [place] [address] Moises Anderson, PharmD [address] [place] [address] 09/24/2024 3:00 PM EDT Office Visit [facility] [address] [place], [place] [phone] Shilpa Roman, OD [address] [place], [place] [phone] documented as of this encounter Visit Diagnoses Diagnosis Type 2 diabetes mellitus with hyperglycemia, unspecified whether jail insulin use ([facility])- Primary documented in this encounter Care Teams Office Bookkeeper Relationship Specialty Start Date End Date Grisel Monroe MD [address] [place] [address] PCP - General Family Medicine 01/02/18 documented as of this encounter
--- OUTSIDE RECORDS SUMMARY | 2024-08-18 20:11 | XMS_ITS | Encounter Summary ---
Author Organization [employer] [facility] Address [address] [place] [address] Care Team Providers Care Forms Designer Name Role Phone Grisel Monroe MD Primary Care Provider [phone] Encounter Details Date Type Department Care Team (Late st Contact Info) Description 05/24/2022 Orders Only [facility] MEDICINE [address] [place] [address] Deya Huffman LPN Social History Tobacco Use Types Packs/Day Years [...] Description 08/20/2024 3:30 PM EDT Medication Management [facility] [address] [place] [address] Moises Anderson, PharmD [address] [place] [address] 09/24/2024 3:00 PM EDT Office Visit [facility] OPTOMETRY [address] [place] [address] Shilpa Roman, OD [address] [place] [address] documented as of this encounter Procedures Procedure Name Priority Date/Time Associated Diagnosis Comments HEPATITIS C ANTIBODY REFLEX Routine 01/11/2023 12:15 PM EDT HIV ANTIBODY/ANTIGEN ([place] [facility]) Routine 01/11/2023 12:15 PM EDT HEPATITIS B SURFACE ANTIGEN, EIA Routine 01/11/2023 12:15 PM EDT HEPATITIS B SURFACE ANTIBODY, QUALITATIVE Routine 01/11/2023 12:15 PM EDT COVID-19 ID NOW ([facility]) Routine 12/24/2022 3:56 PM EDT URINALYSIS, COMPLETE, WITH REFLEX TO CULTURE Routine 12/24/2022 11:58 AM EDT DRUG MONITOR, PANEL 1, SCREEN, URINE Routine 12/24/2022 11:58 AM EDT ETHANOL Routine 12/24/2022 8:31 AM EDT CBC WITH AUTO DIFFERENTIAL Routine 12/24/2022 8:31 AM EDT ACETAMINOPHEN LEVEL Routine 12/24/2022 8 :31 AM EDT SALICYLATE Routine 12/24/2022 8:31 AM EDT HEPATIC FUNCTION PANEL Routine 8:31 AM EDT BASIC METABOLIC PANEL Routine 12/24/2022 8:31 AM EDT GLUCOSE, WHOLE BLOOD Routine 06/20/2022 3:32 AM EST documented in this encounter Results * Hepatitis C Antibody Reflex (01/11/2023 12:15 PM EDT) Hepatitis C Antibody Nonreactive Nonreactive [facility] Comment:Antibodies to HCV no t detected; does not exclude early acuteHCV infection. 01/11/2023 12:1 5 PM EDT 01/11/2023 1:31 PM EDT Grisel Monroe MD LAB BLOOD ORDERABLES Final Resul t Performing Organization Address City/[facility]/ZIP Co de Phone Number [facility] [address] [place] [address] [phone] * Hepatitis B surface antigen, EIA (01/11/2023 12:15 PM EDT) Hepatitis B Surface Ag Negative Negative [facility] 01/11/2023 12:1 5 PM EDT 01/11/2023 1:31 PM EDT Grisel Monroe MD LAB BLOOD ORDERABLES Final Resul t Performing Organization Address [facility] de Phone Number [facility] [address] [place] [address] [phone] * HIV Ab/Ag ([facility]) (01/11/2023 12:15 PM EDT) HIV AB/AG Nonreactive Nonreactive [facility] Comment:HIV-1 p24 Ag and/or HIV-1/HIV-2 Ab not detected.A test result that is nonreactive does not exclude thepossibility of exposure to or infection with HIV-1 and/orHIV-2. Nonreactive results in this assay for individualswith prior exposure to HIV-1 and/or HIV-2 may be due toantigen and antibody levels that are below the limit ofdetection of this assay.The [employer] HIV Ag/Ab Combo assay result andsupplemental assay results should be interpreted inconjunction with the patient's clinical presentation,history and other laboratory results. If the results areinconsistent with clinical evidence, additional testing issuggested to confirm the result. 01/11/2023 12:1 5 PM EDT 01/11/2023 1:31 PM EDT Grisel Monroe MD LAB BLOOD ORDERABLES Final Resul t Performing Organization Address City/[facility]/ZIP Co de Phone Number [facility] [address] [place] [address] [phone] * Hepatitis B Surface Antibody, Qualitative (01/11/2023 12:15 PM EDT) ~Hepatitis B Surface Antibody REACTIVE Nonreactive [facility] Comment:REACTIVE: > 11.99 mI U/mL 01/11/2023 12:1 5 PM EDT 01/11/2023 1:31 PM EDT us Grisel Monroe MD LAB BLOOD ORDERABLES Final Resul t Performing Organization Address [facility] Co de Phone Number [facility] [address] [place] [address] [phone] * COVID-19 ID NOW ([facility]) (12/24/2022 3:56 PM EDT) Pathologist [facility] IDNOW SERIAL# [id number] [facility] COVID-19 TEST Negative Negative [facility] COVID-19 NOTE See Note [facility] Comment: Results are for the identification of SARS-CoV2 RNA. TheSARS-CoV2 RNA is generally detectable in respiratory samplesduring the acute phase of infection. Positive results areindicative of the presence of SARS-CoV-2 RNA; clinicalcorrelation with patient history and other diagnosticinformation is necessary to determine patient infectionstatus. Positive results do not rule out bacterial infectionor co- infection with other viruses.Testing facilities within the [facility] and [facility] are required to report all positive results tothe appropriate public health authorities.Negative results should be treated as presumptive and, ifinconsistent with clinical signs and symptoms or necessaryfor patient management, should be tested with differentauthorized or cleared molecular tests. Negative results donot preclude SARS-CoV2 RNA infection and should not be usedas the sole basis for patient management decisions. Negativeresults should be considered in the context of a patient'srecent exposures, history and the presence of clinical signsand symptoms consistent with COVID-19.This test has been authorized by the FDA under an EmergencyUse Authorization (EUA) for use by authorized laboratories.Testing performed on the [employer] ID NOW utilizing NAAT. 12/24/2022 3:56 PM EDT 12/24/2022 4:02 PM EDT [facility] Exter nal Provider LAB MOLECULAR DIAGNOSTICS ORDERABLES Final Result [facility] [address] [place] [phone] [phone] * (ABNORMAL) Drug Monitoring, Panel 1, Screen, Urine (12/24/2022 11:58 AM EDT) Opiate Screen Urine Not Detected Not Detect [facility] Comment:Opiate cut-off is 30 0 ng/mL.Positive results are unconfirmed and should not be used fornon-medical purposes. Barbiturates, Urine Not Detected Not Detect [facility] Comment:Barbiturate cut-off is 200 ng/mL.Positive results are unconfirmed and should not be used fornon-medical purposes. Phencyclidine Screen Urine Not Detected Not Detect [facility] Comment:Phencyclidine cut-of f is 25 ng/mL.Positive results are unconfirmed and should not be used fornon-medical purposes. Amphetamine Screen Urine Not Detected Not Detect [facility] Comment:Amphetamine cut-off is 1000 ng/mL.Positive results are unconfirmed and should not be used fornon-medical purposes. Benzodiazepines Screen Urine Not Detected Not Detect [facility] Comment:Benzodiazepine cut-o ff is 200 ng/mL.Positive results are unconfirmed and should not be used fornon-medical purposes. Cocaine Screen Urine POSITIVE(A) Not Detect [facility] Comment:Cocaine cut-off is 3 00 ng/mL.Positive results are unconfirmed and should not be used fornon-medical purposes. Cannabinoid Screen Urine Not Detected Not Detect [facility] Comment:Cannabinoid cut-off is 50 ng/mL.Positive results are unconfirmed and should not be used fornon-medical purposes. FENTANYL URINE POSITIVE(A) Not Detect [facility] Comment:Fentanyl cut-off is 1 ng/mL.Positive results are unconfirmed and should not be used fornon-medical purposes. 12/24/2022 11:5 8 AM EDT 12/24/2022 12:01 PM EDT [facility] External Provider LAB URI NE ORDERABLES Final Result Performing Organization Address [facility] de Phone Number [facility] [address] [place] [phone] * (ABNORMAL) Urinalysis, Complete, with Reflex to Culture (12/24/2022 11:58 AM EDT) Color Urine Yellow [facility] Appearance Urine Clear [facility] PH 5.5 5.0 - 9.0 [facility] Glucose Urine UA Negative Negative mg/dL [facility] Urine Blood Negative Negative [facility] Specific [place] - Urine 1.015 1.005 - 1.025 [facility] Urine Protein Negative Neg-Trace mg/dL [facility] Urine Ketones Negative Negative mg/dL [facility] Nitrite Urine Negative Negative [facility] Leukocyte Esterase Urine Trace(A) Negative [facility] RBC Urine 0-2 0 - 2 /HPF [facility] Urine WBC 6-10(A) 0 - 5 /HPF [facility] Urine Squamous Epithelial Cell 0-2 0 - 2 /HPF [facility] Urine Bacteria None Seen None Seen [facility] Hyaline Casts, Urine 0-2 0 - 2 /LPF [facility] 12/24/2022 11:5 8 AM EDT 12/24/2022 12:01 PM EDT Narrative [facility] - 12/24/2022 12:11 PM EDT [id number], Clean Catch [facility] External Provider LAB URI NE ORDERABLES Final Result Performing Organization Address [facility] Co de Phone Number [facility] [address] [place] [phone] [phone] * Ethanol (12/24/2022 8:31 AM EDT) ETHANOL (MG/DL) IN SER/PLAS <10 mg/dL [facility] Comment:Serum/plasma ethanol results are to be used formedical/treatment purposes only. 12/24/2022 8:31 AM EDT 12/24/2022 8:39 AM EDT us Generic External Data Provider LAB BLOOD ORDERAB LES Final Result [facility] [address] [place] [phone] [phone] * (ABNORMAL) Basic Metabolic Panel (12/24/2022 8:31 AM EDT) Pathologist [facility] Sodium 139 135 - 145 mmol/L [facility] Potassium 5.5(H) 3.3 - 5.1 mmol/L [facility] Chloride 104 96 - 108 mmol/L [facility] Carbon Dioxide 25 22 - 29 mmol/L [facility] Anion Gap 16 12 - 20 [facility] Urea Nitrogen (BUN) 12 9 - 16 mg/dL [facility] Creatinine, Serum 0.91 0.5 - 1.4 mg/dL [facility] Creatinine Clr Calc Pharmacy 115.8 [facility] Comment:eGFR (calculated fro m the MDRD study equation) and eCrCl(calculated from the Cockcroft-Gault equation) are based ondifferent parameters and may not yield comparable results.If eCrCl result is absurd, please check patient'sheight/weight. Estimated Glomerular Filt Rate >60 [facility] Comment:NOTE: For -Am erican individuals, multiply the result by 1.210.Chronic Kidney Disease: Estimated GFR < 60 mL/min/[id number] Kidney Disease: Estimated GFR < 15 mL/min/1.73m2 Glucose 95 60 - 115 mg/dL [facility] Calcium 10.1 8.4 - 10.2 mg/dL [facility] 12/24/2022 8:31 AM EDT 12/24/2022 8:39 AM EDT Generic External Data Provider LAB BLOOD ORDERAB LES Final Result Performing Organization Address [facility] Co de Phone Number [facility] [address] [place] [phone] * (ABNORMAL) Hepatic Function Panel (12/24/2022 8:31 AM EDT) Bilirubin, Total 0.2 0.0 - 1.0 mg/dL [facility] Bilirubin, Direct <0.2 0.0 - 0.5 mg/dL [facility] Aspartate Amino Transferase 32 5 - 37 U/L [facility] Alanine Aminotransferase 40 0 - 40 U/L [facility] Total Protein 8.5(H) 6.5 - 8.0 g/dL [facility] Albumin Level 4.9 3.5 - 5.0 g/dL [facility] Alkaline Phosphatase 111 39 - 117 U/L [facility] 12/24/2022 8:31 AM EDT 12/24/2022 8:39 AM EDT [facility] External Provider LAB BLO OD ORDERABLES Final Result Performing Organization Address [facility] Co de Phone Number [facility] [address] [place] [phone] * Acetaminophen level (12/24/2022 8:31 AM EDT) Acetaminophen LAB <17 <30 mcg/mL [facility] 12/24/2022 8:31 AM EDT 12/24/2022 8:39 AM EDT Generic External Data Provider LAB BLOOD ORDERAB LES Final Result Performing Organization Address [facility]/ZIP Co de Phone Number [facility] [address] [place] [address] [phone] * (ABNORMAL) Salicylate (12/24/2022 8:31 AM EDT) Pathologist [facility] Salicylate <5.0(L) 15 - 30 mg/dL [facility] 12/24/2022 8:31 AM EDT 12/24/2022 8:39 AM EDT [facility] External Provider LAB BLO OD ORDERABLES Final Result [facility] [address] [place] [phone] * (ABNORMAL) CBC auto differential (12/24/2022 8:31 AM EDT) [facility] White Blood Count 18.6(H) 4.8 - 10.8 X10*3/uL [facility] Red Blood Count 5.39 4.60 - 5.80 X10*6/uL [facility] Hemoglobin 13.8(L) 14.0 - 18.0 g/dl [facility] Hematocrit 41.7(L) 42.0 - 52.0 % [facility] Mean Corpuscular Volume 77.4(L) 80.0 - 98.0 fL [facility] Mean Corpuscular Hemoglobin 25.6(L) 27.0 - 33.0 pg [facility] Mean Corpuscular HGB Conc 33.1 31.0 - 36.0 g/dl [facility] Red Cell Distribution Width 12.8 11.0 - 16.0 % [facility] Platelet Count 300 160 - 400 X10*3/uL [facility] Mean Platelet Volume 9.9 9.4 - 12.4 fL [facility] Neutrophils Percent Auto 76.9(H) 45 - 73 % [facility] Imm Gran Pct Auto 0.6(H) 0.0 - 0.4 % [facility] Lymphocytes Percent Auto 15.0(L) 20 - 40 % [facility] Monocytes Percent Auto 7.2 2 - 11 % [facility] Eosinophils Percent Auto 0.0 0 - 4 % [facility] Basophils Percent Auto 0.3 0 - 2 % [facility] NRBC Pct Auto 0.0 0.0 - 0.2 /100WBC [facility] Neutrophils Absolute Auto 14.3(H) 2.0 - 8.3 x10*3/uL [facility] Imm Gran Abs Auto 0.12(H) 0.00 - 0.03 X10*3/uL [facility] Lymphocytes Absolute Auto 2.8 1.2 - 4.9 X10*3/uL [facility] Monocytes Absolute Auto 1.4(H) 0.1 - 1.2 X10*3/uL [facility] Eosinophils Absolute Auto 0.0 0.0 - 0.4 X10*3/uL [facility] Basophils Absolute Auto 0.1 0.0 - 0.2 X10*3/uL [facility] NRBC Abs Auto 0.000 0.0 - 0.012 X10*3/uL [facility] 12/24/2022 8:31 AM EDT 12/24/2022 8:39 AM EDT [facility] External Provider LAB BLO OD ORDERABLES Final Result Performing Organization Address City/[facility]/ZIP Co de Phone Number [facility] [address] [place] [phone] * GLUCOSE, WHOLE BLOOD (06/20/2022 3:32 AM EST) Glucose, Whole Blood 99 60 - 115 mg/dL [facility] Comment:METER #: [id number] 06/20/2022 3:32 AM EST 06/20/2022 3:35 AM EST [facility] External Provider LAB BLO OD ORDERABLES Final Result [facility] [address] [place] [address] [phone] documented in this encounter Visit Diagnoses Not on filedocumented in this encounter Care Teams Forms Designer Relationship Specialty Start Date End Date Grisel Monroe MD [address] [place] [phone] PCP - General Family Medicine 01/02/18 documented as of this encounter
[2024-08-18 20:14] VITALS: BP 111/86; PULSE 62; RESP 16; TEMP 37.3; O2SAT 98
[2024-08-18 20:38] LABS: Alanine Aminotransferase 29 U/L (0-40); Albumin Level 4.5 g/dL (3.5-5.0); Alkaline Phosphatase 97 U/L (39-117); Anion Gap 12 (12-20); Aspartate Amino Transferase 29 U/L (5-37); Bilirubin Total 0.2 mg/dL (0.0-1.0); Blood Urea Nitrogen 8 mg/dL (9-16); Calcium 8.9 mg/dL (8.4-10.2); Carbon Dioxide 26 mmol/L (22-29); Chloride 110 mmol/L (96-108); Creatinine Clr Calc Pharmacy 115.7; Estimated Glomerular Filt Rate > 60; Glucose Random 89 mg/dL (60-115); Magnesium 2.1 mg/dL (1.6-2.6); Potassium 3.7 mmol/L (3.3-5.1); Sodium 144 mmol/L (135-145); Total Protein 7.4 g/dL (6.5-8.0)
[2024-08-18 20:43] LABS: Influenza A PCR NEGATIVE (Negative); Influenza B PCR NEGATIVE (Negative); Resp Syncy Virus RNA Qual PCR NEGATIVE (Negative); SARS COV2 PCR INHOUSE NEGATIVE (Negative)
[2024-08-18 22:10] VITALS: BP 110/65; PULSE 96; RESP 16; TEMP 36.9; O2SAT 94
[2024-08-18] MEDS: predniSONE 20 MG TABLET 40 MG PO (22:11)
[2024-08-18] MEDS: Albuterol Sulfate 90 MCG 8 GM INHALER 4 PUFF INHALE (22:11)
[2024-08-18 22:52] VITALS: BP 110/65; PULSE 96; RESP 16; TEMP 36.9; O2SAT 94
== END 2024-08-18 22:53 | disposition home or self-care (01) ==
PROVIDERS: Physician Assistant Medical; Emergency Provider Emergency Medicine; PCP Family Medicine
DX: J45.901 Unspecified asthma with (acute) exacerbation (principal); Z03.818 Encounter for observation for suspected exposure to other biological agents ruled out; R05.9 Cough, unspecified; E11.9 Type 2 diabetes mellitus without complications; Z79.4 Long term (current) use of insulin
CPT/HCPCS: 0241U; 71046; 80053; 83735; 85025; 99284

== ENCOUNTER → 2024-08-18 19:43 | Outpatient (BNV) | payer SELFPAY | PROVIDERS: PCP Family Medicine; Visit Provider Radiology Diagnostic Radiology | DX: R05.9 Cough, unspecified (principal) | CPT/HCPCS: 71046 ==

== ENCOUNTER 2024-09-06 15:01 | Emergency (ER) | payer SELFPAY ==
[2024-09-06 15:03] VITALS: BP 127/88; PULSE 86; RESP 20; TEMP 37; O2SAT 100; BMI 24.2
--- NOTE | 2024-09-06 15:03 | ED.GENADULT ---
HPI - General Adult General Chief complaint: General Medical Stated complaint: Cant Keep Food Down, Blood Sugar High, Acid Reflex Time Seen by Provider: 09/06/24 15:47 Source: patient Mode of arrival: ambulatory Limitations: no limitations History of Present Illness ED Provider: Mainor Hill HPI narrative: 24-year-old male history of diabetes and opiate abuse preference snorting heroin presents to ED for abdominal pain and vomiting and nausea starting today. Patient states he last used heroin yesterday morning. Patient usually has about 30 bags of heroin. Patient denies any chest pain or shortness of breath. Patient has been without methadone for 4 months. Patient denies any genitourinary symptoms. Patient states he does not have his metformin and insulin meds. Related Data Home Medications ?Medication ?Instructions ?Recorded ?Confirmed ondansetron HCl 4 mg tablet 4 mg PO Q6H PRN nausea/vomiting 08/16/23 01/19/24 loratadine 10 mg tablet 10 mg PO DAILY PRN Allergic 01/06/24 01/19/24 Symptoms insulin lispro 100 unit/mL 10 unit subcut TIDAC 01/19/24 01/19/24 subcutaneous pen (Humalog KwikPen (U-100) Insulin) Previous Rx's ?Medication ?Instructions ?Recorded metformin 500 mg tablet 500 mg PO BIDWMEAL 30 days #60 tabs 06/24/23 ondansetron 4 mg disintegrating 8 mg (2 x 4 mg) PO Q8H PRN nausea 06/24/23 tablet and vomiting 5 days #10 tabs albuterol sulfate 2.5 mg/3 mL 2.5 mg (3 mL) inhalation Q4-6H PRN 01/05/24 (0.083 %) solution for nebulization shortness of breath or wheezing #90 mL albuterol sulfate 90 mcg/actuation 2 puff inhalation Q6H PRN 01/05/24 aerosol inhaler shortness of breath or wheezing #8.5 grams empagliflozin 10 mg tablet 10 mg PO QAM #30 tabs 01/05/24 (Jardiance) nebulizers #1 ea 01/05/24 methadone 10 mg/mL oral 40 mg (4 mL) PO DAILY #1 mL 01/20/24 concentrate (Methadose) prednisone 20 mg tablet 20 mg PO DAILY #4 tabs 01/20/24 albuterol sulfate 2.5 mg/3 mL 2.5 mg (3 mL) inhalation Q4-6H PRN 08/18/24 (0.083 %) solution for nebulization shortness of breath or wheezing #75 mL albuterol sulfate 90 mcg/actuation 2 puff inhalation Q4-6H PRN 08/18/24 aerosol inhaler shortness of breath or wheezing #8.5 grams prednisone 20 mg tablet 40 mg (2 x 20 mg) PO DAILY #8 tabs 08/18/24 insulin lispro 100 unit/mL 10 unit (0.1 mL) subcut TID #15 mL 09/06/24 subcutaneous pen (Humalog KwikPen (U-100) Insulin) metformin 500 mg tablet 500 mg PO BID 30 days #60 tabs 09/06/24 Allergies Allergy/AdvReac Type Severity Reaction Status Date / Time haloperidol [From Haldol] AdvReac Mild dystonia Verified 09/06/24 15:06 Review of Systems Review of Systems: Abdominal pain nausea vomiting Yes all other systems are reviewed and are negative [facility] Past Medical History Medical History Cocaine use disorder Asthma Paranoia Diabetes Social History Social History (System 01/30/24 @ 14:30 by Georgina Brown) Household Members: Friend(s) Housing: Apartment Do you presently have visiting nurse or other home services: No Alcohol intake: never Patient Tobacco Use Status: Never used Tobacco e-Cigarette/Vaping Use: Never Used Second Hand Smoke Exposure: No Substance Use Type: Opiates Advance Directives: No Advance Directives Information Provided: No service: No Sexual orientation: Don't Know Physical Exam ED Vital Signs: Vital Signs - 24 hr 09/06/24 15:03 09/06/24 16:04 09/06/24 17:31 Temperature 98.6 F 98.2 F 99.0 F Pulse Rate 86 86 97 Respiratory Rate 20 16 16 Blood Pressure 127/88 108/68 127/89 Pulse Oximetry 100 97 99 Oxygen Delivery Method Room Air BMI result Body Mass Index 24.2 Const General: cooperative, healthy appearing, comfortable, no acute distress, well developed, alert and awake Orientation/consciousness: patient oriented x3 HENMT Head: Yes normal to inspection, Yes No palpable skull fracture present, Yes normocephalic and Yes atraumatic Eyes General: appearance normal, both eyes and all related structures Neck Neck: Yes normal visual inspection, Yes full ROM, Yes no lymphadenopathy, Yes no meningeal signs, Yes trachea midline, Yes supple, No anterior neck swelling and No tender Chest Chest palpation & inspection: normal inspection of the chest and normal palpation of entire chest wall Resp Effort & Inspection: normal respiratory effort and able to speak in complete sentences Cardio Jugular venous distension: no JVD Heart sounds: S1 normal heart sound present and S2 normal heart sound present GI Inspection: Yes normal to inspection Palpation (GI): Soft to palpation, not firm, Tenderness to palpation present (GI) in the RLQ and in the RUQ, no guarding and not rigid Skin General skin exam: no rashes or lesions noted, elasticity normal and turgor normal Neuro General: patient oriented x3, gait normal, tone normal, moves all extremities, Normal light touch and pain sensation, no meningeal signs, no focal motor deficits, CN's II-XI intact bilaterally and normal sensation to monofilament Extrem General: Yes normal to inspection, Yes full ROM and Yes capillary refill normal Psych Appearance: grossly normal, well kempt and not disheveled Course Course Course Narrative: This is a Rapid Medical Examination (RME) performed by Kendy Gale PA-C in triage. Full HPI, ROS, assessment and treatment plan per primary provider in the Main ED. Hx: 24 yo male hx of asthma, opiate use disorder, polysubstance abuse, psychotic disorder, diabetes here w/ sensation of food stuck in my stomach . reports nausea, vomiting, and dizziness x today. states he has been out of his insulin x15 days, feels his sugars have been high but has not checked. admits to RLQ abd pain x3 days. PE/vitals: well appearing Plan: Labs, UA, ekg Medications Administered Discontinued Medications Generic Name Dose Route Start Last Admin Trade Name Freq PRN Reason Stop Dose Admin Diphenhydramine HCl 50 mg 09/06/24 16:16 09/06/24 16:26 Diphenhydramine Hcl 50 Mg/Ml Vial IVPUSH 09/06/24 16:17 50 mg ONCE ONE Administration Sodium Chloride 1,000 mls @ 999 mls/hr 09/06/24 16:15 09/06/24 16:22 Ns IV 09/06/24 17:15 999 mls/hr .Q1H1M STA Administration Iohexol 100 ml 09/06/24 16:35 09/06/24 16:35 Iohexol 350 Mg/Ml 100 Ml Infus..Btl IV 09/06/24 16:36 85 ml ONCE ONE Administration Methadone HCl 40 mg 09/06/24 17:13 09/06/24 17:33 Methadone Hcl 20 Mg/2 Ml Oral.Conc PO 09/06/24 17:14 40 mg ONCE ONE Administration Ondansetron HCl 4 mg 09/06/24 16:15 09/06/24 16:26 Ondansetron Hcl 4 Mg/2 Ml Vial IVPUSH 09/06/24 16:16 4 mg ONCE ONE Administration Medical Decision Making Medical Decision Making [facility] Narrative: 24-year-old male history of opiate abuse and diabetes presents to ED for abdominal pain nausea and can not keep anything down. Patient denies any choking. She denies any fever or chills. Patient's glucose stable. Patient is not in DKA. Patient was sent for CAT scan to rule out any abdominal etiology patient is not scared and got off the CAT scan table. Patient given Benadryl to treat possible opiate withdrawal symptoms. We will talk to Kat soto to see if patient can get the methadone one dose. not suspecting food bolus. patient is speaking in full sentences. 5:15pm: Patient refused abdominal CT scan. Patient was explained with the court interpreter necessity to rule out any emergent life-threatening surgical medical etiology in the abdomen. Patient explained risks of and he still refused CAT scan. Patient refused UA. EKG troponin negative. Case discussed with Kat Soto who recommend methadone 40 mg 1 dose. Patient will be [facility] and informed to go to [facility] for methadone tomorrow . Patient has signed out against medical advice. Differential Diagnosis Differential Diagnoses: The differential diagnosis associated with the presentation includes (Gastroparesis, opiate withdrawal, cholecystitis) Admission/Observation Consideration of admission/observation: Escalation of care including admission/observation considered Consult Healthcare Provider Management of the patient was discussed with: Finishing Machine Operator Automatic (Kat soto. Addiciton) Lab Data [facility] Lab Attestation statement: I reviewed the patient's lab results. 09/06/24 15:14 09/06/24 15:14 Labs: Lab Results 04/25/25 04/25/25 04/25/25 Range/Units 15:14 15:19 17:04 WBC 9.1 (4.8-10.8) X10*3/uL RBC 5.76 (4.60-5.80) X10*6/uL Hgb 14.4 (14.0-18.0) g/dl Hct 44.5 (42.0-52.0) % MCV 77.3 L (80.0-98.0) fL MCH 25.0 L (27.0-33.0) pg MCHC 32.4 (31.0-36.0) g/dl RDW 13.6 (11.0-16.0) % Plt Count 259 (160-400) X10*3/uL MPV 10.5 (9.4-12.4) fL Immature Gran % (Auto) 0.4 (0.0-0.4) % Neut % (Auto) 62.1 (45-73) % Lymph % (Auto) 21.8 (20-40) % [place] % (Auto) 7.3 (2-11) % Eos % (Auto) 7.6 H (0-4) % Baso % (Auto) 0.8 (0-2) % Lymph # (Auto) 2.0 (1.2-4.9) X10*3/uL [place] # (Auto) 0.7 (0.1-1.2) X10*3/uL Eos # (Auto) 0.7 H (0.0-0.4) X10*3/uL Baso # (Auto) 0.1 (0.0-0.2) X10*3/uL Abs Immat Gran (auto) 0.04 H (0.00-0.03) X10*3/uL Absolute Neuts (auto) 5.6 (2.0-8.3) x10*3/uL Absolute Nucleated RBC 0.000 (0.0-0.012) X10*3/uL Nucleated RBC % (auto) 0.0 (0.0-0.2) /100WBC VBG pH 7.33 (7.32-7.43) VBG pCO2 63 mmHg VBG pO2 31 mmHg VBG HCO3 33 H (22-26) mmol/L VBG O2 Saturation 39.0 % VBG Base Excess 5.4 mmol/L Sodium 142 (135-145) mmol/L Potassium 4.0 (3.3-5.1) mmol/L Chloride 103 (96-108) mmol/L Carbon Dioxide 29 (22-29) mmol/L Anion Gap 14 (12-20) BUN 9 (9-16) mg/dL Creatinine 0.79 (0.5-1.4) mg/dL Estim Creat Clear Calc 114.0 Estimated GFR > 60 Random Glucose 142 H (60-115) mg/dL Calcium 9.6 D (8.4-10.2) mg/dL Magnesium 2.0 (1.6-2.6) mg/dL Total Bilirubin 0.3 (0.0-1.0) mg/dL AST 41 H (5-37) U/L ALT 56 H (0-40) U/L Alkaline Phosphatase 104 (39-117) U/L Troponin I High Sens < 2.7 (<3.5-35.0) ng/L C-Reactive Protein 0.21 (< or = 0.50) mg/dL Total Protein 7.7 (6.5-8.0) g/dL Albumin 4.5 (3.5-5.0) g/dL Lipase 6 L (8-78) U/L Beta-Hydroxybutyrate 0.10 (0.02-0.27) mmol/L Independent Interpretation I performed an independent interpretation of an: EKG (Negative STEMI) Independent Historian Clinical information obtained from an independent historian. History obtained from or confirmed by: Other (patient) Discharge Plan Discharge Clinical Impression: Medication refill, Abdominal pain, Opioid withdrawal Patient Disposition: Left Against Medical Advice Instructions: Abdominal Pain (ED), Opioid Withdrawal (ED), Medicine Refill (ED) Additional Instructions: You are signout against medical advice . Return to the ED immeidatley for any abdominal pain, chest pain, shortness of breath, weakness, dizziness, or any other concerning symptoms. Opiate use disorder You were seen in our Emergency Department today for treatment of opiate use disorder. You may have been dosed with medication for opiate use disorder (MOUD) in the form of suboxone or methadone. You may experience feeling some withdrawal symptoms and this is normal. The? dose in the Emergency Department is a starting dose and meant to be titrated up once you follow up with a clinic. Please do not feel discouraged, it is a process. The nurse has reviewed with you where to follow up and what information to bring with you, to continue treatment. You also may have been given naloxone (narcan) to take home with you. This medication is used to potentially treat opiate overdose. If you decide you want to stop or cut down on how much you?re using, you can call or walk into our outpatient Addiction Treatment office: [facility] (M-F 9am-5p) [address] [place] [address], [address] [phone] You may have been provided with safer injection?items, please take time to take care of YOU and your health. Use new supplies whenever possible to lessen the chances of infections and other illnesses.? ?If you need more supplies, please go [facility],? [address] [place] [address] OR you can call or text to coordinate delivery of safer supplies. You were also provided a list of several treatment providers in the area.? If you experience any worsening symptoms you cannot control please return to the ED or call 911. Please follow up at your next appointment. Things to look out for are fevers, chest pain, shortness of breath, severe pain, dizziness, fainting or any other concerns. Tomorrow Call [facility] for methadone. [address] [facility] [place] [phone] Prescriptions: New metformin 500 mg tablet 500 mg PO BID 30 Days Qty: 60 0RF insulin lispro [Humalog KwikPen Insulin] 100 unit/mL insulin pen 10 unit subcut TID Qty: 15 0RF No Action metformin 500 mg tablet 500 mg PO BIDWMEAL 30 Days Qty: 60 0RF ondansetron 4 mg tablet,disintegrating 8 mg PO Q8H PRN (Reason: nausea and vomiting) 5 Days Qty: 10 0RF ondansetron HCl 4 mg tablet 4 mg PO Q6H PRN (Reason: nausea/vomiting) insulin lispro [Humalog KwikPen Insulin] 100 unit/mL insulin pen 10 unit subcut TIDAC Rx Instructions: BG <111 0 units, 111-150 - 0 units, 151-200 2 units, 201-250 4 units, 251-300 6 units, 301-350 8 units, >350 10 units methadone [Methadose] 10 mg/mL Concentrate 40 mg PO DAILY Qty: 1 0RF Rx Instructions: Partial Fill upon patient request. prednisone 20 mg tablet 20 mg PO DAILY Qty: 4 0RF prednisone 20 mg tablet 40 mg PO DAILY Qty: 8 0RF albuterol sulfate 90 mcg/actuation HFA aerosol inhaler 2 puff inhalation Q4-6H PRN (Reason: shortness of breath or wheezing) Qty: 8.5 0RF albuterol sulfate 2.5 mg /3 mL (0.083 %) solution for nebulization 2.5 mg inhalation Q4-6H PRN (Reason: shortness of breath or wheezing) Qty: 75 0RF Jardiance 10 mg tablet 10 mg PO QAM Qty: 30 2RF (DME) nebulizers Misc See Rx Instructions .Route Qty: 1 0RF Rx Instructions: As directed albuterol sulfate 2.5 mg /3 mL (0.083 %) solution for nebulization 2.5 mg inhalation Q4-6H PRN (Reason: shortness of breath or wheezing) Qty: 90 0RF albuterol sulfate 90 mcg/actuation HFA aerosol inhaler 2 puff inhalation Q6H PRN (Reason: shortness of breath or wheezing) Qty: 8.5 0RF loratadine 10 mg tablet 10 mg PO DAILY PRN (Reason: Allergic Symptoms) Stand Alone Forms: Against Medical Advice Interventions: ED Discharge Assessment Last Done: 09/06/24 18:44 Discharge Date/Time: 09/06/24 18:46 Print Language: Luxembourgish
--- NOTE | 2024-09-06 15:05 | ECG_ITS ---
Test Reason : dizziness Blood Pressure : */* mmHG Vent. Rate : 76 BPM Atrial Rate : 76 BPM P-R Int : 134 ms QRS Dur : 72 ms QT Int : 378 ms P-R-T Axes : 63 -1 -32 degrees QTcB Int : 425 ms Normal sinus rhythm with sinus arrhythmia Cannot rule out Anterior infarct , age undetermined Nonspecific ST and T wave abnormality Abnormal ECG When compared with ECG of 06-Jan-2024 08:01, Vent. rate has decreased by 38 bpm Referred By: Valeria Gale Electronically Signed By: MIKE STARKEY
[2024-09-06 15:18] LABS: MANUAL DIFF FLAG NO
[2024-09-06 15:19] LABS: Basophils Absolute Auto 0.1 X10*3/uL (0.0-0.2); Basophils Percent Auto 0.8 % (0-2); Eosinophils Absolute Auto 0.7 X10*3/uL (0.0-0.4); Eosinophils Percent Auto 7.6 % (0-4); Hematocrit 44.5 % (42.0-52.0); Hemoglobin 14.4 g/dl (14.0-18.0); Imm Gran Abs Auto 0.04 X10*3/uL (0.00-0.03); Imm Gran Pct Auto 0.4 % (0.0-0.4); Lymphocytes Percent Auto 21.8 % (20-40); Mean Corpuscular HGB Conc 32.4 g/dl (31.0-36.0); Mean Corpuscular Volume 77.3 fL (80.0-98.0); Mean Platelet Volume 10.5 fL (9.4-12.4); Monocytes Absolute Auto 0.7 X10*3/uL (0.1-1.2); Monocytes Percent Auto 7.3 % (2-11); Neutrophils Absolute Auto 5.6 x10*3/uL (2.0-8.3); Neutrophils Percent Auto 62.1 % (45-73); Platelet Count 259 X10*3/uL (160-400); Red Blood Count 5.76 X10*6/uL (4.60-5.80); Red Cell Distribution Width 13.6 % (11.0-16.0); White Blood Count 9.1 X10*3/uL (4.8-10.8)
[2024-09-06 15:22] LABS: Venous Blood Gas Refer to POC result
[2024-09-06 15:23] LABS: VBG Base Excess 5.4 mmol/L; VBG HCO3 33 mmol/L (22-26); VBG pCO2 63 mmHg; VBG pH 7.33 (7.32-7.43); VBG pO2 31 mmHg
[2024-09-06 15:37] LABS: Alanine Aminotransferase 56 U/L (0-40); Albumin Level 4.5 g/dL (3.5-5.0); Anion Gap 14 (12-20); Aspartate Amino Transferase 41 U/L (5-37); Bilirubin Total 0.3 mg/dL (0.0-1.0); Blood Urea Nitrogen 9 mg/dL (9-16); C Reactive Protein 0.21 mg/dL (< or = 0.50); Calcium 9.6 mg/dL (8.4-10.2); Carbon Dioxide 29 mmol/L (22-29); Chloride 103 mmol/L (96-108); Estimated Glomerular Filt Rate > 60; Glucose Random 142 mg/dL (60-115); Lipase 6 U/L (8-78); Sodium 142 mmol/L (135-145); Total Protein 7.7 g/dL (6.5-8.0)
[2024-09-06 16:01] LABS: Alkaline Phosphatase 104 U/L (39-117)
[2024-09-06 16:04] VITALS: BP 108/68; PULSE 86; RESP 16; TEMP 36.8; O2SAT 97
[2024-09-06] MEDS: 0.9 % Sodium Chloride 1,000 ML 999 ML IV (16:22)
[2024-09-06] MEDS: ondansetron HCL 4 MG/2 ML VIAL IVPUSH (16:26)
[2024-09-06] MEDS: diphenhydrAMINE HCL 50 MG/ML VIAL IVPUSH (16:26)
--- NOTE | 2024-09-06 16:28 | PC.NURSE ---
Patient presents with c/o RLQ abdominal pain for the past 3 days. Patient is a vague historian even with the use of a interpretor. Patient with a history of opiate use disorder and uses 30 bags of heroin per day. Last use yesterday. Patient queried if this could possibly be withdrawal symptoms and he was unsure, Vital signs stable. Lungs clear bilat. Respirations even and non-labored. Abdomen soft, with positive bowel sounds. c/o RLQ pain with positive tenderness noted. No LE edema noted. Patient states was on the methadone program approximately 4 months ago. Sent to radiology.
--- OUTSIDE RECORDS SUMMARY | 2024-09-06 16:32 | XMS_ITS | Clinical Summary ---
Author Organization [employer] Address [address] [facility] [address] [place] [address] Care Team Providers Care Neurology Nurse Name Role Phone Grisel Monroe MD Primary Care Provider [phone] Allergies No known active allergies Medications * [...] each 3 4 Active TRUEplus Lancets [facility] TEST BLOOD SUGAR FOUR TIMES DAILY 100 each 11 4 Active Mometasone Furoate (Asmanex HFA) 100 MCG/ACT aerosol 1 puff twice daily 13 g 11 4 Active Continuous Glucose Rag Boiler (FreeStyle Art 2 [place]) device Scan sensor every 8 hours 1 each 4 Active Continuous Glucose Sensor (FreeStyle Art 2 Sensor) [facility] Apply 1 sensor every 14 days 2 [...] presented in the context of relocation from [facility] to [place], language barrier and lack of social supports. Patient will benefit from receiving follow-up BE's, a referral for Supervisor Molding with [facility] and continuity of Methadone Program with [facility]. Provided mindfulness exercises during today's session. Patient has limited medical insurance, unable to set up OP individual therapy services outside [facility]. At this time Cassandra Mcneal meets criteria for Visit Diagnoses: Problem List Items Addressed This Visit Other Opioid use disorder, severe, on maintenance therapy (CMS/HCC) Episode of recurrent major depressive disorder (CMS/HCC) Patient ready to address current needs Yes Strengths include motivation to work on personal goals and go back to school PLAN: 1. Follow up with [facility]: Not recommended for follow-up 2. Patient goal is to gradually stop using drugs and learn Moldovan as a second language 3. Behavioral Recommendations a. Continue Methadone program with [facility] b. Referral for Supervisor Molding with [facility] c. Incorporate mindfulness exercises into [...] OPIOID USE DISORDER, SEVERE, ON MAINTENANCE THERAPY ([facility]) WRITTEN ON 01/20/2023 12:48 PM BY FLORENCIA [...] presented in the context of relocation from [facility] to [place], language barrier and lack of social supports. Patient will benefit from receiving follow-up BE's, a referral for Supervisor Molding with [facility] and continuity of Methadone Program with [facility]. Provided mindfulness exercises during today's session. Patient has limited medical insurance, unable to set up OP individual therapy services outside [facility]. At this time Cassandra Mcneal meets criteria for Visit Diagnoses: Problem List Items Addressed This Visit Other Cocaine use Opioid use disorder, severe, on maintenance therapy (CMS/HCC) Episode of recurrent major depressive disorder (CMS/HCC) Patient ready to address current needs Yes Strengths include motivation to work on personal goals and go back to school PLAN: Follow up with [facility]: Recommended for follow-up: Follow-up BE scheduled in two weeks Patient goal is to learn Moldovan as a second language and stop using drugs. Behavioral Recommendations Continuity of Methadone Program with [facility] Referral for Supervisor Molding with [facility] Incorporate mindfulness exercises into daily routine Assessment & Plan (01/11/2023 4:49 AM EDT): -Continue with [facility] Methadone Program, currently at 115 mg daily [...] 2022 -last diabetic eye exam: Referred to [facility] Eye care, but patient did not keep appt -Will update labs -Will check feet at next visit -Refer to eyelet row marker Assessment & Plan (05/01/2023 6:03 AM EST): -A1c 6.5% on 01/11/23 w/o medication, improved from 10% in 2020. -Will not restart meds at this time -Continue working on lifestyle modifications -Will update labs -Will check feet at next visit -Refer to eyelet row marker -Recommended dental care Assessment & Plan (01/11/2023 4:45 AM EDT): -A1c 6.5% today w/o medication, improved from 10% in 2020. -Will not restart meds at this time -Continue working on lifestyle modifications -Will update labs -Will check feet at next visit -Refer to eyelet row marker -Recommended dental care Overweight 01/02/2018 Encounters Date Type Department Care Team Description 09/06/2024 Telephone [facility] [address] [place] [phone] Lucila Sanders RN Refer to ED from [facility] 09/06/2024 Orders Only GENERIC EXTERNAL DATA DEPARTMENT Provider, Generic External Data 08/30/[address] [address] Laurence Botello [place] kenya recall 08/18/2024 Orders Only [facility] External Provider, [facility] 07/08/2024 Telephone [facility] [address] [place] [phone] Grisel Monroe MD No Show 07/06/2024 Refill [facility] [address] [place] [address] Grisel Monroe MD 07/03/[address] [phone] Grisel Monroe MD Chart Prep from Last 3 Months Immunizations Name Administration [...] Care Team (Late st Contact Info) Description 09/24/2024 3:00 PM EDT Office Visit [facility] [address] [place] [address] Shilpa Roman, OD [address] [place] [address] Health Maintenance Due Date Last Done Comments Dental Oral Exam 1998 Dental Prophylaxis 1998 Dental X-Ray: Bitewings 1998 Dental X-Ray: Full Mouth 1998 Diabetes: Foot Exam 02/15/2008 Eye Exam 02/15/2008 Alcohol/Substance Use Screening 2010 Family Planning (PISQ) 2013 HPV Vaccines (1 - Male 3-dose series) 2013 Lipid Panel 01/12/2024 01/11/2023, 05/22/2020 Diabetes: Urine Protein Screening 01/13/2024 01/12/2023, 05/22/2020 COVID-19 Vaccine ( season) 2024 08/11/2020, 07/14/2020 Influenza Vaccine (#1) 2024 01/29/2019, 2017 Depression Screening 01/21/2024 01/20/2023, 01/21/20 23 Diabetes: Hemoglobin A1C 05/29/2024 024, 06/23/2023, 01/10/2023, Additional history exists SDOH [...] Procedure Name Priority Date/Time Associated Diagnosis Comments VENOUS BLOOD GAS Routine 09/06/2024 3:19 PM EDT BETA-HYDROXYBUTYRATE Routine 09/06/2024 3:14 PM EDT LIPASE Routine 09/06/2024 3:14 PM EDT C-REACTIVE PROTEIN Routine 09/06/2024 3: 14 PM EDT MAGNESIUM Routine 09/06/2024 3:14 PM EDT COMPREHENSIVE METABOLIC PANEL Routine 09/06/2024 3:14 PM EDT CBC WITH AUTO DIFFERENTIAL Routine 09/06/2024 3:14 PM EDT HOLD GREEN GEL Routine 09/06/2024 3:13 PM EDT XR CHEST 2 VIEWS Routine 08/18/2024 8:18 PM EDT POCT GLYCOSYLATED HEMOGLOBIN (HGB A1C) Routine 02/27/2024 11:52 AM EDT Type 2 diabetes mellitus with hyperglycemia, without long-term current use of insulin ([facility]/HCC) ALBUMIN, RANDOM URINE W/CREATININE Routine 01/12/2023 11:29 [...] hyperglycemia, without long-term current use of insulin ([facility]) from Last 3 Months or Most Recently Relevant to Health Maintenance Results * (ABNORMAL) VENOUS BLOOD GAS (09/06/2024 3:19 PM EDT) VBG pH 7.33 7.32 - 7.43 [facility] Comment:METER #: [id number] additional_comment: CBBDAWEH VBG PCO2 63 mmHg [facility] Comment:METER #: [id number] additional_comment: CBBDAWEH VBG PO2 31 mmHg [facility] Comment:METER #: [id number] additional_comment: CBBDAWEH VBG Base Excess 5.4 mmol/L [facility] Comment:METER #: [id number] additional_comment: CBBDAWEH VBG HCO3 33(H) 22 - 26 mmol/L [facility] Comment:METER #: [id number] additional_comment: CBBDRentMatchEH O2 Sat, Neftaly 39.0 % [facility] Comment:METER #: [id number] additional_comment: CBBDAWEH 09/06/2024 3:19 PM EDT 09/06/2024 3:23 PM EDT us Generic External Data Provider LAB BLOOD ORDERAB LES Final Result [facility] [address] [place] [address] [phone] * Beta-Hydroxybutyrate (09/06/2024 3:14 PM EDT) Beta-Hydroxybut yrate 0.10 0.02 - 0.27 mmol/L [facility] 09/06/2024 3:14 PM EDT 09/06/2024 3:17 PM EDT us Generic External Data Provider LAB BLOOD ORDERAB LES Final Result [facility] [address] [place] [phone] * (ABNORMAL) CBC auto differential (09/06/2024 3:14 PM EDT) White Blood Count 9.1 4.8 - 10.8 X10*3/uL [facility] Red Blood Count 5.76 4.60 - 5.80 X10*6/uL [facility] Hemoglobin 14.4 14.0 - 18.0 g/dl [facility] Hematocrit 44.5 42.0 - 52.0 % [facility] Mean Corpuscular Volume 77.3(L) 80.0 - 98.0 fL [facility] Mean Corpuscular Hemoglobin 25.0(L) 27.0 - 33.0 pg [facility] Mean Corpuscular HGB Conc 32.4 31.0 - 36.0 g/dl [facility] Red Cell Distribution Width 13.6 11.0 - 16.0 % [facility] Platelet Count 259 160 - 400 X10*3/uL [facility] Mean Platelet Volume 10.5 9.4 - 12.4 fL [facility] Neutrophils Percent Auto 62.1 45 - 73 % [facility] Imm Gran Pct Auto 0.4 0.0 - 0.4 % [facility] Lymphocytes Percent Auto 21.8 20 - 40 % [facility] Monocytes Percent Auto 7.3 2 - 11 % [facility] Eosinophils Percent Auto 7.6(H) 0 - 4 % [facility] Basophils Percent Auto 0.8 0 - 2 % [facility] NRBC Pct Auto 0.0 0.0 - 0.2 /100WBC [facility] Neutrophils Absolute Auto 5.6 2.0 - 8.3 x10*3/uL [facility] Imm Gran Abs Auto 0.04(H) 0.00 - 0.03 X10*3/uL [facility] Lymphocytes Absolute Auto 2.0 1.2 - 4.9 X10*3/uL [facility] Monocytes Absolute Auto 0.7 0.1 - 1.2 X10*3/uL [facility] Eosinophils Absolute Auto 0.7(H) 0.0 - 0.4 X10*3/uL [facility] Basophils Absolute Auto 0.1 0.0 - 0.2 X10*3/uL [facility] NRBC Abs Auto 0.000 0.0 - 0.012 X10*3/uL [facility] 09/06/2024 3:14 PM EDT 09/06/2024 3:17 PM EDT us Generic External Data Provider LAB BLOOD ORDERAB LES Final Result Performing Organization Address [facility] Co de Phone Number [facility] [address] [place] [phone] * C-reactive Protein (09/06/2024 3:14 PM EDT) C Reactive Protein 0.21 < or = 0.50 mg/dL [facility] 09/06/2024 3:14 PM EDT 09/06/2024 3:17 PM EDT Generic External Data Provider LAB BLOOD ORDERAB LES Final Result Performing Organization Address [facility] Co de Phone Number [facility] [address] [place] [phone] * Magnesium (09/06/2024 3:14 PM EDT) Magnesium 2.0 1.6 - 2.6 mg/dL [facility] 09/06/2024 3:14 PM EDT 09/06/2024 3:17 PM EDT us Generic External Data Provider LAB BLOOD ORDERAB LES Final Result Performing Organization Address City/[facility]/ZIP Co de Phone Number [facility] [address] [place] [phone] * (ABNORMAL) Lipase (09/06/2024 3:14 PM EDT) Lipase 6(L) 8 - 78 U/L [facility] 09/06/2024 3:14 PM EDT 09/06/2024 3:17 PM EDT us Generic External Data Provider LAB BLOOD ORDERAB LES Final Result Performing Organization Address [facility]/ZIP Co de Phone Number [facility] [address] [place] [phone] * (ABNORMAL) Comprehensive Metabolic Panel (09/06/2024 3:14 PM EDT) Pathologist [facility] Sodium 142 135 - 145 mmol/L [facility] Potassium 4.0 3.3 - 5.1 mmol/L [facility] Chloride 103 96 - 108 mmol/L [facility] Carbon Dioxide 29 22 - 29 mmol/L [facility] Anion Gap 14 12 - 20 [facility] Urea Nitrogen (BUN) 9 9 - 16 mg/dL [facility] Creatinine, Serum 0.79 0.5 - 1.4 mg/dL [facility] Creatinine Clr Calc Pharmacy 114.0 [facility] Comment:eGFR (calculated fro m the MDRD study equation) and eCrCl(calculated from the Cockcroft-Gault equation) are based ondifferent parameters and may not yield comparable results.If eCrCl result is absurd, please check patient'sheight/weight. Estimated Glomerular Filt Rate >60 [facility] Comment:Chronic Kidney Disea se: Estimated GFR < 60 mL/min/1.91e6Siwncm Kidney Disease: Estimated GFR < 15 mL/min/1.73m2 Glucose 142(H) 60 - 115 mg/dL [facility] Calcium 9.6 8.4 - 10.2 mg/dL [facility] Bilirubin, Total 0.3 0.0 - 1.0 mg/dL [facility] Aspartate Amino Transferase 41(H) 5 - 37 U/L [facility] Alanine Aminotransferase 56(H) 0 - 40 U/L [facility] Total Protein 7.7 6.5 - 8.0 g/dL [facility] Albumin Level 4.5 3.5 - 5.0 g/dL [facility] Alkaline Phosphatase 104 39 - 117 U/L [facility] 09/06/2024 3:14 PM EDT 09/06/2024 3:17 PM EDT Generic External Data Provider LAB BLOOD ORDERAB LES Final Result Performing Organization Address [facility] Co de Phone Number [facility] [address] [place] [phone] * Hold Green Gel (09/06/2024 3:13 PM EDT) Hold Green Gel See Note [facility] Comment:Specimen held untest ed for 24 hours; Call to requestChemistry testing. 09/06/2024 3:13 PM EDT 09/06/2024 3:18 PM EDT us Generic External Data Provider HISTORICAL/NON OR DERABLE LABS Final Result Performing Organization Address [facility] de Phone Number [facility] [address] [place] [phone] * XR Chest 2 Views (08/18/2024 8:18 PM EDT) Anatomical Region Laterality Modality Chest Radiographic Dasha ging 08/18/2024 8:18 PM EDT Narrative 08/18/2024 8:20 PM EDT ? [facility] ?[address] ?[place] [address] ?XRay Report ? Signed ? Patient: Booker Fredis,Cassandra M ?MR ?? #: [id number] ? : 2000 ?Acct:[id number] ? Age/Sex: 24 / M ?ADM Date: 08/18/24 ? Loc: HO.ED ? Attending Dr: ? Ordering Physician: Lilian Husain ?? Date of Service: 08/18/24 ?? Procedure(s): XR chest 2V ?? Accession Number(s): [id number] ? cc: Lilian Husain; Grisel Monroe MD ? CLINICAL HISTORY: cough ? 2 view chest x-ray ? Comparison: 01/19/2024 ? Findings: ? Lungs are clear without acute infiltrates. ?? No pneumothorax. Heart size normal. ?? No acute bony abnormalities. ? Impression: ? No acute processes ? This document has been electronically signed by: Kraig Bravo MD on ?? 08/18/2024 20:18:31 ? Dictated By: ?Kraig Bravo MD ? Signed By: ?<Electronically signed by Kraig Bravo MD in OV> ? 08/18/24 2019 ? DD/ 2018 ? TD/TT: 08/18/24 2018 ? Auto Clocks Repairer: ? Procedure Note Keaton Alcazar - 08/18/[address] [address] XRay Report Signed Patient: Cassandra Bradley MMR #: [id number] : 2000Acct:[id number] Age/Sex: 24 / MADM Date: 08/18/24 Loc: HO.ED Attending Dr: Ordering Physician: Lilian Husain Date of Service: 08/18/24 Procedure(s): XR chest 2V Accession Number(s): [id number] cc: Lilian Husain; Grisel Monroe MD CLINICAL HISTORY: cough 2 view chest x-ray Comparison: 01/19/2024 Findings: Lungs are clear without acute infiltrates. No pneumothorax. Heart size normal. No acute bony abnormalities. Impression: No acute processes This document has been electronically signed by: Kraig Bravo MD on 08/18/2024 20:18:31 Dictated By: Kraig Bravo MD Signed By: <Electronically signed by Kraig Bravo MD in OV> 08/18/24 2019 DD/ 17 TD/TT: 08/18/242017 Auto Clocks Repairer: [facility] External Provider IMG XR PROCEDURES Edited Result - Final * (ABNORMAL) POCT glycosylated hemoglobin (Hgb A1c) (02/27/2024 11:52 AM EDT) Hemoglobin A1C 12.3(A) 4.0 - 6.0 % QC Media Lot # [id number] Lot# Expiration Date ,862,204 Blood Capillary blood specimen / Unknown 02/27/2024 11:52 AM EDT Grisel Monroe MD POINT OF CARE TEST ENTER/EDIT OR DERABLES Final Result * Albumin, Random Urine W/Creatinine (01/12/2023 11:29 AM EDT) Creatinine, Urine 191.11 mg/dL [facility] Microalbumin Urine <5.0 mg/L [facility] Microalbum Creatinine Ratio Ur TNP <30 ug/mg cr [facility] Comment:Unable to calculate albumin/creatinine ratio due to lowmicroalbumin or creatinine result. Urine 01/12/2023 11:2 9 AM EDT 01/12/2023 1:14 PM EDT Grisel Monroe MD LAB URINE ORDERABLES Final Resul t [facility] [address] [place] [phone] * Hepatitis C Antibody Reflex (01/11/2023 12:15 PM EDT) Hepatitis C Antibody Nonreactive Nonreactive [facility] Comment:Antibodies to HCV no t detected; does not exclude early acuteHCV infection. 01/11/2023 12:1 5 PM EDT 01/11/2023 1:31 PM EDT Grisel Monroe MD LAB BLOOD ORDERABLES Final Resul t Performing Organization Address City/[facility]/ZIP Co de Phone Number [facility] [address] [place] [phone] [phone] * HIV Ab/Ag (JOANNA JACK) (01/11/2023 12:15 PM EDT) HIV AB/AG Nonreactive Nonreactive [facility] Comment:HIV-1 p24 Ag and/or HIV-1/HIV-2 Ab not detected.A test result that is nonreactive does not exclude thepossibility of exposure to or infection with HIV-1 and/orHIV-2. Nonreactive results in this assay for individualswith prior exposure to HIV-1 and/or HIV-2 may be due toantigen and antibody levels that are below the limit ofdetection of this assay.The [email or web address] HIV Ag/Ab Combo assay result andsupplemental assay results should be interpreted inconjunction with the patient's clinical presentation,history and other laboratory results. If the results areinconsistent with clinical evidence, additional testing issuggested to confirm the result. 01/11/2023 12:1 5 PM EDT 01/11/2023 1:31 PM EDT us Grisel Monroe MD LAB BLOOD ORDERABLES Final Resul t Performing Organization Address [facility]/ZIP Co de Phone Number [facility] [address] [place] [phone] * (ABNORMAL) Lipid Panel with Reflex to Direct LDL (01/11/2023 12:15 PM EDT) Triglycerides 161(H) <150 mg/dL [facility] Comment:Desirable Triglyceri de: less than 150 mg/dLBorderline High Triglyceride 150-199 mg/dLHigh Triglyceride: 200-499 mg/dLVery High Triglyceride: greater than or equal to 5OO mg/dL Cholesterol 121 <200 mg/dL [facility] Comment:Desirable Cholestero l: less than 200 mg/dLBorderline High Cholesterol: 200-239 mg/dLHigh Cholesterol: greater than 239 mg/dL LDL Cholesterol Calculated 42 <100 mg/dL [facility] Comment:Desirable LDL: less than 100 mg/dLNear Optimal/Above Optimal LDL: 110- 129 mg/dLBorderline High LDL: 130-159 mg/dLHigh LDL: 160-189 mg/dLVery High LDL: greater than or equal to 190 mg/dL HDL Cholesterol 47 >40 mg/dL [facility] Comment:Desirable HDL: great er than 40 mg/dL Note: This HDL assay may give artificially low results in patients with liver disease. Blood 01/11/2023 12:1 5 PM EDT 01/11/2023 1:31 PM EDT us Grisel Monroe MD LAB BLOOD ORDERABLES Final Resul t [facility] [address] [place] [phone] from Last 3 Months or Most Recently Relevant to Health Maintenance Insurance [employer] [facility] [employer] AD[facility] Care Teams Neurology Nurse Relationship Specialty Start Date End Date Grisel Monroe MD [address] [place] [phone] PCP - General Family Medicine 01/02/18
--- OUTSIDE RECORDS SUMMARY | 2024-09-06 16:32 | XMS_ITS | Encounter Summary ---
Author Organization [employer] Address [address] [place] [address] Care Team Providers Care Solar Sales Representative Name Role Phone Grisel Monroe MD Primary Care Provider Encounter Details Date Type Department Care Team (Late st Contact Info) Description 09/06/2024 Orders Only GENERIC EXTERNAL DATA DEPARTMENT Provider, Generic External Data Social History Tobacco Use Types Packs/Day Years Used Date Smoking Tobacco: Never Smokeless Tobacco: Never Alcohol Use Standard Drinks/Week Comments Yes 0 [...] Description 09/24/2024 3:00 PM EDT Office Visit [facility] [address] [place] [address] AbelArtn, OD [address] [place] [address] documented as of this encounter Procedures Procedure Name Priority Date/Time Associated Diagnosis Comments VENOUS BLOOD GAS Routine 09/06/2024 3:19 PM EDT BETA-HYDROXYBUTYRATE Routine 09/06/2024 3:14 PM EDT CBC WITH AUTO DIFFERENTIAL Routine 09/06/2024 3:14 PM EDT C-REACTIVE PROTEIN Routine 09/06/2024 3: 14 PM EDT MAGNESIUM Routine 09/06/2024 3:14 PM EDT LIPASE Routine 09/06/2024 3:14 PM EDT COMPREHENSIVE METABOLIC PANEL Routine 09/06/2024 3:14 PM EDT HOLD GREEN GEL Routine 09/06/2024 3:13 PM EDT documented in this encounter Results * (ABNORMAL) VENOUS BLOOD GAS (09/06/2024 3:19 PM EDT) VBG pH 7.33 7.32 - 7.43 [facility] Comment:METER #: [id number] additional_comment: CBBDAWEH VBG PCO2 63 mmHg [facility] Comment:METER #: [id number] additional_comment: CBBDAWEH VBG PO2 31 mmHg [facility] Comment:METER #: [id number] additional_comment: CBBDAWEH VBG Base Excess 5.4 mmol/L [facility] Comment:METER #: [id number] additional_comment: CBBDAWEH VBG HCO3 33(H) 22 - 26 mmol/L [facility] Comment:METER #: [id number] additional_comment: CBBDAWEH O2 Sat, Neftaly 39.0 % [facility] Comment:METER #: [id number] additional_comment: CBBDAWEH 09/06/2024 3:19 PM EDT 09/06/2024 3:23 PM EDT us Generic External Data Provider LAB BLOOD ORDERAB LES Final Result Performing Organization Address [facility]/ZIP Co de Phone Number [facility] [address] [place] [phone] * Beta-Hydroxybutyrate (09/06/2024 3:14 PM EDT) Beta-Hydroxybut yrate 0.10 0.02 - 0.27 mmol/L [facility] 09/06/2024 3:14 PM EDT 09/06/2024 3:17 PM EDT us Generic External Data Provider LAB BLOOD ORDERAB LES Final Result Performing Organization Address [facility]/ZIP Co de Phone Number [facility] [address] [place] [phone] * (ABNORMAL) Lipase (09/06/2024 3:14 PM EDT) Lipase 6(L) 8 - 78 U/L [facility] 09/06/2024 3:14 PM EDT 09/06/2024 3:17 PM EDT us Generic External Data Provider LAB BLOOD ORDERAB LES Final Result Performing Organization Address [facility]/ZIP Co de Phone Number [facility] [address] [place] [phone] * C-reactive Protein (09/06/2024 3:14 PM EDT) [facility] C Reactive Protein 0.21 < or = 0.50 mg/dL [facility] 09/06/2024 3:14 PM EDT 09/06/2024 3:17 PM EDT Generic External Data Provider LAB BLOOD ORDERAB LES Final Result Performing Organization Address [facility] Co de Phone Number [facility] [address] [place] [phone] * Magnesium (09/06/2024 3:14 PM EDT) [facility] Magnesium 2.0 1.6 - 2.6 mg/dL [facility] 09/06/2024 3:14 PM EDT 09/06/2024 3:17 PM EDT Generic External Data Provider LAB BLOOD ORDERAB LES Final Result Performing Organization Address [facility] Phone Number [facility] [address] [place] [phone] * (ABNORMAL) Comprehensive Metabolic Panel (09/06/2024 3:14 PM EDT) [facility] Sodium 142 135 - 145 mmol/L [facility] Potassium 4.0 3.3 - 5.1 mmol/L [facility] Chloride 103 96 - 108 mmol/L [facility] Carbon Dioxide 29 22 - 29 mmol/L [facility] Anion Gap 14 12 - 20 [facility] Urea Nitrogen (BUN) 9 9 - 16 mg/dL [facility] Creatinine, Serum 0.79 0.5 - 1.4 mg/dL [facility] Creatinine Clr Calc Pharmacy 114.0 [facility] Comment:eGFR (calculated fro m the MDRD study equation) and eCrCl(calculated from the Cockcroft-Gault equation) are based ondifferent parameters and may not yield comparable results.If eCrCl result is absurd, please check patient'sheight/weight. Estimated Glomerular Filt Rate >60 [facility] Comment:Chronic Kidney Disea se: Estimated GFR < 60 mL/min/1.02m6Xjnlon Kidney Disease: Estimated GFR < 15 mL/min/1.73m2 Glucose 142(H) 60 - 115 mg/dL [facility] Calcium 9.6 8.4 - 10.2 mg/dL [facility] Bilirubin, Total 0.3 0.0 - 1.0 mg/dL [facility] Aspartate Amino Transferase 41(H) 5 - 37 U/L [facility] Alanine Aminotransferase 56(H) 0 - 40 U/L [facility] Total Protein 7.7 6.5 - 8.0 g/dL [facility] Albumin Level 4.5 3.5 - 5.0 g/dL [facility] Alkaline Phosphatase 104 39 - 117 U/L [facility] 09/06/2024 3:14 PM EDT 09/06/2024 3:17 PM EDT us Generic External Data Provider LAB BLOOD ORDERAB LES Final Result [facility] [address] [place] [address] [phone] * (ABNORMAL) CBC auto differential (09/06/2024 3:14 PM EDT) White Blood Count 9.1 4.8 - 10.8 X10*3/uL [facility] Red Blood Count 5.76 4.60 - 5.80 X10*6/uL [facility] Hemoglobin 14.4 14.0 - 18.0 g/dl [facility] Hematocrit 44.5 42.0 - 52.0 % [facility] Mean Corpuscular Volume 77.3(L) 80.0 - 98.0 fL [facility] Mean Corpuscular Hemoglobin 25.0(L) 27.0 - 33.0 pg [facility] Mean Corpuscular HGB Conc 32.4 31.0 - 36.0 g/dl [facility] Red Cell Distribution Width 13.6 11.0 - 16.0 % [facility] Platelet Count 259 160 - 400 X10*3/uL [facility] Mean Platelet Volume 10.5 9.4 - 12.4 fL [facility] Neutrophils Percent Auto 62.1 45 - 73 % [facility] Imm Gran Pct Auto 0.4 0.0 - 0.4 % [facility] Lymphocytes Percent Auto 21.8 20 - 40 % [facility] Monocytes Percent Auto 7.3 2 - 11 % [facility] Eosinophils Percent Auto 7.6(H) 0 - 4 % [facility] Basophils Percent Auto 0.8 0 - 2 % [facility] NRBC Pct Auto 0.0 0.0 - 0.2 /100WBC [facility] Neutrophils Absolute Auto 5.6 2.0 - 8.3 x10*3/uL [facility] Imm Gran Abs Auto 0.04(H) 0.00 - 0.03 X10*3/uL [facility] Lymphocytes Absolute Auto 2.0 1.2 - 4.9 X10*3/uL [facility] Monocytes Absolute Auto 0.7 0.1 - 1.2 X10*3/uL [facility] Eosinophils Absolute Auto 0.7(H) 0.0 - 0.4 X10*3/uL [facility] Basophils Absolute Auto 0.1 0.0 - 0.2 X10*3/uL [facility] NRBC Abs Auto 0.000 0.0 - 0.012 X10*3/uL [facility] 09/06/2024 3:14 PM EDT 09/06/2024 3:17 PM EDT us Generic External Data Provider LAB BLOOD ORDERAB LES Final Result [facility] [address] [place] [phone] * Hold Green Gel (09/06/2024 3:13 PM EDT) Hold Green Gel See Note [facility] Comment:Specimen held untest ed for 24 hours; Call to requestChemistry testing. 09/06/2024 3:13 PM EDT 09/06/2024 3:18 PM EDT us Generic External Data Provider HISTORICAL/NON OR DERABLE LABS Final Result [facility] [address] [place] [phone] documented in this encounter Visit Diagnoses Not on filedocumented in this encounter Additional Health Concerns Assessment Noted Time PHQ-9 Depression Total Score: 15 01/20/ 023 10:47 AM EDT documented as of this encounter Care Teams Solar Sales Representative Relationship Specialty Start Date End Date Grisel Monroe MD [address] [place] [phone] PCP - General Family Medicine 01/02/18 documented as of this encounter
--- OUTSIDE RECORDS SUMMARY | 2024-09-06 16:32 | XMS_ITS | Encounter Summary ---
Author Organization [employer] [facility] Address [address] [facility] [address] [place] [address] Care Team Providers Care Clinical Trials Specialist Name Role Phone Grisel Monroe MD Primary Care Provider [phone] Encounter Details Date Type Department Care Team (Late st Contact Info) Description 05/24/2022 Orders Only [facility] [address] [place] [address] Deya Huffman LPN Social History Tobacco Use [...] Description 09/24/2024 3:00 PM EDT Office Visit [facility] [address] [place] [address] Abel, Shilpa, OD [address] [place] [address] documented as of this encounter Procedures Procedure [...] PM EDT) Hepatitis C Antibody Nonreactive Nonreactive [facility] Comment:Antibodies to HCV no t detected; does not exclude early acuteHCV infection. 01/11/2023 12:1 5 PM EDT 01/11/2023 1:31 PM EDT us Grisel Monroe MD LAB BLOOD ORDERABLES Final Resul t [facility] [address] [place] [phone] * Hepatitis B surface antigen, EIA (01/11/2023 12:15 PM EDT) [facility] Hepatitis B Surface Ag Negative Negative [facility] 01/11/2023 12:1 5 PM EDT 01/11/2023 1:31 PM EDT us Grisel Monroe MD LAB BLOOD ORDERABLES Final Resul t Performing Organization Address City/[facility]/ZIP Co de Phone Number [facility] [address] [place] [address] [phone] * HIV Ab/Ag ([facility]) (01/11/2023 12:15 PM EDT) [facility] HIV AB/AG Nonreactive Nonreactive [facility] Comment:HIV-1 p24 Ag and/or HIV-1/HIV-2 Ab not detected.A test result that is nonreactive does not exclude thepossibility of exposure to or infection with HIV-1 and/orHIV-2. Nonreactive results in this assay for individualswith prior exposure to HIV-1 and/or HIV-2 may be due toantigen and antibody levels that are below the limit ofdetection of this assay.[employer] HIV Ag/Ab Combo assay result andsupplemental assay results should be interpreted inconjunction with the patient's clinical presentation,history and other laboratory results. If the results areinconsistent with clinical evidence, additional testing issuggested to confirm the result. 01/11/2023 12:1 5 PM EDT 01/11/2023 1:31 PM EDT us Grisel Monroe MD LAB BLOOD ORDERABLES Final Resul t Performing Organization Address [facility]/ZIP Co de Phone Number [facility] [address] [place] [address] [phone] * Hepatitis B Surface Antibody, Qualitative (01/11/2023 12:15 PM EDT) ~Hepatitis B Surface Antibody REACTIVE Nonreactive [facility] Comment:REACTIVE: > 11.99 mI U/mL 01/11/2023 12:1 5 PM EDT 01/11/2023 1:31 PM EDT us Grisel Monroe MD LAB BLOOD ORDERABLES Final Resul t [facility] [address] [place] [phone] * COVID-19 ID NOW (OTERO) (12/24/2022 3:56 PM EDT) Pathologist [facility] IDNOW SERIAL# [id number] [facility] COVID-19 TEST Negative Negative [facility] COVID-19 NOTE See Note [facility] Comment: Results are for the identification of SARS-CoV2 RNA. TheSARS-CoV2 RNA is generally detectable in respiratory samplesduring the acute phase of infection. Positive results areindicative of the presence of SARS-CoV-2 RNA; clinicalcorrelation with patient history and other diagnosticinformation is necessary to determine patient infectionstatus. Positive results do not rule out bacterial infectionor co- infection with other viruses.Testing facilities within the [facility] are required to report all positive results [...] use by authorized laboratories.Testing performed on the [place] ID NOW utilizing NAAT. 12/24/2022 3:56 PM EDT 12/24/2022 4:02 PM EDT [facility] Exter nal Provider LAB MOLECULAR DIAGNOSTICS ORDERABLES Final Result [facility] [address] [place] [address] [phone] * (ABNORMAL) Drug Monitoring, Panel 1, Screen, Urine (12/24/2022 11:58 AM EDT) Opiate Screen Urine Not Detected Not Detect [facility] Comment:Opiate cut-off is 30 0 ng/mL.Positive results are unconfirmed and should not be used fornon-medical purposes. Barbiturates, Urine Not Detected Not Detect [facility] Comment:Barbiturate cut-off is 200 ng/mL.Positive results are unconfirmed and should not be used fornon-medical purposes. Phencyclidine Screen Urine Not Detected Not Detect [facility] Comment:Phencyclidine cut-of f is 25 ng/mL.Positive results are unconfirmed and should not be used fornon-medical purposes. Amphetamine Screen Urine Not Detected Not Detect [facility] Comment:Amphetamine cut-off is 1000 ng/mL.Positive results are unconfirmed and should not be used fornon-medical purposes. Benzodiazepines Screen Urine Not Detected Not Detect [facility] Comment:Benzodiazepine cut-o ff is 200 ng/mL.Positive results are unconfirmed and should not be used fornon-medical purposes. Cocaine Screen Urine POSITIVE(A) Not Detect [facility] Comment:Cocaine cut-off is 3 00 ng/mL.Positive results are unconfirmed and should not be used fornon-medical purposes. Cannabinoid Screen Urine Not Detected Not Detect [facility] Comment:Cannabinoid cut-off is 50 ng/mL.Positive results are unconfirmed and should not be used fornon-medical purposes. FENTANYL URINE POSITIVE(A) Not Detect [facility] Comment:Fentanyl cut-off is 1 ng/mL.Positive results are unconfirmed and should not be used fornon-medical purposes. 12/24/2022 11:5 8 AM EDT 12/24/2022 12:01 PM EDT [facility] External Provider LAB URI NE ORDERABLES Final Result Performing Organization Address City/[facility]/ZIP Co de Phone Number [facility] [address] [place] [address] [phone] * (ABNORMAL) Urinalysis, Complete, with Reflex to Culture (12/24/2022 11:58 AM EDT) Color Urine Yellow [facility] Appearance Urine Clear [facility] PH 5.5 5.0 - 9.0 [facility] Glucose Urine UA Negative Negative mg/dL [facility] Urine Blood Negative Negative [facility] Specific [place] - Urine 1.015 1.005 - 1.025 [facility] Urine Protein Negative Neg-Trace mg/dL [facility] Urine Ketones Negative Negative mg/dL [facility] Nitrite Urine Negative Negative [facility] Leukocyte Esterase Urine Trace(A) Negative [facility] RBC Urine 0-2 0 - 2 /HPF [facility] Urine WBC 6-10(A) 0 - 5 /HPF [facility] Urine Squamous Epithelial Cell 0-2 0 - 2 /HPF [facility] Urine Bacteria None Seen None Seen [facility] Hyaline Casts, Urine 0-2 0 - 2 /LPF [facility] 12/24/2022 11:5 8 AM EDT 12/24/2022 12:01 PM EDT Narrative [facility] - 12/24/2022 12:11 PM EDT [id number], [employer] [facility] External Provider LAB URI NE ORDERABLES Final Result Performing Organization Address City/[facility]/ZIP Co de Phone Number [facility] [address] [place] [phone] * Ethanol (12/24/2022 8:31 AM EDT) ETHANOL (MG/DL) IN SER/PLAS <10 mg/dL [facility] Comment:Serum/plasma ethanol results are to be used formedical/treatment purposes only. 12/24/2022 8:31 AM EDT 12/24/2022 8:39 AM EDT us Generic External Data Provider LAB BLOOD ORDERAB LES Final Result Performing Organization Address [facility]/State/ZIP Co de Phone Number [facility] [address] [place] [address] [phone] * (ABNORMAL) Basic Metabolic Panel (12/24/2022 8:31 AM EDT) Sodium 139 135 - 145 mmol/L [facility] Potassium 5.5(H) 3.3 - 5.1 mmol/L [facility] Chloride 104 96 - 108 mmol/L [facility] Carbon Dioxide 25 22 - 29 mmol/L [facility] Anion Gap 16 12 - 20 [facility] Urea Nitrogen (BUN) 12 9 - 16 mg/dL [facility] Creatinine, Serum 0.91 0.5 - 1.4 mg/dL [facility] Creatinine Clr Calc Pharmacy 115.8 [facility] Comment:eGFR (calculated fro m the MDRD study equation) and eCrCl(calculated from the Cockcroft-Gault equation) are based ondifferent parameters and may not yield comparable results.If eCrCl result is absurd, please check patient'sheight/weight. Estimated Glomerular Filt Rate >60 [facility] Comment:NOTE: For -Am erican individuals, multiply the result by 1.210.Chronic Kidney Disease: Estimated GFR < 60 mL/min/1.83m9Umfmlw Kidney Disease: Estimated GFR < 15 mL/min/1.73m2 Glucose 95 60 - 115 mg/dL [facility] Calcium 10.1 8.4 - 10.2 mg/dL [facility] 12/24/2022 8:31 AM EDT 12/24/2022 8:39 AM EDT us Generic External Data Provider LAB BLOOD ORDERAB LES Final Result Performing Organization Address City/[facility] Co de Phone Number [facility] [address] [place] [phone] * (ABNORMAL) Hepatic Function Panel (12/24/2022 8:31 AM EDT) Bilirubin, Total 0.2 0.0 - 1.0 mg/dL [facility] Bilirubin, Direct <0.2 0.0 - 0.5 mg/dL [facility] Aspartate Amino Transferase 32 5 - 37 U/L [facility] Alanine Aminotransferase 40 0 - 40 U/L [facility] Total Protein 8.5(H) 6.5 - 8.0 g/dL [facility] Albumin Level 4.9 3.5 - 5.0 g/dL [facility] Alkaline Phosphatase 111 39 - 117 U/L [facility] 12/24/2022 8:31 AM EDT 12/24/2022 8:39 AM EDT us [facility] External Provider LAB BLO OD ORDERABLES Final Result Performing Organization Address [facility] Co de Phone Number [facility] [address] [place] [phone] * Acetaminophen level (12/24/2022 8:31 AM EDT) [facility] Acetaminophen LAB <17 <30 mcg/mL [facility] 12/24/2022 8:31 AM EDT 12/24/2022 8:39 AM EDT Generic External Data Provider LAB BLOOD ORDERAB LES Final Result Performing Organization Address [facility] Co de Phone Number [facility] [address] [place] [phone] * (ABNORMAL) Salicylate (12/24/2022 8:31 AM EDT) Salicylate <5.0(L) 15 - 30 mg/dL [facility] 12/24/2022 8:31 AM EDT 12/24/2022 8:39 AM EDT [facility] External Provider LAB BLO OD ORDERABLES Final Result [facility] [address] [place] [address] [phone] * (ABNORMAL) CBC auto differential (12/24/2022 8:31 AM EDT) White Blood Count 18.6(H) 4.8 - 10.8 X10*3/uL [facility] Red Blood Count 5.39 4.60 - 5.80 X10*6/uL [facility] Hemoglobin 13.8(L) 14.0 - 18.0 g/dl [facility] Hematocrit 41.7(L) 42.0 - 52.0 % [facility] Mean Corpuscular Volume 77.4(L) 80.0 - 98.0 fL [facility] Mean Corpuscular Hemoglobin 25.6(L) 27.0 - 33.0 pg [facility] Mean Corpuscular HGB Conc 33.1 31.0 - 36.0 g/dl [facility] Red Cell Distribution Width 12.8 11.0 - 16.0 % [facility] Platelet Count 300 160 - 400 X10*3/uL [facility] Mean Platelet Volume 9.9 9.4 - 12.4 fL [facility] Neutrophils Percent Auto 76.9(H) 45 - 73 % [facility] Imm Gran Pct Auto 0.6(H) 0.0 - 0.4 % [facility] Lymphocytes Percent Auto 15.0(L) 20 - 40 % [facility] Monocytes Percent Auto 7.2 2 - 11 % [facility] Eosinophils Percent Auto 0.0 0 - 4 % [facility] Basophils Percent Auto 0.3 0 - 2 % [facility] NRBC Pct Auto 0.0 0.0 - 0.2 /100WBC [facility] Neutrophils Absolute Auto 14.3(H) 2.0 - 8.3 x10*3/uL [facility] Imm Gran Abs Auto 0.12(H) 0.00 - 0.03 X10*3/uL [facility] Lymphocytes Absolute Auto 2.8 1.2 - 4.9 X10*3/uL [facility] Monocytes Absolute Auto 1.4(H) 0.1 - 1.2 X10*3/uL [facility] Eosinophils Absolute Auto 0.0 0.0 - 0.4 X10*3/uL [facility] Basophils Absolute Auto 0.1 0.0 - 0.2 X10*3/uL [facility] NRBC Abs Auto 0.000 0.0 - 0.012 X10*3/uL [facility] 12/24/2022 8:31 AM EDT 12/24/2022 8:39 AM EDT [facility] External Provider LAB BLO OD ORDERABLES Final Result Performing Organization Address [facility] Co de Phone Number [facility] [address] [place] [phone] * GLUCOSE, WHOLE BLOOD (06/20/2022 3:32 AM EST) Glucose, Whole Blood 99 60 - 115 mg/dL [facility] Comment:METER #: [id number] 06/20/2022 3:32 AM EST 06/20/2022 3:35 AM EST [facility] External Provider LAB BLO OD ORDERABLES Final Result Performing Organization Address [facility] Co de Phone Number [facility] [address] [place] [phone] documented in this encounter Visit Diagnoses Not on filedocumented in this encounter Care Teams Clinical Trials Specialist Relationship Specialty Start Date End Date Grisel Monroe MD [address] [place] [address], [place] [address] PCP - General Family Medicine 01/02/18 documented as of this encounter
--- OUTSIDE RECORDS SUMMARY | 2024-09-06 16:32 | XMS_ITS | Encounter Summary ---
Author Organization [facility] Address [address] [facility] [address] [place] [address] Care Team Providers Care Manual Machinist Name Role Phone Grisel Monroe MD Primary Care Provider [phone] Reason for Visit * Reason Comments Med Refill Encounter Details Date Type Department Care Team (Late st Contact Info) Description 05/24/2022 Refill [facility] [address] [place] [address] Grisel Monroe MD [address] [place] [address] Type 2 diabetes mellitus with hyperglycemia, unspecified whether correction insulin use (CMS/HCC) (Primary Dx) Social History Tobacco Use Types [...] Description 09/24/2024 3:00 PM EDT Office Visit [facility] [address] [place] [address] AbelShilpa degroot, OD [address] [place] [address] documented as of this encounter Visit Diagnoses Diagnosis Type 2 diabetes mellitus with hyperglycemia, unspecified whether correction insulin use (CMS/HCC)- Primary documented in this encounter Care Teams Manual Machinist Relationship Specialty Start Date End Date Grisel Monroe MD [address] [place] [address] PCP - General Family Medicine 01/02/18 documented as of this encounter
--- OUTSIDE RECORDS SUMMARY | 2024-09-06 16:32 | XMS_ITS | Encounter Summary ---
Author Organization [employer] Address [address] [place] [address] Care Team Providers Care Freight Elevator Operator Name Role Phone Grisel Monroe MD Primary Care Provider [phone] Reason for Visit * Reason Onset Date Comments Refer to ED from [facility] 09/06/2024 Encounter Details Date Type Department Care Team ([facility] st Contact Info) Description 09/06/2024 Telephone [facility] [address] [place], [place] [phone] Lucila Sanders, RN Refer to ED from [facility] Social History Tobacco Use Types Packs/Day Years Used Date Smoking Tobacco: Never Smokeless Tobacco: Never Alcohol Use Standard Drinks/Week Comments Yes 0 (1 standard drink = 0.6 oz pur e alcohol) Depression Answer Date Recorded Patient Health Questionnaire-9 Score 15 01/20/2023 Housing Stability Answer Date Recorded What is your housing situation today? I have galina isauro 08/07/[address] you li [...] t he electric, gas, oil or water [facility] threatened to shut off services in your home? No 08/07/2023 Depression Answer Date Recorded Patient Health Questionnaire-2 Score 4 01/20/2023 Sex and Gender Information Value Date Recorded Sex Assigned at Male 03/14/2022 10:34 AM EDT Legal Sex Male 10:34 AM EDT Gender Identity Male 03/14/2022 10:34 AM EDT Sexual Orientation Choose not to disclose 2021 10:34 AM EDT documented as of this encounter Miscellaneous Notes * Telephone Encounter - Lucila Sanders RN - 09/06/2024 3:32 PM EDT Pt. Presents to [facility] with female repeat photocomposing machine operator (?mother). Pt 's repeat photocomposing machine operator is requesting a provider visitbecause pt reported his blood sugar is high . ROBERT Bojorquez interprets in [place] for this content writer. There is no availability In [facility] today for provider evmerissa. Upon requesting more information from pt. He describes not having a blood sugar machine or any medications . He states he also vomited today. This content writer advised pt to go to ED for evaluation and treat, also advised female repeat photocomposing machine operator of same. Pt advised a note would be entered into his EMR and sent to his PCP for follow up. Rationale for referral to ED explained aswell as that [facility] pharmacy is closed Sat and Sun regarding Rx for meds, and his requiring refills jeni. Notation forwarded to PCP and [facility] nursing team for follow up. documented in this encounter Plan of Treatment Upcoming Encounters Date Type Department Care Team (Late st Contact Info) Description 09/24/2024 3:00 PM EDT Office Visit [facility] [address] [place] [address] Shilpa Roman, OD [address] [place] [address] documented as of this encounter Visit Diagnoses Not on filedocumented in this encounter Additional Health Concerns Assessment Noted Time PHQ-9 Depression Total Score: 15 023 10:47 AM EDT documented as of this encounter Care Teams Freight Elevator Operator Relationship Specialty Start Date End Date Grisel Monroe MD [address] [place] [address] PCP - General Family Medicine 01/02/18 documented as of this encounter
[2024-09-06] MEDS: iohexoL 350 MG/ML 100 ML INFUS..BTL IV (16:35)
[2024-09-06 17:30] LABS: Troponin-I High Sensitivity < 2.7 ng/L (<3.5-35.0)
[2024-09-06 17:31] VITALS: BP 127/89; PULSE 97; RESP 16; TEMP 37.2; O2SAT 99
[2024-09-06] MEDS: methADONE HCl 20 MG/2 ML ORAL.CONC 40 MG PO (17:33)
[2024-09-06 18:37] VITALS: BP 122/71; PULSE 79; RESP 16; TEMP 36.2; O2SAT 100
[2024-09-06 18:44] VITALS: BP 122/71; PULSE 79; RESP 16; TEMP 36.2; O2SAT 100
== END 2024-09-06 18:46 | disposition left against medical advice (07) ==
PROVIDERS: Physician Assistant; Physician Assistant Medical; Emergency Provider Emergency Medicine; PCP Family Medicine
DX: R10.31 Right lower quadrant pain (principal); F11.23 Opioid dependence with withdrawal; R11.2 Nausea with vomiting, unspecified; F19.10 Other psychoactive substance abuse, uncomplicated; E11.9 Type 2 diabetes mellitus without complications; J45.909 Unspecified asthma, uncomplicated; Z53.29 Procedure and treatment not carried out because of patient's decision for other reasons
CPT/HCPCS: 36415; 80053; 82010; 82803; 83690; 83735; 84484; 85025; 86140; 93005; 96374; 96375; 99284; 99285; J1200; J2405; Q9967

== ENCOUNTER → 2024-09-06 15:05 | Outpatient (BNV) | payer SELFPAY | PROVIDERS: Emergency Provider Emergency Medicine; PCP Family Medicine; Visit Provider Internal Medicine | DX: R94.31 Abnormal electrocardiogram [ECG] [EKG] (principal); R42 Dizziness and giddiness | CPT/HCPCS: 93010 ==

== ENCOUNTER 2024-10-14 18:00 | Emergency (ER) | payer SELFPAY ==
--- NOTE | ~2024-10-14 | CT_ITS ---
CLINICAL HISTORY: CP, SOB, chills, tachy, hx IVDA CT angiography chest with contrast. 3D Postprocessing. Comparison: CR - XR CHEST 2V - 10/14/24 18:46 EDT Findings: The heart size is normal. RV/LV ratio is normal. Unremarkable thoracic aorta and great vessels. No aneurysm. No pulmonary artery filling defects. Minimal focal ground-glass opacity in the lingula. No consolidation, pleural effusion or pneumothorax. No adenopathy. Visualized thyroid within normal limits. Thoracic esophagus within normal limits. The upper abdomen demonstrates no acute process. Moderate colonic stool in upper abdomen. No acute fractures. IMPRESSION: 1. No pulmonary emboli. 2. Minimal focal ground-glass opacity in the lingula may represent minimal focal edema atypical pneumonia. This document has been electronically signed by: Patricia Munoz MD on 10/15/2024 01:11:22
--- NOTE | ~2024-10-14 | XR_ITS ---
CLINICAL HISTORY: SOB 2 view chest x-ray Comparison: CR - XR CHEST 2V - 08/18/24 20:01 EDT Findings: Heart size is normal. No consolidation, pleural effusion or pneumothorax. Right perihilar linear opacity suggestive of subsegmental atelectasis. No acute fracture. IMPRESSION: 1. No acute findings. This document has been electronically signed by: Patricia Munoz MD on 10/14/2024 19:32:07
--- NOTE | 2024-10-14 18:30 | ED_ITS ---
HPI - General Adult General Chief complaint: Asthma Stated complaint: sob Time Seen by Provider: 10/14/24 21:14 Source: patient Mode of arrival: ambulatory Limitations: no limitations History of Present Illness ED Provider: gertrudis lomeli np HPI narrative: patient is a 24-year-old male past medical history of asthma, opioid use disorder would psychotic disorder, diabetes who presents emergency department for evaluation. Over the past 1.5 months he has been experiencing tactile fevers, chills, shortness of breath, chest pain, productive cough. Reports that he recently ran out as his albuterol inhaler but when he was taking it it was not helping his symptoms. He denies any known sick contacts. Related Data Home Medications ?Medication ?Instructions ?Recorded ?Confirmed ondansetron HCl 4 mg tablet 4 mg PO Q6H PRN nausea/vomiting 08/16/23 01/19/24 loratadine 10 mg tablet 10 mg PO DAILY PRN Allergic 01/06/24 01/19/24 Symptoms insulin lispro 100 unit/mL 10 unit subcut TIDAC 01/19/24 01/19/24 subcutaneous pen (Humalog KwikPen (U-100) Insulin) Previous Rx's ?Medication ?Instructions ?Recorded metformin 500 mg tablet 500 mg PO BIDWMEAL 30 days #60 tabs 06/24/23 ondansetron 4 mg disintegrating 8 mg (2 x 4 mg) PO Q8H PRN nausea 06/24/23 tablet and vomiting 5 days #10 tabs albuterol sulfate 2.5 mg/3 mL 2.5 mg (3 mL) inhalation Q4-6H PRN 01/05/24 (0.083 %) solution for nebulization shortness of breath or wheezing #90 mL albuterol sulfate 90 mcg/actuation 2 puff inhalation Q6H PRN 01/05/24 aerosol inhaler shortness of breath or wheezing #8.5 grams empagliflozin 10 mg tablet 10 mg PO QAM #30 tabs 01/05/24 (Jardiance) nebulizers #1 ea 01/05/24 methadone 10 mg/mL oral 40 mg (4 mL) PO DAILY #1 mL 01/20/24 concentrate (Methadose) prednisone 20 mg tablet 20 mg PO DAILY #4 tabs 01/20/24 albuterol sulfate 2.5 mg/3 mL 2.5 mg (3 mL) inhalation Q4-6H PRN 08/18/24 (0.083 %) solution for nebulization shortness of breath or wheezing #75 mL albuterol sulfate 90 mcg/actuation 2 puff inhalation Q4-6H PRN 08/18/24 aerosol inhaler shortness of breath or wheezing #8.5 grams prednisone 20 mg tablet 40 mg (2 x 20 mg) PO DAILY #8 tabs 08/18/24 insulin lispro 100 unit/mL 10 unit (0.1 mL) subcut TID #15 mL 09/06/24 subcutaneous pen (Humalog KwikPen (U-100) Insulin) metformin 500 mg tablet 500 mg PO BID 30 days #60 tabs 09/06/24 albuterol sulfate 90 mcg/actuation 2 inh inhalation Q4-6H PRN 10/15/24 breath activated powder inhaler shortness of breath or wheezing #1 ea amoxicillin 500 mg tablet 1,000 mg (2 x 500 mg) PO TID 5 10/15/24 days #30 tabs azithromycin 250 mg tablet See Rx Instructions PO .COMPLEX #6 10/15/24 tabs Allergies Allergy/AdvReac Type Severity Reaction Status Date / Time haloperidol [From Haldol] AdvReac Mild dystonia Verified 10/14/24 18:35 Review of Systems 2 Review of Systems: Yes all other systems are reviewed and are negative PMFSH Past Medical History Attestation statement: The following information was validated with the patient. Source: old records reviewed Medical History Cocaine use disorder Asthma Paranoia Diabetes Social History Social History (System 01/30/24 @ 14:30 by Georgina Brown) Household Members: Friend(s) Housing: Apartment Do you presently have visiting nurse or other home services: No Alcohol intake: never Patient Tobacco Use Status: Never used Tobacco e-Cigarette/Vaping Use: Never Used Second Hand Smoke Exposure: No Substance Use Type: Opiates Advance Directives: No Advance Directives Information Provided: No service: No Sexual orientation: Don't Know Physical Exam ED Vital Signs: Vital Signs - 24 hr 10/14/24 18:31 10/14/24 21:11 10/14/24 22:36 Temperature 98.3 F 98.3 F Pulse Rate 101 H 80 98 Respiratory Rate 20 18 20 Blood Pressure 120/85 124/88 Pulse Oximetry 97 97 Oxygen Delivery Method Room Air Room Air 10/15/24 01:05 Temperature 98.6 F Pulse Rate 96 Respiratory Rate 18 Blood Pressure 115/72 Pulse Oximetry 100 Oxygen Delivery Method Room Air BMI result Body Mass Index 23.3 Appearance: Alert.?Oriented to person, place and time. No acute distress.?Normal affect. Eyes: Pupils equal, round and reactive to light.? ENT: Pharynx normal.?? Neck: Normal inspection.? Neck supple.?? CVS: Heart sounds normal. Tachycardia? Pulses normal.?? Respiratory: No respiratory distress.? Lung sounds with mild expiratory wheezing throughout Abdomen: Soft and non-tender. Normoactive bowel sounds. ? Skin: Skin warm and dry.? Normal skin color.?? Extremities: No lower extremity edema.? No calf ttp? Neuro: Moves all extremities spontaneously. Sensation intact bilaterally. Ambulates with normal steady gait. Course Course Course Narrative: This is an RME: Additional HPI, ROS, PE not included below will be deferred to primary provider. RME assessment and note performed by: Sherri Mcgill PA-C This is a 24 y/o M, with a hx of asthma, opiate use disorder, polysubstance abuse, psychotic disorder, diabetes, who presents to the ER with complaints of shortness of breath x 1 month. Reporting chills. Shortness of breath waxes and wanes in severity. Reporting cough intermittent with green colored sputum. Patient with course inspiratory and expiratory wheezes noted throughout. normal respiratory effort, vital signs within normal limits. Plan: Labs, x-ray, ED bronch protocol, viral swabs Medications Administered Discontinued Medications Generic Name Dose Route Start Last Admin Trade Name Freq PRN Reason Stop Dose Admin Albuterol Sulfate 7.5 mg/ 10 mg 10/14/24 21:13 10/14/24 21:15 Albuterol Sulfate 2.5 mg INHALE 10/14/24 21:14 10 mg ONCE ONE Administration Diazepam 2.5 mg 10/14/24 22:36 10/14/24 22:48 Diazepam 10 Mg/2 Ml Cartridge IVPUSH 10/14/24 22:37 2.5 mg STAT STA Administration Sodium Chloride 1,000 mls @ 999 mls/hr 10/14/24 21:45 10/14/24 22:49 Ns IV 10/14/24 22:45 999 mls/hr .Q1H1M VERÓNICA Administration Iohexol 65 ml 10/14/24 23:43 10/14/24 23:43 Iohexol 350 Mg/Ml 100 Ml Infus..Btl IV 10/14/24 23:44 65 ml ONCE ONE Administration Medical Decision Making Medical Decision Making [facility] Narrative: patient is a 24-year-old male past medical history of asthma, opioid use disorder would psychotic disorder, diabetes who presents emergency department for evaluation of shortness of breath cough tactile fevers and chills, chest pain as per HPI. Symptom onset 1.5 months ago without improvement. Workup obtained prior to my assumption of care reveals a leukocytosis of 11,400, no anemia, no thrombocytopenia. No electrolyte derangement. No MOHAN. High sensitive troponin Within normal range, EKG reveals sinus tachycardia with ventricular rate of 102, no BRITTANY, QTC 482, no ST-elevation. chest CT reveals findings concerning for atypical pneumonia. Was placed on a course of antibiotics given 1st dose of amoxicillin in the emergency department, additionally sent a prescription for his albuterol inhaler to the pharmacy. Given strict return precautions, advised outpatient follow-up with primary care provider, all questions answered. Stable for discharge . Differential Diagnosis Differential Diagnoses: The differential diagnosis associated with the presentation includes (Bronchitis, pneumonia, PE, ACS) Admission/Observation Consideration of admission/observation: Escalation of care including admission/observation considered Lab Data [facility] Lab Attestation statement: I reviewed the patient's lab results. (See narrative above) 10/14/24 20:10 10/14/24 20:10 Labs: Lab Results 10/14/24 10/15/24 Range/Units 20:10 01:05 WBC 11.4 H (4.8-10.8) X10*3/uL RBC 6.12 H (4.60-5.80) X10*6/uL Hgb 15.1 (14.0-18.0) g/dl Hct 46.6 (42.0-52.0) % MCV 76.1 L (80.0-98.0) fL MCH 24.7 L (27.0-33.0) pg MCHC 32.4 (31.0-36.0) g/dl RDW 14.1 (11.0-16.0) % Plt Count 352 D (160-400) X10*3/uL MPV 10.8 (9.4-12.4) fL Immature Gran % (Auto) 0.4 (0.0-0.4) % Neut % (Auto) 63.1 (45-73) % Lymph % (Auto) 21.6 (20-40) % Worth % (Auto) 7.4 (2-11) % Eos % (Auto) 6.5 H (0-4) % Baso % (Auto) 1.0 (0-2) % Lymph # (Auto) 2.5 (1.2-4.9) X10*3/uL Worth # (Auto) 0.9 (0.1-1.2) X10*3/uL Eos # (Auto) 0.7 H (0.0-0.4) X10*3/uL Baso # (Auto) 0.1 (0.0-0.2) X10*3/uL Abs Immat Gran (auto) 0.05 H (0.00-0.03) X10*3/uL Absolute Neuts (auto) 7.2 (2.0-8.3) x10*3/uL Absolute Nucleated RBC 0.000 (0.0-0.012) X10*3/uL Nucleated RBC % (auto) 0.0 (0.0-0.2) /100WBC Sodium 141 (135-145) mmol/L Potassium 4.0 (3.3-5.1) mmol/L Chloride 103 (96-108) mmol/L Carbon Dioxide 28 (22-29) mmol/L Anion Gap 14 (12-20) BUN 12 (9-16) mg/dL Creatinine 0.74 (0.5-1.4) mg/dL Estim Creat Clear Calc 126.6 Estimated GFR > 60 POC Glucose 142 H (60-115) mg/dL Random Glucose 163 H (60-115) mg/dL Calcium 9.9 (8.4-10.2) mg/dL Magnesium 2.0 (1.6-2.6) mg/dL Total Bilirubin 0.4 (0.0-1.0) mg/dL Direct Bilirubin 0.2 (0.0-0.5) mg/dL AST 23 (5-37) U/L ALT 29 (0-40) U/L Alkaline Phosphatase 121 H (39-117) U/L Troponin I High Sens < 2.7 (<3.5-35.0) ng/L Total Protein 8.5 H (6.5-8.0) g/dL Albumin 5.1 H (3.5-5.0) g/dL Influenza Type A (PCR) NEGATIVE (Negative) Influenza Type B (PCR) NEGATIVE (Negative) RSV RNA Qual (PCR) NEGATIVE (Negative) SARS-CoV-2 RNA (RT-PCR) NEGATIVE (Negative) Independent Interpretation I performed an independent interpretation of an: Plain X-Ray (No overt consolidation or infiltrate) Radiology Impression Discussion of test interpretation with radiology: I have reviewed the radiologist's reading. Radiologist Impression: 2 view chest x-ray Comparison: CR - XR CHEST 2V - 08/18/24 20:01 EDT Findings: Heart size is normal. No consolidation, pleural effusion or pneumothorax. Right perihilar linear opacity suggestive of subsegmental atelectasis. No acute fracture. IMPRESSION: 1. No acute findings. CT angiography chest with contrast. 3D Postprocessing. Comparison: CR - XR CHEST 2V - 10/14/24 18:46 EDT Findings: The heart size is normal. RV/LV ratio is normal. Unremarkable thoracic aorta and great vessels. No aneurysm. No pulmonary artery filling defects. Minimal focal ground-glass opacity in the lingula. No consolidation, pleural effusion or pneumothorax. No adenopathy. Visualized thyroid within normal limits. Thoracic esophagus within normal limits. The upper abdomen demonstrates no acute process. Moderate colonic stool in upper abdomen. No acute fractures. IMPRESSION: 1. No pulmonary emboli. 2. Minimal focal ground-glass opacity in the lingula may represent minimal focal edema atypical pneumonia. External Record Review External record reviewed: Outpatient record Prescription Management I considered prescription management with: Pain Medication and Antibiotic Chronic Conditions Patient?s care impacted by: Other (See narrative above) Social Determinants Patient?s care significantly limited by Social Determinants of Health including: Alcoholism and drug addiction in family Discharge Plan Discharge Clinical Impression: Pneumonia Patient Disposition: Home, Self-Care Instructions: Community Acquired Pneumonia (ED) Additional Instructions: Workup today shows that you have pneumonia. Prescription for antibiotics have been sent to your pharmacy please complete this entire dosage not skipped any doses or stop taking early even if you begin to feel better. Have additionally sent a prescription for albuterol inhaler to the pharmacy. Follow-up with your primary care doctor within 3 days. Return to emergency department any new or worsening symptoms or concerns. Prescriptions: New amoxicillin 500 mg tablet 1,000 mg PO TID 5 Days Qty: 30 0RF azithromycin 250 mg tablet See Rx Instructions .ROUTE .COMPLEX Qty: 6 0RF Rx Instructions: For 250 mg dose pack: take 500 mg today (day 1), then 250 mg for 4 days (days 2-5) albuterol sulfate 90 mcg/actuation aerosol powdr breath activated 2 inh inhalation Q4-6H PRN (Reason: shortness of breath or wheezing) Qty: 1 0RF No Action metformin 500 mg tablet 500 mg PO BIDWMEAL 30 Days Qty: 60 0RF ondansetron 4 mg tablet,disintegrating 8 mg PO Q8H PRN (Reason: nausea and vomiting) 5 Days Qty: 10 0RF ondansetron HCl 4 mg tablet 4 mg PO Q6H PRN (Reason: nausea/vomiting) insulin lispro [Humalog KwikPen Insulin] 100 unit/mL insulin pen 10 unit subcut TIDAC Rx Instructions: BG <111 0 units, 111-150 - 0 units, 151-200 2 units, 201-250 4 units, 251-300 6 units, 301-350 8 units, >350 10 units methadone [Methadose] 10 mg/mL Concentrate 40 mg PO DAILY Qty: 1 0RF Rx Instructions: Partial Fill upon patient request. prednisone 20 mg tablet 20 mg PO DAILY Qty: 4 0RF prednisone 20 mg tablet 40 mg PO DAILY Qty: 8 0RF albuterol sulfate 90 mcg/actuation HFA aerosol inhaler 2 puff inhalation Q4-6H PRN (Reason: shortness of breath or wheezing) Qty: 8.5 0RF albuterol sulfate 2.5 mg /3 mL (0.083 %) solution for nebulization 2.5 mg inhalation Q4-6H PRN (Reason: shortness of breath or wheezing) Qty: 75 0RF Jardiance 10 mg tablet 10 mg PO QAM Qty: 30 2RF (DME) nebulizers Misc See Rx Instructions .Route Qty: 1 0RF Rx Instructions: As directed albuterol sulfate 2.5 mg /3 mL (0.083 %) solution for nebulization 2.5 mg inhalation Q4-6H PRN (Reason: shortness of breath or wheezing) Qty: 90 0RF albuterol sulfate 90 mcg/actuation HFA aerosol inhaler 2 puff inhalation Q6H PRN (Reason: shortness of breath or wheezing) Qty: 8.5 0RF loratadine 10 mg tablet 10 mg PO DAILY PRN (Reason: Allergic Symptoms) metformin 500 mg tablet 500 mg PO BID 30 Days Qty: 60 0RF insulin lispro [Humalog KwikPen Insulin] 100 unit/mL insulin pen 10 unit subcut TID Qty: 15 0RF Referrals: Grisel Monroe MD [Primary Care Provider] - Print Language: Pashto
[2024-10-14 18:31] VITALS: BP 120/85; PULSE 101; RESP 20; TEMP 36.8; O2SAT 97; BMI 23.3
[2024-10-14 20:17] LABS: MANUAL DIFF FLAG NO
[2024-10-14 20:41] LABS: Alanine Aminotransferase 29 U/L (0-40); Albumin Level 5.1 g/dL (3.5-5.0); Alkaline Phosphatase 121 U/L (39-117); Anion Gap 14 (12-20); Aspartate Amino Transferase 23 U/L (5-37); Basophils Absolute Auto 0.1 X10*3/uL (0.0-0.2); Bilirubin Direct 0.2 mg/dL (0.0-0.5); Bilirubin Total 0.4 mg/dL (0.0-1.0); Blood Urea Nitrogen 12 mg/dL (9-16); Calcium 9.9 mg/dL (8.4-10.2); Carbon Dioxide 28 mmol/L (22-29); Chloride 103 mmol/L (96-108); Creatinine Clr Calc Pharmacy 126.6; Eosinophils Absolute Auto 0.7 X10*3/uL (0.0-0.4); Eosinophils Percent Auto 6.5 % (0-4); Estimated Glomerular Filt Rate > 60; Glucose Random 163 mg/dL (60-115); Hematocrit 46.6 % (42.0-52.0); Hemoglobin 15.1 g/dl (14.0-18.0); Imm Gran Abs Auto 0.05 X10*3/uL (0.00-0.03); Imm Gran Pct Auto 0.4 % (0.0-0.4); Lymphocytes Absolute Auto 2.5 X10*3/uL (1.2-4.9); Lymphocytes Percent Auto 21.6 % (20-40); Mean Corpuscular HGB Conc 32.4 g/dl (31.0-36.0); Mean Corpuscular Hemoglobin 24.7 pg (27.0-33.0); Mean Corpuscular Volume 76.1 fL (80.0-98.0); Mean Platelet Volume 10.8 fL (9.4-12.4); Monocytes Absolute Auto 0.9 X10*3/uL (0.1-1.2); Monocytes Percent Auto 7.4 % (2-11); Neutrophils Absolute Auto 7.2 x10*3/uL (2.0-8.3); Neutrophils Percent Auto 63.1 % (45-73); Platelet Count 352 X10*3/uL (160-400); Red Blood Count 6.12 X10*6/uL (4.60-5.80); Red Cell Distribution Width 14.1 % (11.0-16.0); Sodium 141 mmol/L (135-145); Total Protein 8.5 g/dL (6.5-8.0); White Blood Count 11.4 X10*3/uL (4.8-10.8)
[2024-10-14 21:05] LABS: Influenza A PCR NEGATIVE (Negative); Influenza B PCR NEGATIVE (Negative); Resp Syncy Virus RNA Qual PCR NEGATIVE (Negative); SARS COV2 PCR INHOUSE NEGATIVE (Negative)
[2024-10-14 21:11] VITALS: PULSE 80; RESP 18; O2SAT 89
[2024-10-14] MEDS: Albuterol Sulfate 7.5 MG, Albuterol Sulfate (0.083%) 2.5 MG 10 MG INHALE (21:15)
[2024-10-14 22:36] VITALS: BP 124/88; PULSE 98; RESP 20; TEMP 36.8; O2SAT 97
[2024-10-14] MEDS: diazePAM 10 MG/2 ML CARTRIDGE 2.5 MG IVPUSH (22:48)
[2024-10-14] MEDS: 0.9 % Sodium Chloride 1,000 ML 999 ML IV (22:49)
--- NOTE | 2024-10-14 22:59 | ECG_ITS ---
Test Reason : SOB/CP Blood Pressure : */* mmHG Vent. Rate : 102 BPM Atrial Rate : 102 BPM P-R Int : 122 ms QRS Dur : 78 ms QT Int : 370 ms P-R-T Axes : 64 8 -57 degrees QTcB Int : 482 ms Sinus tachycardia Nonspecific ST and T wave abnormality Abnormal ECG When compared with ECG of 06-Sep-2024 15:18, No significant changes seen Referred By: Adrienne Mcghee Electronically Signed By: MIKE STARKEY
[2024-10-14 23:24] LABS: Troponin-I High Sensitivity < 2.7 ng/L (<3.5-35.0)
[2024-10-14] MEDS: iohexoL 350 MG/ML 100 ML INFUS..BTL 65 ML IV (23:43)
[2024-10-15 01:05] VITALS: BP 115/72; PULSE 96; RESP 18; TEMP 37; O2SAT 100
[2024-10-15 01:09] LABS: Glucose, Whole Blood 142 mg/dL (60-115)
[2024-10-15] MEDS: Amoxicillin 500 MG CAPSULE 1000 MG PO (01:42)
[2024-10-15 01:58] VITALS: BP 115/72; PULSE 96; RESP 18; TEMP 37; O2SAT 100
== END 2024-10-15 02:01 | disposition home or self-care (01) ==
PROVIDERS: Nurse Practitioner Family; Physician Assistant Medical; Emergency Provider Emergency Medicine; PCP Family Medicine
DX: J18.9 Pneumonia, unspecified organism (principal); R06.02 Shortness of breath; F23 Brief psychotic disorder; E11.9 Type 2 diabetes mellitus without complications; R50.9 Fever, unspecified; R07.89 Other chest pain; R05.9 Cough, unspecified; Z79.899 Other long term (current) drug therapy; Z03.818 Encounter for observation for suspected exposure to other biological agents ruled out
CPT/HCPCS: 0241U; 71046; 71275; 80048; 80076; 82947; 83735; 84484; 85025; 93005; 94640; 96361; 96374; 99284; 99285; J3360; Q9967

== ENCOUNTER → 2024-10-14 18:32 | Outpatient (BNV) | payer MEDICAID, SELFPAY | PROVIDERS: PCP Family Medicine; Visit Provider Specialist | DX: R06.02 Shortness of breath (principal) | CPT/HCPCS: 71046; 71275 ==

== ENCOUNTER → 2024-10-14 22:59 | Outpatient (BNV) | payer MEDICAID, SELFPAY | PROVIDERS: Emergency Provider Emergency Medicine; PCP Family Medicine; Visit Provider Internal Medicine | DX: R00.0 Tachycardia, unspecified (principal) | CPT/HCPCS: 93010 ==

== ENCOUNTER 2024-11-19 14:06 | Inpatient (IN) | payer OTHER, SELFPAY ==
--- NOTE | ~2024-11-19 | CT_ITS ---
CLINICAL HISTORY: altered mental status, fall this morning CT head without contrast Comparison: None provided Findings: Suboptimal visualization of the posterior fossa due to motion artifact despite patient being scanned twice. No intra-axial mass, midline shift, hydrocephalus, or acute hemorrhage. No significant atrophy-like change or white matter disease. The visualized paranasal sinuses and mastoid air cells are normal. The orbits are unremarkable. There is no acute fracture. IMPRESSION: No acute findings within the limitations of the exam. The posterior fossa is inadequately evaluated. If there is clinical suspicion for intracranial hemorrhage, recommend repeat examination when the patient is able to cooperate. This document has been electronically signed by: Marti Martinez MD on 11/19/2024 21:56:14
--- NOTE | ~2024-11-19 | XR_ITS ---
EXAMINATION: XR CHEST CLINICAL INFORMATION: recent pneumonia COMPARISON: October 14, 2024 TECHNIQUE: Frontal view of the chest was obtained. FINDINGS: Poor inspiratory effort is noted. Lungs are clear. Heart size is within normal limits. XR/XR chest 1V IMPRESSION: No acute disease Electronically signed by: Danny Dillard MD 11/19/2024 02:46 PM EDT
[2024-11-19 14:13] VITALS: BP 142/91; PULSE 98; O2SAT 99
--- NOTE | 2024-11-19 14:20 | ECG_ITS ---
Test Reason : WEAKNESS Blood Pressure : */* mmHG Vent. Rate : 87 BPM Atrial Rate : 87 BPM P-R Int : 136 ms QRS Dur : 76 ms QT Int : 396 ms P-R-T Axes : 72 10 267 degrees QTcB Int : 476 ms Normal sinus rhythm T wave abnormality, consider inferolateral ischemia Prolonged QT Abnormal ECG When compared with ECG of 14-Oct-2024 23:12, No significant change was found Referred By: Arden Lopez Electronically Signed By: Javier Eaton
[2024-11-19 14:34] VITALS: BP 120/81; PULSE 81; RESP 14; TEMP 37.5; O2SAT 99; BMI 22.9
--- NOTE | 2024-11-19 14:46 | ED.GENADULT ---
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 Her EMS, the patient was found on the ground by his mother He has not been answering any questions but has been awake and looking around The patient was initially unresponsive in the ER but was awake. Once he was placed in his stretcher and we started to change him into hospital attire he was refusing to get changed With a director of trauma he reports that he was standing in his room ?I got very anxious and paranoid and then I fell. ? He reports after falling he was unable to move He complains of pain to his mid back Denies any headache or fever He denies any cough or shortness of breath He reports blood in his urine that he noticed yesterday He reports using both cocaine and dope. He reports that he last used at 7:00 p.m. last night He reports that he snorts the drugs and never injects Related Data Home Medications ?Medication ?Instructions ?Recorded ?Confirmed baclofen 10 mg tablet 10 mg PO TID 11/20/24 11/20/24 clonidine HCl 0.1 mg tablet 0.1 mg PO BID 11/20/24 11/20/24 escitalopram oxalate 10 mg tablet 10 mg PO DAILY 11/20/24 11/20/24 ibuprofen 600 mg tablet 600 mg PO Q6H PRN Pain 11/20/24 11/20/24 lidocaine 5 % topical patch patch topical 11/20/24 trazodone 50 mg tablet 50 mg PO BEDTIME 11/20/24 11/20/24 Previous Rx's ?Medication ?Instructions ?Recorded nebulizers #1 ea 01/05/24 albuterol sulfate 90 mcg/actuation 2 puff inhalation Q4-6H PRN 08/18/24 aerosol inhaler shortness of breath or wheezing #8.5 grams Allergies Allergy/AdvReac Type Severity Reaction Status Date / Time haloperidol (From Haldol) AdvReac Mild dystonia Verified 11/19/24 14:48 Review of Systems Constitutional: Constitutional: Denies body ache(s), Denies chills, Denies fever(s) and Denies headache(s) Eyes: Eyes: Denies blurry vision ENT: Denies headache(s) Cardiovascular: Cardiovascular: Denies chest pain and Denies dyspnea on exertion Respiratory: Respiratory: Denies cough and Denies dyspnea on exertion Gastrointestinal: Gastrointestinal: Denies abdominal pain, Denies nausea and Denies vomiting Genitourinary: Genitourinary: Reports hematuria Musculoskeletal: Musculoskeletal: Reports back pain Integumentary/Breasts: Skin/Breast: Denies erythema and Denies rash Neurologic: Denies headache(s) Psychiatric: Psychiatric: Denies anxiety PMFSH Past Medical History Medical History (Updated 11/21/24 @ 13:43 by oDuglas Sanchez CNP) Cocaine use disorder Asthma Paranoia Diabetes Social History Social History (System 01/30/24 @ 14:30 by Georgina Brown) Household Members: Friend(s) Housing: Apartment Do you presently have visiting nurse or other home services: No Unable to assess alcohol history related to: Refusing to respond Alcohol intake: never Patient Tobacco Use Status: Never used Tobacco e-Cigarette/Vaping Use: Never Used Second Hand Smoke Exposure: No Use of substances other than those prescribed or required for medical reasons: Yes Substance Use Type: Crack/Cocaine Substance Use Type Other:: dope Currently Displaying Signs/Symptoms of Drug Intoxication Withdrawal: No Advance Directives: No Advance Directives Information Provided: No Do you have thoughts of harming others: None Do you have a plan to hurt others: No Plan Recently lost weight without trying: Unsure Nutrition Risks: No Nutritional Risk service: No Sexual orientation: Don't Know Physical Exam ED Vital Signs: Vital Signs - 24 hr 11/19/24 14:34 11/19/24 22:22 11/20/24 04:44 Temperature 99.5 F 98.9 F Pulse Rate 81 76 58 Respiratory Rate 14 20 22 H Blood Pressure 120/81 121/54 L 108/66 Pulse Oximetry 99 100 99 Oxygen Delivery Method Room Air Room Air Room Air 11/20/24 09:27 Temperature 98.3 F Pulse Rate 70 Respiratory Rate 16 Blood Pressure 115/73 Pulse Oximetry 100 Oxygen Delivery Method Room Air BMI result Body Mass Index 22.9 Const General: no acute distress, alert, awake and diaphoretic Nutritional Appearance: well nourished [facility] Head: Yes normocephalic and Yes atraumatic Throat: Yes posterior oropharynx normal Eyes Eyelids: Yes eyelids normal Conjunctivae: conjunctivae normal Sclerae: sclerae normal Corneas: corneas normal Pupils: Equal, round and reactive pupils present EOM: EOMs intact bilaterally Neck Neck: Yes full ROM Resp Effort & Inspection: normal respiratory effort, able to speak in complete sentences, no audible wheezes and not labored Auscultation: clear to auscultation bilaterally Cardio Rate: regular rate Rhythm: regular rhythm GI Inspection: No distended Palpation (GI): Soft to palpation, not firm, nontender, no guarding and not rigid Back/Spine/Pelvis Other: Tenderness to the thoracic spine without step-offs or deformities. No tenderness to the cervical or lumbar spine Skin General skin exam: elasticity normal Neuro Cranial nerves: Yes Equal, round and reactive pupils present and Yes Bilaterally intact EOM present Extrem Other: Moving all extremities well without any obvious deformities Course Reevaluation(s) Reevaluation #1: The patient refused his head CT, I attempted to re-evaluate the patient as he was sitting up on the bed and seen more awake. He is refusing to answer questions. He attempted to elope from the emergency department. The patient is either unwilling or unable to answer questions to prove that he is alert and oriented. The patient is that he has a [employer]ESSIONAL [employer] for is bedside with him who lives with him she reports that the patient seemed confused compared to his baseline. At this time we are going to give Versed 5 mg IV and Benadryl 25 mg IV to help sedate the patient. He will likely require a care team consult. Apparently he has been in [place] in the past for inpatient psych Time: 17:18 Reevaluation #2: Patient was searched again and found to have multiple bags of white powdery substances. He was not cooperative and was restrained for his safety and the safety of staff. He was attempted to elope but appeared to be hallucinating and was stated in the ?people are out to get me. ? The seems to be having a psychotic episode. Plan for the CT scan of the brain for medical clearance and likely care team consult. Discussed with attending, we will give zyprexa 10mg stat as he continues to try to get out of bed despite being in restraints. Time: 17:44 Reevaluation #3: Patient is still writhing around in his stretcher despite being in restraints, discussed with the attending, he will be medicated with Ativan 2 mg IV, droperidol 1.25 mg IV, Benadryl 25 mg IV. Time: 18:59 Additional Reevaluation(s): So Hand PA-C have accepted care of the patient and signed out pending CT scan, medical clearance and care team consult. Thus far, the patient has required a great deal medication to keep him safe in bed. It is suspect that he has used an illicit substance, his presentation seems consistent with potential PCP use. Per the care team, he has been seen before, for drug-induced psychosis. His presentation today is very similar. He was just medicated, he has yet to have a CT scan. Patient requiring additional medication, we will try Geodon and Versed Geodon and Versed were not effective, we will try 0.5 mg/kg IV ketamine Ketamine seems to be working, we are getting him over to CT..... CT completed, although he was moving to some degree we have been able to deescalate the physical restraints CT brain:IMPRESSION: No acute findings within the limitations of the exam. The posterior fossa is inadequately evaluated. If there is clinical suspicion for intracranial hemorrhage, recommend repeat examination when the patient is able to cooperate. Speaking with Laurence from the care team, she attempted to assess the patient, he is still altered. He will be reassessed in the morning when he is clinically sober. Medications Administered Generic Name Dose Route Start Last Admin Trade Name Gabino PRN Reason Stop Dose Admin Acetaminophen 650 mg 11/20/24 13:15 11/20/24 21:26 Acetaminophen 325 Mg Tablet PO 650 mg Q6H PRN Administration Headache/Pain, Scale 1-10 Clonidine HCl 0.1 mg 11/20/24 21:00 11/21/24 08:53 Clonidine Hcl 0.1 Mg Tablet PO 0.1 mg BID VERÓNICA Administration Protocol Clonidine HCl 0.1 mg 11/21/24 08:55 11/21/24 14:00 Clonidine Hcl 0.1 Mg Tablet PO 0.1 mg Q4H PRN Administration restless/opiate w/drawal Protocol Loperamide HCl 2 mg 11/21/24 08:54 11/21/24 15:56 Loperamide Hcl 2 Mg Capsule PO 2 mg Q6H PRN Administration loose stool Ondansetron HCl 8 mg 11/21/24 17:49 11/21/24 17:51 Ondansetron Odt 4 Mg Tab.Rapdis TRANSLINGU 8 mg Q8H PRN Administration Nausea and Vomiting Trazodone HCl 50 mg 11/20/24 13:15 11/20/24 21:26 Trazodone Hcl 50 Mg Tablet PO 50 mg BEDTIME MRX1 PRN Administration Insomnia Discontinued Medications Generic Name Dose Route Start Last Admin Trade Name Freq PRN Reason Stop Dose Admin Diphenhydramine HCl 25 mg 11/19/24 17:15 11/19/24 17:20 Diphenhydramine Hcl 50 Mg/Ml Vial IVPUSH 11/19/24 17:16 25 mg ONCE ONE Administration Diphenhydramine HCl 25 mg 11/19/24 18:55 11/19/24 19:10 Diphenhydramine Hcl 50 Mg/Ml Vial IVPUSH 11/19/24 18:56 25 mg ONCE ONE Administration Droperidol 1.25 mg 11/19/24 18:53 11/19/24 19:10 Droperidol 5 Mg/2 Ml Vial IVPUSH 11/19/24 18:54 1.25 mg ONCE ONE Administration Escitalopram Oxalate 10 mg 11/21/24 13:00 11/21/24 13:50 Escitalopram Oxalate 10 Mg Tablet PO 11/21/24 13:01 10 mg ONCE ONE Administration Ketamine HCl 30 mg 11/19/24 20:26 11/19/24 20:31 Ketamine Hcl/Ns 50 Mg/5 Ml Syringe IVPUSH 11/19/24 20:27 30 mg ONCE ONE Administration Loperamide HCl 2 mg 11/21/24 08:54 11/21/24 08:59 Loperamide Hcl 2 Mg Capsule PO 11/21/24 08:55 2 mg ONCE ONE Administration Lorazepam 2 mg 11/19/24 18:53 11/19/24 19:10 Lorazepam 2 Mg/Ml Vial IVPUSH 11/19/24 18:54 2 mg ONCE ONE Administration Metoclopramide HCl 10 mg 11/19/24 15:41 11/19/24 15:48 Metoclopramide Hcl 10 Mg/2 Ml Vial IVPUSH 11/19/24 15:42 10 mg ONCE ONE Administration Midazolam HCl 5 mg 11/19/24 17:15 11/19/24 17:20 Midazolam Hcl 5 Mg/Ml Vial IVPUSH 11/19/24 17:16 5 mg ONCE ONE Administration Midazolam HCl 4 mg 11/19/24 19:47 11/19/24 19:57 Midazolam Hcl 2 Mg/2 Ml Vial IVPUSH 11/19/24 19:48 4 mg ONCE ONE Administration Olanzapine 10 mg 11/19/24 17:55 11/19/24 18:10 Olanzapine 10 Mg Vial IM 11/19/24 17:56 10 mg STAT STA Administration Potassium Chloride 20 meq 11/21/24 10:12 11/21/24 10:53 Potassium Chloride Er 20 Meq Tab.Er.Prt PO 11/21/24 10:13 20 meq ONCE ONE Administration Ziprasidone 20 mg 11/19/24 19:45 11/19/24 19:57 Ziprasidone Mesylate 20 Mg Vial IM 11/19/24 19:46 20 mg ONCE ONE Administration Medical Decision Making Medical Decision Making [facility] Narrative: 24-year-old male past medical history significant for polysubstance abuse presents for evaluation of altered mental status. The patient was initially not responding to any questions. He then began responding to the director of trauma. He reports that he fell today and then could not move he complains of mid back pain. He denies any fevers or chills but does complain of blood in his urine. We will check basic labs, EKG, chest x-ray as the patient was recently here for pneumonia a month ago. We will get a urinalysis with a tox screen. He did have an axillary temp of 99.5?. Denies IV drugs but we will get blood cultures and lactic acid. We will get a CT scan of the brain given the altered mental status and the reported fall 1309: I have taking over the care for this patient at 07:00 in the morning, has been no issues, currently he is going to be IPLOC Differential Diagnosis Differential Diagnoses: The differential diagnosis associated with the presentation includes Polysubstance abuse Substance abuse Intracranial hemorrhage Seizure disorder [facility] Lab Data [facility] Lab Attestation statement: I reviewed the patient's lab results. No leukocytosis. The patient does have a mild anemia that is consistent with his baseline. He has had a hemoglobin of 13.9 in his baseline is right around with the same. This is a microcytic anemia. He also has a left shift of unclear etiology. No significant chemistry abnormalities warranting intervention. No significant chemistry abnormalities. The patient is a known diabetic in his random glucose is 178. No evidence of DKA. Renal function within normal limits. LFTs in the humerus 11/19/24 15:05 11/21/24 09:09 Labs: Lab Results 11/19/24 11/19/24 11/20/24 Range/Units 15:05 15:16 04:48 WBC 8.0 (4.8-10.8) X10*3/uL RBC 5.44 (4.60-5.80) X10*6/uL Hgb 13.9 L (14.0-18.0) g/dl Hct 41.7 L (42.0-52.0) % MCV 76.7 L (80.0-98.0) fL MCH 25.6 L (27.0-33.0) pg MCHC 33.3 (31.0-36.0) g/dl RDW 14.1 (11.0-16.0) % Plt Count 411 H (160-400) X10*3/uL MPV 10.3 (9.4-12.4) fL Immature Gran % (Auto) 0.6 H (0.0-0.4) % Neut % (Auto) 80.8 H (45-73) % Lymph % (Auto) 13.6 L (20-40) % [place] % (Auto) 4.2 (2-11) % Eos % (Auto) 0.2 (0-4) % Baso % (Auto) 0.6 (0-2) % Lymph # (Auto) 1.1 L (1.2-4.9) X10*3/uL [place] # (Auto) 0.3 (0.1-1.2) X10*3/uL Eos # (Auto) 0.0 (0.0-0.4) X10*3/uL Baso # (Auto) 0.1 (0.0-0.2) X10*3/uL Abs Immat Gran (auto) 0.05 H (0.00-0.03) X10*3/uL Absolute Neuts (auto) 6.5 (2.0-8.3) x10*3/uL Absolute Nucleated RBC 0.000 (0.0-0.012) X10*3/uL Nucleated RBC % (auto) 0.0 (0.0-0.2) /100WBC Sodium 141 (135-145) mmol/L Potassium 3.4 (3.3-5.1) mmol/L Chloride 105 (96-108) mmol/L Carbon Dioxide 28 (22-29) mmol/L Anion Gap 11 L (12-20) BUN 8 L (9-16) mg/dL Creatinine 0.75 (0.5-1.4) mg/dL Estim Creat Clear Calc 124.9 Estimated GFR > 60 Random Glucose 178 H (60-115) mg/dL Lactic Acid 1.5 (0.5-2.0) mmol/L Calcium 9.3 D (8.4-10.2) mg/dL Total Bilirubin 0.3 (0.0-1.0) mg/dL AST 23 (5-37) U/L ALT 22 (0-40) U/L Alkaline Phosphatase 112 (39-117) U/L Total Creatine Kinase 122 (38-174) U/L Total Protein 7.9 (6.5-8.0) g/dL Albumin 5.1 H (3.5-5.0) g/dL Lipase 7 L (8-78) U/L Urine Color Yellow Urine Appearance Clear Urine pH 6.0 (5.0-9.0) Ur Specific [place] 1.025 (1.005-1.025) Urine Protein 30 (1+) H (Neg-Trace) mg/dL Urine Glucose (UA) Negative (Negative) mg/dL Urine Ketones 80 (Negative) mg/dL Urine Blood Negative (Negative) Urine Nitrite Negative (Negative) Ur Leukocyte Esterase Negative (Negative) Urine RBC 0-2 (0-2) /HPF Urine WBC 0-5 (0-5) /HPF Ur Squamous Epith Cells 0-2 (0-2) /HPF Urine Bacteria None Seen (None Seen) Hyaline Casts 0-2 (0-2) /LPF Urine Opiates Screen (Not Detect) Ur Buprenorphine Scrn (Not Detect) ng/mL Ur Oxycodone Screen (Not Detect) ng/mL Urine Methadone Screen (Not Detect) ng/mL Urine Fentanyl Screen (Not Detect) Ur Barbiturates Screen (Not Detect) Ur Phencyclidine Scrn (Not Detect) Ur Amphetamines Screen (Not Detect) U Benzodiazepines Scrn (Not Detect) Urine Cocaine Screen (Not Detect) U Marijuana (THC) Screen (Not Detect) Ethyl Alcohol 10 mg/dL Influenza Type A (PCR) NEGATIVE (Negative) Influenza Type B (PCR) NEGATIVE (Negative) RSV RNA Qual (PCR) NEGATIVE (Negative) SARS-CoV-2 RNA (RT-PCR) NEGATIVE (Negative) 11/20/24 Range/Units 04:49 WBC (4.8-10.8) X10*3/uL RBC (4.60-5.80) X10*6/uL Hgb (14.0-18.0) g/dl Hct (42.0-52.0) % MCV (80.0-98.0) fL MCH (27.0-33.0) pg MCHC (31.0-36.0) g/dl RDW (11.0-16.0) % Plt Count (160-400) X10*3/uL MPV (9.4-12.4) fL Immature Gran % (Auto) (0.0-0.4) % Neut % (Auto) (45-73) % Lymph % (Auto) (20-40) % [place] % (Auto) (2-11) % Eos % (Auto) (0-4) % Baso % (Auto) (0-2) % Lymph # (Auto) (1.2-4.9) X10*3/uL Lyon # (Auto) (0.1-1.2) X10*3/uL Eos # (Auto) (0.0-0.4) X10*3/uL Baso # (Auto) (0.0-0.2) X10*3/uL Abs Immat Gran (auto) (0.00-0.03) X10*3/uL Absolute Neuts (auto) (2.0-8.3) x10*3/uL Absolute Nucleated RBC (0.0-0.012) X10*3/uL Nucleated RBC % (auto) (0.0-0.2) /100WBC Sodium (135-145) mmol/L Potassium (3.3-5.1) mmol/L Chloride (96-108) mmol/L Carbon Dioxide (22-29) mmol/L Anion Gap (12-20) BUN (9-16) mg/dL Creatinine (0.5-1.4) mg/dL Estim Creat Clear Calc Estimated GFR Random Glucose (60-115) mg/dL Lactic Acid (0.5-2.0) mmol/L Calcium (8.4-10.2) mg/dL Total Bilirubin (0.0-1.0) mg/dL AST (5-37) U/L ALT (0-40) U/L Alkaline Phosphatase (39-117) U/L Total Creatine Kinase (38-174) U/L Total Protein (6.5-8.0) g/dL Albumin (3.5-5.0) g/dL Lipase (8-78) U/L Urine Color Urine Appearance Urine pH (5.0-9.0) Ur Specific [place] (1.005-1.025) Urine Protein (Neg-Trace) mg/dL Urine Glucose (UA) (Negative) mg/dL Urine Ketones (Negative) mg/dL Urine Blood (Negative) Urine Nitrite (Negative) Ur Leukocyte Esterase (Negative) Urine RBC (0-2) /HPF Urine WBC (0-5) /HPF Ur Squamous Epith Cells (0-2) /HPF Urine Bacteria (None Seen) Hyaline Casts (0-2) /LPF Urine Opiates Screen POSITIVE H (Not Detect) Ur Buprenorphine Scrn Not Detected (Not Detect) ng/mL Ur Oxycodone Screen Not Detected (Not Detect) ng/mL Urine Methadone Screen Not Detected (Not Detect) ng/mL Urine Fentanyl Screen POSITIVE H (Not Detect) Ur Barbiturates Screen Not Detected (Not Detect) Ur Phencyclidine Scrn Not Detected (Not Detect) Ur Amphetamines Screen Not Detected (Not Detect) U Benzodiazepines Scrn POSITIVE H (Not Detect) Urine Cocaine Screen POSITIVE H (Not Detect) U Marijuana (THC) Screen Not Detected (Not Detect) Ethyl Alcohol mg/dL Influenza Type A (PCR) (Negative) Influenza Type B (PCR) (Negative) RSV RNA Qual (PCR) (Negative) SARS-CoV-2 RNA (RT-PCR) (Negative) Independent Interpretation I performed an independent interpretation of an: EKG (Normal sinus rhythm with a rate of 87 beats minute. QTC of 476) Discharge Plan Discharge Clinical Impression: Psychotic disorder, Cocaine use disorder Patient Disposition: Admitted As Inpatient Interventions: Admission Worksheet (ED) Last Done: 11/20/24 14:40 Discharge Date/Time: 11/20/24 15:42
[2024-11-19 15:10] LABS: MANUAL DIFF FLAG NO
[2024-11-19 15:12] LABS: Hematocrit 41.7 % (42.0-52.0); Hemoglobin 13.9 g/dl (14.0-18.0); Imm Gran Abs Auto 0.05 X10*3/uL (0.00-0.03); Imm Gran Pct Auto 0.6 % (0.0-0.4); Lymphocytes Absolute Auto 1.1 X10*3/uL (1.2-4.9); Mean Corpuscular HGB Conc 33.3 g/dl (31.0-36.0); Mean Corpuscular Hemoglobin 25.6 pg (27.0-33.0); Mean Corpuscular Volume 76.7 fL (80.0-98.0); NRBC Abs Auto 0.000 X10*3/uL (0.0-0.012); NRBC Pct Auto 0.0 /100WBC (0.0-0.2); Platelet Count 411 X10*3/uL (160-400); Red Blood Count 5.44 X10*6/uL (4.60-5.80); White Blood Count 8.0 X10*3/uL (4.8-10.8)
--- NOTE | 2024-11-19 15:22 | PC.NURSE ---
Pt alert but only opens eyes occasionally. With staffing mgr pt answering questions and is oriented but only answers questions sometimes, difficult to fully assess and obtain medical history. Pt does report falling earlier today and reporting 9/10 mid back pain. Also reports hematuria since yesterday. Pt reports withdrawal from cocaine and dope (uses nasally) Denies SI or HI Pt refusing changeover but safety search completed by security staff Recent Pneumonia. Labs obtained/EKG completed
[2024-11-19 15:27] LABS: Alanine Aminotransferase 22 U/L (0-40); Albumin Level 5.1 g/dL (3.5-5.0); Alkaline Phosphatase 112 U/L (39-117); Anion Gap 11 (12-20); Aspartate Amino Transferase 23 U/L (5-37); Blood Urea Nitrogen 8 mg/dL (9-16); Calcium 9.3 mg/dL (8.4-10.2); Carbon Dioxide 28 mmol/L (22-29); Chloride 105 mmol/L (96-108); Creatinine Clr Calc Pharmacy 124.9; Estimated Glomerular Filt Rate > 60; Lipase 7 U/L (8-78); Potassium 3.4 mmol/L (3.3-5.1); Sodium 141 mmol/L (135-145); Total Protein 7.9 g/dL (6.5-8.0)
--- NOTE | 2024-11-19 15:42 | PC.NURSE ---
Addendum entered by Kirstin Martinez 11/19/24 15:43: Order changed to Reglan as QTc sl abnormal Original Note: Pt more alert at this time, sitting upright. Pt is caregiver and pts client at bedside. Nausea and dry heaving, Zofran ordered
--- OUTSIDE RECORDS SUMMARY | 2024-11-19 16:05 | XMS_ITS | Clinical Summary ---
Author Organization [employer] Address [address] [place] [address] Care Team Providers Care Merchandising Internship Name Role Phone Grisel Monroe MD Primary Care Provider [phone] Allergies No known active allergies Medications * This document contains information received from the source organization and may not represent a complete record from that organization. cholecalcifer ol (Vitamin D-3) 25 MCG tablet Take 25 mcg by mouth in the morning. 023 Active naloxone (Narcan) 4 mg/0.1 mL nasal spray FOR SUSPECTED OPIOID OVERDOSE. SPRAY 0.1mL IN ONE NOSTRIL. REPEAT IN ALTERNATE NOSTRIL 2-3 MINUTES IF NEEDED. SEEK MEDICAL ATTENTION IMMEDIATELY EVEN IF PATIENT RESPONDS. 023 Active loratadine (Claritin) 10 MG tablet Take 1 tablet (10 mg) by mouth in the morning. 30 tablet 11 023 Active albuterol 108 (90 Base) MCG/ACT inhaler Inhale 2 puffs every 6 (six) hours if needed for wheezing. 18 g 023 Active fluticasone (Flonase) 50 MCG/ACT nasal spray INSTILL 1-2 SPRAYS IN EACH NOSTRIL ONCE DAILY IN THE MORNING 48 g 023 Active Alcohol Swabs (Alcohol Prep) 70 % pads USE DIRECTED 200 each 3 024 Active TRUEplus Lancets 33G misc TEST BLOOD SUGAR FOUR TIMES DAILY 100 each 11 024 Active Mometasone Furoate (Asmanex HFA) 100 MCG/ACT aerosol 1 puff twice daily 13 g 11 024 Active Continuous Glucose Furnace Helper (Wellcoin Art 2 [place]) device Scan sensor every 8 hours 1 each Active Continuous Glucose Sensor (FreeStyle Art 2 Sensor) [facility] Apply 1 sensor every 14 days 2 each Active glucose blood (FreeStyle Precision Rayo Test) test strip Use to test blood sugar 3 times daily 100 each 12 024 2024 Active Lantus SoloStar 100 UNIT/ML pen INJECT 10 UNITS SUBCUTANEOUSLY EVERY EVENING Active insulin lispro (HumaLOG) 100 UNIT/ML injection PLEASE SEE ATTACHED FOR DETAILED DIRECTIONS Active albuterol (2.5 MG/3ML) 0.083% nebulizer solution INHALE 1 AMPULE USING A NEBULIZER EVERY 4 HOURS NEEDED FOR WHEEZING OR SHORTNESS OF BREATH, DO NOT EXCEED FOUR TIMES DAILY 90 mL 1 Active Blood Glucose Monitoring Suppl (FreeStyle Lite) w/Device kit 1 kit Once per day. 1 kit Active FREESTYLE LITE test strip Check blood glucose 3 times daily 100 each 12 Active FreeStyle lancets 1 each by Other route 3 times daily. Check blood glucose 100 each Active baclofen (Lioresal) 10 MG tablet Take 1 tablet by mouth 3 times daily. Active cloNIDine (Catapres) 0.1 MG tablet Take 1 tablet by mouth 2 times daily. Active escitalopram (Lexapro) 10 MG tablet Take 1 tablet by mouth Once per day. Active ibuprofen 600 MG tablet Take 1 tablet by mouth every 6 (six) hours if needed for headaches, fever or mild pain. Active lidocaine (Lidoderm) 5 % patch Apply 1 patch topically Once per day. Active metoclopramid e (Reglan) 10 MG tablet Take 1 tablet by mouth if needed in the morning and at bedtime for nausea. Active traZODone (Desyrel) 50 MG tablet Take 50 mg by mouth at bedtime. Active Alcohol Swabs (Alcohol Prep) pads Check blood sugar three times daily 100 each 11 025 2024 Discontinued(M ed list cleanup (will not trigger notification to Pharmacy)) Active Problems Problem Noted Date Diagnosed Date [...] presented in the context of relocation from [facility] to [place], language barrier and lack of social supports. Patient will benefit from receiving follow-up BE's, a referral for Form Setter with [facility] and continuity of Methadone Program with N. Provided mindfulness exercises during today's session. Patient has limited medical insurance, unable to set up OP individual therapy services outside [facility]. At this time Cassandra Maria Fernanda Landrya meets criteria for Visit Diagnoses: Problem List Items Addressed This Visit Other Opioid use disorder, severe, on maintenance therapy (CMS/HCC) Episode of recurrent major depressive disorder (CMS/HCC) Patient ready to address current needs Yes Strengths include motivation to work on personal goals and go back to school PLAN: 1. Follow up with [facility]: Not recommended for follow-up 2. Patient goal is to gradually stop using drugs and learn Belgian as a second language 3. Behavioral Recommendations a. Continue Methadone program with [facility] b. Referral for Form Setter with [facility] c. Incorporate mindfulness exercises into [...] OPIOID USE DISORDER, SEVERE, ON MAINTENANCE THERAPY (CMS/HCC) WRITTEN ON 01/20/2023 12:48 PM BY FLORENCIA [...] presented in the context of relocation from [facility] to [place], language barrier and lack of social supports. Patient will benefit from receiving follow-up BE's, a referral for Form Setter with [facility] and continuity of Methadone Program with [facility]. Provided mindfulness exercises during today's session. Patient has limited medical insurance, unable to set up OP individual therapy services outside [facility]. At this time Cassandra Irving Ade Fredis meets criteria for Visit Diagnoses: Problem List Items Addressed This Visit Other Cocaine use Opioid use disorder, severe, on maintenance therapy (CMS/HCC) Episode of recurrent major depressive disorder (CMS/HCC) Patient ready to address current needs Yes Strengths include motivation to work on personal goals and go back to school PLAN: Follow up with [facility]: Recommended for follow-up: Follow-up BE scheduled in two weeks Patient goal is to learn Belgian as a second language and stop using drugs. Behavioral Recommendations Continuity of Methadone Program with [facility] Referral for Form Setter with [facility] Incorporate mindfulness exercises into daily routine Assessment & Plan (01/11/2023 4:49 AM EDT): -Continue with [facility] Methadone Program, currently at 115 mg [...] 2022 -last diabetic eye exam: Referred to [facility] Eye care, but patient did not keep appt -Will update labs -Will check feet at next visit -Refer to tongue and groove machine operator Assessment & Plan (05/01/2023 6:03 AM EST): -A1c 6.5% on 01/11/23 w/o medication, improved from 10% in 2020. -Will not restart meds at this time -Continue working on lifestyle modifications -Will update labs -Will check feet at next visit -Refer to tongue and groove machine operator -Recommended dental care Assessment & Plan (01/11/2023 4:45 AM EDT): -A1c 6.5% today w/o medication, improved from 10% in 2020. -Will not restart meds at this time -Continue working on lifestyle modifications -Will update labs -Will check feet at next visit -Refer to tongue and groove machine operator -Recommended dental care Resolved Problems Problem Noted Date Diagnosed Date Resolved Date Overweight 01/02/2018 10/15/2024 Encounters Date Type Department Care Team Description 11/19/2024 Population Health Risk Score Community [facility] (C3) Department [address] [phone] Provider, Population Health Generic 11/07/2024 Telephone [facility] MEDICINE [address] [place] [address] Em Steiner, SAUL CHART PREP 10/29/2024 Telephone [facility] [address] [place] [phone] Linda Baker, customer solutions supervisor 10/24/2024 Patient Outreach [facility] [place] [address] Grisel Monroe MD Transition Of Care (Tcm) (HDF- Scheduled (direct)) 10/17/2024 Patient Outreach [facility] [place] [address] Hesham Argueta Recovery Supports 10/16/2024 Telephone [facility] [place] [address] Grisel Monroe MD ED Status Check 10/15/2024 1:15 PM EDT Office Visit [facility] [place] [address] Juani Umaña MD Moderate episode of recurrent major depressive disorder (CMS/HCC) (Primary Dx) 10/15/2024 Telephone [facility] [place] [address] Grisel Monroe MD 10/15/2024 Travel 10/15/2024 Orders Only GENERIC EXTERNAL DATA DEPARTMENT Provider, Generic External Data 10/14/2024 Orders Only [facility] External Provider, [facility] 09/24/2024 Telephone [facility] OPTOMETRY [address] [place] [address] Shilpa Roman OD 09/16/2024 Telephone [facility] [place] [address] Grisel Monroe MD 09/10/2024 Telephone [facility] [place] [place] [address] Grisel Monroe MD Prior Authorization 09/10/2024 Telephone [facility] [place] [address] Grisel Monroe MD 09/09/2024 Orders Only [facility] [place] [phone] Grisel Monroe MD Type 2 diabetes mellitus with hyperglycemia, without long-term current use of insulin ([facility]) (Primary Dx) 09/06/2024 Telephone [facility] [address] [place], [place] [phone] Megan Holloway, Manju 09/06/2024 Telephone [facility] [address] [place], [place] [phone] Lucila Sanders, SHANNAN Refer to ED from [facility] 09/06/2024 Orders Only GENERIC EXTERNAL DATA DEPARTMENT Provider, Generic External Data 08/30/2024 Telephone [facility] MEDIC[facility] [address] [place], [place] [phone] Laurence Botello MA october recall from Last 3 Months Immunizations Immunization Administration Dates Next Due Hep B, adult [...] 92 05/16/2024 11:03 AM EST Temperature 37.4 C (99.3 F) 02/27/2024 11:46 AM EDT Respiratory Rate 18 02/27/2024 11:46 AM EDT Oxygen Saturation 95% 02/27/2024 11:46 AM EDT Inhaled Oxygen Concentration - - Weight 66.2 kg (146 lb) 02/27/2024 11:46 AM EDT Height 162.6 cm (5' 4 ) 02/27/2024 11:46 AM EDT Body Mass Index 25.06 02/27/2024 11:46 AM EDT Plan of Treatment Health Maintenance Due Date Last Done Comments Dental Oral Exam 1998 Dental Prophylaxis 1998 Dental X-Ray: Bitewings 1998 Dental X-Ray: Full Mouth 1998 Disability Screening 1998 Diabetes: Foot Exam 02/15/2008 Eye Exam 02/15/2008 Alcohol/Substance Use Screening 2010 Family Planning (PISQ) 2013 HPV Vaccines (1 - Male 3-dose series) 2013 Depression Monitoring 07/21/2023 01/20/2023, 023 Lipid Panel 01/12/2024 01/11/2023, 05/22/2020 Diabetes: Urine Protein Screening 01/13/2024 01/12/2023, 05/22/2020 COVID-19 Vaccine ( season) 2024 08/11/2020, 07/14/2020 Diabetes: Hemoglobin A1C 05/29/2024 024, 06/23/2023, 01/10/2023, Additional history exists SDOH Screening 08/06/2024 08/07/2023 Influenza Vaccine (#1) 2025 01/29/2019, 2017 Tobacco Screening 10/15/2025 10/15/2024 DTaP/Tdap/Td Vaccines (2 - Td or Tdap) 02/08/2028 02/07/2018 Zoster Vaccines (1 of 2) 02/15/2048 RSV Patients and Patients Aged 60 years or older (1 - 1-dose 75+ series) 2073 Hepatitis B Vaccines Discontinued 01/10/2023, 02/06/20 19 Pneumococcal Vaccine: Pediatrics (0 to 5 Years) and At-Risk Patients (6 to 49) Years Completed 01/10/2023, 02/05/2019 HIV Screening Completed 01/11/2023 Hepatitis C Screening Completed 01/11/2023 HIB Vaccines Aged Out No longer eligi ble based on patient's age to complete this topic Hepatitis A Vaccines Aged Out No long er eligible based on patient's age to complete this topic IPV Vaccines Aged Out No longer eligi ble based on patient's age to complete this topic Meningococcal B Vaccine Aged Out No l onger eligible based on patient's age to complete [...] Procedure Name Priority Date/Time Associated Diagnosis Comments CTA CHEST PE PROTOCAL Routine 10/15/2024 1:11 AM EDT GLUCOSE, WHOLE BLOOD Routine 10/15/2024 1:05 AM EDT HIGH SENSITIVITY TROPONIN I Routine 10/14/2024 8:10 PM EDT CBC WITH AUTO DIFFERENTIAL Routine 10/14/2024 8:10 PM EDT MAGNESIUM Routine 10/14/2024 8:10 PM EDT BASIC METABOLIC PANEL Routine 10/14/2024 8:10 PM EDT HEPATIC FUNCTION PANEL Routine 8:10 PM EDT SARS COV2/INFLUENZA A/B AND RSV RNA QL NAAT Routine 10/14/2024 8:10 PM EDT XR CHEST 2 VIEWS Routine 10/14/2024 7:32 PM EDT HIGH SENSITIVITY TROPONIN I Routine 09/06/2024 5:04 PM EDT VENOUS BLOOD GAS Routine 09/06/2024 3:19 PM EDT BETA-HYDROXYBUTYRATE Routine 09/06/2024 3:14 PM EDT LIPASE Routine 09/06/2024 3:14 PM EDT C-REACTIVE PROTEIN Routine 09/06/2024 3: 14 PM EDT MAGNESIUM Routine 09/06/2024 3:14 PM EDT COMPREHENSIVE METABOLIC PANEL Routine 09/06/2024 3:14 PM EDT CBC WITH AUTO DIFFERENTIAL Routine 09/06/2024 3:14 PM EDT HOLD GREEN GEL Routine 09/06/2024 3:13 PM EDT POCT GLYCOSYLATED HEMOGLOBIN (HGB A1C) Routine 02/27/2024 11:52 AM EDT Type 2 diabetes mellitus with hyperglycemia, without long-term current use of insulin (CMS/HCC) ALBUMIN, RANDOM URINE W/CREATININE Routine 01/12/2023 11:29 AM EDT Type 2 diabetes mellitus with hyperglycemia, without long-term current use of insulin (CMS/HCC) HEPATITIS C ANTIBODY REFLEX Routine 01/11/2023 12:15 PM EDT HIV ANTIBODY/ANTIGEN ([place] DPH) Routine 01/11/2023 12:15 PM EDT LIPID PANEL WITH REFLEX TO DIRECT LDL Routine 01/11/2023 12:15 PM EDT Type 2 diabetes mellitus with hyperglycemia, without long-term current use of insulin ([facility]/HCC) from Last 3 Months or Most Recently Relevant to Health Maintenance Results * CTA Chest PE Protocal (10/15/2024 1:11 AM EDT) Anatomical Region Laterality Modality Body, Chest Computed Tomogra phy 10/15/2024 1:11 AM EDT Narrative 10/15/2024 1:13 AM EDT [address] [address] [address] Scan Report Signed Patient: Cassandra Bradley MR #: [id number] : 2000 Acct:[id number] Age/Sex: 24 / M ADM Date: 10/14/24 Loc: HO.ED Attending Dr: Ordering Physician: Adrienne Mcghee CNP Date of Service: 10/14/24 Procedure(s): CT angio chest PE protocol Accession Number(s): [id number] cc: Adrienne Mcghee CNP; Grisel Monroe MD Report Number: [id number]: Total DLP = 245.00 mGy-cm CLINICAL HISTORY: CP, SOB, chills, tachy, hx IVDA CT angiography chest with contrast. 3D Postprocessing. Comparison: CR - XR CHEST 2V - 10/14/24 18:46 EDT Findings: The heart size is normal. RV/LV ratio is normal. Unremarkable thoracic aorta and great vessels. No aneurysm. No pulmonary artery filling defects. Minimal focal ground-glass opacity in the lingula. No consolidation, pleural effusion or pneumothorax. No adenopathy. Visualized thyroid within normal limits. Thoracic esophagus within normal limits. The upper abdomen demonstrates no acute process. Moderate colonic stool in upper abdomen. No acute fractures. IMPRESSION: 1. No pulmonary emboli. 2. Minimal focal ground-glass opacity in the lingula may represent minimal focal edema atypical pneumonia. This document has been electronically signed by: Patricia Munoz MD on 10/15/2024 01:11:22 Dictated By: Patricia Munoz MD Signed By: <Electronically signed by Patricia Munoz MD in OV> 10/15/24111 DD/ 0 TD/TT: 10/15/24110 Gaming Cashier: Procedure Note Donotuseinterpreter, Image - 10/15/[address] [address] [address] Scan Report Signed Patient: Cassandra Bradley MMR #: [id number] : 2000Acct:[id number] Age/Sex: Date: 10/14/24 Loc: HO.ED Attending Dr: Ordering Physician: Adrienne Mcghee CNP Date of Service: 10/14/24 Procedure(s): CT angio chest PE protocol Accession Number(s): [id number] cc: Adrienne Mcghee CNP; Grisel Monroe MD Report Number: [id number]: Total DLP = 245.00 mGy-cm CLINICAL HISTORY: CP, SOB, chills, tachy, hx IVDA CT angiography chest with contrast. 3D Postprocessing. Comparison: CR - XR CHEST 2V - 10/14/24 18:46 EDT Findings: The heart size is normal. RV/LV ratio is normal. Unremarkable thoracic aorta and great vessels. No aneurysm. No pulmonary artery filling defects. Minimal focal ground-glass opacity in the lingula. No consolidation, pleural effusion or pneumothorax. No adenopathy. Visualized thyroid within normal limits. Thoracic esophagus within normal limits. The upper abdomen demonstrates no acute process. Moderate colonic stool in upper abdomen. No acute fractures. IMPRESSION: 1. No pulmonary emboli. 2. Minimal focal ground-glass opacity in the lingula may represent minimal focal edema atypical pneumonia. This document has been electronically signed by: Patricia Munoz MD on 10/15/2024 01:11:22 Dictated By: Patricia Munoz MD Signed By: <Electronically signed by Patricia Munoz MD in OV> 10/15/24111 DD/ 0 TD/TT: 10/15/24110 Gaming Cashier: [facility] External Provider IMG CT PROCEDURES Edited Result - Final * (ABNORMAL) Glucose, Whole Blood (10/15/2024 1:05 AM EDT) Pathologist [facility] Glucose, Whole Blood 142(H) 60 - 115 mg/dL [facility] Comment:METER #: [id number] 10/15/2024 1:05 AM EDT 10/15/2024 1:09 AM EDT Generic External Data Provider LAB BLOOD ORDERAB LES Final Result Performing Organization Address [facility] Co de Phone Number [facility] [address] [place] [phone] * High Sensitivity Troponin I (10/14/2024 8:10 PM EDT) Only the most recent of2 resultswithin the time period is included. [facility] TROPONIN I HIGH SENSITIVITY <2.7 <3.5 - 35.0 ng/L [facility] Comment:The [place] high sens itivity Troponin-I results should beused in conjunction with other diagnostic information suchas ECG, clinical observations and information, and patientsymptoms to aid in the diagnosis of ID. 10/14/2024 8:10 PM EDT 10/14/2024 11:03 PM EDT Generic External Data Provider LAB BLOOD ORDERAB LES Final Result Performing Organization Address City/[facility]/ZIP Co de Phone Number [facility] [address] [place] [phone] * SARS-CoV-2 RNA, Influenza A/B, and RSV RNA, Ql NAAT (10/14/2024 8:10 PM EDT) [facility] Influenza A PCR NEGATIVE Negative [facility] Influenza B PCR NEGATIVE Negative [facility] Resp Syncy Virus RNA Qual PCR NEGATIVE Negative [facility] SARS COV2 PCR NEGATIVE Negative [facility] Comment:All test results mus t be correlated with clinical findings.Negative results do not preclude SARS-CoV2, influenza Avirus, influenza B virus and/or RSV infectionand should not be used as the sole basis for treatment orother patient management decisions. Negative results must becombined with clinical observations, patient history, andepidemiological information.This test has not been evaluated for monitoring treatment ofinfection.This test has been authorized by the FDA under an EmergencyUse Authorization (EUA) for use by authorized laboratories.Testing performed on the [employer] GeneXpert utilizingreal-time RT-PCR.All SARS CoV2 and positive influenza A/B results arereported to [facility]. 10/14/2024 8:10 PM EDT 10/14/2024 8:15 PM EDT Generic External Data Provider LAB MICROBIOLOGY - GENERAL ORDERABLES Final Result [facility] [address] [place] [phone] * (ABNORMAL) CBC auto differential (10/14/2024 8:10 PM EDT) Only the most recent of2 resultswithin the time period is included. White Blood Count 11.4(H) 4.8 - 10.8 X10*3/uL [facility] Red Blood Count 6.12(H) 4.60 - 5.80 X10*6/uL [facility] Hemoglobin 15.1 14.0 - 18.0 g/dl [facility] Hematocrit 46.6 42.0 - 52.0 % [facility] Mean Corpuscular Volume 76.1(L) 80.0 - 98.0 fL [facility] Mean Corpuscular Hemoglobin 24.7(L) 27.0 - 33.0 pg [facility] Mean Corpuscular HGB Conc 32.4 31.0 - 36.0 g/dl [facility] Red Cell Distribution Width 14.1 11.0 - 16.0 % [facility] Platelet Count 352 160 - 400 X10*3/uL [facility] Mean Platelet Volume 10.8 9.4 - 12.4 fL [facility] Neutrophils Percent Auto 63.1 45 - 73 % [facility] Imm Gran Pct Auto 0.4 0.0 - 0.4 % [facility] Lymphocytes Percent Auto 21.6 20 - 40 % [facility] Monocytes Percent Auto 7.4 2 - 11 % [facility] Eosinophils Percent Auto 6.5(H) 0 - 4 % [facility] Basophils Percent Auto 1.0 0 - 2 % [facility] NRBC Pct Auto 0.0 0.0 - 0.2 /100WBC [facility] Neutrophils Absolute Auto 7.2 2.0 - 8.3 x10*3/uL [facility] Imm Gran Abs Auto 0.05(H) 0.00 - 0.03 X10*3/uL [facility] Lymphocytes Absolute Auto 2.5 1.2 - 4.9 X10*3/uL [facility] Monocytes Absolute Auto 0.9 0.1 - 1.2 X10*3/uL [facility] Eosinophils Absolute Auto 0.7(H) 0.0 - 0.4 X10*3/uL [facility] Basophils Absolute Auto 0.1 0.0 - 0.2 X10*3/uL [facility] NRBC Abs Auto 0.000 0.0 - 0.012 X10*3/uL [facility] 10/14/2024 8:10 PM EDT 10/14/2024 8:15 PM EDT us Generic External Data Provider LAB BLOOD ORDERAB LES Final Result [facility] [address] [place] [phone] * Magnesium (10/14/2024 8:10 PM EDT) Only the most recent of2 resultswithin the time period is included. Magnesium 2.0 1.6 - 2.6 mg/dL [facility] 10/14/2024 8:10 PM EDT 10/14/2024 8:15 PM EDT us Generic External Data Provider LAB BLOOD ORDERAB LES Final Result Performing Organization Address [facility]/ZIP Co de Phone Number [facility] [address] [place] [phone] * (ABNORMAL) Hepatic Function Panel (10/14/2024 8:10 PM EDT) [facility] Bilirubin, Total 0.4 0.0 - 1.0 mg/dL [facility] Bilirubin, Direct 0.2 0.0 - 0.5 mg/dL [facility] Aspartate Amino Transferase 23 5 - 37 U/L [facility] Alanine Aminotransferase 29 0 - 40 U/L [facility] Total Protein 8.5(H) 6.5 - 8.0 g/dL [facility] Albumin Level 5.1(H) 3.5 - 5.0 g/dL [facility] Alkaline Phosphatase 121(H) 39 - 117 U/L [facility] 10/14/2024 8:10 PM EDT 10/14/2024 8:15 PM EDT us Generic External Data Provider LAB BLOOD ORDERAB LES Final Result Performing Organization Address [facility] Co de Phone Number [facility] [address] [place] [phone] * (ABNORMAL) Basic Metabolic Panel (10/14/2024 8:10 PM EDT) [facility] Sodium 141 135 - 145 mmol/L [facility] Potassium 4.0 3.3 - 5.1 mmol/L [facility] Chloride 103 96 - 108 mmol/L [facility] Carbon Dioxide 28 22 - 29 mmol/L [facility] Anion Gap 14 12 - 20 [facility] Urea Nitrogen (BUN) 12 9 - 16 mg/dL [facility] Creatinine, Serum 0.74 0.5 - 1.4 mg/dL [facility] Creatinine Clr Calc Pharmacy 126.6 [facility] [facility] Comment:eGFR (calculated fro m the MDRD study equation) and eCrCl(calculated from the Cockcroft-Gault equation) are based ondifferent parameters and may not yield comparable results.If eCrCl result is absurd, please check patient'sheight/weight. Estimated Glomerular Filt Rate >60 [facility] Comment:Chronic Kidney Disea se: Estimated GFR < 60 mL/min/1.43k0Qmzezv Kidney Disease: Estimated GFR < 15 mL/min/1.73m2 Glucose 163(H) 60 - 115 mg/dL [facility] Calcium 9.9 8.4 - 10.2 mg/dL [facility] 10/14/2024 8:10 PM EDT 10/14/2024 8:15 PM EDT us Generic External Data Provider LAB BLOOD ORDERAB LES Final Result [facility] [address] [place] [phone] * XR Chest 2 Views (10/14/2024 7:32 PM EDT) Anatomical Region Laterality Modality Chest Radiographic Dasha ging 10/14/2024 7:32 PM EDT Narrative 10/14/2024 7:34 PM EDT [address] [address] XRay Report Signed Patient: Cassandra Bradley MR #: [id number] : 2000 Acct:[id number] Age/Sex: 24 / M ADM Date: 10/14/24 Loc: .ED Attending Dr: Ordering Physician: Sherri Silva Date of Service: 10/14/24 Procedure(s): XR chest 2V Accession Number(s): [id number] cc: Sherri Silva; Grisel Monroe MD CLINICAL HISTORY: SOB 2 view chest x-ray Comparison: CR - XR CHEST 2V - 08/18/24 20:01 EDT Findings: Heart size is normal. No consolidation, pleural effusion or pneumothorax. Right perihilar linear opacity suggestive of subsegmental atelectasis. No acute fracture. IMPRESSION: 1. No acute findings. This document has been electronically signed by: Patricia Munoz MD on 10/14/2024 19:32:07 Dictated By: Patricia Munoz MD Signed By: <Electronically signed by Patricia Munoz MD in OV> 10/14/241932 DD/ 31 TD/TT: 10/14/241931 Gaming Cashier: Procedure Note Donotuseinterpreter, Image - 10/14/2024 [place] [address] XRay Report Signed Patient: Cassandra Bradley MMR #: [id number] : 2000Acct:[id number] Age/Sex: MADM Date: 10/14/24 Loc: .ED Attending Dr: Ordering Physician: Sherri Silva Date of Service: 10/14/24 Procedure(s): XR chest 2V Accession Number(s): [id number] cc: Sherri Silva; Grisel Monroe MD CLINICAL HISTORY: SOB 2 view chest x-ray Comparison: CR - XR CHEST 2V - 08/18/24 20:01 EDT Findings: Heart size is normal. No consolidation, pleural effusion or pneumothorax. Right perihilar linear opacity suggestive of subsegmental atelectasis. No acute fracture. IMPRESSION: 1. No acute findings. This document has been electronically signed by: Patricia Munoz MD on 10/14/2024 19:32:07 Dictated By: Patricia Munoz MD Signed By: <Electronically signed by Patricia Munoz MD in OV> 10/14/241932 DD/ 31 TD/TT: 10/14/241931 Gaming Cashier: [facility] External Provider IMG XR PROCEDURES Edited Result - Final * (ABNORMAL) VENOUS BLOOD GAS (09/06/2024 3:19 PM EDT) VBG pH 7.33 7.32 - 7.43 [facility] Comment:METER #: [id number] additional_comment: CBBDAWEH VBG PCO2 63 mmHg [facility] Comment:METER #: [id number] additional_comment: CBBDAWEH VBG PO2 31 mmHg [facility] Comment:METER #: [id number] additional_comment: CBBDAWEH VBG Base Excess 5.4 mmol/L [facility] Comment:METER #: [id number] additional_comment: CBBDAWEH VBG HCO3 33(H) 22 - 26 mmol/L [facility] Comment:METER #: [id number] additional_comment: CBBDAWEH O2 Sat, Neftaly 39.0 % [facility] Comment:METER #: [id number] additional_comment: CBBDAWEH 09/06/2024 3:19 PM EDT 09/06/2024 3:23 PM EDT Generic External Data Provider LAB BLOOD ORDERAB LES Final Result Performing Organization Address [facility]/ZIP Co de Phone Number [facility] [address] [place] [phone] * Beta-Hydroxybutyrate (09/06/2024 3:14 PM EDT) Beta-Hydroxybut yrate 0.10 0.02 - 0.27 mmol/L [facility] 09/06/2024 3:14 PM EDT 09/06/2024 3:17 PM EDT Generic External Data Provider LAB BLOOD ORDERAB LES Final Result Performing Organization Address City/[facility]/ZIP Co de Phone Number [facility] [address] [place] [phone] * C-reactive Protein (09/06/2024 3:14 PM EDT) Pathologist [facility] C Reactive Protein 0.21 < or = 0.50 mg/dL [facility] 09/06/2024 3:14 PM EDT 09/06/2024 3:17 PM EDT Generic External Data Provider LAB BLOOD ORDERAB LES Final Result Performing Organization Address [facility]/ZIP Co de Phone Number [facility] [address] [place] [phone] * (ABNORMAL) Lipase (09/06/2024 3:14 PM EDT) [facility] Lipase 6(L) 8 - 78 U/L [facility] 09/06/2024 3:14 PM EDT 09/06/2024 3:17 PM EDT [employer] External Data Provider LAB BLOOD ORDERAB LES Final Result Performing Organization Address [facility] Co de Phone Number [facility] [address] [place] [phone] * (ABNORMAL) Comprehensive Metabolic Panel (09/06/2024 3:14 PM EDT) Pathologist [facility] Sodium 142 135 - 145 mmol/L [facility] Potassium 4.0 3.3 - 5.1 mmol/L [facility] Chloride 103 96 - 108 mmol/L [facility] Carbon Dioxide 29 22 - 29 mmol/L [facility] Anion Gap 14 12 - 20 [facility] Urea Nitrogen (BUN) 9 9 - 16 mg/dL [facility] Creatinine, Serum 0.79 0.5 - 1.4 mg/dL [facility] Creatinine Clr Calc Pharmacy 114.0 [facility] Comment:eGFR (calculated fro m the MDRD study equation) and eCrCl(calculated from the Cockcroft-Gault equation) are based ondifferent parameters and may not yield comparable results.If eCrCl result is absurd, please check patient'sheight/weight. Estimated Glomerular Filt Rate >60 [facility] Comment:Chronic Kidney Disea se: Estimated GFR < 60 mL/min/1.56x7Kbewie Kidney Disease: Estimated GFR < 15 mL/min/1.73m2 Glucose 142(H) 60 - 115 mg/dL [facility] Calcium 9.6 8.4 - 10.2 mg/dL [facility] Bilirubin, Total 0.3 0.0 - 1.0 mg/dL [facility] Aspartate Amino Transferase 41(H) 5 - 37 U/L [facility] Alanine Aminotransferase 56(H) 0 - 40 U/L [facility] Total Protein 7.7 6.5 - 8.0 g/dL [facility] Albumin Level 4.5 3.5 - 5.0 g/dL [facility] Alkaline Phosphatase 104 39 - 117 U/L [facility] 09/06/2024 3:14 PM EDT 09/06/2024 3:17 PM EDT us Generic External Data Provider LAB BLOOD ORDERAB LES Final Result Performing Organization Address City/[facility]/ZIP Co de Phone Number [facility] [address] [place] [phone] * Hold Green Gel (09/06/2024 3:13 PM EDT) Hold Green Gel See Note [facility] Comment:Specimen held untest ed for 24 hours; Call to requestChemistry testing. 09/06/2024 3:13 PM EDT 09/06/2024 3:18 PM EDT us Generic External Data Provider HISTORICAL/NON OR DERABLE LABS Final Result Performing Organization Address [facility]/ZIP Co de Phone Number [facility] [address] [place] [phone] * (ABNORMAL) POCT glycosylated hemoglobin (Hgb A1c) (02/27/2024 11:52 AM EDT) Hemoglobin A1C 12.3(A) 4.0 - 6.0 % QC Media Lot # [id number] Lot# Expiration Date 936 Blood Capillary blood specimen / Unknown 02/27/2024 11:52 AM EDT Grisel Monroe MD POINT OF CARE TEST ENTER/EDIT OR DERABLES Final Result * Albumin, Random Urine W/Creatinine (01/12/2023 11:29 AM EDT) Creatinine, Urine 191.11 mg/dL [facility] Microalbumin Urine <5.0 mg/L [facility] Microalbum Creatinine Ratio Ur TNP <30 ug/mg cr [facility] Comment:Unable to calculate albumin/creatinine ratio due to lowmicroalbumin or creatinine result. Urine 01/12/2023 11:2 9 AM EDT 01/12/2023 1:14 PM EDT Grisel Monroe MD LAB URINE ORDERABLES Final Resul t Performing Organization Address [facility] Co de Phone Number [facility] [address] [place] [phone] * Hepatitis C Antibody Reflex (01/11/2023 12:15 PM EDT) Hepatitis C Antibody Nonreactive Nonreactive [facility] Comment:Antibodies to HCV no t detected; does not exclude early acuteHCV infection. 01/11/2023 12:1 5 PM EDT 01/11/2023 1:31 PM EDT Grisel Monroe MD LAB BLOOD ORDERABLES Final Resul t Performing Organization Address [facility] Co de Phone Number [facility] [address] [place] [phone] * HIV Ab/Ag ([place] DP) (01/11/2023 12:15 PM EDT) HIV AB/AG Nonreactive Nonreactive [facility] Comment:HIV-1 p24 Ag and/or HIV-1/HIV-2 Ab not detected.A test result that is nonreactive does not exclude thepossibility of exposure to or infection with HIV-1 and/orHIV-2. Nonreactive results in this assay for individualswith prior exposure to HIV-1 and/or HIV-2 may be due toantigen and antibody levels that are below the limit ofdetection of this assay.The [employer] HIV Ag/Ab Combo assay result andsupplemental assay results should be interpreted inconjunction with the patient's clinical presentation,history and other laboratory results. If the results areinconsistent with clinical evidence, additional testing issuggested to confirm the result. 01/11/2023 12:1 5 PM EDT 01/11/2023 1:31 PM EDT us Grisel Monroe MD LAB BLOOD ORDERABLES Final Resul t [facility] [address] [place] [phone] * (ABNORMAL) Lipid Panel with Reflex to Direct LDL (01/11/2023 12:15 PM EDT) Triglycerides 161(H) <150 mg/dL [facility] Comment:Desirable Triglyceri de: less than 150 mg/dLBorderline High Triglyceride 150-199 mg/dLHigh Triglyceride: 200-499 mg/dLVery High Triglyceride: greater than or equal to 5OO mg/dL Cholesterol 121 <200 mg/dL [facility] Comment:Desirable Cholestero l: less than 200 mg/dLBorderline High Cholesterol: 200-239 mg/dLHigh Cholesterol: greater than 239 mg/dL LDL Cholesterol Calculated 42 <100 mg/dL [facility] Comment:Desirable LDL: less than 100 mg/dLNear Optimal/Above Optimal LDL: 110- 129 mg/dLBorderline High LDL: 130-159 mg/dLHigh LDL: 160-189 mg/dLVery High LDL: greater than or equal to 190 mg/dL HDL Cholesterol 47 >40 mg/dL [facility] Comment:Desirable HDL: great er than 40 mg/dL Note: This HDL assay may give artificially low results in patients with liver disease. Blood 01/11/2023 12:1 5 PM EDT 01/11/2023 1:31 PM EDT us Grisel Monroe MD LAB BLOOD ORDERABLES Final Resul t [facility] [address] [place] [phone] from Last 3 Months or Most Recently Relevant to Health Maintenance Insurance [facility] [employer] * Guarantor: Cassandra Bradley Account Type Relation to Patient Date of Phone Billing Address Dental Self 2000 [address] [place] [address] Care Teams [employer]ch[employer]ising [employer] Relationship Specialty Start Date End Date Grisel Monroe MD [address] [place] [phone] PCP - General Family Medicine 01/02/18
[2024-11-19 16:19] LABS: Resp Syncy Virus RNA Qual PCR NEGATIVE (Negative); SARS COV2 PCR INHOUSE NEGATIVE (Negative)
--- NOTE | 2024-11-19 17:31 | PC.NURSE ---
Pt exit seeking, became agitated. Unable to assess orientation to allow patient to AMA. Pt medicated as charted, with little affect. Pt now back in room. He is very anxious and tearful, stating they're going to kill me .
[2024-11-19] MEDS: OLANZapine 10 MG VIAL IM (18:10)
[2024-11-19] MEDS: LORazepam 2 MG/ML VIAL IVPUSH (19:10)
[2024-11-19] MEDS: Ketamine HCl/NS 50 MG/5 ML SYRINGE 30 MG IVPUSH (20:31)
--- NOTE | 2024-11-19 21:42 | PC.NURSE ---
restraints d/c'd around 2044. at this time patient is sedate, moves frequently although no longer yelling, attempting to bite staff, or being disruptive. sitter in place. has occasional episodes where he will attempt to get up to bedside but can be redirected now without any violence/worsening agitation. father now at bedside; he is understanding of situation and mentions son's heavy substance use history.
[2024-11-19 22:22] VITALS: BP 121/54; PULSE 76; RESP 20; O2SAT 100
--- NOTE | 2024-11-19 23:32 | MHC.CARE ---
T/w attempted to see pt. at 2300 with online program coordinator and pt. would not wake up due to being medicated earlier. T/w also attempted to call father, Tristennigel Walker at fo more information with online program coordinator and it went to voicemail.
--- NOTE | 2024-11-20 04:31 | PC.NURSE ---
pt calm, ambulated to bathroom with sitter supervised assist, back in bed with eyes closed, pulled blanket over self
[2024-11-20 04:44] VITALS: BP 108/66; PULSE 58; RESP 22; TEMP 37.2; O2SAT 99
[2024-11-20 05:01] LABS: Appearance Urine Clear; Glucose Urine UA Negative (Negative); PH 6.0 (5.0-9.0); Specific Gravity - Urine 1.025 (1.005-1.025); UMIC TRIGGER UACC YES
--- NOTE | 2024-11-20 05:02 | PC.NURSE ---
ambulated again steadily to bathroom with sitter. reported and episode of loose stool
[2024-11-20 05:05] LABS: Cannabinoid Screen Urine Not Detected (Not Detect)
--- NOTE | 2024-11-20 05:19 | MHC.CARE ---
Bjorn communication from RANDY Vivar informing the CARE Team that patient had awaken and went to the restroom, so he may be ready for an evaluation. The CARE Team attempted to evaluate the patient who was back lying on the stretcher, not responding to prompts to awaken him by t/w or the sitter. Patient will be seen later this morning by the CARE Team, when he is awake, alert and able to engage in an evaluation.
--- NOTE | 2024-11-20 06:26 | PC.NURSE ---
restraints were removed prior to CT scan. pt still had brief periods of agitation moving extremities but ceased long enough to obtain CT. upon returning to room after scan, pt only had two short episodes of restlessness/agitation but was calm and redirectable. has been sleeping with non labored breathing, sitter in place. ambulated twice to bathroom without assist with sitter. at 0640 appears to be sleeping once again with sitter in place. vitals updated.
[2024-11-20 09:27] VITALS: BP 115/73; PULSE 70; RESP 16; TEMP 36.8; O2SAT 100
--- NOTE | 2024-11-20 10:58 | PC.NURSE ---
Assumed care of pt at 0645, pt resting with eyes closed in stretcher with even chest rise and fall noted. No apparent s/s of distress. 1:1 sitter present at bedside. Pt to go to pod 4, report given to RN.
--- NOTE | 2024-11-20 12:39 | PC.NURSE ---
Current meds verified with [facility] pharamcist. reviewed list with patient who confirms that list is correct. states has not used insulin or any diabetic meds in a long time and sugars have been well controlled
--- NOTE | 2024-11-20 12:57 | PC.NURSE ---
transferred from ED [address] [facility]. patient calm and cooperative, spoke with care team. Via cut in station operator patient confirmed home meds. Denies pain or discomfort. Provided with food and fluids per patients request. Resting in bed at this time, no behaviors noted.
[2024-11-20 16:06] VITALS: BP 116/72; PULSE 88; RESP 14; TEMP 36.6; O2SAT 97
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
[2024-11-20 19:07] VITALS: BMI 22.2
[2024-11-20 20:00] VITALS: BP 119/61; PULSE 63; RESP 16; TEMP 36.1; O2SAT 97
[2024-11-20 21:25] VITALS: BP 119/61
[2024-11-21 09:03] VITALS: BP 124/89; PULSE 102; TEMP 36.4; O2SAT 97
--- NOTE | 2024-11-21 09:10 | HO.PSYADMNOT ---
[facility] Date of Service: 11/21/24 Chief Complaint: Psychotic Sources of Information: patient interviewed, chart reviewed and crisis/core team assessment reviewed HPI Subjective Notes: Barton Warning and Conditional Voluntary Medical Problems Affecting Mental Status: No Narrative: 24-year-old Maldivian-speaking male with history of diabetes, asthma, polysubstance use, and psychosis, presented to [facility] [place], on 11/19/2024, via ambulance for evaluation of lethargy after he got anxious, paranoid, and fell while standing in his room. Labs and head CT were unremarkable. On interview with this provider, patient states that he was on his phone, standing, his eyes shut, and he fell down in his room. He admits to hitting the back of his head. He states that he lost consciousness for 1-2 minute. He does not know what caused the fall. He denies overdosing on his prescription medications per nursing report. He states that 4 days before the fall, he was experiencing severe anxiety, depression, and auditory hallucinations. He is unable to explain what the voices were saying but notes, they were saying things I do not like or agree to. He states that on 10/17/2024, while at a detox facility for his methadone, he experienced nausea, vomiting, body aches, and auditory hallucinations. He spent 2 days at the rehab facility and then transferred to a hospital that was 2 hours 25 minute away from his residence. He does not recall the name or town of the hospital. He was hospitalized at the hospital for 1 week and sent home on escitalopram and clonidine, which he admits to taking as prescribed since discharged. He admits that the medications were effective in managing his anxiety and depressive symptoms until 4 days ago. He notes that he is currently experiencing severe anxiety and depressive symptoms. He denies chronic anxiety, depression, or auditory hallucinations. He reports not being able to sleep at all for 20 days, immediately before he was hospitalized last month. He admits to using cocaine and heroin intranasally daily for the past 3 years; last use was 11/19/2024. He denied use of illicit drugs while sleep-deprived for 20 days last month. He states that he was on methadone 7.2 mg daily until over a month ago. He stopped taking methadone because he did not want to combined his illicit drugs with methadone. He is interested in a consult with [facility] [place] comprehensive care for MAT for his recreational drug use; consult already in place. He denies smoking cigarettes or drinking alcohol. UTox positive for opiates, fentanyl, and cocaine. BAL less than 10. 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 He currently denies SI/HI/AH/VH. His AH has been intermittent, and last episode was yesterday. Patient is Maldivian-speaking only. Interpretation by an in-person video recorder mechanic. Patient seen at 12:15 on 11/21/2024. Past Psychiatric History: Inpt: M3 12/2022 No op therapist or psychiatrist Denies h/o SA or SIB Medical Evaluation Reviewed: Yes [facility] Medical History (Updated 11/21/24 @ 21:34 by Douglas Sanchez CNP) Cocaine use disorder Asthma Paranoia Diabetes Family History: PGF and PGM: Mental illness (unknown) Social History: The patient was born and raised in the [place] and reportedly, he was raised by family, he attended up to the 8th grade. He is mostly Maldivian speaking. 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 He is single with no children. Currently lives with a female friend. He has no siblings. Substance History: Reports history of daily cocaine and heroin use intranasally x3 years. Utox positive for opiates, fentanyl, and cocaine. Denies nicotine or alcohol use. Trauma History: Denies Diagnostics Vital Signs (24Hr): Vital Signs - 24 hr 11/20/24 09:27 11/20/24 16:06 11/20/24 20:00 Temperature 98.3 F 98 F 97.0 F Pulse Rate 70 88 63 Respiratory Rate 16 14 16 Blood Pressure 115/73 116/72 119/61 Pulse Oximetry 100 97 97 Oxygen Delivery Method Room Air Room Air 11/20/24 21:25 11/21/24 09:03 Temperature 97.6 F Pulse Rate 102 H Respiratory Rate Blood Pressure 119/61 124/89 Pulse Oximetry 97 Oxygen Delivery Method Room Air BMI result Body Mass Index 22.2 Labs 11/19/24 15:05 11/21/24 09:09 Labs: Laboratory Results - last 48 hr 11/19/24 11/19/24 11/20/24 15:05 15:16 04:48 WBC 8.0 RBC 5.44 Hgb 13.9 L Hct 41.7 L MCV 76.7 L MCH 25.6 L MCHC 33.3 RDW 14.1 Plt Count 411 H MPV 10.3 Immature Gran % (Auto) 0.6 H Neut % (Auto) 80.8 H Lymph % (Auto) 13.6 L Ransom % (Auto) 4.2 Eos % (Auto) 0.2 Baso % (Auto) 0.6 Lymph # (Auto) 1.1 L Ransom # (Auto) 0.3 Eos # (Auto) 0.0 Baso # (Auto) 0.1 Abs Immat Gran (auto) 0.05 H Absolute Neuts (auto) 6.5 Absolute Nucleated RBC 0.000 Nucleated RBC % (auto) 0.0 Sodium 141 Potassium 3.4 Chloride 105 Carbon Dioxide 28 Anion Gap 11 L BUN 8 L Creatinine 0.75 Estim Creat Clear Calc 124.9 Estimated GFR > 60 Random Glucose 178 H Lactic Acid 1.5 Calcium 9.3 D Total Bilirubin 0.3 AST 23 ALT 22 Alkaline Phosphatase 112 Total Creatine Kinase 122 Total Protein 7.9 Albumin 5.1 H Lipase 7 L Urine Color Yellow Urine Appearance Clear Urine pH 6.0 Ur Specific Albia 1.025 Urine Protein 30 (1+) H Urine Glucose (UA) Negative Urine Ketones 80 Urine Blood Negative Urine Nitrite Negative Ur Leukocyte Esterase Negative Urine RBC 0-2 Urine WBC 0-5 Ur Squamous Epith Cells 0-2 Urine Bacteria None Seen Hyaline Casts 0-2 Urine Opiates Screen Ur Buprenorphine Scrn Ur Oxycodone Screen Urine Methadone Screen Urine Fentanyl Screen Ur Barbiturates Screen Ur Phencyclidine Scrn Ur Amphetamines Screen U Benzodiazepines Scrn Urine Cocaine Screen U Marijuana (THC) Screen Ethyl Alcohol 10 Influenza Type A (PCR) NEGATIVE Influenza Type B (PCR) NEGATIVE RSV RNA Qual (PCR) NEGATIVE SARS-CoV-2 RNA (RT-PCR) NEGATIVE 11/20/24 04:49 WBC RBC Hgb Hct MCV MCH MCHC RDW Plt Count MPV Immature Gran % (Auto) Neut % (Auto) Lymph % (Auto) Ransom % (Auto) Eos % (Auto) Baso % (Auto) Lymph # (Auto) Ransom # (Auto) Eos # (Auto) Baso # (Auto) Abs Immat Gran (auto) Absolute Neuts (auto) Absolute Nucleated RBC Nucleated RBC % (auto) Sodium Potassium Chloride Carbon Dioxide Anion Gap BUN Creatinine Estim Creat Clear Calc Estimated GFR Random Glucose Lactic Acid Calcium Total Bilirubin AST ALT Alkaline Phosphatase Total Creatine Kinase Total Protein Albumin Lipase Urine Color Urine Appearance Urine pH Ur Specific Albia Urine Protein Urine Glucose (UA) Urine Ketones Urine Blood Urine Nitrite Ur Leukocyte Esterase Urine RBC Urine WBC Ur Squamous Epith Cells Urine Bacteria Hyaline Casts Urine Opiates Screen POSITIVE H Ur Buprenorphine Scrn Not Detected Ur Oxycodone Screen Not Detected Urine Methadone Screen Not Detected Urine Fentanyl Screen POSITIVE H Ur Barbiturates Screen Not Detected Ur Phencyclidine Scrn Not Detected Ur Amphetamines Screen Not Detected U Benzodiazepines Scrn POSITIVE H Urine Cocaine Screen POSITIVE H U Marijuana (THC) Screen Not Detected Ethyl Alcohol Influenza Type A (PCR) Influenza Type B (PCR) RSV RNA Qual (PCR) SARS-CoV-2 RNA (RT-PCR) Imaging Radiology Impressions: ITS Impressions Chest X-Ray 11/19/24 13:34 IMPRESSION: No acute disease Electronically signed by: Danny Dillard MD 11/19/2024 02:46 PM EDT RP Meds/Allergies Meds Home Medications ?Medication ?Instructions ?Recorded ?Confirmed ?Type baclofen 10 mg tablet 10 mg PO TID 11/20/24 11/20/24 History clonidine HCl 0.1 mg tablet 0.1 mg PO BID 11/20/24 11/20/24 History escitalopram oxalate 10 mg tablet 10 mg PO DAILY 11/20/24 11/20/24 History ibuprofen 600 mg tablet 600 mg PO Q6H PRN Pain 11/20/24 11/20/24 History lidocaine 5 % topical patch patch topical 11/20/24 History trazodone 50 mg tablet 50 mg PO BEDTIME 11/20/24 11/20/24 History Allergies Allergies Allergy/AdvReac Type Severity Reaction Status Date / Time haloperidol (From Haldol) AdvReac Mild dystonia Verified 11/19/24 14:48 Mental Status Exam Mental Status Exam Narrative: Appearance: Casually dressed, adequate hygiene Behavior: Calm and cooperative throughout the interview. Eye contact is appropriate, and there are no signs of psychomotor agitation or retardation Speech: Normal volume and prosody Thought process: logical and goal-directed Thought content: Future oriented no self-harming thoughts Mood: Depressed Affect: Flat, mood-congruent SI:denies HI:denies VH/AH:none Delusions: none Insight/judgment: Impaired insight and judgment Memory/cog: Alert, oriented x 4. grossly intact to conversational testing Assessment & Plan Assessment & Plan (1) Depression: Status: Acute Code(s): F32.A - Depression, unspecified (2) Anxiety: Status: Acute Code(s): F41.9 - Anxiety disorder, unspecified (3) Drug-induced psychotic disorder: Status: Acute Code(s): F19.959 - Other psychoactive substance use, unspecified with psychoactive substance-induced psychotic disorder, unspecified (4) Cocaine use disorder: Status: Acute Code(s): F14.10 - Cocaine abuse, uncomplicated (5) Opioid use disorder: Status: Acute Code(s): F11.90 - Opioid use, unspecified, uncomplicated (6) Diabetes: Status: Acute Code(s): E11.9 - Type 2 diabetes mellitus without complications (7) Microcytic anemia: Status: Acute Code(s): D50.9 - Iron deficiency anemia, unspecified (8) Hypokalemia: Status: Acute Code(s): E87.6 - Hypokalemia Plan 24-year-old Maldivian-speaking male with history of diabetes, asthma, polysubstance use, and psychosis, presented to [facility] [place], on 11/19/2024, via ambulance for evaluation of lethargy after he got anxious, paranoid, and fell while standing in his room. Labs and head CT were unremarkable. On interview with this provider, patient states that he was on his phone, standing, his eyes shut, and he fell down in his room. He admits to hitting the back of his head. He states that he lost consciousness for 1-2 minute. He does not know what caused the fall. He denies overdosing on his prescription medications per nursing report. He states that 4 days before the fall, he was experiencing severe anxiety, depression, and auditory hallucinations. He is unable to explain what the voices were saying but notes, they were saying things I do not like or agree to. He states that on 10/17/2024, while at a detox facility for his methadone, he experienced nausea, vomiting, body aches, and auditory hallucinations. He spent 2 days at the rehab facility and then transferred to a hospital that was 2 hours 25 minute away from his residence. He does not recall the name or town of the hospital. He was hospitalized at the hospital for 1 week and sent home on escitalopram and clonidine, which he admits to taking as prescribed since discharged. He admits that the medications were effective in managing his anxiety and depressive symptoms until 4 days ago. He notes that he is currently experiencing severe anxiety and depressive symptoms. He denies chronic anxiety, depression, or auditory hallucinations. He reports not being able to sleep at all for 20 days, immediately before he was hospitalized last month. He admits to using cocaine and heroin intranasally daily for the past 3 years; last use was 11/19/2024. He denied use of illicit drugs while sleep-deprived for 20 days last month. He states that he was on methadone 7.2 mg daily until over a month ago. He stopped taking methadone because he did not want to combined his illicit drugs with methadone. He is interested in a consult with [facility] [place] comprehensive care for MAT for his recreational drug use; consult already in place. He denies smoking cigarettes or drinking alcohol. UTox positive for opiates, fentanyl, and cocaine. BAL less than 10. 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 He currently denies SI/HI/AH/VH. His AH has been intermittent, and last episode was yesterday. Formulation/Clinical reasoning: Patient has been experiencing anxiety, depression, and auditory hallucinations for the past 4 days. Last AH was yesterday. Prior to this recent episode, the last time he experienced auditory hallucinations was when he was hospitalized about month ago. No chronic anxiety, depression, or hallucinations. His symptoms may be attributed to medication noncompliance or illicit drug use or both. He is currently experiencing severe anxiety and depressive symptoms. No SI/HI/AH/VH. Will resume escitalopram 10 mg daily. Continue current treatment regimen. His potassium was slightly low, 3.1; will treat with potassium chloride 20 mEq twice daily for 7 days and recheck potassium level in 3 days. His A1c today is 6.6%; he declines treatment for his diabetes. ADA diet and routine exercise encouraged. Verbalized understanding and agreed with the plan. He has microcytic anemia with normal iron studies, folate, and vitamin B12 levels. Plan: Admit to M5. CV 15 minutes check. Diagnostics as needed. Collateral contact. Continue remainder of regime. Encouraged full milieu. Discharge planning. Patient educated on: medication risk/benefits and therapeutic strategies Reason for continued inpatient stay Substantial Risk for: rapid decompensation Statement Statement: I have reviewed the history and physical and performed a pertinent examination on my patient. No changes have occurred unless specified. If the History and Physical was not performed prior to admission, the Hospitalist's service will be consulted for completing the admission physical. Time Spent With Patient Time: Total time managing care of this patient today ____ minutes.
[2024-11-21 09:25] LABS: Hemoglobin A1C 193.4151 umol/L; Total Hemoglobin (HGBA1C) 3962.6639 umol/L
[2024-11-21 09:36] LABS: Alanine Aminotransferase 35 U/L (0-40); Albumin Level 5.2 g/dL (3.5-5.0); Alkaline Phosphatase 114 U/L (39-117); Anion Gap 14 (12-20); Aspartate Amino Transferase 53 U/L (5-37); Blood Urea Nitrogen 13 mg/dL (9-16); Calcium 9.5 mg/dL (8.4-10.2); Carbon Dioxide 26 mmol/L (22-29); Chloride 101 mmol/L (96-108); Cholesterol 71 mg/dL (<200); Creatinine Clr Calc Pharmacy 88.5; Estimated Glomerular Filt Rate > 60; HDL Cholesterol 39 mg/dL (>40); Potassium 3.1 mmol/L (3.3-5.1); Sodium 138 mmol/L (135-145); Total Protein 8.4 g/dL (6.5-8.0); Triglycerides 49 mg/dL (<150)
[2024-11-21] MEDS: Potassium Chloride ER 20 MEQ TAB.ER.PRT PO ×2 (10:53→20:58)
[2024-11-21 10:57] LABS: Iron 99 mcg/dL (45-160); Percent Iron Saturation 29 % (15-50); Total Iron Binding Capacity 339 mcg/dL (228-428); Unsaturated Iron Binding 240 ug/dL
[2024-11-21 11:11] LABS: Ferritin 68 ng/mL (20-250)
[2024-11-21 11:25] LABS: Folate 9.8 ng/mL (> or = 4.0); Vitamin B12 455 pg/mL (200-900)
[2024-11-21 14:00] VITALS: BP 110/72
[2024-11-21 19:46] VITALS: BP 95/67; PULSE 61; TEMP 36.9; O2SAT 100
[2024-11-22] MEDS: Potassium Chloride ER 20 MEQ TAB.ER.PRT PO (09:02)
[2024-11-22 09:42] VITALS: BP 110/59; PULSE 79; RESP 18; TEMP 36.6; O2SAT 99
--- NOTE | 2024-11-22 10:37 | HO.PSYCHPN ---
Subjective Subjective Date of Service: 11/22/24 Reason For Visit: Psychotic Interim History: Met with pt, team, [facility]. Agrees to repeat BMP on 11/25 as K+ was low on admit. Has decided on suboxone/sublocade. Accepted referrals to [facility], [facility]. Plans DC for 11/25. Denies SI,HI,AH,VH. No sx of acute psychosis or nicole. Medication Compliance: Yes Side effects from medications: No Attending Groups: No Review of Systems Monitoring of K+ Medical Review of Systems: unchanged Review of Systems Review of Systems Denies Mental Status Exam Mental Status Exam Patient Appearance: Appropriate Patient Orientation: Person, Place, Time and Situation Level of Consciousness: Alert Patient Behavior: Guarded and Talkative Mood Description: Constricted Affect Description: Constricted Patient Cognition Impaired: No Ability to Follow Directions: Good Speech Pattern: Spontaneous Speech Memory Description: Intact Hallucinations: None Delusions: Not Present Thought Process: Intact and Goal Oriented Thought Content: positive for Intact, positive for Goal Oriented, positive for Suicidal Ideation (denies) and positive for Homicidal Ideation (denies) Depressive Symptoms: Thoughts of /Suicide (denies) Judgement: Fair Diagnostics Vital Signs (24Hr): Vital Signs - 24 hr 11/21/24 14:00 11/21/24 19:46 11/22/24 09:42 Temperature 98.4 F 97.9 F Pulse Rate 61 79 Respiratory Rate 18 Blood Pressure 110/72 95/67 110/59 L Pulse Oximetry 100 99 Oxygen Delivery Method Room Air Room Air BMI result Body Mass Index 22.2 Labs 11/19/24 15:05 11/21/24 09:09 Labs: Laboratory Results - last 48 hr 11/21/24 11/21/24 09:09 10:31 Sodium 138 Potassium 3.1 L Chloride 101 Carbon Dioxide 26 Anion Gap 14 BUN 13 Creatinine 1.05 Estim Creat Clear Calc 88.5 Estimated GFR > 60 Random Glucose 204 H Estimat Average Glucose 143 Hemoglobin A1c % 6.6 H Calcium 9.5 Iron 99 TIBC 339 % Saturation 29 Unsat Iron Binding 240 Ferritin 68 Total Bilirubin 0.7 AST 53 H ALT 35 Alkaline Phosphatase 114 Total Protein 8.4 H Albumin 5.2 H Triglycerides 49 Cholesterol 71 LDL Cholesterol, Calc 23 HDL Cholesterol 39 L Vitamin B12 455 Folate 9.8 Imaging Radiology Impressions: ITS Impressions Chest X-Ray 11/19/24 13:34 IMPRESSION: No acute disease Electronically signed by: Danny Dillard MD 11/19/2024 02:46 PM EDT RP Medications Medications Current Medications Acetaminophen (Acetaminophen 325 Mg Tablet) 650 mg PO Q6H PRN PRN Reason: Headache/Pain, Scale 1-10 Last Admin: 11/20/24 21:26 Dose: 650 mg Al Hydroxide/Mg Hydroxide (Magnesium Hydrox/Alum Hydrox 30 Ml Oral.Susp) 30 ml PO Q6H PRN PRN Reason: Heartburn/Nausea Albuterol Sulfate (Albuterol Sulfate 90 Mcg 8 Gm Inhaler) 2 puff INHALE Q4H PRN PRN Reason: shortness of breath or wheezing Clonidine HCl (Clonidine Hcl 0.1 Mg Tablet) 0.1 mg PO BID [facility]; Protocol Last Admin: 11/22/24 09:02 Dose: 0.1 mg Clonidine HCl (Clonidine Hcl 0.1 Mg Tablet) 0.1 mg PO Q4H PRN; Protocol PRN Reason: restless/opiate w/drawal Last Admin: 11/21/24 14:00 Dose: 0.1 mg Cyclobenzaprine HCl (Cyclobenzaprine Hcl 10 Mg Tablet) 10 mg PO TID PRN PRN Reason: muscle aches/cramps Dicyclomine HCl (Dicyclomine Hcl 10 Mg Capsule) 10 mg PO TID PRN PRN Reason: stomach cramps Escitalopram Oxalate (Escitalopram Oxalate 10 Mg Tablet) 10 mg PO DAILY [facility] Last Admin: 11/22/24 09:02 Dose: 10 mg Hydroxyzine HCl (Hydroxyzine Hcl 25 Mg Tablet) 25 mg PO Q6H PRN PRN Reason: mild anxiety Loperamide HCl (Loperamide Hcl 2 Mg Capsule) 2 mg PO Q6H PRN PRN Reason: loose stool Last Admin: 11/21/24 15:56 Dose: 2 mg Magnesium Hydroxide (Milk Of Magnesia 30 Ml Oral.Susp) 30 ml PO DAILY PRN PRN Reason: Constipation Nicotine (Nicotine 21 Mg Patch.Td24) 21 mg TRANSDERMA DAILY PRN PRN Reason: smoking cessation Nicotine Polacrilex (Nicotine Polacrilex 2 Mg Gum) 4 mg BUCCAL Q2H PRN PRN Reason: Nicotine Cravings Olanzapine (Olanzapine 10 Mg Tablet) 10 mg PO TID PRN PRN Reason: agitation Last Admin: 11/21/24 20:58 Dose: 10 mg Ondansetron HCl (Ondansetron Odt 4 Mg Tab.Rapdis) 8 mg TRANSLINGU Q8H PRN PRN Reason: Nausea and Vomiting Last Admin: 11/21/24 17:51 Dose: 8 mg Potassium Chloride (Potassium Chloride Er 20 Meq Tab.Er.Prt) 20 meq PO BID VERÓNICA Stop: 11/27/24 23:59 Last Admin: 11/22/24 09:02 Dose: 20 meq Trazodone HCl (Trazodone Hcl 50 Mg Tablet) 50 mg PO BEDTIME MRX1 PRN PRN Reason: Insomnia Last Admin: 11/21/24 20:58 Dose: 50 mg Allergies Allergies Allergy/AdvReac Type Severity Reaction Status Date / Time haloperidol (From Haldol) AdvReac Mild dystonia Verified 11/19/24 14:48 Assessment & Plan Assessment & Plan (1) Depression: Status: Acute Code(s): F32.A - Depression, unspecified (2) Anxiety: Status: Acute Code(s): F41.9 - Anxiety disorder, unspecified (3) Drug-induced psychotic disorder: Status: Acute Code(s): F19.959 - Other psychoactive substance use, unspecified with psychoactive substance-induced psychotic disorder, unspecified (4) Cocaine use disorder: Status: Acute Code(s): F14.10 - Cocaine abuse, uncomplicated (5) Opioid use disorder: Status: Acute Code(s): F11.90 - Opioid use, unspecified, uncomplicated (6) Diabetes: Status: Acute Code(s): E11.9 - Type 2 diabetes mellitus without complications (7) Microcytic anemia: Status: Acute Code(s): D50.9 - Iron deficiency anemia, unspecified (8) Hypokalemia: Status: Acute Code(s): E87.6 - Hypokalemia Plan 24-year-old Wolof-speaking male with history of diabetes, asthma, polysubstance use, and psychosis, presented [place] [facility], via ambulance for evaluation of lethargy after he got anxious, paranoid, and fell while standing in his room. Labs and head CT were unremarkable. On interview with this provider, patient states that he was on his phone, standing, his eyes shut, and he fell down in his room. He admits to hitting the back of his head. He states that he lost consciousness for 1-2 minute. He does not know what caused the fall. He denies overdosing on his prescription medications per nursing report. He states that 4 days before the fall, he was experiencing severe anxiety, depression, and auditory hallucinations. He is unable to explain what the voices were saying but notes, they were saying things I do not like or agree to. He states that on 10/17/2024, while at a detox facility for his methadone, he experienced nausea, vomiting, body aches, and auditory hallucinations. He spent 2 days at the rehab facility and then transferred to a hospital that was 2 hours 25 minute away from his residence. He does not recall the name or town of the hospital. He was hospitalized at the hospital for 1 week and sent home on escitalopram and clonidine, which he admits to taking as prescribed since discharged. He admits that the medications were effective in managing his anxiety and depressive symptoms until 4 days ago. He notes that he is currently experiencing severe anxiety and depressive symptoms. He denies chronic anxiety, depression, or auditory hallucinations. He reports not being able to sleep at all for 20 days, immediately before he was hospitalized last month. He admits to using cocaine and heroin intranasally daily for the past 3 years; last use was 11/19/2024. He denied use of illicit drugs while sleep-deprived for 20 days last month. He states that he was on methadone 7.2 mg daily until over a month ago. He stopped taking methadone because he did not want to combined his illicit drugs with methadone. He is interested in a consult with [facility] [place] care for MAT for his recreational drug use; consult already in place. He denies smoking cigarettes or drinking alcohol. UTox positive for opiates, fentanyl, and cocaine. BAL less than 10. 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 He currently denies SI/HI/AH/VH. His AH has been intermittent, and last episode was yesterday. Formulation/Clinical reasoning: Patient has been experiencing anxiety, depression, and auditory hallucinations for the past 4 days. Last AH was yesterday. Prior to this recent episode, the last time he experienced auditory hallucinations was when he was hospitalized about month ago. No chronic anxiety, depression, or hallucinations. His symptoms may be attributed to medication noncompliance or illicit drug use or both. He is currently experiencing severe anxiety and depressive symptoms. No SI/HI/AH/VH. Will resume escitalopram 10 mg daily. Continue current treatment regimen. His potassium was slightly low, 3.1; will treat with potassium chloride 20 mEq twice daily for 7 days and recheck potassium level in 3 days. His A1c today is 6.6%; he declines treatment for his diabetes. ADA diet and routine exercise encouraged. Verbalized understanding and agreed with the plan. He has microcytic anemia with normal iron studies, folate, and vitamin B12 levels. 11/22: BMP 11/25 Pt to begin Suboxone and transition to Sublocade with [facility] 11/25. Plan: Admit to M5. CV 15 minutes check. Diagnostics as needed. Collateral contact. Continue remainder of regime. Encouraged full milieu. Discharge planning. Informed Consent: understands Reason for continued inpatient stay Substantial Risk for: rapid decompensation Time Spent With Patient Time: Total time managing care of this patient today ____ minutes.
--- NOTE | 2024-11-22 11:51 | HO.ADDICTCON ---
History of Present Illness Date of Service: 11/22/2024 Chief Complaint: Psychotic Reason for Consult: ENRIQUETA Discussed with referring provider: Yes Sources of Information: patient interviewed and chart reviewed HPI Narrative: Patient is a 24 year old Dominican speaking male with history of OUD and MDD and psychotic disorder, admitted to unit. Consult requested to assess and treat ongoing substance use. Patient seen on M5. He is awake and alert. Engaged in interview, intermittent eye contact, somewhat slow to respond to questions, but responding appropriately. Appears to be internally preoccupied. He reports he first started using fentanyl and cocaine 3 years ago. Last use 3 days ago--Monday, 11/19. He reports he was using 7.2 grams of cocaine and fentanyl--using both IN and INH. Denies any history of IVDU. Denies any history of OD Reports previously being engage din treatment for OUD via [facility] OTP. He states he dose was 140mg, but due to many missed doses, he was restarted on 40mg--he states this was 3 months ago. He denied any history of substance usen treatment, however provider note from 11/21 mentions recent ATS admission. Patient reports withdrawal sx including back pain, chills, anxiety, and joint pain. Denies any issues to sleep. He reports that he does not wish to return to methadone, but would like to start the injection referring to buprenorphine ABARCA. He states that he has not ever trialled sublingual buprenorphine. Past Psychiatric History: Inpt: M3 12/2022 No op therapist or psychiatrist Denies h/o SA or SIB Review of Systems Constitutional: Reports as per HPI and Reports no additional constitutional complaints Diagnostics Vital Signs (24Hr): Vital Signs - 24 hr 11/21/24 14:00 11/21/24 19:46 11/22/24 09:42 Temperature 98.4 F 97.9 F Pulse Rate 61 79 Respiratory Rate 18 Blood Pressure 110/72 95/67 110/59 L Pulse Oximetry 100 99 Oxygen Delivery Method Room Air Room Air BMI result Body Mass Index 22.2 Labs 11/19/24 15:05 11/21/24 09:09 Labs: Laboratory Results - last 48 hr 11/21/24 11/21/24 09:09 10:31 Sodium 138 Potassium 3.1 L Chloride 101 Carbon Dioxide 26 Anion Gap 14 BUN 13 Creatinine 1.05 Estim Creat Clear Calc 88.5 Estimated GFR > 60 Random Glucose 204 H Estimat Average Glucose 143 Hemoglobin A1c % 6.6 H Calcium 9.5 Iron 99 TIBC 339 % Saturation 29 Unsat Iron Binding 240 Ferritin 68 Total Bilirubin 0.7 AST 53 H ALT 35 Alkaline Phosphatase 114 Total Protein 8.4 H Albumin 5.2 H Triglycerides 49 Cholesterol 71 LDL Cholesterol, Calc 23 HDL Cholesterol 39 L Vitamin B12 455 Folate 9.8 Imaging Radiology Impressions: ITS Impressions Chest X-Ray 11/19/24 13:34 IMPRESSION: No acute disease Electronically signed by: Danny Dillard MD 11/19/2024 02:46 PM EDT RP Mental Status Exam Mental Status Exam Patient Appearance: Disheveled Level of Consciousness: Awake, Appropriate and Alert Patient Behavior: Appropriate and Cooperative Affect Description: Flat Speech Pattern: Clear Thought Content: positive for Intact Judgement: Fair Medications Medications Current Medications Acetaminophen (Acetaminophen 325 Mg Tablet) 650 mg PO Q6H PRN PRN Reason: Headache/Pain, Scale 1-10 Last Admin: 11/20/24 21:26 Dose: 650 mg Al Hydroxide/Mg Hydroxide (Magnesium Hydrox/Alum Hydrox 30 Ml Oral.Susp) 30 ml PO Q6H PRN PRN Reason: Heartburn/Nausea Albuterol Sulfate (Albuterol Sulfate 90 Mcg 8 Gm Inhaler) 2 puff INHALE Q4H PRN PRN Reason: shortness of breath or wheezing Clonidine HCl (Clonidine Hcl 0.1 Mg Tablet) 0.1 mg PO BID [facility]; Protocol Last Admin: 11/22/24 09:02 Dose: 0.1 mg Clonidine HCl (Clonidine Hcl 0.1 Mg Tablet) 0.1 mg PO Q4H PRN; Protocol PRN Reason: restless/opiate w/drawal Last Admin: 11/21/24 14:00 Dose: 0.1 mg Cyclobenzaprine HCl (Cyclobenzaprine Hcl 10 Mg Tablet) 10 mg PO TID PRN PRN Reason: muscle aches/cramps Dicyclomine HCl (Dicyclomine Hcl 10 Mg Capsule) 10 mg PO TID PRN PRN Reason: stomach cramps Escitalopram Oxalate (Escitalopram Oxalate 10 Mg Tablet) 10 mg PO DAILY [facility] Last Admin: 11/22/24 09:02 Dose: 10 mg Hydroxyzine HCl (Hydroxyzine Hcl 25 Mg Tablet) 25 mg PO Q6H PRN PRN Reason: mild anxiety Loperamide HCl (Loperamide Hcl 2 Mg Capsule) 2 mg PO Q6H PRN PRN Reason: loose stool Last Admin: 11/21/24 15:56 Dose: 2 mg Magnesium Hydroxide (Milk Of Magnesia 30 Ml Oral.Susp) 30 ml PO DAILY PRN PRN Reason: Constipation Nicotine (Nicotine 21 Mg Patch.Td24) 21 mg TRANSDERMA DAILY PRN PRN Reason: smoking cessation Nicotine Polacrilex (Nicotine Polacrilex 2 Mg Gum) 4 mg BUCCAL Q2H PRN PRN Reason: Nicotine Cravings Olanzapine (Olanzapine 10 Mg Tablet) 10 mg PO TID PRN PRN Reason: agitation Last Admin: 11/21/24 20:58 Dose: 10 mg Ondansetron HCl (Ondansetron Odt 4 Mg Tab.Rapdis) 8 mg TRANSLINGU Q8H PRN PRN Reason: Nausea and Vomiting Last Admin: 11/21/24 17:51 Dose: 8 mg Potassium Chloride (Potassium Chloride Er 20 Meq Tab.Er.Prt) 20 meq PO BID VERÓNICA Stop: 11/27/24 23:59 Last Admin: 11/22/24 09:02 Dose: 20 meq Trazodone HCl (Trazodone Hcl 50 Mg Tablet) 50 mg PO BEDTIME MRX1 PRN PRN Reason: Insomnia Last Admin: 11/21/24 20:58 Dose: 50 mg Allergies Allergies Allergy/AdvReac Type Severity Reaction Status Date / Time haloperidol (From Haldol) AdvReac Mild dystonia Verified 11/19/24 14:48 Assessment & Plan Assessment & Plan (1) Opioid use disorder: Status: Acute Code(s): F11.90 - Opioid use, unspecified, uncomplicated Assessment and Plan: reviewed medication, administration, side effects, and having to trial SL formulation prior to transitioning to ABARCA. patient agreeable. suboxone 8mg SL ordered X1--will adjust dosing based on response will need referral to community provider for ongoing treatment--discussed [facility], patient agreeable. Total time managing care of this patient today ___35_ minutes. PMFSH Past Medical History Medical History (Updated 11/21/24 @ 21:34 by Douglas Sanchez CNP) Cocaine use disorder Asthma Paranoia Diabetes Social History Social History (System 01/30/24 @ 14:30 by Georgina Brown) Household Members: Friend(s) Housing: Apartment Do you presently have visiting nurse or other home services: No Unable to assess alcohol history related to: Refusing to respond Alcohol intake: never Patient Tobacco Use Status: Never used Tobacco e-Cigarette/Vaping Use: Never Used Second Hand Smoke Exposure: No Use of substances other than those prescribed or required for medical reasons: Yes Substance Use Type: Crack/Cocaine Substance Use Type Other:: dope Currently Displaying Signs/Symptoms of Drug Intoxication Withdrawal: Yes Advance Directives: No Advance Directives Information Provided: No Do you have thoughts of harming others: None Do you have a plan to hurt others: No Plan Recently lost weight without trying: Unsure Nutrition Risks: No Nutritional Risk service: No Sexual orientation: Don't Know
[2024-11-22 20:01] VITALS: BP 127/68; PULSE 76; RESP 16; TEMP 36.8; O2SAT 96
[2024-11-22 22:08] VITALS: BP 127/68
[2024-11-22] MEDS: Buprenorphine/Naloxone 4/1 mg FILM 1 FILM SUBLINGUAL (22:08)
[2024-11-23 08:08] VITALS: BP 109/60; PULSE 65; RESP 18; TEMP 36.2; O2SAT 99
[2024-11-23] MEDS: Potassium Chloride ER 20 MEQ TAB.ER.PRT PO ×2 (08:27→21:17)
--- NOTE | 2024-11-23 10:00 | P.PNPSI_ITS ---
Subjective Subjective Date of Service: 11/23/24 Reason For Visit: Psychotic Interim History: met with patient; discussed with team; reviewed chart Patient seen with bake room worker Initially patient reticent; he says his mood is'good and that there is nothing on mind other than discharge. However with more inquiry, patient acknowledges that AH remain though they are now less frequent and lower volume; however they still say bad things...say things you won't like... And tell him to do bad things; patient says that his thoughts can race as well. Patient shares that he has had voices without the substances...and has engaged in substance abuse to help cope with voices. Discussed medication regimen and patient agrees to start risperidone to help address AH. -otherwise says eating well, sleeping well. Mental Status Exam Mental Status Exam Narrative: Pt is alert and oriented; behavior is quiet, isolative, superficially cooperative, calm; patient is not in distress; dressed in hospital attire with unkempt hair; mood is described as good although affect vacant or anxious; eye contact avoiding; Speech is slow and soft; words a few; with some psychomotor retardation present; thought process is goal directed, concrete; Thought content is on AH; discharge; otherwise pertinent to relevant topics and without any express delusional content; denies any SI/HI. Ongoing AH however says it is less frequent and quieter; appears internally preoccupied Patients insight and judgment impaired Diagnostics Vital Signs (24Hr): Vital Signs - 24 hr 11/22/24 20:01 11/22/24 22:08 11/23/24 08:08 Temperature 98.2 F 97.1 F Pulse Rate 76 65 Respiratory Rate 16 18 Blood Pressure 127/68 127/68 109/60 Pulse Oximetry 96 99 Oxygen Delivery Method Room Air Room Air BMI result Body Mass Index 22.2 Labs 11/19/24 15:05 11/21/24 09:09 Labs: Laboratory Results - last 48 hr 11/21/24 10:31 Iron 99 TIBC 339 % Saturation 29 Unsat Iron Binding 240 Ferritin 68 Vitamin B12 455 Folate 9.8 Imaging Radiology Impressions: ITS Impressions Chest X-Ray 11/19/24 13:34 IMPRESSION: No acute disease Electronically signed by: Danny Dillard MD 11/19/2024 02:46 PM EDT Medications Medications Current Medications Acetaminophen (Acetaminophen 325 Mg Tablet) 650 mg PO Q6H PRN PRN Reason: Headache/Pain, Scale 1-10 Last Admin: 11/20/24 21:26 Dose: 650 mg Al Hydroxide/Mg Hydroxide (Magnesium Hydrox/Alum Hydrox 30 Ml Oral.Susp) 30 ml PO Q6H PRN PRN Reason: Heartburn/Nausea Albuterol Sulfate (Albuterol Sulfate 90 Mcg 8 Gm Inhaler) 2 puff INHALE Q4H PRN PRN Reason: shortness of breath or wheezing Buprenorphine/Naloxone (Buprenorphine/Naloxone 8/2 Mg Film) 1 film SUBLINGUAL BID@0800,1700 [facility] Last Admin: 11/23/24 08:28 Dose: 1 film Buprenorphine/Naloxone (Buprenorphine/Naloxone 4/1 Mg Film) 1 film SUBLINGUAL DAILY PRN PRN Reason: Opiate Withdrawal Last Admin: 11/22/24 22:08 Dose: 1 film Clonidine HCl (Clonidine Hcl 0.1 Mg Tablet) 0.1 mg PO BID [facility]; Protocol Last Admin: 11/23/24 08:28 Dose: 0.1 mg Clonidine HCl (Clonidine Hcl 0.1 Mg Tablet) 0.1 mg PO Q4H PRN; Protocol PRN Reason: restless/opiate w/drawal Last Admin: 11/21/24 14:00 Dose: 0.1 mg Cyclobenzaprine HCl (Cyclobenzaprine Hcl 10 Mg Tablet) 10 mg PO TID PRN PRN Reason: muscle aches/cramps Dicyclomine HCl (Dicyclomine Hcl 10 Mg Capsule) 10 mg PO TID PRN PRN Reason: stomach cramps Escitalopram Oxalate (Escitalopram Oxalate 10 Mg Tablet) 10 mg PO DAILY [facility] Last Admin: 11/23/24 08:27 Dose: 10 mg Hydroxyzine HCl (Hydroxyzine Hcl 25 Mg Tablet) 25 mg PO Q6H PRN PRN Reason: mild anxiety Loperamide HCl (Loperamide Hcl 2 Mg Capsule) 2 mg PO Q6H PRN PRN Reason: loose stool Last Admin: 11/21/24 15:56 Dose: 2 mg Magnesium Hydroxide (Milk Of Magnesia 30 Ml Oral.Susp) 30 ml PO DAILY PRN PRN Reason: Constipation Nicotine (Nicotine 21 Mg Patch.Td24) 21 mg TRANSDERMA DAILY PRN PRN Reason: smoking cessation Nicotine Polacrilex (Nicotine Polacrilex 2 Mg Gum) 4 mg BUCCAL Q2H PRN PRN Reason: Nicotine Cravings Olanzapine (Olanzapine 10 Mg Tablet) 10 mg PO TID PRN PRN Reason: agitation Last Admin: 11/22/24 22:08 Dose: 10 mg Ondansetron HCl (Ondansetron Odt 4 Mg Tab.Rapdis) 8 mg TRANSLINGU Q8H PRN PRN Reason: Nausea and Vomiting Last Admin: 11/21/24 17:51 Dose: 8 mg Potassium Chloride (Potassium Chloride Er 20 Meq Tab.Er.Prt) 20 meq PO BID [facility] Stop: 11/27/24 23:59 Last Admin: 11/23/24 08:27 Dose: 20 meq Trazodone HCl (Trazodone Hcl 50 Mg Tablet) 50 mg PO BEDTIME MRX1 PRN PRN Reason: Insomnia Last Admin: 11/22/24 21:16 Dose: 50 mg Allergies Allergies Allergy/AdvReac Type Severity Reaction Status Date / Time haloperidol (From Haldol) AdvReac Mild dystonia Verified 11/19/24 14:48 Assessment & Plan Assessment & Plan (1) Schizophrenia: Status: Acute Code(s): F20.9 - Schizophrenia, unspecified (2) Depression: Status: Acute Code(s): F32.A - Depression, unspecified (3) Anxiety: Status: Acute Code(s): F41.9 - Anxiety disorder, unspecified (4) Cocaine use disorder: Status: Acute Code(s): F14.10 - Cocaine abuse, uncomplicated (5) Opioid use disorder: Status: Acute Code(s): F11.90 - Opioid use, unspecified, uncomplicated (6) Diabetes: Status: Acute Code(s): E11.9 - Type 2 diabetes mellitus without complications (7) Microcytic anemia: Status: Acute Code(s): D50.9 - Iron deficiency anemia, unspecified (8) Hypokalemia: Status: Acute Code(s): E87.6 - Hypokalemia Plan 24-year-old Turkmen-speaking male with history of diabetes, asthma, polysubstance use, and psychosis, presented to [facility] on 11/19/2024, via ambulance for evaluation of lethargy after he got anxious, paranoid, and fell while standing in his room. Labs and head CT were unremarkable. On interview with this provider, patient states that he was on his phone, standing, his eyes shut, and he fell down in his room. He admits to hitting the back of his head. He states that he lost consciousness for 1-2 minute. He does not know what caused the fall. He denies overdosing on his prescription medications per nursing report. He states that 4 days before the fall, he was experiencing severe anxiety, depression, and auditory hallucinations. He is unable to explain what the voices were saying but notes, they were saying things I do not like or agree to. He states that on 10/17/2024, while at a detox facility for his methadone, he experienced nausea, vomiting, body aches, and auditory hallucinations. He spent 2 days at the rehab facility and then transferred to a hospital that was 2 hours 25 minute away from his residence. He does not recall the name or town of the hospital. He was hospitalized at the hospital for 1 week and sent home on escitalopram and clonidine, which he admits to taking as prescribed since discharged. He admits that the medications were effective in managing his anxiety and depressive symptoms until 4 days ago. He notes that he is currently experiencing severe anxiety and depressive symptoms. He denies chronic anxiety, depression, or auditory hallucinations. He reports not being able to sleep at all for 20 days, immediately before he was hospitalized last month. He admits to using cocaine and heroin intranasally daily for the past 3 years; last use was 11/19/2024. He denied use of illicit drugs while sleep-deprived for 20 days last month. He states that he was on methadone 7.2 mg daily until over a month ago. He stopped taking methadone because he did not want to combined his illicit drugs with methadone. He is interested in a consult with [facility] comprehensive care for MAT for his recreational drug use; consult already in place. He denies smoking cigarettes or drinking alcohol. UTox positive for opiates, fentanyl, and cocaine. BAL less than 10. 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 He currently denies SI/HI/AH/VH. His AH has been intermittent, and last episode was yesterday. Formulation/Clinical reasoning: Patient has been experiencing anxiety, depression, and auditory hallucinations for the past 4 days. Last AH was yesterday. Prior to this recent episode, the last time he experienced auditory hallucinations was when he was hospitalized about month ago. No chronic anxiety, depression, or hallucinations. His symptoms may be attributed to medication noncompliance or illicit drug use or both. He is currently experiencing severe anxiety and depressive symptoms. No SI/HI/AH/VH. Will resume escitalopram 10 mg daily. Continue current treatment regimen. His potassium was slightly low, 3.1; will treat with potassium chloride 20 mEq twice daily for 7 days and recheck potassium level in 3 days. His A1c today is 6.6%; he declines treatment for his diabetes. ADA diet and routine exercise encouraged. Verbalized understanding and agreed with the plan. He has microcytic anemia with normal iron studies, folate, and vitamin B12 levels. Hospital course: 11/22: BMP 11/25 Pt to begin Suboxone and transition to Sublocade with [facility] 11/25. 11/23 Initially patient reticent; he says his mood is'good and that there is nothing on mind other than discharge. However with more inquiry, patient acknowledges that AH remain though they are now less frequent and lower volume; however they still say bad things...say things you won't like... And tell him to do bad things; patient says that his thoughts can race as well. Patient shares that he has had voices without the substances...and has engaged in substance abuse to help cope with voices. Discussed medication regimen and patient agrees to start risperidone to help address AH. -otherwise says eating well, sleeping well. -patient started on potassium p.o.; will recheck lytes (discussed with patient who agrees with labs) -will change diagnosis to schizophrenia with schizoaffective as a rule out given that there seems to be some history of depression. While AH and paranoid thinking is certainly exacerbated by drug use, patient reports that AH is independent of substance abuse. Plan: Admit to M5. CV 15 minutes check. Start risperidone 1 mg b.i.d.; may titrate Will get labs to check potassium (patient started on potassium chloride replacement) Diagnostics as needed. Collateral contact. Continue remainder of regime. Encouraged full milieu. Discharge planning. Patient educated on: diagnosis, medication risk/benefits and medical condition Informed Consent: understands, does not understand and further education needed Reason for continued inpatient stay Substantial Risk for: rapid decompensation Time Spent With Patient Time: Total time managing care of this patient today ____ minutes.
[2024-11-23] MEDS: Buprenorphine/Naloxone 4/1 mg FILM 1 FILM SUBLINGUAL (21:17)
[2024-11-23 21:18] VITALS: BP 116/66
[2024-11-24 07:48] LABS: Anion Gap 12 (12-20); Carbon Dioxide 26 mmol/L (22-29); Chloride 110 mmol/L (96-108); Potassium 4.0 mmol/L (3.3-5.1); Sodium 144 mmol/L (135-145)
[2024-11-24 08:00] VITALS: BP 126/80; PULSE 91; RESP 18; TEMP 36.5; O2SAT 100
[2024-11-24 08:23] VITALS: BP 126/80
[2024-11-24] MEDS: Potassium Chloride ER 20 MEQ TAB.ER.PRT PO (08:23)
--- NOTE | 2024-11-24 09:51 | MHC.RECOVRN ---
Late entry from 7.12.25 PM Met with pt in 509 with assist of customer service cashier Almaz, to follow up and provide support and to assess effectiveness of suboxone dosing.? Pt awake, alert, easily engages in conversation, but looks somewhat sedated. RN reports pt just started risperdol today. Pt reports that when he requested the PRN suboxone last night he was feeling nausea abd had the chills. Pt report after receiving the 4mg of suboxone it did not really help but then reports he was able to sleep t/o the night. T/W offered to request scheduled 4mg dose at bedtime. Pt declined stating that he would like to only take it when I need it Pt denies other concerns at this time.? T/W will F/U with pt. tomorrow to check on sx mgmt with current dosing of suboxone. T/w available as needed.
[2024-11-24] MEDS: Buprenorphine/Naloxone 4/1 mg FILM 1 FILM SUBLINGUAL (12:59)
--- NOTE | 2024-11-24 15:10 | MHC.RECOVRN ---
Met with pt in 509-2 to follow up and provide support and to assess effectiveness of Suboxone dosing. Pt awake, alert, easily engages in conversation, eating lunch.? Pt reports feeling better, however, is still experiencing withdrawal symptoms including tremor.? Pt received additional IM phenobarb this morning.? Pt denies other concerns at this time.? T/w available as needed.
--- NOTE | 2024-11-24 15:13 | MHC.RECOVRN ---
Met with pt in 509-2 with assist from medical office professional instructor Daniel to follow up and provide support and to assess effectiveness of Suboxone dosing. Pt awake, alert, easily engages in conversation, in villatoro conversing with others. Pt reports despite taking the 4mg suboxone PRN at night he continues to feel chills, sweats and nausea. He only experiences these W/D sx ovn after the 4mg dose but feels sx are managed following the BID 8mg dose he gets during the day. T/W collaborated with Dr. Storm and requested HS suboxone dose be scheduled (not PRN) and increased to 8mg. Provider agreed. T/W reviewed with pt. SE to report (increased lethargy). T/W provided pt. with [facility] walk in hours and encouraged him to walk over on day of D/C to be admitted. Pt's goal continues to be to get on the sublocade injection. Pt denies other concerns at this time.? T/w available as needed. Update provided to [facility] provider Kat Soto NP.
--- NOTE | 2024-11-24 19:17 | HO.PSYCHPN ---
Subjective Subjective Date of Service: 11/24/24 Reason For Visit: Psychotic Interim History: Met with patient; discussed with team seen with rfid analyst Royce Still has some AH but much less bothered by it; agrees to switching it to bedtime and increasing. Wants Suboxone increase since used to be on 8 mg t.i.d. and he is continuing to have withdrawal symptoms in the evening. Talked with comprehensive care team who has plan is to switch him to Sublocade Mental Status Exam Mental Status Exam Narrative: Pt is alert and oriented; behavior is quiet, isolative, superficially cooperative, calm; patient is not in distress; dressed in hospital attire with unkempt hair; mood is described as good although affect vacant or anxious; eye contact avoiding; Speech is slow and soft; words a few; with some psychomotor retardation present; thought process is goal directed, concrete; Thought content is on AH; discharge; otherwise pertinent to relevant topics and without any express delusional content; denies any SI/HI. Ongoing AH however says it is less frequent and quieter; appears internally preoccupied Patients insight and judgment impaired but improving Diagnostics Vital Signs (24Hr): Vital Signs - 24 hr 11/23/24 21:18 11/24/24 08:00 11/24/24 08:23 Temperature 97.7 F Pulse Rate 91 Respiratory Rate 18 Blood Pressure 116/66 126/80 126/80 Pulse Oximetry 100 Oxygen Delivery Method Room Air BMI result Body Mass Index 22.2 Labs 11/19/24 15:05 11/24/24 07:21 Labs: Laboratory Results - last 48 hr 11/24/24 07:21 Sodium 144 Potassium 4.0 D Chloride 110 H Carbon Dioxide 26 Anion Gap 12 Imaging Radiology Impressions: ITS Impressions Chest X-Ray 11/19/24 13:34 IMPRESSION: No acute disease Electronically signed by: Danny Dillard MD 11/19/2024 02:46 PM EDT Medications Medications Current Medications Acetaminophen (Acetaminophen 325 Mg Tablet) 650 mg PO Q6H PRN PRN Reason: Headache/Pain, Scale 1-10 Last Admin: 11/20/24 21:26 Dose: 650 mg Al Hydroxide/Mg Hydroxide (Magnesium Hydrox/Alum Hydrox 30 Ml Oral.Susp) 30 ml PO Q6H PRN PRN Reason: Heartburn/Nausea Albuterol Sulfate (Albuterol Sulfate 90 Mcg 8 Gm Inhaler) 2 puff INHALE Q4H PRN PRN Reason: shortness of breath or wheezing Buprenorphine/Naloxone (Buprenorphine/Naloxone 4/1 Mg Film) 1 film SUBLINGUAL DAILY PRN PRN Reason: Opiate Withdrawal Last Admin: 11/24/24 12:59 Dose: 1 film Buprenorphine/Naloxone (Buprenorphine/Naloxone 8/2 Mg Film) 1 film SUBLINGUAL TID VERÓNICA Clonidine HCl (Clonidine Hcl 0.1 Mg Tablet) 0.1 mg PO BID VERÓNICA; Protocol Last Admin: 11/24/24 08:23 Dose: 0.1 mg Clonidine HCl (Clonidine Hcl 0.1 Mg Tablet) 0.1 mg PO Q4H PRN; Protocol PRN Reason: restless/opiate w/drawal Last Admin: 11/21/24 14:00 Dose: 0.1 mg Cyclobenzaprine HCl (Cyclobenzaprine Hcl 10 Mg Tablet) 10 mg PO TID PRN PRN Reason: muscle aches/cramps Dicyclomine HCl (Dicyclomine Hcl 10 Mg Capsule) 10 mg PO TID PRN PRN Reason: stomach cramps Escitalopram Oxalate (Escitalopram Oxalate 10 Mg Tablet) 10 mg PO DAILY [facility] Last Admin: 11/24/24 08:23 Dose: 10 mg Hydroxyzine HCl (Hydroxyzine Hcl 25 Mg Tablet) 25 mg PO Q6H PRN PRN Reason: mild anxiety Loperamide HCl (Loperamide Hcl 2 Mg Capsule) 2 mg PO Q6H PRN PRN Reason: loose stool Last Admin: 11/21/24 15:56 Dose: 2 mg Magnesium Hydroxide (Milk Of Magnesia 30 Ml Oral.Susp) 30 ml PO DAILY PRN PRN Reason: Constipation Nicotine (Nicotine 21 Mg Patch.Td24) 21 mg TRANSDERMA DAILY PRN PRN Reason: smoking cessation Nicotine Polacrilex (Nicotine Polacrilex 2 Mg Gum) 4 mg BUCCAL Q2H PRN PRN Reason: Nicotine Cravings Ondansetron HCl (Ondansetron Odt 4 Mg Tab.Rapdis) 8 mg TRANSLINGU Q8H PRN PRN Reason: Nausea and Vomiting Last Admin: 11/24/24 12:57 Dose: 8 mg Potassium Chloride (Potassium Chloride Er 20 Meq Tab.Er.Prt) 20 meq PO BID [facility] Stop: 11/27/24 23:59 Last Admin: 11/24/24 08:23 Dose: 20 meq Risperidone (Risperidone 2 Mg Tablet) 2 mg PO BEDTIME VERÓNICA Trazodone HCl (Trazodone Hcl 50 Mg Tablet) 50 mg PO BEDTIME MRX1 PRN PRN Reason: Insomnia Last Admin: 11/23/24 21:17 Dose: 50 mg Allergies Allergies Allergy/AdvReac Type Severity Reaction Status Date / Time haloperidol (From Haldol) AdvReac Mild dystonia Verified 11/19/24 14:48 Assessment & Plan Assessment & Plan (1) Schizophrenia: Status: Acute Code(s): F20.9 - Schizophrenia, unspecified (2) Depression: Status: Acute Code(s): F32.A - Depression, unspecified (3) Anxiety: Status: Acute Code(s): F41.9 - Anxiety disorder, unspecified (4) Cocaine use disorder: Status: Acute Code(s): F14.10 - Cocaine abuse, uncomplicated (5) Opioid use disorder: Status: Acute Code(s): F11.90 - Opioid use, unspecified, uncomplicated (6) Diabetes: Status: Acute Code(s): E11.9 - Type 2 diabetes mellitus without complications (7) Microcytic anemia: Status: Acute Code(s): D50.9 - Iron deficiency anemia, unspecified (8) Hypokalemia: Status: Acute Code(s): E87.6 - Hypokalemia Plan 24-year-old Yi-speaking male with history of diabetes, asthma, polysubstance use, and psychosis, presented to [facility], on 11/19/2024, via ambulance for evaluation of lethargy after he got anxious, paranoid, and fell while standing in his room. Labs and head CT were unremarkable. On interview with this provider, patient states that he was on his phone, standing, his eyes shut, and he fell down in his room. He admits to hitting the back of his head. He states that he lost consciousness for 1-2 minute. He does not know what caused the fall. He denies overdosing on his prescription medications per nursing report. He states that 4 days before the fall, he was experiencing severe anxiety, depression, and auditory hallucinations. He is unable to explain what the voices were saying but notes, they were saying things I do not like or agree to. He states that on 10/17/2024, while at a detox facility for his methadone, he experienced nausea, vomiting, body aches, and auditory hallucinations. He spent 2 days at the rehab facility and then transferred to a hospital that was 2 hours 25 minute away from his residence. He does not recall the name or town of the hospital. He was hospitalized at the hospital for 1 week and sent home on escitalopram and clonidine, which he admits to taking as prescribed since discharged. He admits that the medications were effective in managing his anxiety and depressive symptoms until 4 days ago. He notes that he is currently experiencing severe anxiety and depressive symptoms. He denies chronic anxiety, depression, or auditory hallucinations. He reports not being able to sleep at all for 20 days, immediately before he was hospitalized last month. He admits to using cocaine and heroin intranasally daily for the past 3 years; last use was 11/19/2024. He denied use of illicit drugs while sleep-deprived for 20 days last month. He states that he was on methadone 7.2 mg daily until over a month ago. He stopped taking methadone because he did not want to combined his illicit drugs with methadone. He is interested in a consult with [facility] comprehensive care for MAT for his recreational drug use; consult already in place. He denies smoking cigarettes or drinking alcohol. UTox positive for opiates, fentanyl, and cocaine. BAL less than 10. 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 He currently denies SI/HI/AH/VH. His AH has been intermittent, and last episode was yesterday. Formulation/Clinical reasoning: Patient has been experiencing anxiety, depression, and auditory hallucinations for the past 4 days. Last AH was yesterday. Prior to this recent episode, the last time he experienced auditory hallucinations was when he was hospitalized about month ago. No chronic anxiety, depression, or hallucinations. His symptoms may be attributed to medication noncompliance or illicit drug use or both. He is currently experiencing severe anxiety and depressive symptoms. No SI/HI/AH/VH. Will resume escitalopram 10 mg daily. Continue current treatment regimen. His potassium was slightly low, 3.1; will treat with potassium chloride 20 mEq twice daily for 7 days and recheck potassium level in 3 days. His A1c today is 6.6%; he declines treatment for his diabetes. ADA diet and routine exercise encouraged. Verbalized understanding and agreed with the plan. He has microcytic anemia with normal iron studies, folate, and vitamin B12 levels. Hospital course: 11/22: BMP 11/25 Pt to begin Suboxone and transition to Sublocade with [facility] DC 11/25. 11/23 Initially patient reticent; he says his mood is'good and that there is nothing on mind other than discharge. However with more inquiry, patient acknowledges that AH remain though they are now less frequent and lower volume; however they still say bad things...say things you won't like... And tell him to do bad things; patient says that his thoughts can race as well. Patient shares that he has had voices without the substances...and has engaged in substance abuse to help cope with voices. Discussed medication regimen and patient agrees to start risperidone to help address AH. -otherwise says eating well, sleeping well. -patient started on potassium p.o.; will recheck lytes (discussed with patient who agrees with labs) -will change diagnosis to schizophrenia with schizoaffective as a rule out given that there seems to be some history of depression. While AH and paranoid thinking is certainly exacerbated by drug use, patient reports that AH is independent of substance abuse. 11/24 Still has some AH but much less bothered by it; agrees to switching it to bedtime and increasing. Wants Suboxone increase since used to be on 8 mg t.i.d. and he is continuing to have withdrawal symptoms in the evening. Talked with comprehensive care team who has plan is to switch him to Sublocade Plan: Admit to M5. CV 15 minutes check. Increase Suboxone to 8/2 mg t.i.d. risperidone 2 mg bedtime Potassium WNL Will DC potassium chloride; will check lytes again in a few days Diagnostics as needed. Collateral contact. Continue remainder of regime. Encouraged full milieu. Discharge planning. Patient educated on: diagnosis, medication risk/benefits and substance abuse Informed Consent: understands and further education needed Reason for continued inpatient stay Substantial Risk for: rapid decompensation Time Spent With Patient Time: Total time managing care of this patient today ____ minutes.
[2024-11-24 19:42] VITALS: BP 121/69; PULSE 96; RESP 16; TEMP 36.7; O2SAT 99
[2024-11-24 20:03] LABS: Glucose, Whole Blood 152 mg/dL (60-115)
[2024-11-24 20:37] VITALS: BP 131/68
[2024-11-25 07:48] LABS: Anion Gap 11 (12-20); Blood Urea Nitrogen 11 mg/dL (9-16); Calcium 8.8 mg/dL (8.4-10.2); Carbon Dioxide 30 mmol/L (22-29); Chloride 107 mmol/L (96-108); Creatinine Clr Calc Pharmacy 105.6; Estimated Glomerular Filt Rate > 60; Potassium 4.0 mmol/L (3.3-5.1); Sodium 144 mmol/L (135-145)
[2024-11-25 08:00] VITALS: BP 138/87; PULSE 85; RESP 16; TEMP 36.6; O2SAT 100
--- NOTE | 2024-11-25 09:40 | PM.PSYDC ---
DS: Providers Provider Date of admission: 11/20/24 13:15 Primary care physician: Grisel Monroe MD Consults: 11/20/24 18:56 Addiction Medicine Provider Routine Consulting Provider: Addiction Covering Reason for consultation: daily substance use DS: Diagnosis Discharge Diagnosis (1) Schizophrenia: Status: Acute (2) Depression: Status: Acute (3) Anxiety: Status: Acute (4) Cocaine use disorder: Status: Acute (5) Opioid use disorder: Status: Acute (6) Diabetes: Status: Acute (7) Microcytic anemia: Status: Acute (8) Hypokalemia: Status: Acute DS: Medications Discharge Medications Home Medications: Home Medications ?Medication ?Instructions ?Recorded ?Confirmed lidocaine 5 % topical patch patch topical 11/20/24 Previous Rx's ?Medication ?Instructions ?Recorded nebulizers #1 ea 01/05/24 albuterol sulfate 90 mcg/actuation 2 puff inhalation Q4-6H PRN 08/18/24 aerosol inhaler shortness of breath or wheezing #8.5 grams acetaminophen 325 mg tablet 650 mg (2 x 325 mg) PO Q6H PRN 11/25/24 Headache/Pain, Scale 1-10 #0 tabs buprenorphine 4 mg-naloxone 1 mg 1 film sublingual DAILY PRN Opiate 11/25/24 sublingual film (Suboxone) Withdrawal #2 ea buprenorphine 8 mg-naloxone 2 mg 1 film sublingual TID #4 ea 11/25/24 sublingual film (Suboxone) clonidine HCl 0.1 mg tablet 0.1 mg PO BID #60 tabs 11/25/24 escitalopram oxalate 10 mg tablet 10 mg PO DAILY #30 tabs 11/25/24 naloxone 4 mg/actuation nasal 4 mg intranasal Q2M PRN opioid 11/25/24 spray (Narcan) overdose #2 ea risperidone 2 mg tablet 2 mg PO BEDTIME #30 tabs 11/25/24 trazodone 50 mg tablet 50 mg PO BEDTIME #30 tabs 11/25/24 Data Data Completed and Pending Completed studies during hospitalization [Text1]: 11/19/24 11/19/24 11/20/24 15:05 15:16 04:48 WBC 8.0 RBC 5.44 Hgb 13.9 L Hct 41.7 L MCV 76.7 L MCH 25.6 L MCHC 33.3 RDW 14.1 Plt Count 411 H MPV 10.3 Immature Gran % (Auto) 0.6 H Neut % (Auto) 80.8 H Lymph % (Auto) 13.6 L [place] % (Auto) 4.2 Eos % (Auto) 0.2 Baso % (Auto) 0.6 Lymph # (Auto) 1.1 L [place] # (Auto) 0.3 Eos # (Auto) 0.0 Baso # (Auto) 0.1 Abs Immat Gran (auto) 0.05 H Absolute Neuts (auto) 6.5 Absolute Nucleated RBC 0.000 Nucleated RBC % (auto) 0.0 Sodium 141 Potassium 3.4 Chloride 105 Carbon Dioxide 28 Anion Gap 11 L BUN 8 L Creatinine 0.75 Estim Creat Clear Calc 124.9 Estimated GFR > 60 POC Glucose Random Glucose 178 H Estimat Average Glucose Hemoglobin A1c % Lactic Acid 1.5 Calcium 9.3 D Iron TIBC % Saturation Unsat Iron Binding Ferritin Total Bilirubin 0.3 AST 23 ALT 22 Alkaline Phosphatase 112 Total Creatine Kinase 122 Total Protein 7.9 Albumin 5.1 H Triglycerides Cholesterol LDL Cholesterol, Calc HDL Cholesterol Lipase 7 L Vitamin B12 Folate Urine Color Yellow Urine Appearance Clear Urine pH 6.0 Ur Specific [place] 1.025 Urine Protein 30 (1+) H Urine Glucose (UA) Negative Urine Ketones 80 Urine Blood Negative Urine Nitrite Negative Ur Leukocyte Esterase Negative Urine RBC 0-2 Urine WBC 0-5 Ur Squamous Epith Cells 0-2 Urine Bacteria None Seen Hyaline Casts 0-2 Urine Opiates Screen Ur Buprenorphine Scrn Ur Oxycodone Screen Urine Methadone Screen Urine Fentanyl Screen Ur Barbiturates Screen Phencyclidine Confirm Pending Ur Phencyclidine Scrn Ur Amphetamines Screen U Benzodiazepines Scrn Urine Cocaine Screen U Marijuana (THC) Screen Ethyl Alcohol 10 Influenza Type A (PCR) NEGATIVE Influenza Type B (PCR) NEGATIVE RSV RNA Qual (PCR) NEGATIVE SARS-CoV-2 RNA (RT-PCR) NEGATIVE 11/20/24 11/21/24 11/21/24 04:49 09:09 10:31 WBC RBC Hgb Hct MCV MCH MCHC RDW Plt Count MPV Immature Gran % (Auto) Neut % (Auto) Lymph % (Auto) [place] % (Auto) Eos % (Auto) Baso % (Auto) Lymph # (Auto) [place] # (Auto) Eos # (Auto) Baso # (Auto) Abs Immat Gran (auto) Absolute Neuts (auto) Absolute Nucleated RBC Nucleated RBC % (auto) Sodium 138 Potassium 3.1 L Chloride 101 Carbon Dioxide 26 Anion Gap 14 BUN 13 Creatinine 1.05 Estim Creat Clear Calc 88.5 Estimated GFR > 60 POC Glucose Random Glucose 204 H Estimat Average Glucose 143 Hemoglobin A1c % 6.6 H Lactic Acid Calcium 9.5 Iron 99 TIBC 339 % Saturation 29 Unsat Iron Binding 240 Ferritin 68 Total Bilirubin 0.7 AST 53 H ALT 35 Alkaline Phosphatase 114 Total Creatine Kinase Total Protein 8.4 H Albumin 5.2 H Triglycerides 49 Cholesterol 71 LDL Cholesterol, Calc 23 HDL Cholesterol 39 L Lipase Vitamin B12 455 Folate 9.8 Urine Color Urine Appearance Urine pH Ur Specific [place] Urine Protein Urine Glucose (UA) Urine Ketones Urine Blood Urine Nitrite Ur Leukocyte Esterase Urine RBC Urine WBC Ur Squamous Epith Cells Urine Bacteria Hyaline Casts Urine Opiates Screen POSITIVE H Ur Buprenorphine Scrn Not Detected Ur Oxycodone Screen Not Detected Urine Methadone Screen Not Detected Urine Fentanyl Screen POSITIVE H Ur Barbiturates Screen Not Detected Phencyclidine Confirm Ur Phencyclidine Scrn Not Detected Ur Amphetamines Screen Not Detected U Benzodiazepines Scrn POSITIVE H Urine Cocaine Screen POSITIVE H U Marijuana (THC) Screen Not Detected Ethyl Alcohol Influenza Type A (PCR) Influenza Type B (PCR) RSV RNA Qual (PCR) SARS-CoV-2 RNA (RT-PCR) 11/24/24 11/24/24 11/25/24 07:21 19:45 07:29 WBC RBC Hgb Hct MCV MCH MCHC RDW Plt Count MPV Immature Gran % (Auto) Neut % (Auto) Lymph % (Auto) [place] % (Auto) Eos % (Auto) Baso % (Auto) Lymph # (Auto) [place] # (Auto) Eos # (Auto) Baso # (Auto) Abs Immat Gran (auto) Absolute Neuts (auto) Absolute Nucleated RBC Nucleated RBC % (auto) Sodium 144 144 Potassium 4.0 D 4.0 Chloride 110 H 107 Carbon Dioxide 26 30 H Anion Gap 12 11 L BUN 11 Creatinine 0.88 Estim Creat Clear Calc 105.6 Estimated GFR > 60 POC Glucose 152 H Random Glucose 153 H Estimat Average Glucose Hemoglobin A1c % Lactic Acid Calcium 8.8 D Iron TIBC % Saturation Unsat Iron Binding Ferritin Total Bilirubin AST ALT Alkaline Phosphatase Total Creatine Kinase Total Protein Albumin Triglycerides Cholesterol LDL Cholesterol, Calc HDL Cholesterol Lipase Vitamin B12 Folate Urine Color Urine Appearance Urine pH Ur Specific [place] Urine Protein Urine Glucose (UA) Urine Ketones Urine Blood Urine Nitrite Ur Leukocyte Esterase Urine RBC Urine WBC Ur Squamous Epith Cells Urine Bacteria Hyaline Casts Urine Opiates Screen Ur Buprenorphine Scrn Ur Oxycodone Screen Urine Methadone Screen Urine Fentanyl Screen Ur Barbiturates Screen Phencyclidine Confirm Ur Phencyclidine Scrn Ur Amphetamines Screen U Benzodiazepines Scrn Urine Cocaine Screen U Marijuana (THC) Screen Ethyl Alcohol Influenza Type A (PCR) Influenza Type B (PCR) RSV RNA Qual (PCR) SARS-CoV-2 RNA (RT-PCR) 11/19/24 15:16 Blood - Venous Blood Culture - Final No growth after 5 days. 11/19/24 15:05 Blood - Venous Blood Culture - Final No growth after 5 days. Imaging Diagnostic Imaging Impressions Chest X-Ray 11/19/24 13:34 IMPRESSION: No acute disease Electronically signed by: Danny Dillard MD 11/19/2024 02:46 PM EDT RP DS: Summary Time Spent with Patient Time attestation: Total time managing care of this patient today ____ minutes. Discharge Plan Discharge Anticipated Discharge Date/Time: 11/25/24 12:00 Patient Disposition: Home, Self-Care Discharge Diagnosis: Schizophrenia Depression Opiate Use Disorder Cocaine Use Disorder DM Anemia Referrals: [facility] [Provider Group] - 1 Day Referral Note: Walk in hours Mon- 8AM-4:30PM and Monday 10AM-4:30PM. Walk over when discharged Grisel Monroe MD [Primary Care Provider, Internal Medicine] - 1 Week Discharge Medications: New acetaminophen 325 mg Tablet 650 mg PO Q6H PRN (Reason: Headache/Pain, Scale 1-10) Qty: 0 0RF risperidone 2 mg Tablet 2 mg PO BEDTIME Qty: 30 0RF buprenorphine-naloxone [Suboxone] 8-2 mg Film 1 film sublingual TID Qty: 4 0RF buprenorphine-naloxone [Suboxone] 4-1 mg Film 1 film sublingual DAILY PRN (Reason: Opiate Withdrawal) Qty: 2 0RF naloxone [Narcan] 4 mg/actuation spray,non-aerosol 4 mg intranasal Q2M PRN (Reason: opioid overdose) Qty: 2 0RF Rx Instructions: spray 1 dose into ONE nostril; alternate nostrils w each dose until help arrives Continued albuterol sulfate 90 mcg/actuation HFA aerosol inhaler 2 puff inhalation Q4-6H PRN (Reason: shortness of breath or wheezing) Qty: 8.5 0RF (DME) nebulizers Misc See Rx Instructions .Route Qty: 1 0RF Rx Instructions: As directed lidocaine 5 % adhesive patch,medicated topical clonidine HCl 0.1 mg tablet 0.1 mg PO BID Qty: 60 0RF trazodone 50 mg tablet 50 mg PO BEDTIME Qty: 30 0RF escitalopram oxalate 10 mg tablet 10 mg PO DAILY Qty: 30 0RF Discontinued baclofen 10 mg tablet 10 mg PO TID ibuprofen 600 mg tablet 600 mg PO Q6H PRN (Reason: Pain) Discharge Orders: Discharge Order (Routine); Ordered 11/25/24 Ordered By: Chery Miguel Diet: Advance to usual diet Activity on Discharge: As tolerated Stand Alone Forms: Patient Portal Discharge page Print Language: Turkish Care Plan Goals: Abstinence from substances Mood and Behavioral Stabilization Health Concerns: Abstinence from substances Mood and Behavioral Stabilization Plan of Treatment: Attend scheduled appointments Take medications as directed Assessment: Discharges today on a three day notice of intent. Denies SI,HI,AH,VH No sx of acute psychosis or nicole.
[2024-11-25 12:56] LABS: PCP Confirmation GC/MS Urine NEGATIVE
[2024-11-25] MEDS: Buprenorphine/Naloxone 4/1 mg FILM 1 FILM SUBLINGUAL (13:04)
== END 2024-11-25 13:43 | disposition home or self-care (01) | DRG 750 ==
LOC: HO.ED 11-20 13:22 → HO.PM5 11-20 13:27
PROVIDERS: Clinical Nurse Specialist Psychiatric/Mental Health, Adult; Nurse Practitioner Family; Physician Assistant; Physician Assistant Medical; Admitting Provider Psychiatry & Neurology Psychiatry; Emergency Provider Emergency Medicine Emergency Medical Services; PCP Family Medicine; Visit Provider Colon & Rectal Surgery
DX: F20.9 Schizophrenia, unspecified (principal); E11.9 Type 2 diabetes mellitus without complications; F11.20 Opioid dependence, uncomplicated; F19.90 Other psychoactive substance use, unspecified, uncomplicated; J45.909 Unspecified asthma, uncomplicated; F41.9 Anxiety disorder, unspecified; F32.A Depression, unspecified; F14.10 Cocaine abuse, uncomplicated; Z20.822 Contact with and (suspected) exposure to COVID-19; Z79.899 Other long term (current) drug therapy
CPT/HCPCS: 36415; 70450; 71045; 80048; 80051; 80053; 80061; 80307; 81001; 82550; 82607; 82728; 82746; 82947; 83036; 83540; 83605; 83690; 83992; 85025; 87040; 87637; 93005; 99285; J1200; J1790; J2060; J2250; J2359; J2765; J3486; S9485

== ENCOUNTER → 2024-11-19 14:20 | Outpatient (BNV) | payer MEDICAID, SELFPAY | PROVIDERS: Emergency Provider Emergency Medicine Emergency Medical Services; PCP Family Medicine; Visit Provider Internal Medicine Cardiovascular Disease | DX: R94.31 Abnormal electrocardiogram [ECG] [EKG] (principal); R53.1 Weakness | CPT/HCPCS: 93010 ==

== ENCOUNTER → 2024-11-19 14:23 | Outpatient (BNV) | payer MEDICAID, SELFPAY | PROVIDERS: Visit Provider Radiology Diagnostic Radiology | DX: R41.82 Altered mental status, unspecified (principal); W19.XXXA Unspecified fall, initial encounter; J18.9 Pneumonia, unspecified organism | CPT/HCPCS: 70450; 71045 ==

== ENCOUNTER → 2024-11-20 13:15 | Outpatient (BNV) | payer OTHER, SELFPAY | PROVIDERS: Admitting Provider Psychiatry & Neurology Psychiatry; Emergency Provider Emergency Medicine Emergency Medical Services; PCP Family Medicine; Visit Provider Nurse Practitioner Family | DX: F32.2 Major depressive disorder, single episode, severe without psychotic features (principal); F19.959 Other psychoactive substance use, unspecified with psychoactive substance-induced psychotic disorder, unspecified; F14.10 Cocaine abuse, uncomplicated; F41.9 Anxiety disorder, unspecified; F11.90 Opioid use, unspecified, uncomplicated | CPT/HCPCS: 99232; 99499 ==

== ENCOUNTER 2024-11-26 09:12 | Outpatient (REF) | payer OTHER, SELFPAY | END 2024-11-26 09:13 | disposition home or self-care (01) | LOC: HO.LNP 09:12 | PROVIDERS: PCP Family Medicine; Visit Provider Clinical Nurse Specialist Psychiatric/Mental Health | DX: F14.10 Cocaine abuse, uncomplicated (principal); F19.90 Other psychoactive substance use, unspecified, uncomplicated | CPT/HCPCS: 99202 ==

== ENCOUNTER 2024-11-26 09:12 | Outpatient (AMB) | payer OTHER, SELFPAY ==
--- NOTE | 2024-11-26 09:18 | A.OFFVIS_ITS ---
Vital Signs 11/26/24 09:19 Weight 145 lb BP 126/70 Pulse 96 Pulse Oximetry (%) 98 Intake Visit Reasons: Intake, MAT Intake Note: Substance Abuse Disorder Allergies haloperidol (From Haldol) Adverse Reaction (Mild, Verified 11/26/24 09:22) dystonia HPI Comments Details: The patient is a 24-year-old [place]-speaking male who presents for a MAT intake post hospitalization for symptoms of opioid withdrawals. Denies current use of opiates, alcohol, and other illicit substances including no smoking of cigarettes or marijuana. Reports feeling stable on buprenorphine-naloxone 8- 2mg, t.i.d. During visit the patient verbalizes interest in long-term injectable of buprenorphine-naloxone. Reports following up with [facility] to establish mental health therapy and psychiatric services per information provided inpatient. [facility] Medical History (Updated 11/26/24 @ 10:49 by DIANA Canales) Drug-induced psychotic disorder Schizophrenia Cocaine use disorder Asthma Paranoia Diabetes Social History Household Members: Friend(s) Housing: Apartment Do you presently have visiting nurse or other home services: No Unable to assess alcohol history related to: Refusing to respond Alcohol intake: never Patient Tobacco Use Status: Never used Tobacco e-Cigarette/Vaping Use: Never Used Second Hand Smoke Exposure: No Substance Use Type: Crack/Cocaine service: No Sexual orientation: Straight/Heterosexual Review of Systems Const All systems reviewed & are unremarkable except as noted in HPI and below Physical Exam Vital Signs: Last Vital Signs Pulse 96 11/26/24 09:19 BP 126/70 11/26/24 09:19 Pulse Ox 98 11/26/24 09:19 Const General: cooperative Nutritional Appearance: average body habitus Orientation/consciousness: patient oriented x3 HEENT Head: Yes normal to inspection Ears: hearing grossly normal bilaterally Eyes General: appearance normal, both eyes and all related structures Periorbital: periorbital findings normal Eyelids: Yes eyelids normal Conjunctivae: conjunctivae normal Sclerae: sclerae normal Pupils: Equal, round and reactive pupils present Neck Neck: Yes normal visual inspection Resp Effort & Inspection: normal respiratory effort Auscultation: clear to auscultation bilaterally Cardio Rate: regular rate Rhythm: regular rhythm Skin General skin exam: no rashes or lesions noted Neuro General: patient oriented x3 Cranial nerves: Yes Equal, round and reactive pupils present Psych Appearance: grossly normal Mental Status: mental status grossly normal Speech and movement: Clear speech present Affect: Labile affect present (Euthymic affect ) Attitude: cooperative Thought process: Normal thought process present Thought content: Normal thought content present (Denies suicidal and homicidal ideations) Insight: Good insight present (Psych) Judgement: Good judgement present (Psych) Results AMB 14 Panel Urine Drug Screen Urine Marijuana (THC) Negative Last Edit by Tapan Amor CMA on 5 10:21 Urine Cocaine Negative Last Edit by Tapan Amor CMA on 11/26/24 10:21 Urine Morphine Negative Last Edit by Tapan Amor CMA on 11/26/24 10:21 Urine Methamphetamine Negative Last Edit by Tapan Amor CMA on 5 10:21 Urine Amphetamine Negative Last Edit by Tapan Amor CMA on 11/26/24 10 :21 Urine Benzodiazepine Negative Last Edit by Tapan Amor CMA on 11/26/24 10:21 Urine Barbiturates Negative Last Edit by Tapan Amor CMA on 11/26/24 10:21 Urine Methadone Negative Last Edit by Tapan Amor CMA on 11/26/24 10:2 1 Urine Buprenorphine Positive Last Edit by Tapan Amor CMA on 11/26/24 10:21 Urine Tricyclic Antidepressant Negative Last Edit by Tapan Amor CMA o n 11/26/24 10:21 Urine MDMA Negative Last Edit by Tapan Amor CMA on 11/26/24 10:21 Urine Oxycodone Negative Last Edit by Tapan Amor CMA on 11/26/24 10:2 1 Urine Phencyclidine Negative Last Edit by Tapan Amor CMA on 11/26/24 10:21 Urine Propoxyphene Negative Last Edit by Tapan Amor CMA on 11/26/24 10:21 Assessment & Plan Assessment & Plan (1) Substance use disorder: Code(s): F19.90 - Other psychoactive substance use, unspecified, uncomplicated Category: Medical Plan Education provided re: long-term injectable of buprenorphine-naloxone, administration-depot, side effects, purpose and general medication information, importance of maintaining opioid cessation including the possibility of prior authorization being required by insurance. Considering the patient began buprenorphine-naloxone 2 days ago the plan of care is to continue on buprenorphine-naloxone 8-2 mg, t.i.d. and follow-up in 2 weeks. During the follow up visit the long-term injectible will be ordered and the plan is to administer at the next follow-up visit. Orders: Orders Drug Screen Urine Today F14.10 - Cocaine abuse, uncomplicated Medications: Changed From buprenorphine-naloxone 8-2 mg (Suboxone) 1 film sublingual TID 4 ea 0RF To buprenorphine-naloxone 8-2 mg (Suboxone) Take one film sublingual three times per day. 1 film sublingual TID 42 ea 0RF 14 days Patient Instructions: - Continue with buprenorphine-naloxone 8-2 mg, sublingual- three times per day - Follow up in two weeks or sooner, if needed. - Follow-up with [facility] re: initiation of establishing mental health care. - Call with questions, concerns, or to reports side effects to [facility] Coding Level of Care Code New Pt Level 4 (12493) Diagnoses Substance use disorder F19.90 Time Spent (min) 30 Comment Chart prep and education
[2024-11-26 09:19] VITALS: BP 126/70; PULSE 96; O2SAT 98
--- OUTSIDE RECORDS SUMMARY | 2024-11-26 09:36 | XMS_ITS | Encounter Summary ---
Author Organization [employer] Address [address] [facility] [address] [place] [address] Care Team Providers Care Iron Molder Helper Name Role Phone Grisel Monroe MD Primary Care Provider [phone] Amalia Baez RN Unavailable [phone] Austyn Weinberg RN Unavailable [phone] Jessika Rahman Unavailable Reason for Referral * Consultation (Routine) - Canceled Specialty Diagnoses / Procedures Referred By Contmaykel t Referred To Contact Pharmacy Diagnoses Type 2 diabetes mellitus with hyperglycemia, without long-term current use of insulin (CMS/HCC) Grisel Monroe MD [address] [place] [id number] Phone: tel: fax: Referral ID Status Reason Start Date Expiration Date V isits Requested Visits Authorized [id number] Canceled Consult and Treat 09/09/2024 09/09/2025 6 6 Encounter Details Date Type Department Care Team (Late st Contact Info) Description 09/09/2024 Orders Only [facility] [address] [place] [id number] Grisel Monroe MD [address] [place], [place] [id number] Type 2 diabetes mellitus with hyperglycemia, without long-term current use of insulin (CMS/HCC) (Primary Dx) Social History Tobacco Use [...] as of this encounter Plan of Treatment Scheduled Referrals Name Type Priority Associated Diagnoses Orde r Schedule Referral to Pharmacy CD Outpatient Referral Routine Type 2 diabetes mellitus with hyperglycemia, without long-term current use of insulin (CMS/HCC) Ordered: 09/09/2024 documented as of this encounter Visit Diagnoses Diagnosis Type 2 diabetes mellitus with hyperglycemia, without long-term current use of insulin (CMS/HCC)- Primary documented in this encounter Additional Health Concerns Assessment Noted Time PHQ-9 Depression Total Score: 15 023 10:47 AM EDT documented as of this encounter Care Teams Iron Molder Helper Relationship Specialty Start Date End Date Grisel Monroe MD [address] [place] [id number] PCP - General Family Medicine 01/02/18 Amalia Baez, RN Registered Nurse Internal Medicine 11/20/24 11/21/24 Austyn Weinberg, SHANNAN [address] [place] [phone] Registered Nurse Family Medicine 11/21/24 Jessika Rahman 11/21/24 documented as of this encounter
== END 2024-11-26 09:43 | disposition home or self-care (01) ==
PROVIDERS: PCP Family Medicine; Visit Provider Clinical Nurse Specialist Psychiatric/Mental Health
DX: F19.90 Other psychoactive substance use, unspecified, uncomplicated (principal)
CPT/HCPCS: 99204

== ENCOUNTER 2024-12-20 13:00 | Outpatient (REF) | payer OTHER, SELFPAY ==
--- OUTSIDE RECORDS SUMMARY | 2024-12-20 16:08 | XMS_ITS | Encounter Summary ---
Author Organization [employer] Address [address] [facility] [address] [place] [address] Care Team Providers Care Driver Merchandiser Name Role Phone Grisel Monroe MD Primary Care Provider [phone] Amalia Baez RN Unavailable [phone] Austyn Weinberg RN Unavailable [phone] Jessika Rahman Unavailable Reason for Referral * Consultation (Routine) - Canceled Specialty Diagnoses / Procedures Referred By Contmaykel t Referred To Contact Pharmacy Diagnoses Type 2 diabetes mellitus with hyperglycemia, without long-term current use of insulin (CMS/HCC) Grisel Monroe MD [address] [place] [address] Phone: tel: fax: Referral ID Status Reason Start Date Expiration Date V isits Requested Visits Authorized [id number] Canceled Consult and Treat 09/09/2024 09/09/2025 6 6 Encounter Details Date Type Department Care Team (Late st Contact Info) Description 09/09/2024 Orders Only [facility] [address] [place] [phone] Grisel Monroe MD [address], [place] [phone] Type 2 diabetes mellitus with hyperglycemia, without [...] documented as of this encounter Care Teams Driver Merchandiser Relationship Specialty Start Date End Date Grisel Monroe MD [address] [place] [phone] PCP - General Family Medicine 01/02/18 Amalia Baez, RN Registered Nurse Internal Medicine 11/20/24 11/21/24 Austyn Weinberg, SHANNAN [address] [place] [phone] Registered Nurse Family Medicine 11/21/24 Jessika Rahman 11/21/24 documented as of this encounter
== END 2024-12-20 13:01 | disposition home or self-care (01) ==
LOC: HO.LNP 13:00
PROVIDERS: PCP Family Medicine; Visit Provider Internal Medicine
DX: F20.0 Paranoid schizophrenia (principal); F11.10 Opioid abuse, uncomplicated; F14.10 Cocaine abuse, uncomplicated; F32.A Depression, unspecified
CPT/HCPCS: 80307; 99202

== ENCOUNTER 2024-12-20 13:00 | Outpatient (AMB) | payer OTHER, SELFPAY ==
--- NOTE | 2024-12-20 13:37 | A.OFFVIS_ITS ---
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 He has not been in care before. He was referred from fifth floor originally at [facility]. He has PCP and last seen 2023 by them. 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 He has no children. He has no support system. He has vehicle. He used one bundle heroin yesterday. He has used Suboxone street,methadone,cocaine,alcohol and marijuana. He first used at age 21. He has never shared needles. He has OD once and was not in hospital. He had Naloxone administered. He has never engaged in treatment for ENRIQUETA. He has no behavior health providers. He feels has cell phone addiction. He has three psych hospitalizations,last two weeks ago,depression. He has selfharming thoughts but no SI. He has no HI thoughts either. Medical He has allergy to haldol. He has DM and asthma and h/o appendectomy. He denies chronic pain He denies incarceration history. He has no legal issues. [facility] Medical History Drug-induced psychotic disorder Schizophrenia Cocaine use disorder Asthma Paranoia Diabetes Social History Household Members: Friend(s) Housing: Apartment Do you presently have visiting nurse or other home services: No Unable to assess alcohol history related to: Refusing to respond Alcohol intake: never Patient Tobacco Use Status: Never used Tobacco e-Cigarette/Vaping Use: Never Used Second Hand Smoke Exposure: No Substance Use Type: Crack/Cocaine service: No Sexual orientation: Straight/Heterosexual Review of Systems Const All systems reviewed & are unremarkable except as noted in HPI and below Physical Exam Vital Signs: Last Vital Signs Pulse 86 12/20/24 13:47 Pulse Ox 100 12/20/24 13:47 Oxygen Delivery Method Room Air 12/20/24 13:47 BMI result Body Mass Index 24.9 Const General: cooperative Orientation/consciousness: patient oriented x3 HEENT Head: Yes normal to inspection Mouth: Normal oral and palatal mucosa present Eyes General: appearance normal, both eyes and all related structures Pupils: Equal, round and reactive pupils present Resp Effort & Inspection: normal respiratory effort Cardio Rate: regular rate Rhythm: regular rhythm GI Palpation (GI): Soft to palpation and nontender General: Yes no CVA tenderness Back/Spine/Pelvis Back: no CVA tenderness Skin General skin exam: no rashes or lesions noted Neuro General: patient oriented x3 Cranial nerves: Yes CN's II-XII intact bilaterally and Yes Equal, round and r eactive pupils present Extrem General: Yes normal to inspection Psych Appearance: grossly normal Assessment & Plan Assessment & Plan (1) Opioid use disorder: Comment: He was advised on starting Suboxone He will get labs. He will get counselor appt. Code(s): - Opioid use, unspecified, uncomplicated Category: Medical Plan: n/a (2) Paranoia: Code(s): F22 - Delusional disorders Category: Medical Plan: na (3) Depression: Code(s): F32.A - Depression, unspecified Category: Medical (4) Schizophrenia: Comment: Rule out schizoaffective disorder since history of depression Code(s): F20.9 - Schizophrenia, unspecified Category: Medical (5) Cocaine use disorder: Code(s): F14.10 - Cocaine abuse, uncomplicated Category: Medical Plan na Orders: Orders Fentanyl, urine Today - Opioid use, unspecified, uncomplicated T Spot TB Today - Opioid use, unspecified, uncomplicated Hepatitis C Antibody Reflex Today - Opioid use, unspecified, uncomplicated Hepatitis B Surface Ab Qnt Today - Opioid use, unspecified, uncomplicated Hepatitis B Surface Antigen Today - Opioid use, unspecified, uncomplicated Syphilis Screen Today - Opioid use, unspecified, uncomplicated Hepatitis B Core Antibody Today - Opioid use, unspecified, uncomplicated Hepatitis A IgG Today - Opioid use, unspecified, uncomplicated HIV Ab/Ag Today - Opioid use, unspecified, uncomplicated Referrals Counseling Referral - Opioid use, unspecified, uncomplicated Medications: New hydroxyzine HCl 25 mg PO TID PRN 15 tabs 0RF itching 5 days clonidine HCl 0.1 mg PO TID 15 tabs 0RF 5 days buprenorphine-naloxone 8-2 mg (Suboxone) 1 film sublingual BID 14 ea 0RF 7 days Coding Level of Care Code New Pt Level 4 (58913) Diagnoses Opioid use disorder F11.90 Paranoia F22 Depression F32.A Schizophrenia F20.9 Cocaine use disorder F14.10
[2024-12-20 13:47] VITALS: PULSE 86; O2SAT 100; BMI 24.9
== END 2024-12-20 14:26 | disposition home or self-care (01) ==
PROVIDERS: PCP Family Medicine; Visit Provider Internal Medicine
DX: F11.90 Opioid use, unspecified, uncomplicated (principal); F22 Delusional disorders; F32.A Depression, unspecified; F20.9 Schizophrenia, unspecified; F14.10 Cocaine abuse, uncomplicated
CPT/HCPCS: 99204

== ENCOUNTER 2025-03-10 19:02 | Emergency (ER) | payer MEDICAID, SELFPAY ==
[2025-03-10] VITALS (7 sets, daily range): BP systolic 102–141; BP diastolic 54–80; PULSE 106–128; RESP 12–16; TEMP 36.8–36.9; O2SAT 96–100; BMI 25.1
--- NOTE | ~2025-03-10 | XR_ITS ---
CLINICAL HISTORY: Sepsis 1 view chest x-ray Comparison: 11/19/2024 Findings: Lungs are clear without acute infiltrates. No pneumothorax. Heart size normal. No acute bony abnormalities. Impression: No acute processes This document has been electronically signed by: Kraig Bravo MD on 03/10/2025 22:34:16
--- NOTE | ~2025-03-10 | CT_ITS ---
CLINICAL HISTORY: Abd Pain Back Pain; Tenderness; Fever CT abdomen and pelvis with contrast Comparison: None provided Findings: Lung bases clear. No acute bony abnormalities. Liver and spleen within normal limits. Pancreas and adrenal glands unremarkable. Gallbladder is within normal limits. No significant focal renal abnormalities. No renal stones or hydronephrosis. Abdominal aorta is normal in caliber. No free fluid or adenopathy in the pelvis. No diverticulitis. Appendix not identified. Impression: No acute process This document has been electronically signed by: Kraig Bravo MD on 03/10/2025 22:56:38
--- NOTE | 2025-03-10 19:50 | ED_ITS ---
HPI - General Adult General Chief complaint: Nausea/Vomiting/Diarrhea Stated complaint: Vomiting/Weakness Time Seen by Provider: 03/10/25 21:31 Source: patient and family Mode of arrival: ambulatory Limitations: language barrier (Client Support Consultant services utilized) History of Present Illness ED Provider: Ranjeet PADILLA HPI narrative: The patient is a 25-year-old male with a history of IVDA, schizophrenia, diabetes, depression, and asthma, presenting to the ED for evaluation of new onset nausea and vomiting with the associated subjective fever, low back pain, and headache. The patient presenting to the ED tachycardic but afebrile. Patient admits to IV drug use last week, reports only snorting drugs for the past few days. The patient reports feeling generalized malaise and fatigue. Related Data Home Medications ?Medication ?Instructions ?Recorded ?Confirmed lidocaine 5 % topical patch patch topical 11/20/24 Previous Rx's ?Medication ?Instructions ?Recorded nebulizers #1 ea 01/05/24 albuterol sulfate 90 mcg/actuation 2 puff inhalation Q 4-6H PRN 08/18/24 aerosol inhaler shortness of breath or wheez ing #8.5 grams clonidine HCl 0.1 mg tablet 0.1 mg PO BID #60 tabs escitalopram oxalate 10 mg tablet 10 mg PO DAILY #30 t abs 11/25/24 naloxone 4 mg/actuation nasal 4 mg intranasal Q2M PRN opioid 11/25/24 spray (Narcan) overdose #2 ea risperidone 2 mg tablet 2 mg PO BEDTIME #30 tabs trazodone 50 mg tablet 50 mg PO BEDTIME #30 tabs buprenorphine 8 mg-naloxone 2 mg 1 film sublingual TID 14 days #42 11/28/24 sublingual film (Suboxone) ea buprenorphine 8 mg-naloxone 2 mg 1 film sublingual BID 7 days #14 ea 12/20/24 sublingual film (Suboxone) clonidine HCl 0.1 mg tablet 0.1 mg PO TID 5 days #15 t abs 12/20/24 hydroxyzine HCl 25 mg tablet 25 mg PO TID PRN itching 5 days 12/20/24 #15 tabs Allergies Allergy/AdvReac Type Severity Reaction Status Date / Time haloperidol (From Haldol) AdvReac Mild dystonia Verified 03/10/25 19:50 Review of Systems 2 Review of Systems: Yes all other systems are reviewed and are negative PMFSH Past Medical History Medical History Drug-induced psychotic disorder Schizophrenia Cocaine use disorder Asthma Paranoia Diabetes Social History Social History Household Members: Friend(s) Housing: Apartment Do you presently have visiting nurse or other home services: No Alcohol intake: never Patient Tobacco Use Status: Never used Tobacco Smoked in Last 30 Days: No e-Cigarette/Vaping Use: Never Used Second Hand Smoke Exposure: No Substance Use Type: IV Drugs Advance Directives: No Advance Directives Information Provided: No Do you have a plan to hurt others: No Plan service: No Sexual orientation: Straight/Heterosexual Physical Exam ED Vital Signs: Vital Signs - 24 hr 03/10/25 19:48 03/10/25 21:46 03/10/25 22:06 Temperature 98.3 F 98.4 F Pulse Rate 128 H 107 H 122 H Respiratory Rate 16 12 14 Blood Pressure 141/68 H 126/79 119/80 Pulse Oximetry 98 100 98 Oxygen Delivery Method Room Air Room Air Room Air 03/10/25 22:24 03/10/25 22:56 Temperature 98.4 F 98.3 F Pulse Rate 106 H 106 H Respiratory Rate 12 Blood Pressure 116/70 109/64 Pulse Oximetry 96 99 Oxygen Delivery Method Room Air Room Air BMI result Body Mass Index 25.1 CONSTITUTIONAL: The patient appears well nourished and in no acute distress. Vital signs as documented. HEAD: Atraumatic, normocephalic. EYES: EOMs grossly intact, pupils equal, conjunctiva clear, no exudate. ENT: Nares patent, no discharge. Airway patent, no audible stridor, visible mucosa is pink and moist without noted lesions. NECK: Trachea is midline, no obvious masses or gross abnormalities. CHEST: Symmetric movement, normal appearance. LUNGS: LS present and CTAB, no w/r/r. Non-labored work of breathing. CARDIAC: Regular Rhythm, S1/S2 appreciated, no murmurs, rubs or gallops. ABDOMEN: Abdomen soft and non-tender x4 quadrants, no palpable masses or organomegaly. : Deferred. BACK: Tenderness reported with palpation throughout the low back, no midline crepitus or step-off. EXTREMITIES: Normal tone, moves all extremities spontaneously without reported pain. No obvious acute injury or deformity noted. NEURO: Alert and oriented x3, CN II-XII appear grossly intact. Cerebellar Functioning grossly intact. No obvious sensory deficits. Speech clear and appropriate. Lower extremity exam demonstrates 4/5 strength bilaterally. PSYCH: normal affect, appropriate eye contact, fluid speech, with appropriate response to questioning. No reported suicidality or homicidality. SKIN: Warm, dry, color appropriate, normal turgor. No rashes noted. Course Course Course Narrative: Rapid medical examination performed in triage by Lilian Husain PA-C. Patient is a 25 year old assigned male at presenting to the emergency department with nausea, vomiting, and abdominal pain. Detailed physical exam and review of systems are deferred to the substance abuse clinician. Labs ordered. Patient placed back in the waiting room pending room availability and results. Medications Administered Generic Name Dose Route Start Last Admin Trade Name Freq PRN Reason Stop Dose Admin Sodium Chloride 2,000 mls @ 999 mls/hr 03/10/25 21:45 03/10/25 21:48 Ns IV 03/10/25 23:45 999 mls/hr .Q2H1M VERÓNICA Administration Vancomycin HCl 1,000 mg/ 535 mls @ 267.5 mls/hr 03/10/25 21:48 03/10/25 22:25 Vancomycin HCl 750 mg/ Sodium IV 03/10/25 23:47 267.5 mls/hr Chloride ONCE ONE Administration Discontinued Medications Generic Name Dose Route Start Last Admin Trade Name Freq PRN Reason Stop Dose Admin Ceftriaxone Sodium 2 gm/ 50 mls @ 100 mls/hr 03/10/25 21:48 03/10/25 22:25 Sodium Chloride IV 03/10/25 22:17 Infused ONCE ONE Infusion Iohexol 85 ml 03/10/25 21:59 03/10/25 21:59 Iohexol 350 Mg/Ml 100 Ml Infus..Btl IV 03/10/25 22:00 85 ml ONCE ONE Administration Medical Decision Making Medical Decision Making [facility] Narrative: 9:50 PM 03/10/2025 (Kendy PADILLA): The patient is a 25-year-old male with a history of IVDA, schizophrenia, diabetes, depression, and asthma, presenting to the ED for evaluation of new onset nausea and vomiting with the associated subjective fever, low back pain, and headache. The patient presenting to the ED tachycardic but afebrile. Patient admits to IV drug use last week, reports only snorting drugs for the past few days. The patient reports feeling generalized malaise and fatigue. On exam patient is tachycardic but afebrile, no heart murmur or adventitious lung sounds, abdomen is nontender. The patient denies bowel/bladder incontinence, urinary retention, or saddle paresthesias. The patient does however report weakness in the bilateral lower extremities, however there is unclear if this is secondary to generalized weakness or worse in the lower extremities. On exam patient is able to lift legs off the exam stretcher but is unable to hold them in an elevated position for greater than 1-2 seconds. The patient's laboratory evaluation demonstrates leukocytosis of 28,000 with 18% bands, lactic acid of 2.6, LFTs are mildly abnormal. There was no electrolyte abnormality or MOHAN, no anemia. The patient's presentation is concerning for possible epidural abscess versus bacteremia. The patient was treated with 30 cc/kg IV fluids, and empiric Rocephin and vancomycin. Patient has been ordered for chest x-ray and CT abdomen and pelvis to rule out other infectious source. We will add on COVID and influenza in order to facilitate transfer for MRI if no other infectious sources identified. 11:12 PM 03/10/2025 (Kendy PADILLA): The patient is chest x-ray and CT abdomen and pelvis show no evidence of acute infectious process. Due to the level of concern for epidural abscess, patient will be transferred for MRI. We will attempt transfer to [facility]. 11:38 PM 03/10/2025 (Kendy PADILLA): [facility] had no capacity available, patient's case was discussed with the [facility] who accepted the patient to the [place] ED under accepting physician Dr. Krishnan. Admission/Observation Consideration of admission/observation: Escalation of care including admission/observation considered Lab Data MDM Lab Attestation statement: I reviewed the patient's lab results. 03/10/25 20:16 03/10/25 20:16 Labs: Lab Results 03/10/25 03/10/25 03/10/25 Range/Units 20:16 21:39 22:58 WBC 28.5 H (4.8-10.8) X10*3/uL RBC 6.07 H (4.60-5.80) X10*6/uL Hgb 15.2 (14.0-18.0) g/dl Hct 47.3 (42.0-52.0) % MCV 77.9 L (80.0-98.0) fL MCH 25.0 L (27.0-33.0) pg MCHC 32.1 (31.0-36.0) g/dl RDW 13.2 (11.0-16.0) % Plt Count 263 D (160-400) X10*3/uL MPV 11.1 (9.4-12.4) fL Immature Gran % (Auto) Cancelled Neut % (Auto) Cancelled Lymph % (Auto) Cancelled [place] % (Auto) Cancelled Eos % (Auto) Cancelled Baso % (Auto) Cancelled Lymph # (Auto) Cancelled [place] # (Auto) Cancelled Eos # (Auto) Cancelled Baso # (Auto) Cancelled Abs Immat Gran (auto) Cancelled Absolute Neuts (auto) Cancelled Absolute Nucleated RBC 0.000 (0.0-0.012) X10*3/uL Nucleated RBC % (auto) 0.0 (0.0-0.2) /100WBC Neutrophils % (Manual) 63 (45-73) % Band Neutrophils % 18 H (3-5) % Lymphocytes % (Manual) 5 L (20-40) % Monocytes % (Manual) 4 (2-11) % Basophils % (Manual) 1 (0-2) % Metamyelocytes % 8 % Myelocytes % 1 % Abs Neuts (Manual) 23.1 H (2.0-8.3) X10*3/uL Lymphocytes # (Manual) 1.4 (1.2-4.9) X10*3/uL Monocytes # (Manual) 1.1 (0.1-1.2) X10*3/uL Basophils # (Manual) 0.3 H (0.0-0.2) X10*3/uL Metamyelocytes # 2.3 X10*3/uL Myelocytes # 0.3 X10*/uL Dohle Bodies PRESENT Platelet Estimate NORMAL (NORMAL) Plt Morphology Comment NORMAL RBC Morphology NORMAL Sodium 143 (135-145) mmol/L Potassium 4.1 (3.3-5.1) mmol/L Chloride 102 (96-108) mmol/L Carbon Dioxide 29 (22-29) mmol/L Anion Gap 16 (12-20) BUN 16 (9-16) mg/dL Creatinine 1.01 (0.5-1.4) mg/dL Estim Creat Clear Calc 91.9 Estimated GFR > 60 Random Glucose 133 H (60-115) mg/dL Lactic Acid 2.6 H* (0.5-2.0) mmol/L Calcium 9.5 D (8.4-10.2) mg/dL Magnesium 1.8 (1.6-2.6) mg/dL Total Bilirubin 0.5 (0.0-1.0) mg/dL AST 51 H (5-37) U/L ALT 64 H (0-40) U/L Alkaline Phosphatase 139 H (39-117) U/L Total Protein 8.6 H (6.5-8.0) g/dL Albumin 4.9 (3.5-5.0) g/dL COVID-19 ([facility]) Negative (Negative) COVID-19 Clin Com See Note Influenza Type A ([facility]) Negative (Negative) Influenza Type B ([facility]) Negative (Negative) Influenza A & B Note See Note Independent Interpretation I performed an independent interpretation of an: EKG (EKG shows sinus tachycardia with a rate of 114, no evidence of acute ischemia, no ST elevation, no ectopy. QTC 402. Compared to previous on 11/19/2024, rate has increased, diffuse T-wave inversions have resolved. No other significant morphology changes.) Radiology Impression Discussion of test interpretation with radiology: I have reviewed the radiologist's reading. Radiologist Impression: 1 view chest x-ray Comparison: 11/19/2024 Findings: Lungs are clear without acute infiltrates. No pneumothorax. Heart size normal. No acute bony abnormalities. Impression: No acute processes This document has been electronically signed by: Kraig Bravo MD on 03/10/2025 22:34:16 CT abdomen and pelvis with contrast Comparison: None provided Findings: Lung bases clear. No acute bony abnormalities. Liver and spleen within normal limits. Pancreas and adrenal glands unremarkable. Gallbladder is within normal limits. No significant focal renal abnormalities. No renal stones or hydronephrosis. Abdominal aorta is normal in caliber. No free fluid or adenopathy in the pelvis. No diverticulitis. Appendix not identified. Impression: No acute process This document has been electronically signed by: Kraig Bravo MD on 03/10/2025 22:56:38 Independent Historian Clinical information obtained from an independent historian. History obtained from or confirmed by: Parent External Record Review External record reviewed: Outpatient record and Prior outpatient labs Prescription Management I considered prescription management with: Pain Medication and Antibiotic Discharge Plan Discharge Clinical Impression: Epidural abscess Patient Disposition: [facility] Transfer Details: [facility] ED, accepting MD Dr. Krishnan Prescriptions: No Action buprenorphine-naloxone [Suboxone] 8-2 mg film 1 film sublingual TID 14 Days Qty: 42 0RF Rx Instructions: Take one film sublingual three times per day. albuterol sulfate 90 mcg/actuation HFA aerosol inhaler 2 puff inhalation Q4-6H PRN (Reason: shortness of breath or wheezing) Qty: 8.5 0RF (DME) nebulizers Misc See Rx Instructions .Route Qty: 1 0RF Rx Instructions: As directed lidocaine 5 % adhesive patch,medicated topical risperidone 2 mg Tablet 2 mg PO BEDTIME Qty: 30 0RF clonidine HCl 0.1 mg tablet 0.1 mg PO BID Qty: 60 0RF trazodone 50 mg tablet 50 mg PO BEDTIME Qty: 30 0RF escitalopram oxalate 10 mg tablet 10 mg PO DAILY Qty: 30 0RF naloxone [Narcan] 4 mg/actuation spray,non-aerosol 4 mg intranasal Q2M PRN (Reason: opioid overdose) Qty: 2 0RF Rx Instructions: spray 1 dose into ONE nostril; alternate nostrils w each dose until help arrives clonidine HCl 0.1 mg tablet 0.1 mg PO TID 5 Days Qty: 15 0RF hydroxyzine HCl 25 mg tablet 25 mg PO TID PRN (Reason: itching) 5 Days Qty: 15 0RF buprenorphine-naloxone [Suboxone] 8-2 mg film 1 film sublingual BID 7 Days Qty: 14 0RF Print Language: Nepali
[2025-03-10 20:26] LABS: Hematocrit 47.3 % (42.0-52.0); Hemoglobin 15.2 g/dl (14.0-18.0); Mean Corpuscular HGB Conc 32.1 g/dl (31.0-36.0); Mean Corpuscular Hemoglobin 25.0 pg (27.0-33.0); Mean Corpuscular Volume 77.9 fL (80.0-98.0); NRBC Abs Auto 0.000 X10*3/uL (0.0-0.012); NRBC Pct Auto 0.0 /100WBC (0.0-0.2); Platelet Count 263 X10*3/uL (160-400); Red Blood Count 6.07 X10*6/uL (4.60-5.80)
[2025-03-10 20:38] LABS: Alanine Aminotransferase 64 U/L (0-40); Albumin Level 4.9 g/dL (3.5-5.0); Alkaline Phosphatase 139 U/L (39-117); Anion Gap 16 (12-20); Aspartate Amino Transferase 51 U/L (5-37); Blood Urea Nitrogen 16 mg/dL (9-16); Calcium 9.5 mg/dL (8.4-10.2); Carbon Dioxide 29 mmol/L (22-29); Chloride 102 mmol/L (96-108); Creatinine Clr Calc Pharmacy 91.9; Estimated Glomerular Filt Rate > 60; Magnesium 1.8 mg/dL (1.6-2.6); Potassium 4.1 mmol/L (3.3-5.1); Sodium 143 mmol/L (135-145); Total Protein 8.6 g/dL (6.5-8.0)
[2025-03-10 20:46] LABS: WBC ABN SCTR FOR CBC 1; White Blood Count 28.5 X10*3/uL (4.8-10.8)
[2025-03-10 21:16] LABS: Neutrophils Percent Manual 63 % (45-73)
[2025-03-10 21:18] LABS: Band Neutrophils Percent 18 % (3-5); Basophils Abs Manual 0.3 X10*3/uL (0.0-0.2); Basophils Percent Manual 1 % (0-2); Lymphocytes Absolute Manual 1.4 X10*3/uL (1.2-4.9); Lymphocytes Percent Manual 5 % (20-40); Metamyelocytes Absolute 2.3 X10*3/uL; Metamyelocytes Percent 8 %; Monocytes Absolute Manual 1.1 X10*3/uL (0.1-1.2); Monocytes Percent Manual 4 % (2-11); Myelocytes Absolute 0.3 X10*/uL; Myelocytes Percent 1 %; Neutrophils Absolute Manual 23.1 X10*3/uL (2.0-8.3)
[2025-03-10 21:21] LABS: RBC Morphology NORMAL
[2025-03-10 21:22] LABS: Dohle Bodies PRESENT
--- OUTSIDE RECORDS SUMMARY | 2025-03-10 21:39 | XMS_ITS | Clinical Summary ---
Author Organization [employer] Address [address] [facility] 7[address] [place] [address] Care Team Providers Care Research Professor Of Biostatistics Name Role Phone Grisel Monroe MD Primary Care Provider [phone] Allergies No known active allergies Medications * [...] each 3 4 Active TRUEplus Lancets 33G [facility] TEST BLOOD SUGAR FOUR TIMES DAILY 100 each 11 4 Active Continuous Glucose Anesthesia Attending (FreeStyle Art 2 [place]) device Scan sensor every 8 hours 1 each 4 Active Continuous Glucose Sensor (FreeStyle Art 2 Sensor) [facility] Apply 1 sensor every 14 days 2 each 11 4 Active glucose blood (FreeStyle Precision Rayo Test) test strip Use to test blood sugar 3 times daily 100 each 12 4 Active Lantus SoloStar 100 UNIT/ML pen INJECT 10 UNITS SUBCUTANEOUSLY EVERY EVENING 4 Active insulin lispro (HumaLOG) 100 UNIT/ML injection PLEASE SEE ATTACHED FOR DETAILED DIRECTIONS 4 Active albuterol (2.5 MG/3ML) 0.083% nebulizer solution INHALE 1 AMPULE USING A NEBULIZER EVERY 4 HOURS NEEDED FOR WHEEZING OR SHORTNESS OF BREATH, DO NOT EXCEED FOUR TIMES DAILY 90 mL 1 5 Active Blood Glucose Monitoring Suppl (FreeStyle Lite) w/Device kit 1 kit Once per day. 1 kit 5 Active FREESTYLE LITE test strip Check blood glucose 3 times daily 100 each 12 5 Active FreeStyle lancets 1 each by Other route 3 times daily. Check blood glucose 100 each 11 5 Active baclofen (Lioresal) 10 MG tablet Take 1 tablet by mouth 3 times daily. 5 Active cloNIDine (Catapres) 0.1 MG tablet Take 1 tablet by mouth 2 times daily. 5 Active escitalopram (Lexapro) 10 MG tablet Take 1 tablet by mouth Once per day. 5 Active ibuprofen 600 MG tablet Take 1 tablet by mouth every 6 (six) hours if needed for headaches, fever or mild pain. 5 Active lidocaine (Lidoderm) 5 % patch Apply 1 patch topically Once per day. 5 Active metoclopramide (Reglan) 10 MG tablet Take 1 tablet by mouth if needed in the morning and at bedtime for nausea. 5 Active traZODone (Desyrel) 50 MG tablet Take 50 mg by mouth at bedtime. 5 Active fluticasone furoate (Arnuity Ellipta) 100 MCG/ACT inhaler INHALE 1 PUFF BY MOUTH EVERY DAY AT THE SAME TIME RINSE MOUTH AFTER USING 30 each 11 5 Active Active Problems Problem Noted Date [...] presented in the context of relocation from [facility] to [place], language barrier and lack of social supports. Patient will benefit from receiving follow-up BE's, a referral for Environmental Monitoring Technician with [facility] and continuity of Methadone Program with [facility]. Provided mindfulness exercises during today's session. Patient has limited medical insurance, unable to set up OP individual therapy services outside [facility]. At this time Cassandra Mcneal meets criteria for Visit Diagnoses: Problem List Items Addressed This Visit Other Opioid use disorder, severe, on maintenance therapy (CMS/HCC) Episode of recurrent major depressive disorder (CMS/HCC) Patient ready to address current needs Yes Strengths include motivation to work on personal goals and go back to school PLAN: 1. Follow up with [facility]: Not recommended for follow-up 2. Patient goal is to gradually stop using drugs and learn Maltese as a second language 3. Behavioral Recommendations a. Continue Methadone program with [facility] b. Referral for Environmental Monitoring Technician with [facility] c. Incorporate mindfulness exercises into [...] presented in the context of relocation from [facility] to [place], language barrier and lack of social supports. Patient will benefit from receiving follow-up BE's, a referral for Environmental Monitoring Technician with [facility] and continuity of Methadone Program with [facility]. Provided mindfulness exercises during today's session. Patient has limited medical insurance, unable to set up OP individual therapy services outside [facility]. At this time Cassandra Mcneal meets criteria for Visit Diagnoses: Problem List Items Addressed This Visit Other Cocaine use Opioid use disorder, severe, on maintenance therapy (CMS/HCC) Episode of recurrent major depressive disorder (CMS/HCC) Patient ready to address current needs Yes Strengths include motivation to work on personal goals and go back to school PLAN: Follow up with [facility]: Recommended for follow-up: Follow-up BE scheduled in two weeks Patient goal is to learn Maltese as a second language and stop using drugs. Behavioral Recommendations Continuity of Methadone Program with [facility] Referral for Environmental Monitoring Technician with [facility] Incorporate mindfulness exercises into daily routine Assessment & Plan (01/11/2023 4:49 AM EDT): -Continue with [facility] Methadone Program, currently at 115 mg daily [...] supply with Fentanyl test strips. Psychotic disorder ([facility]/HCC) 01/09/2023 Assessment & Plan (01/11/2023 4:49 AM [...] 2022 -last diabetic eye exam: Referred to [facility] Eye care, but patient did not keep appt -Will update labs -Will check feet at next visit -Refer to [facility] Assessment & Plan (05/01/2023 6:03 AM EST): -A1c 6.5% on 01/11/23 w/o medication, improved from 10% in 2020. -Will not restart meds at this time -Continue working on lifestyle modifications -Will update labs -Will check feet at next visit -Refer to [facility] -Recommended dental care Assessment & Plan (01/11/2023 4:45 AM EDT): -A1c 6.5% today w/o medication, improved from 10% in 2020. -Will not restart meds at this time -Continue working on lifestyle modifications -Will update labs -Will check feet at next visit -Refer to [facility] -Recommended dental care Resolved Problems Problem Noted Date Diagnosed Date Resolved Date Overweight 01/02/2018 10/15/2024 Encounters Date Type Department Care Team Description 03/10/2025 Orders Only GENERIC EXTERNAL DATA DEPARTMENT Provider, Generic External Data 02/04/2025 Refill [facility] MEDICINE [address] [place] [address] Grisel Monroe MD 02/03/2025 Telephone [facility] MEDICINE [address] [place] [address] Grisel Monroe MD OUTREACH 01/31/2025 Patient Outreach [address] [address] Grisel Monroe MD Care Coordination (C3 -[facility] telephone call outreach) 01/24/2025 Patient Outreach [address] [address] Grisel Monroe MD Care Coordination (C3 -[facility] telephone call outreach ) 01/09/2025 Patient Outreach [address] [address] Grisel Monroe MD Care Coordination (C3 -[facility] telephone call outreach ) 12/24/2024 Patient Outreach [address] [address] Grisel Monroe MD Care Coordination (C3 -[facility] telephone call outreach) 12/20/2024 Orders Only GENERIC EXTERNAL DATA DEPARTMENT Provider, Generic External Data 12/17/2024 Patient Outreach [address] [address] Grisel Monroe MD Care Coordination (C3 -[facility] telephone call outreach) from Last 3 Months Immunizations Immunization Administration [...] Diabetes: Urine Protein Screening 01/13/2024 01/12/2023, 05/22/2020 Diabetes: Hemoglobin A1C 05/29/2024 024, 06/23/2023, 01/10/2023, Additional history exists SDOH Screening 08/06/2024 08/07/2023 COVID-19 Vaccine (3 - season) 2025 08/11/2020, 07/14/2020 Influenza Vaccine (#1) 2025 01/29/2019, 2017 Tobacco Screening 10/15/2025 10/15/2024 DTaP/Tdap/Td Vaccines (2 - Td or Tdap) 02/08/2028 02/07/2018 Zoster Vaccines (1 of 2) 02/15/2048 RSV Patients and Patients Aged 60 years or older (1 - 1-dose 75+ series) 2073 Hepatitis B Vaccines Discontinued 01/10/2023, 02/06/20 Pneumococcal Vaccine: Pediatrics (0 to 5 Years) [...] Procedure Name Priority Date/Time Associated Diagnosis Comments COMPLETE BLOOD COUNT MAN DIF Routine 03/10/2025 8:16 PM EDT CBC WITH AUTO DIFFERENTIAL Routine 03/10/2025 8:16 PM EDT MAGNESIUM Routine 03/10/2025 8:16 PM EDT COMPREHENSIVE METABOLIC PANEL Routine 03/10/2025 8:16 PM EDT FENTANYL, URINE Routine 12/20/2024 1:00 PM EDT POCT GLYCOSYLATED HEMOGLOBIN (HGB A1C) [...] without long-term current use of insulin (CMS/HCC) from Last 3 Months or Most Recently Relevant to Health Maintenance Results * (ABNORMAL) Complete Blood Count Manual Diff (03/10/2025 8:16 PM EDT) White Blood Count 28.5(H) 4.8 - 10.8 X10*3/uL [facility] Red Blood Count 6.07(H) 4.60 - 5.80 X10*6/uL [facility] Hemoglobin 15.2 14.0 - 18.0 g/dl [facility] Hematocrit 47.3 42.0 - 52.0 % [facility] Mean Corpuscular Volume 77.9(L) 80.0 - 98.0 fL [facility] Mean Corpuscular Hemoglobin 25.0(L) 27.0 - 33.0 pg [facility] Mean Corpuscular HGB Conc 32.1 31.0 - 36.0 g/dl [facility] Red Cell Distribution Width 13.2 11.0 - 16.0 % [facility] Platelet Count 263 160 - 400 X10*3/uL [facility] Mean Platelet Volume 11.1 9.4 - 12.4 fL [facility] NRBC Pct Auto 0.0 0.0 - 0.2 /100WBC [facility] NRBC Abs Auto 0.000 0.0 - 0.012 X10*3/uL [facility] Neutrophils % Manual 63 45 - 73 % [facility] Band Neutrophils Percent 18(H) 3 - 5 % [facility] Comment:Results of BANDS david led to COOPEB on 03/10/25at 2115 by TEREZA. Lymphocytes Percent Manual 5(L) 20 - 40 % [facility] Monocytes Percent Manual 4 2 - 11 % [facility] BASOPHILS % MANUAL 1 0 - 2 % [facility] Metamyelocytes % (Manual) 8 % [facility] Myelocytes 1 % [facility] NEUTROPHILS ABSOLUTE MANUAL 23.1(H) 2.0 - 8.3 X10*3/uL [facility] LYMPHOCYTES ABSOLUTE MANUAL 1.4 1.2 - 4.9 X10*3/uL [facility] MONOCYTES ABSOLUTE MANUAL 1.1 0.1 - 1.2 X10*3/uL [facility] BASOPHILS ABSOLUTE MANUAL 0.3(H) 0.0 - 0.2 X10*3/uL [facility] Absolute Metamyelocytes 2.3 X10*3/uL [facility] Absolute Myelocytes 0.3 X10*/uL [facility] Platelet Estimate NORMAL NORMAL [facility] Platelet Morphology Comment NORMAL [facility] RBC Morphology NORMAL [facility] Dohle Bodies PRESENT [facility] 03/10/2025 8:16 PM EDT 03/10/2025 8:19 PM EDT us Generic External Data Provider LAB BLOOD ORDERAB LES Final Result [facility] [address] [place] [phone] * (ABNORMAL) CBC auto differential (03/10/2025 8:16 PM EDT) White Blood Count 28.5(H) 4.8 - 10.8 X10*3/uL [facility] Red Blood Count 6.07(H) 4.60 - 5.80 X10*6/uL [facility] Hemoglobin 15.2 14.0 - 18.0 g/dl [facility] Hematocrit 47.3 42.0 - 52.0 % [facility] Mean Corpuscular Volume 77.9(L) 80.0 - 98.0 fL [facility] Mean Corpuscular Hemoglobin 25.0(L) 27.0 - 33.0 pg [facility] Mean Corpuscular HGB Conc 32.1 31.0 - 36.0 g/dl [facility] Red Cell Distribution Width 13.2 11.0 - 16.0 % [facility] Platelet Count 263 160 - 400 X10*3/uL [facility] Mean Platelet Volume 11.1 9.4 - 12.4 fL [facility] Neutrophils Percent Auto 86.8(H) 45 - 73 % [facility] Imm Gran Pct Auto 0.9(H) 0.0 - 0.4 % [facility] Lymphocytes Percent Auto 5.9(L) 20 - 40 % [facility] Monocytes Percent Auto 6.1 2 - 11 % [facility] Eosinophils Percent Auto 0.1 0 - 4 % [facility] Basophils Percent Auto 0.2 0 - 2 % [facility] NRBC Pct Auto 0.0 0.0 - 0.2 /100WBC [facility] Neutrophils Absolute Auto 24.7(H) 2.0 - 8.3 x10*3/uL [facility] Imm Gran Abs Auto 0.27(H) 0.00 - 0.03 X10*3/uL [facility] Lymphocytes Absolute Auto 1.7 1.2 - 4.9 X10*3/uL [facility] Monocytes Absolute Auto 1.8(H) 0.1 - 1.2 X10*3/uL [facility] Eosinophils Absolute Auto 0.0 0.0 - 0.4 X10*3/uL [facility] Basophils Absolute Auto 0.1 0.0 - 0.2 X10*3/uL [facility] NRBC Abs Auto 0.000 0.0 - 0.012 X10*3/uL [facility] 03/10/2025 8:16 PM EDT 03/10/2025 8:19 PM EDT Generic External Data Provider LAB BLOOD ORDERAB LES Edited Result - Final Performing Organization Address City/[facility]/ZIP Co de Phone Number [facility] [address] [place] [phone] * Magnesium (03/10/2025 8:16 PM EDT) Pathologist [facility] Magnesium 1.8 1.6 - 2.6 mg/dL [facility] 03/10/2025 8:16 PM EDT 03/10/2025 8:19 PM EDT us Generic External Data Provider LAB BLOOD ORDERAB LES Final Result Performing Organization Address [facility]/ZIP Co de Phone Number [facility] [address] [place] [phone] * (ABNORMAL) Comprehensive Metabolic Panel (03/10/2025 8:16 PM EDT) Sodium 143 135 - 145 mmol/L [facility] Potassium 4.1 3.3 - 5.1 mmol/L [facility] Chloride 102 96 - 108 mmol/L [facility] Carbon Dioxide 29 22 - 29 mmol/L [facility] Anion Gap 16 12 - 20 [facility] Urea Nitrogen (BUN) 16 9 - 16 mg/dL [facility] Creatinine, Serum 1.01 0.5 - 1.4 mg/dL [facility] Creatinine Clr Calc Pharmacy 91.9 [facility] Comment:eGFR (calculated fro m the MDRD study equation) and eCrCl(calculated from the Cockcroft-Gault equation) are based ondifferent parameters and may not yield comparable results.If eCrCl result is absurd, please check patient'sheight/weight. Estimated Glomerular Filt Rate >60 [facility] Comment:Chronic Kidney Disea se: Estimated GFR < 60 mL/min/1.98p2Vrynqb Kidney Disease: Estimated GFR < 15 mL/min/1.73m2 Glucose 133(H) 60 - 115 mg/dL [facility] Calcium 9.5 8.4 - 10.2 mg/dL [facility] Bilirubin, Total 0.5 0.0 - 1.0 mg/dL [facility] Aspartate Amino Transferase 51(H) 5 - 37 U/L [facility] Alanine Aminotransferase 64(H) 0 - 40 U/L [facility] Total Protein 8.6(H) 6.5 - 8.0 g/dL [facility] Albumin Level 4.9 3.5 - 5.0 g/dL [facility] Alkaline Phosphatase 139(H) 39 - 117 U/L [facility] 03/10/2025 8:16 PM EDT 03/10/2025 8:19 PM EDT us Generic External Data Provider LAB BLOOD ORDERAB LES Final Result [facility] [address] [place] [phone] [phone] * (ABNORMAL) Fentanyl, urine (12/20/2024 1:00 PM EDT) FENTANYL URINE POSITIVE( A) Not Detect [facility] Comment:Fentanyl cut-off is 1 ng/mL.Positive results are unconfirmed and should not be used fornon-medical purposes. 12/20/2024 1:00 PM EDT 12/20/2024 5:16 PM EDT Generic External Data Provider LAB URINE ORDERAB LES Final Result Performing Organization Address [facility]/ZIP Co de Phone Number [facility] [address] [place] [phone] * (ABNORMAL) POCT glycosylated hemoglobin (Hgb A1c) (02/27/2024 11:52 AM EDT) Hemoglobin A1C 12.3(A) 4.0 - 6.0 % QC Media Lot # [id number] Lot# Expiration Date Blood Capillary blood specimen / Unknown 02/27/2024 11:52 AM EDT Grisel Monroe MD POINT OF CARE TEST ENTER/EDIT OR DERABLES Final Result * Albumin, Random Urine W/Creatinine (01/12/2023 11:29 AM EDT) Creatinine, Urine 191.11 mg/dL [facility] Microalbumin Urine <5.0 mg/L [facility] Microalbum Creatinine Ratio Ur TNP <30 ug/mg cr [facility] Comment:Unable to calculate albumin/creatinine ratio due to lowmicroalbumin or creatinine result. Urine 01/12/2023 11:2 9 AM EDT 01/12/2023 1:14 PM EDT Grisel Monroe MD LAB URINE ORDERABLES Final Resul t Performing Organization Address City/[facility]/ZIP Co de Phone Number [facility] [address] [place] [phone] * Hepatitis C Antibody Reflex (01/11/2023 12:15 PM EDT) Hepatitis C Antibody Nonreactive Nonreactive [facility] Comment:Antibodies to HCV no t detected; does not exclude early acuteHCV infection. 01/11/2023 12:1 5 PM EDT 01/11/2023 1:31 PM EDT Grisel Monroe MD LAB BLOOD ORDERABLES Final Resul t [facility] [address] [place] [phone] * HIV Ab/Ag ([facility]) (01/11/2023 12:15 PM EDT) HIV AB/AG Nonreactive Nonreactive [facility] Comment:HIV-1 p24 Ag and/or HIV-1/HIV-2 Ab not detected.A test result that is nonreactive does not exclude thepossibility of exposure to or infection with HIV-1 and/orHIV-2. Nonreactive results in this assay for individualswith prior exposure to HIV-1 and/or HIV-2 may be due toantigen and antibody levels that are below the limit ofdetection of this assay.The [place] HIV Ag/Ab Combo assay result andsupplemental assay results should be interpreted inconjunction with the patient's clinical presentation,history and other laboratory results. If the results areinconsistent with clinical evidence, additional testing issuggested to confirm the result. 01/11/2023 12:1 5 PM EDT 01/11/2023 1:31 PM EDT us Grisel Monroe MD LAB BLOOD ORDERABLES Final Resul t Performing Organization Address City/[facility]/ZIP Co de Phone Number [facility] [address] [place] [phone] * (ABNORMAL) Lipid Panel with Reflex to Direct LDL (01/11/2023 12:15 PM EDT) Triglycerides 161(H) <150 mg/dL [facility] Comment:Desirable Triglyceri de: less than 150 mg/dLBorderline High Triglyceride 150-199 mg/dLHigh Triglyceride: 200-499 mg/dLVery High Triglyceride: greater than or equal to 5OO mg/dL Cholesterol 121 <200 mg/dL [facility] Comment:Desirable Cholestero l: less than 200 mg/dLBorderline High Cholesterol: 200-239 mg/dLHigh Cholesterol: greater than 239 mg/dL LDL Cholesterol Calculated 42 <100 mg/dL [facility] Comment:Desirable LDL: less than 100 mg/dLNear Optimal/Above Optimal LDL: 110- 129 mg/dLBorderline High LDL: 130-159 mg/dLHigh LDL: 160-189 mg/dLVery High LDL: greater than or equal to 190 mg/dL HDL Cholesterol 47 >40 mg/dL [facility] Comment:Desirable HDL: great er than 40 mg/dL Note: This HDL assay may give artificially low results in patients with liver disease. Blood 01/11/2023 12:1 5 PM EDT 01/11/2023 1:31 PM EDT us Grisel Monroe MD LAB BLOOD ORDERABLES Final Resul t [facility] [address] [place] [phone] from Last 3 Months or Most Recently Relevant to Health Maintenance Insurance [facility] C3 * Guarantor: Cassandra Bradley Account Type Relation to Patient Date of Phone Billing Address Dental Self [address] [place] [address] , [place] [address] , [place] [address] Care Teams Research Professor Of Biostatistics Relationship Specialty Start Date End Date Grisel Monroe MD [address] [place] [phone] PCP - General Family Medicine 01/02/18
--- OUTSIDE RECORDS SUMMARY | 2025-03-10 21:39 | XMS_ITS | Encounter Summary ---
Author Organization [employer] Address [address] [place] [address] [address] [place] [address] Care Team Providers Care Lighting Specialist Name Role Phone Grisel Monroe MD Primary Care Provider [phone] Amalia Baez RN Unavailable [phone] Austyn Weinberg RN Unavailable [phone] Jessika Rahman Unavailable Reason for Visit * Reason Comments Med Refill Encounter Details Date Type Department Care Team (Late st Contact Info) Description 05/24/2022 Refill [facility] [address] [place] [address] Grisel Monroe MD [address] [place], [place] [phone] Type 2 diabetes mellitus with hyperglycemia, unspecified whether long-term insulin use (CMS/HCC) (Primary Dx) Social History [...] as of this encounter Plan of Treatment Not on file documented as of this encounter Visit Diagnoses Diagnosis Type 2 diabetes mellitus with hyperglycemia, unspecified 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
--- OUTSIDE RECORDS SUMMARY | 2025-03-10 21:39 | XMS_ITS | Encounter Summary ---
Author Organization [employer] Address [address] [facility] [address] [place] [address] Care Team Providers Care Marketing Database Analyst Name Role Phone Grisel Monroe MD Primary Care Provider [phone] Amalia Baez RN Unavailable [phone] Austyn Weinberg RN Unavailable [phone] Jessika Rahman Unavailable Reason for Referral * Consultation (Routine) - Canceled Specialty Diagnoses / Procedures Referred By Contmaykel t Referred To Contact Pharmacy Diagnoses Type 2 diabetes mellitus with hyperglycemia, without long-term current use of insulin (HCC) Grisel Monroe MD [address] [place] [phone] Phone: tel: fax: Referral ID Status Reason Start Date Expiration Date V isits Requested Visits Authorized [id number] Canceled Consult and Treat 09/09/2024 09/09/2025 6 6 Encounter Details Date Type Department Care Team (Late st Contact Info) Description 09/09/2024 Orders Only [facility] MEDICINE [address] [place] [phone] Grisel Monroe MD [address] [place], [place] [phone] Type 2 diabetes mellitus with hyperglycemia, without [...] hyperglycemia, without long-term current use of insulin ([facility]/HCC) Ordered: 09/09/2024 documented as of this encounter Visit Diagnoses Diagnosis Type 2 diabetes mellitus with hyperglycemia, without long-term current use of insulin ([facility])- Primary documented in this encounter Additional Health Concerns Assessment Noted Time PHQ-9 Depression Total Score: 15 023 10:47 AM EDT documented as of this encounter Care Teams Marketing Database Analyst Relationship Specialty Start Date End Date Grisel Monroe MD [address] [place] [address] PCP - General Family Medicine 01/02/18 Amalia Baez, RN Registered Nurse Internal Medicine 11/20/24 11/21/24 Austyn Weinberg, SHANNAN [address] [place] [phone] Registered Nurse Family Medicine 11/21/24 01/31/25 Jessika Rahman 11/21/24 01/31/25 documented as of this encounter
--- OUTSIDE RECORDS SUMMARY | 2025-03-10 21:39 | XMS_ITS | Encounter Summary ---
Author Organization [employer] Address [address] [facility] [address] [place] [address] Care Team Providers Care Account Executive Key Accounts Name Role Phone Grisel Monroe MD Primary Care Provider [phone] Encounter Details Date Type Department Care Team ([facility] Contact Info) Description 03/10/2025 Orders Only GENERIC EXTERNAL DATA [...] on file documented as of this encounter Procedures Procedure Name Priority Date/Time Associated Diagnosis Comments COMPLETE BLOOD COUNT MAN DIF Routine 03/10/2025 8:16 PM EDT CBC WITH AUTO DIFFERENTIAL Routine 03/10/2025 8:16 PM EDT MAGNESIUM Routine 03/10/2025 8:16 PM EDT COMPREHENSIVE METABOLIC PANEL Routine 03/10/2025 8:16 PM EDT documented in this encounter Results * (ABNORMAL) Complete Blood Count Manual Diff (03/10/2025 8:16 PM EDT) White Blood Count 28.5(H) 4.8 - 10.8 X10*3/uL [facility] Red Blood Count 6.07(H) 4.60 - 5.80 X10*6/uL [facility] Hemoglobin 15.2 14.0 - 18.0 g/dl [facility] Hematocrit 47.3 42.0 - 52.0 % [facility] Mean Corpuscular Volume 77.9(L) 80.0 - 98.0 fL [facility] Mean Corpuscular Hemoglobin 25.0(L) 27.0 - 33.0 pg [facility] Mean Corpuscular HGB Conc 32.1 31.0 - 36.0 g/dl [facility] Red Cell Distribution Width 13.2 11.0 - 16.0 % [facility] Platelet Count 263 160 - 400 X10*3/uL [facility] Mean Platelet Volume 11.1 9.4 - 12.4 fL [facility] NRBC Pct Auto 0.0 0.0 - 0.2 /100WBC [facility] NRBC Abs Auto 0.000 0.0 - 0.012 X10*3/uL [facility] Neutrophils % Manual 63 45 - 73 % [facility] Band Neutrophils Percent 18(H) 3 - 5 % [facility] Comment:Results of BANDS david led to COOPEB on 03/10/25at 2115 by TEREZA. Lymphocytes Percent Manual 5(L) 20 - 40 % [facility] Monocytes Percent Manual 4 2 - 11 % [facility] BASOPHILS % MANUAL 1 0 - 2 % [facility] Metamyelocytes % (Manual) 8 % [facility] Myelocytes 1 % [facility] NEUTROPHILS ABSOLUTE MANUAL 23.1(H) 2.0 - 8.3 X10*3/uL [facility] LYMPHOCYTES ABSOLUTE MANUAL 1.4 1.2 - 4.9 X10*3/uL [facility] MONOCYTES ABSOLUTE MANUAL 1.1 0.1 - 1.2 X10*3/uL [facility] BASOPHILS ABSOLUTE MANUAL 0.3(H) 0.0 - 0.2 X10*3/uL [facility] Absolute Metamyelocytes 2.3 X10*3/uL [facility] Absolute Myelocytes 0.3 X10*/uL [facility] Platelet Estimate NORMAL NORMAL [facility] Platelet Morphology Comment NORMAL [facility] RBC Morphology NORMAL [facility] Dohle Bodies PRESENT [facility] 03/10/2025 8:16 PM EDT 03/10/2025 8:19 PM EDT us Generic External Data Provider LAB BLOOD ORDERAB LES Final Result [facility] [address] [place] [phone] * (ABNORMAL) CBC auto differential (03/10/2025 8:16 PM EDT) White Blood Count 28.5(H) 4.8 - 10.8 X10*3/uL [facility] Red Blood Count 6.07(H) 4.60 - 5.80 X10*6/uL [facility] Hemoglobin 15.2 14.0 - 18.0 g/dl [facility] Hematocrit 47.3 42.0 - 52.0 % [facility] Mean Corpuscular Volume 77.9(L) 80.0 - 98.0 fL [facility] Mean Corpuscular Hemoglobin 25.0(L) 27.0 - 33.0 pg [facility] Mean Corpuscular HGB Conc 32.1 31.0 - 36.0 g/dl [facility] Red Cell Distribution Width 13.2 11.0 - 16.0 % [facility] Platelet Count 263 160 - 400 X10*3/uL [facility] Mean Platelet Volume 11.1 9.4 - 12.4 fL [facility] Neutrophils Percent Auto 86.8(H) 45 - 73 % [facility] Imm Gran Pct Auto 0.9(H) 0.0 - 0.4 % [facility] Lymphocytes Percent Auto 5.9(L) 20 - 40 % [facility] Monocytes Percent Auto 6.1 2 - 11 % [facility] Eosinophils Percent Auto 0.1 0 - 4 % [facility] Basophils Percent Auto 0.2 0 - 2 % [facility] NRBC Pct Auto 0.0 0.0 - 0.2 /100WBC [facility] Neutrophils Absolute Auto 24.7(H) 2.0 - 8.3 x10*3/uL [facility] Imm Gran Abs Auto 0.27(H) 0.00 - 0.03 X10*3/uL [facility] Lymphocytes Absolute Auto 1.7 1.2 - 4.9 X10*3/uL [facility] Monocytes Absolute Auto 1.8(H) 0.1 - 1.2 X10*3/uL [facility] Eosinophils Absolute Auto 0.0 0.0 - 0.4 X10*3/uL [facility] Basophils Absolute Auto 0.1 0.0 - 0.2 X10*3/uL [facility] NRBC Abs Auto 0.000 0.0 - 0.012 X10*3/uL [facility] 03/10/2025 8:16 PM EDT 03/10/2025 8:19 PM EDT us Generic External Data Provider LAB BLOOD ORDERAB LES Edited Result - Final Performing Organization Address City/[facility]/ZIP Co de Phone Number [facility] [address] [place] [phone] * Magnesium (03/10/2025 8:16 PM EDT) Magnesium 1.8 1.6 - 2.6 mg/dL [facility] 03/10/2025 8:16 PM EDT 03/10/2025 8:19 PM EDT us Generic External Data Provider LAB BLOOD ORDERAB LES Final Result Performing Organization Address [facility]/ZIP Co de Phone Number [facility] [address] [place] [phone] * (ABNORMAL) Comprehensive Metabolic Panel (03/10/2025 8:16 PM EDT) Pathologist [facility] Sodium 143 135 - 145 mmol/L [facility] Potassium 4.1 3.3 - 5.1 mmol/L [facility] Chloride 102 96 - 108 mmol/L [facility] Carbon Dioxide 29 22 - 29 mmol/L [facility] Anion Gap 16 12 - 20 [facility] Urea Nitrogen (BUN) 16 9 - 16 mg/dL [facility] Creatinine, Serum 1.01 0.5 - 1.4 mg/dL [facility] Creatinine Clr Calc Pharmacy 91.9 [facility] Comment:eGFR (calculated fro m the MDRD study equation) and eCrCl(calculated from the Cockcroft-Gault equation) are based ondifferent parameters and may not yield comparable results.If eCrCl result is absurd, please check patient'sheight/weight. Estimated Glomerular Filt Rate >60 [facility] Comment:Chronic Kidney Disea se: Estimated GFR < 60 mL/min/[id number] Kidney Disease: Estimated GFR < 15 mL/min/1.73m2 Glucose 133(H) 60 - 115 mg/dL [facility] Calcium 9.5 8.4 - 10.2 mg/dL [facility] Bilirubin, Total 0.5 0.0 - 1.0 mg/dL [facility] Aspartate Amino Transferase 51(H) 5 - 37 U/L [facility] Alanine Aminotransferase 64(H) 0 - 40 U/L [facility] Total Protein 8.6(H) 6.5 - 8.0 g/dL [facility] Albumin Level 4.9 3.5 - 5.0 g/dL [facility] Alkaline Phosphatase 139(H) 39 - 117 U/L [facility] 03/10/2025 8:16 PM EDT 03/10/2025 8:19 PM EDT us Generic External Data Provider LAB BLOOD ORDERAB LES Final Result [facility] [address] [place] [phone] documented in this encounter Visit Diagnoses Not on filedocumented in this encounter Additional Health Concerns Assessment Noted Time PHQ-9 Depression Total Score: 15 023 10:47 AM EDT documented as of this encounter Care Teams Account Executive Key Accounts Relationship Specialty Start Date End Date Grisel Monroe MD [address] [place] [phone] PCP - General Family Medicine 01/02/18 documented as of this encounter
--- OUTSIDE RECORDS SUMMARY | 2025-03-10 21:39 | XMS_ITS | Encounter Summary ---
Author Organization [employer] Address [address] [facility] [address] [place] [address] Care Team Providers Care Auditor Medical Claims Name Role Phone Grisel Monroe MD Primary Care Provider [phone] Amalia Baez RN Unavailable [phone] Austyn Weinberg RN Unavailable [phone] Jessika Rahman Unavailable Encounter Details Date Type Department Care Team (Late st Contact Info) Description 05/24/2022 Orders Only [facility] [address] [place] [address] Deya Huffman LPN Social History Tobacco Use [...] C Antibody Reflex (01/11/2023 12:15 PM EDT) Pathologist [facility] Hepatitis C Antibody Nonreactive Nonreactive [facility] Comment:Antibodies to HCV no t detected; does not exclude early acuteHCV infection. 01/11/2023 12:1 5 PM EDT 01/11/2023 1:31 PM EDT us Grisel Monroe MD LAB BLOOD ORDERABLES Final Resul t [facility] [address] [place] [phone] * Hepatitis B surface antigen, EIA (01/11/2023 12:15 PM EDT) Pathologist [facility] Hepatitis B Surface Ag Negative Negative [facility] 01/11/2023 12:1 5 PM EDT 01/11/2023 1:31 PM EDT Grisel Monroe MD LAB BLOOD ORDERABLES Final Resul t Performing Organization Address [facility] [place] [facility] Co de Phone Number [facility] [address] [place] [address] [phone] * HIV Ab/Ag ([facility]) (01/11/2023 12:15 PM EDT) [facility] HIV AB/AG Nonreactive Nonreactive [facility] Comment:HIV-1 p24 Ag and/or HIV-1/HIV-2 Ab not detected.A test result that is nonreactive does not exclude thepossibility of exposure to or infection with HIV-1 and/orHIV-2. Nonreactive results in this assay for individualswith prior exposure to HIV-1 and/or HIV-2 may be due toantigen and antibody levels that are below the limit ofdetection of this assay.The [employer] HIV Ag/Ab Combo assay result andsupplemental assay results should be interpreted inconjunction with the patient's clinical presentation,history and other laboratory results. If the results areinconsistent with clinical evidence, additional testing issuggested to confirm the result. 01/11/2023 12:1 5 PM EDT 01/11/2023 1:31 PM EDT us Grisel Monroe MD LAB BLOOD ORDERABLES Final Resul t Performing Organization Address City/[facility] [place] [facility]/ZIP Co de Phone Number [facility] [address] [place] [phone] * Hepatitis B Surface Antibody, Qualitative (01/11/2023 12:15 PM EDT) Pathologist [facility] ~Hepatitis B Surface Antibody REACTIVE Nonreactive [facility] Comment:REACTIVE: > 11.99 mI U/mL 01/11/2023 12:1 5 PM EDT 01/11/2023 1:31 PM EDT Grisel Monroe MD LAB BLOOD ORDERABLES Final Resul t Performing Organization Address [facility] [place] [facility]/ZIP Co de Phone Number [facility] [address] [place] [phone] * COVID-19 ID NOW (OTERO) (12/24/2022 3:56 PM EDT) IDNOW SERIAL# [id number] [facility] COVID-19 TEST Negative Negative [facility] COVID-19 NOTE See Note [facility] Comment: Results are for the identification of SARS-CoV2 RNA. TheSARS-CoV2 RNA is generally detectable in respiratory samplesduring the acute phase of infection. Positive results areindicative of the presence of SARS-CoV-2 RNA; clinicalcorrelation with patient history and other diagnosticinformation is necessary to determine patient infectionstatus. Positive results do not rule out bacterial infectionor co- infection with other viruses.Testing facilities within the [facility] and [facility] are required to report all positive [...] 3:56 PM EDT 12/24/2022 4:02 PM EDT [facility] Exter nal Provider LAB MOLECULAR DIAGNOSTICS ORDERABLES Final Result Performing Organization Address City/[facility] [place] [facility]/ZIP Co de Phone Number [facility] [address] [place] [address] [phone] * (ABNORMAL) Drug Monitoring, Panel 1, Screen, Urine (12/24/2022 11:58 AM EDT) Opiate Screen Urine Not Detected Not Detect [facility] Comment:Opiate cut-off is 30 0 ng/mL.Positive results are unconfirmed and should not be used fornon-medical purposes. Barbiturates, Urine Not Detected Not Detect [facility] Comment:Barbiturate cut-off is 200 ng/mL.Positive results are unconfirmed and should not be used fornon-medical purposes. Phencyclidine Screen Urine Not Detected Not Detect [facility] Comment:Phencyclidine cut-of f is 25 ng/mL.Positive results are unconfirmed and should not be used fornon-medical purposes. Amphetamine Screen Urine Not Detected Not Detect [facility] Comment:Amphetamine cut-off is 1000 ng/mL.Positive results are unconfirmed and should not be used fornon-medical purposes. Benzodiazepines Screen Urine Not Detected Not Detect [facility] Comment:Benzodiazepine cut-o ff is 200 ng/mL.Positive results are unconfirmed and should not be used fornon-medical purposes. Cocaine Screen Urine POSITIVE(A) Not Detect [facility] Comment:Cocaine cut-off is 3 00 ng/mL.Positive results are unconfirmed and should not be used fornon-medical purposes. Cannabinoid Screen Urine Not Detected Not Detect [facility] Comment:Cannabinoid cut-off is 50 ng/mL.Positive results are unconfirmed and should not be used fornon-medical purposes. FENTANYL URINE POSITIVE(A) Not Detect [facility] Comment:Fentanyl cut-off is 1 ng/mL.Positive results are unconfirmed and should not be used fornon-medical purposes. 12/24/2022 11:5 8 AM EDT 12/24/2022 12:01 PM EDT [facility] External Provider LAB URI NE ORDERABLES Final Result [facility] [address] [place] [phone] * (ABNORMAL) Urinalysis, Complete, with Reflex to Culture (12/24/2022 11:58 AM EDT) Color Urine Yellow [facility] Appearance Urine Clear [facility] PH 5.5 5.0 - 9.0 [facility] Glucose Urine UA Negative Negative mg/dL [facility] Urine Blood Negative Negative [facility] Specific [place] - Urine 1.015 1.005 - 1.025 [facility] Urine Protein Negative Neg-Trace mg/dL [facility] Urine Ketones Negative Negative mg/dL [facility] Nitrite Urine Negative Negative [facility] Leukocyte Esterase Urine Trace(A) Negative [facility] RBC Urine 0-2 0 - 2 /HPF [facility] Urine WBC 6-10(A) 0 - 5 /HPF [facility] Urine Squamous Epithelial Cell 0-2 0 - 2 /HPF [facility] Urine Bacteria None Seen None Seen [facility] Hyaline Casts, Urine 0-2 0 - 2 /LPF [facility] 12/24/2022 11:5 8 AM EDT 12/24/2022 12:01 PM EDT Narrative [facility] - 12/24/2022 12:11 PM EDT [id number], Clean Catch [facility] External Provider LAB URI NE ORDERABLES Final Result [facility] [address] [place] [phone] * Ethanol (12/24/2022 8:31 AM EDT) ETHANOL (MG/DL) IN SER/PLAS <10 mg/dL [facility] Comment:Serum/plasma ethanol results are to be used formedical/treatment purposes only. 12/24/2022 8:31 AM EDT 12/24/2022 8:39 AM EDT us Generic External Data Provider LAB BLOOD ORDERAB LES Final Result Performing Organization Address City/[facility] [place] [facility]/ZIP Co de Phone Number [facility] [address] [place] [phone] * (ABNORMAL) Basic Metabolic Panel (12/24/2022 8:31 AM EDT) Sodium 139 135 - 145 mmol/L [facility] Potassium 5.5(H) 3.3 - 5.1 mmol/L [facility] Chloride 104 96 - 108 mmol/L [facility] Carbon Dioxide 25 22 - 29 mmol/L [facility] Anion Gap 16 12 - 20 [facility] Urea Nitrogen (BUN) 12 9 - 16 mg/dL [facility] Creatinine, Serum 0.91 0.5 - 1.4 mg/dL [facility] Creatinine Clr Calc Pharmacy 115.8 [facility] Comment:eGFR (calculated fro m the MDRD study equation) and eCrCl(calculated from the Cockcroft-Gault equation) are based ondifferent parameters and may not yield comparable results.If eCrCl result is absurd, please check patient'sheight/weight. Estimated Glomerular Filt Rate >60 [facility] Comment:NOTE: For -Am erican individuals, multiply the result by 1.210.Chronic Kidney Disease: Estimated GFR < 60 mL/min/1.45o8Mlhwuo Kidney Disease: Estimated GFR < 15 mL/min/1.73m2 Glucose 95 60 - 115 mg/dL [facility] Calcium 10.1 8.4 - 10.2 mg/dL [facility] 12/24/2022 8:3 1 AM EDT 12/24/2022 8:39 AM EDT us Generic External Data Provider LAB BLOOD ORDERAB LES Final Result Performing Organization Address City/[facility] [place] [facility]/ZIP Co de Phone Number [facility] [address] [place] [phone] * (ABNORMAL) Hepatic Function Panel (12/24/2022 8:31 AM EDT) Bilirubin, Total 0.2 0.0 - 1.0 mg/dL [facility] Bilirubin, Direct <0.2 0.0 - 0.5 mg/dL [facility] Aspartate Amino Transferase 32 5 - 37 U/L [facility] Alanine Aminotransferase 40 0 - 40 U/L [facility] Total Protein 8.5(H) 6.5 - 8.0 g/dL [facility] Albumin Level 4.9 3.5 - 5.0 g/dL [facility] Alkaline Phosphatase 111 39 - 117 U/L [facility] 12/24/2022 8:31 AM EDT 12/24/2022 8:39 AM EDT [facility] External Provider LAB BLO OD ORDERABLES Final Result Performing Organization Address City/[facility] [place] [facility]/ZIP Co de Phone Number [facility] [address] [place] [phone] * Acetaminophen level (12/24/2022 8:31 AM EDT) Acetaminophen LAB <17 <30 mcg/mL [facility] 12/24/2022 8:31 AM EDT 12/24/2022 8:39 AM EDT Generic External Data Provider LAB BLOOD ORDERAB LES Final Result Performing Organization Address [facility] [place] [facility]/ZIP Co de Phone Number [facility] [address] [place] [phone] * (ABNORMAL) Salicylate (12/24/2022 8:31 AM EDT) Salicylate <5.0(L) 15 - 30 mg/dL [facility] 12/24/2022 8:31 AM EDT 12/24/2022 8:39 AM EDT us [facility] External Provider LAB BLO OD ORDERABLES Final Result [facility] [address] [place] [phone] * (ABNORMAL) CBC auto differential (12/24/2022 8:31 AM EDT) White Blood Count 18.6(H) 4.8 - 10.8 X10*3/uL [facility] Red Blood Count 5.39 4.60 - 5.80 X10*6/uL [facility] Hemoglobin 13.8(L) 14.0 - 18.0 g/dl [facility] Hematocrit 41.7(L) 42.0 - 52.0 % [facility] Mean Corpuscular Volume 77.4(L) 80.0 - 98.0 fL [facility] Mean Corpuscular Hemoglobin 25.6(L) 27.0 - 33.0 pg [facility] Mean Corpuscular HGB Conc 33.1 31.0 - 36.0 g/dl [facility] Red Cell Distribution Width 12.8 11.0 - 16.0 % [facility] Platelet Count 300 160 - 400 X10*3/uL [facility] Mean Platelet Volume 9.9 9.4 - 12.4 fL [facility] Neutrophils Percent Auto 76.9(H) 45 - 73 % [facility] Imm Gran Pct Auto 0.6(H) 0.0 - 0.4 % [facility] Lymphocytes Percent Auto 15.0(L) 20 - 40 % [facility] Monocytes Percent Auto 7.2 2 - 11 % [facility] Eosinophils Percent Auto 0.0 0 - 4 % [facility] Basophils Percent Auto 0.3 0 - 2 % [facility] NRBC Pct Auto 0.0 0.0 - 0.2 /100WBC [facility] Neutrophils Absolute Auto 14.3(H) 2.0 - 8.3 x10*3/uL [facility] Imm Gran Abs Auto 0.12(H) 0.00 - 0.03 X10*3/uL [facility] Lymphocytes Absolute Auto 2.8 1.2 - 4.9 X10*3/uL [facility] Monocytes Absolute Auto 1.4(H) 0.1 - 1.2 X10*3/uL [facility] Eosinophils Absolute Auto 0.0 0.0 - 0.4 X10*3/uL [facility] Basophils Absolute Auto 0.1 0.0 - 0.2 X10*3/uL [facility] NRBC Abs Auto 0.000 0.0 - 0.012 X10*3/uL [facility] 12/24/2022 8:31 AM EDT 12/24/2022 8:39 AM EDT [facility] External Provider LAB BLO OD ORDERABLES Final Result Performing Organization Address [facility] [place] [facility] Co de Phone Number [facility] [address] [place] [phone] * GLUCOSE, WHOLE BLOOD (06/20/2022 3:32 AM EST) Glucose, Whole Blood 99 60 - 115 mg/dL [facility] Comment:METER #: [id number] 06/20/2022 3:32 AM EST 06/20/2022 3:35 AM EST [facility] External Provider LAB BLO OD ORDERABLES Final Result Performing Organization Address [facility] [place] [facility] Co de Phone Number [facility] [address] [place] [phone] [phone] documented in this encounter Visit Diagnoses Not on filedocumented in this encounter Care Teams Auditor Medical Claims Relationship Specialty Start Date End Date Grisel Monroe MD [address] [place] [phone] PCP - General Family Medicine 01/02/18 Amalia Baez, RN Registered Nurse Internal Medicine 11/20/24 11/21/24 Austyn Weinberg, SHANNAN [address] [place] [phone] Registered Nurse Family Medicine 11/21/24 01/31/25 Jessika Rahman 11/21/24 01/31/25 documented as of this encounter
--- NOTE | 2025-03-10 21:50 | ECG_ITS ---
Test Reason : TACHYCARDIA, SEPSIS Blood Pressure : */* mmHG Vent. Rate : 114 BPM Atrial Rate : 114 BPM P-R Int : 120 ms QRS Dur : 74 ms QT Int : 292 ms P-R-T Axes : 67 5 4 degrees QTcB Int : 402 ms Sinus tachycardia Possible Left atrial enlargement Low voltage QRS Nonspecific T wave abnormality Abnormal ECG When compared with ECG of 19-Nov-2024 14:27, Nonspecific T wave abnormality has replaced inverted T waves in Inferior leads Nonspecific T wave abnormality has replaced inverted T waves in Anterolateral leads Referred By: Ranjeet Miranda Electronically Signed By: MIKE STARKEY
[2025-03-10] MEDS: iohexoL 350 MG/ML 100 ML INFUS..BTL 85 ML IV (21:59)
[2025-03-10] MEDS: vancomycin HCL 1,000 MG, vancomycin HCL 750 MG in 0.9 % Sodium Chloride 500 ML 267.5 MG IV (22:25)
[2025-03-10 23:17] LABS: COVID-19 Test Negative (Negative); IDNOW Serial# 152EDE1D; IDNOW Serial# 16C4AD1C; Influenza B2 Negative (Negative)
[2025-03-10 23:50] LABS: Reflex Lactate? Lactic Acid Added
[2025-03-11 00:10] VITALS: BP 111/64; PULSE 103; RESP 13; O2SAT 98
[2025-03-11 00:38] LABS: ~Lactic Acid-LAB USE ONLY 4.1 mmol/L (0.5-2.0)
[2025-03-11 01:49] VITALS: BP 111/64; PULSE 103; RESP 13; TEMP 36.9; O2SAT 98
[2025-03-11 02:19] LABS: Reflex Lactate? 2 Y
== END 2025-03-11 00:55 | disposition short-term general hospital (02) ==
PROVIDERS: Physician Assistant; Physician Assistant Medical; Emergency Provider Emergency Medicine; PCP Family Medicine
DX: G06.2 Extradural and subdural abscess, unspecified (principal); R11.2 Nausea with vomiting, unspecified; R50.9 Fever, unspecified; M54.50 Low back pain, unspecified; R00.0 Tachycardia, unspecified; R10.819 Abdominal tenderness, unspecified site; R51.9 Headache, unspecified; R53.83 Other fatigue; Z79.899 Other long term (current) drug therapy; Z11.52 Encounter for screening for COVID-19
CPT/HCPCS: 36415; 71045; 74177; 80053; 83605; 83735; 85007; 85027; 87040; 87502; 87635; 93005; 96361; 96374; 96375; 99285; J0696; J3374; Q9967

== ENCOUNTER → 2025-03-10 21:42 | Outpatient (BNV) | payer MEDICAID, SELFPAY | PROVIDERS: Emergency Provider Emergency Medicine; PCP Family Medicine; Visit Provider Radiology Diagnostic Radiology | DX: A41.9 Sepsis, unspecified organism (principal); R10.84 Generalized abdominal pain; M54.9 Dorsalgia, unspecified; R50.9 Fever, unspecified | CPT/HCPCS: 71045; 74177 ==

== ENCOUNTER → 2025-03-10 21:50 | Outpatient (BNV) | payer MEDICAID, SELFPAY | PROVIDERS: Emergency Provider Emergency Medicine; PCP Family Medicine; Visit Provider Internal Medicine | DX: R00.0 Tachycardia, unspecified (principal) | CPT/HCPCS: 93010 ==